=== PATIENT | male | born 1945 | race Caucasian/White ===

== ENCOUNTER 2020-07-08 10:28 | Outpatient (REF) | payer MEDICARE, MEDICAID, SELFPAY ==
[2020-07-08 10:53] LABS: MANUAL DIFF FLAG NO
[2020-07-08 10:57] LABS: Basophils Percent Auto 0.5 % (0-2); Eosinophils Absolute Auto 0.2 X10*3/uL (0.0-0.4); Eosinophils Percent Auto 2.4 % (0-4); Hematocrit 43.2 % (42-52); Hemoglobin 14.2 g/dl (14.0-18.0); Imm Gran Abs Auto 0.04 X10*3/uL (0.00-0.03); Imm Gran Pct Auto 0.5 % (0.0-0.4); Lymphocytes Absolute Auto 1.7 X10*3/uL (1.2-4.9); Lymphocytes Percent Auto 21.9 % (20-40); Mean Corpuscular HGB Conc 32.9 g/dl (31.0-36.0); Mean Corpuscular Hemoglobin 30.7 pg (27.0-33.0); Mean Corpuscular Volume 93.3 fL (80-98); Mean Platelet Volume 10.2 fL (9.4-12.4); Monocytes Absolute Auto 0.5 X10*3/uL (0.1-1.2); Monocytes Percent Auto 6.7 % (2-11); Neutrophils Absolute Auto 5.3 X10*3/uL (2.0-8.3); Platelet Count 222 X10*3/uL (160-400); Red Blood Count 4.63 X10*6/uL (4.60-5.80); Red Cell Distribution Width 13.3 % (11.0-16.0); White Blood Count 7.8 X10*3/uL (4.8-10.8)
[2020-07-08 11:41] LABS: Alanine Aminotransferase 17 U/L (0-40); Albumin Level 3.9 g/dL (3.5-5.0); Alkaline Phosphatase 82 U/L (39-117); Anion Gap 12 (12-20); Aspartate Amino Transferase 16 U/L (5-37); Blood Urea Nitrogen 14 mg/dL (9-16); Calcium 8.3 mg/dL (8.4-10.2); Carbon Dioxide 34 mmol/L (22-29); Chloride 98 mmol/L (96-108); Cholesterol 109 mg/dL; Estimated Glomerular Filt Rate > 60; Glucose Fasting 151 mg/dL (60-99); HDL Cholesterol 28 mg/dL; LDL Cholesterol Calculated 56 mg/dl; Potassium 4.1 mmol/L (3.3-5.1); Sodium 140 mmol/L (135-145); Total Protein 7.1 g/dL (6.5-8.0); Triglycerides 126 mg/dL
== END 2020-07-08 10:29 | disposition home or self-care (01) ==
LOC: HO.LAB 10:28
PROVIDERS: Visit Provider Nurse Practitioner Family
DX: E11.9 Type 2 diabetes mellitus without complications (principal); E78.00 Pure hypercholesterolemia, unspecified; Z12.5 Encounter for screening for malignant neoplasm of prostate
CPT/HCPCS: 36415; 80053; 80061; 84153; 85025

== ENCOUNTER 2022-09-26 11:53 | Emergency (ER) | payer MEDICARE, MEDICAID, SELFPAY ==
--- NOTE | ~2022-09-26 | CT_ITS ---
EXAMINATION: CT HEAD WITHOUT CONTRAST CLINICAL INFORMATION: On blood thinners. Weakness. COMPARISON: None. TECHNIQUE: Contiguous axial imaging was performed from the skull base to vertex without intravenous administration of contrast. Coronal and sagittal reformatted images are performed at the CT scanner. [This CT examination was performed using dose optimization techniques as appropriate, variously including the following: *Automated exposure control *Adjustment of mA and/or kV according to patient size (this includes techniques or standardized protocols for targeted exams where dose is matched to indication/reason for exam; i.e. extremities or head) *Use of iterative reconstruction technique] DLP: 695 mGy-cm. FINDINGS: There is no evidence of acute intracranial hemorrhage or territorial infarction. No abnormal mass-effect or midline shift is seen. Sanchez to white matter differentiation is well preserved. No extra-axial fluid collections are identified. The ventricles are normal in size. There is no abnormal attenuation within the brain parenchyma. There is no osseous abnormality. Complete opacification of the sphenoid sinuses. Mucosal thickening in scattered areas involving sinuses opacification of the posterior ethmoid sinuses. Lobular mucosal thickening in the inferior left maxillary sinus. The mastoid air cells and middle ear cavities are normally aerated. CT/CT head/brain wo IV con IMPRESSION: No acute intracranial pathology.
--- NOTE | ~2022-09-26 | XR_ITS ---
EXAMINATION: XR CHEST CLINICAL INFORMATION: Chest pain COMPARISON: Previous chest x-ray March 2007 TECHNIQUE: Frontal view of the chest was obtained. FINDINGS: The cardiac and mediastinal contours are stable. 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 The lungs are clear. No pleural effusion or pneumothorax. Degenerative changes of the spine and shoulders. Median sternotomy. XR/XR chest 1V IMPRESSION: No evidence for acute disease in the chest.
--- NOTE | 2022-09-26 12:02 | ECG_ITS ---
Test Reason : chest pain Blood Pressure : / mmHG Vent. Rate : 075 BPM Atrial Rate : 000 BPM P-R Int : 000 ms QRS Dur : 102 ms QT Int : 396 ms P-R-T Axes : 000 045 066 degrees QTc Int : 442 ms Atrial fibrillation Possible Inferior infarct (cited on or before 15-NOV-2004) Abnormal ECG When compared with ECG of 23-SEP-2005 09:32, Atrial fibrillation has replaced Sinus rhythm Referred By: Generic ED Physician Electronically Signed By:SUPRIYA GILLEPSIE
[2022-09-26 12:05] VITALS: BP 148/80; PULSE 80; O2SAT 98
[2022-09-26 12:29] VITALS: BP 126/73; PULSE 78; RESP 22; TEMP 36.6; O2SAT 97; BMI 31.4
[2022-09-26 12:53] LABS: MANUAL DIFF FLAG NO
[2022-09-26 12:54] LABS: Basophils Absolute Auto 0.1 X10*3/uL (0.0-0.2); Basophils Percent Auto 0.6 % (0-2); Eosinophils Absolute Auto 0.1 X10*3/uL (0.0-0.4); Eosinophils Percent Auto 1.3 % (0-4); Hemoglobin 14.4 g/dl (14.0-18.0); Imm Gran Abs Auto 0.04 X10*3/uL (0.00-0.03); Imm Gran Pct Auto 0.4 % (0.0-0.4); Lymphocytes Absolute Auto 1.8 X10*3/uL (1.2-4.9); Lymphocytes Percent Auto 19.7 % (20-40); Mean Corpuscular HGB Conc 32.7 g/dl (31.0-36.0); Mean Corpuscular Hemoglobin 29.9 pg (27.0-33.0); Mean Corpuscular Volume 91.5 fL (80.0-98.0); Mean Platelet Volume 8.9 fL (9.4-12.4); Monocytes Absolute Auto 0.6 X10*3/uL (0.1-1.2); Monocytes Percent Auto 6.8 % (2-11); Neutrophils Absolute Auto 6.7 x10*3/uL (2.0-8.3); Neutrophils Percent Auto 71.2 % (45-73); Platelet Count 304 X10*3/uL (160-400); Red Blood Count 4.81 X10*6/uL (4.60-5.80); Red Cell Distribution Width 13.7 % (11.0-16.0); White Blood Count 9.4 X10*3/uL (4.8-10.8)
[2022-09-26 13:13] LABS: Anion Gap 15 (12-20); Blood Urea Nitrogen 12 mg/dL (9-16); Calcium 9.3 mg/dL (8.4-10.2); Carbon Dioxide 31 mmol/L (22-29); Chloride 96 mmol/L (96-108); Creatinine Clr Calc Pharmacy 70.7; Estimated Glomerular Filt Rate > 60; Glucose Random 238 mg/dL (60-115); Potassium 4.7 mmol/L (3.3-5.1); Sodium 137 mmol/L (135-145)
[2022-09-26 13:15] LABS: B Type Natriuretic Peptide 106 pg/mL (<100); Troponin-I High Sensitivity 9.9 ng/L (<3.5-35.0)
--- NOTE | 2022-09-26 13:18 | ED.CHESTPAIN ---
HPI - Chest Pain General Chief Complaint: Chest Pain Stated Complaint: chest pain x 2 weeks Time Seen by Provider: 09/26/22 12:54 Source: patient and educational interpreter History of Present Illness HPI narrative: This 77-year-old male with history of atrial fibrillation, diabetes, hypertension who has returned recently from [place] on 09/23 and reports that during his stay in [place] he had a 5 day admission for increased weakness and difficulty with walking. Patient states that he took his prescribed medications with him to [place] and denies missing any. Patient reports left-sided chest pain that started this morning, woke him from sleep, and is nonradiating, comes and goes and not associated with any dizziness/shortness of breath/headache/nausea/diaphoresis. Patient also complains of lung problems and is noted to be on diuretics and reports that he has had increasing weakness and fatigue. Related Data Home Medications Medication Instructions Recorded Confirmed albuterol sulfate 2 mg/5 mL oral 4 mg PO Q4H 07/06/20 07/06/20 syrup albuterol sulfate 2.5 mg/3 mL 2.5 mg inhalation Q4H PRN 07/06/20 07/06/20 (0.083 %) solution for nebulization atorvastatin 40 mg tablet 40 mg PO DAILY 07/06/20 07/06/20 blood sugar diagnostic #10 ea 07/06/20 07/06/20 blood-glucose meter (OneTouch #1 ea 07/06/20 07/06/20 Ultra2 Meter kit) carvedilol 12.5 mg tablet 12.5 mg PO BID 07/06/20 07/06/20 fluticasone 250 mcg-salmeterol 50 1 inh inhalation BID 07/06/20 07/06/20 mcg/dose blistr powdr for inhalation (Wixela Inhub) nitroglycerin 0.4 mg sublingual 0.4 mg sublingual Q5M PRN 07/06/20 07/06/20 tablet pantoprazole 40 mg tablet,delayed 40 mg PO DAILY 07/06/20 07/06/20 release tamsulosin 0.4 mg capsule 0.4 mg PO DAILY 07/06/20 07/06/20 warfarin 5 mg tablet 5 mg PO DAILY 07/06/20 07/06/20 Previous Rx's Medication Instructions Recorded glipizide 10 mg tablet 10 mg PO DAILY 30 days #30 tabs 07/15/20 lancets (OneTouch UltraSoft #100 ea 07/15/20 Lancets) lisinopril 2.5 mg tablet 2.5 mg PO DAILY 2 months #60 tabs 07/15/20 sulfamethoxazole 800 1 tab PO BID 10 days #20 tabs 07/20/20 mg-trimethoprim 160 mg tablet (Bactrim DS) cefdinir 300 mg capsule 300 mg PO BID 7 days #14 caps 09/26/22 Allergies Allergy/AdvReac Type Severity Reaction Status Date / Time Penicillins Allergy Hives Verified 09/26/22 12:29 Review of Systems Review of Systems: Pertinent positives and negatives as stated in [facility] Past Medical History Source: nursing notes reviewed Medical History Active asthma COVID-19 Diabetes Diabetes Heart attack High cholesterol Hypertension Pulmonary embolism Pulmonary embolism UTI (urinary tract infection) Surgical History History of open heart surgery Family History Family History Mother Heart problem Father Heart problem Social History Social History Alcohol intake: never Advance Directives: Yes Advance Directives on File: Yes Advance Directives Date on File: 07/17/20 Physical Exam Vital Signs: Vital Signs: Last Vital Signs Temp 97.4 F 09/26/22 14:55 Pulse 62 09/26/22 14:55 Resp 22 H 09/26/22 14:55 BP 106/64 09/26/22 14:55 Pulse Ox 95 09/26/22 14:55 O2 Del Method Room Air 09/26/22 14:55 BMI result Body Mass Index 31.4 VITAL SIGNS: Reviewed. GENERAL: Well developed, well nourished, in no acute distress. HEAD: Normocephalic/atraumatic EYES: PERRLA, EOMI EARS: Ext canals without abnormality NOSE: Nares patent bilateral OROPHARYNX: no oral lesions noted, posterior pharynx clear NECK: Supple, no adenopathy LUNGS: Patient has good inspiratory effort with noted right lower lobe rales, no tachypnea or wheeze/rhonchi. SpO2<97> CARDIOVASCULAR: Regular rate and rhythm without noted murmurs, no JVD or lower extremity edema. ABDOMEN: Soft, non-tender, non-distended with bowel sounds. MUSCULOSKELETAL: No tenderness, deformities, or effusions noted on gross inspection. EXTREMITIES: No cyanosis, clubbing or edema. SKIN: Inspection of the skin reveals no rashes NEUROLOGIC: Alert and oriented x 4. Strength and sensation to light touch were grossly intact x 4, patient's face is asymmetrical but states that this is his baseline and no deficits noted on active examination, cranial nerves 2-12 are grossly intact, no pronator drift.. Medications Administered Discontinued Medications Generic Name Dose Route Start Last Admin Trade Name Freq PRN Reason Stop Dose Admin Furosemide 20 mg 09/26/22 16:21 09/26/22 16:38 Furosemide 20 Mg Tablet PO 09/26/22 16:22 20 mg ONCE ONE Administration Protocol Ceftriaxone Sodium 1 gm/ 50 mls @ 100 mls/hr 09/26/22 15:27 09/26/22 16:40 Sodium Chloride IV 09/26/22 15:56 Infused ONCE ONE Infusion Medical Decision Making Medical Decision Making MDM Narrative: 77-year-old male with suspected decline in cardiac function, will assess PT INR for therapeutic range given that he is on Coumadin and has known PE. If indicated, will follow through with CT angio for with PE protocol especially given long flights in an out of [place] and no access to those records at the hospital. He is however oxygenating well, blood pressure is stable heart rate not indicative as patient is on a beta-luiz. 1506: I reviewed all investigations and clinically patient has some rales though no hypoxia and no significant lower extremity edema with a mildly elevated BNP. Will give additional 20 mg of Lasix at this time. INR is noted to be supratherapeutic, any evaluation by PT are case management for possible short-term rehab as patient is requesting will be unlikely at this time due to INR of 7. EKG appears to be within normal limits, low clinical suspicion for any PE at this point secondary to supratherapeutic level of the Coumadin, CT scan is pending to ensure no intracranial etiology for overall weakness. On re-evaluation patient continues to be nonfocal and otherwise appear well. Records have been request from [facility]. 1526: Urine was just return and has presence of both leukocyte esterase as well as greater than 50 wbc's no squamous epithelial cells and hyaline casts 3-5. There is no leukocytosis and no complaints of fever chills but it is will treat for urinary tract infection at this time with initial dose of Rocephin. 1607: On re-evaluation discussed with patient the fact that his INR was elevated and that he had a urinary tract infection and he further elaborates that he was on antibiotic he finished 2 days ago and had received a Fragoso catheter while in [place]. He states that he thinks that the antibiotic that he was on may have interfered with his Coumadin. He informs me that his primary care doctor is Dr. Sousa and will attempt to reach out to this primary care provider to set up outpatient follow-up and have instructed the patient to stop taking the Coumadin until his INR resolves down into the normal range. 1710: I discussed the case with Dr. Sousa's office and they made an appointment for the patient on Monday at 11:15. This will be communicated to him, patient has received initial antibiotics here in the emergency room. He also received a referral for Urology. He is otherwise discharged home in stable condition, serial troponins are flat and no EKG changes. Differential Diagnosis Please see the discussion above Lab Data Please see the discussion above 09/26/22 12:46 09/26/22 12:46 Labs: Lab Results 09/26/22 09/26/22 09/26/22 Range/Units 12:46 12:46 12:46 WBC 9.4 (4.8-10.8) X10*3/uL RBC 4.81 (4.60-5.80) X10*6/uL Hgb 14.4 (14.0-18.0) g/dl Hct 44.0 (42.0-52.0) % MCV 91.5 (80.0-98.0) fL MCH 29.9 (27.0-33.0) pg MCHC 32.7 (31.0-36.0) g/dl RDW 13.7 (11.0-16.0) % Plt Count 304 (160-400) X10*3/uL MPV 8.9 L (9.4-12.4) fL Immature Gran % (Auto) 0.4 (0.0-0.4) % Neut % (Auto) 71.2 (45-73) % Lymph % (Auto) 19.7 L (20-40) % [place] % (Auto) 6.8 (2-11) % Eos % (Auto) 1.3 (0-4) % Baso % (Auto) 0.6 (0-2) % Lymph # (Auto) 1.8 (1.2-4.9) X10*3/uL [place] # (Auto) 0.6 (0.1-1.2) X10*3/uL Eos # (Auto) 0.1 (0.0-0.4) X10*3/uL Baso # (Auto) 0.1 (0.0-0.2) X10*3/uL Abs Immat Gran (auto) 0.04 H (0.00-0.03) X10*3/uL Absolute Neuts (auto) 6.7 (2.0-8.3) x10*3/uL Absolute Nucleated RBC 0.000 (0.0-0.012) X10*3/uL Nucleated RBC % (auto) 0.0 (0.0-0.2) /100WBC PT (10.0-13.1) SEC INR (0.9-1.1) Sodium 137 (135-145) mmol/L Potassium 4.7 (3.3-5.1) mmol/L Chloride 96 (96-108) mmol/L Carbon Dioxide 31 H (22-29) mmol/L Anion Gap 15 (12-20) BUN 12 (9-16) mg/dL Creatinine 1.11 (0.5-1.4) mg/dL Estim Creat Clear Calc 70.7 Estimated GFR > 60 Random Glucose 238 H (60-115) mg/dL Calcium 9.3 D (8.4-10.2) mg/dL Troponin I High Sens 9.9 (<3.5-35.0) ng/L B-Natriuretic Peptide (<100) pg/mL Urine Color Urine Appearance Urine pH (5.0-9.0) Ur Specific [place] (1.005-1.025) Urine Protein (Neg-Trace) mg/dL Urine Glucose (UA) (Negative) mg/dL Urine Ketones (Negative) mg/dL Urine Blood (Negative) Urine Nitrite (Negative) Ur Leukocyte Esterase (Negative) Urine RBC (0-2) /HPF Urine WBC (0-5) /HPF Ur Squamous Epith Cells (0-2) /HPF Urine Bacteria (None Seen) Hyaline Casts (0-2) /LPF 09/26/22 09/26/22 09/26/22 Range/Units 12:46 13:24 14:57 WBC (4.8-10.8) X10*3/uL RBC (4.60-5.80) X10*6/uL Hgb (14.0-18.0) g/dl Hct (42.0-52.0) % MCV (80.0-98.0) fL MCH (27.0-33.0) pg MCHC (31.0-36.0) g/dl RDW (11.0-16.0) % Plt Count (160-400) X10*3/uL MPV (9.4-12.4) fL Immature Gran % (Auto) (0.0-0.4) % Neut % (Auto) (45-73) % Lymph % (Auto) (20-40) % [place] % (Auto) (2-11) % Eos % (Auto) (0-4) % Baso % (Auto) (0-2) % Lymph # (Auto) (1.2-4.9) X10*3/uL [place] # (Auto) (0.1-1.2) X10*3/uL Eos # (Auto) (0.0-0.4) X10*3/uL Baso # (Auto) (0.0-0.2) X10*3/uL Abs Immat Gran (auto) (0.00-0.03) X10*3/uL Absolute Neuts (auto) (2.0-8.3) x10*3/uL Absolute Nucleated RBC (0.0-0.012) X10*3/uL Nucleated RBC % (auto) (0.0-0.2) /100WBC PT 90.4 H (10.0-13.1) SEC INR 7.2 H* (0.9-1.1) Sodium (135-145) mmol/L Potassium (3.3-5.1) mmol/L Chloride (96-108) mmol/L Carbon Dioxide (22-29) mmol/L Anion Gap (12-20) BUN (9-16) mg/dL Creatinine (0.5-1.4) mg/dL Estim Creat Clear Calc Estimated GFR Random Glucose (60-115) mg/dL Calcium (8.4-10.2) mg/dL Troponin I High Sens (<3.5-35.0) ng/L B-Natriuretic Peptide 106 H (<100) pg/mL Urine Color Yellow Urine Appearance Cloudy Urine pH 7.0 (5.0-9.0) Ur Specific [place] 1.015 (1.005-1.025) Urine Protein 30 (1+) H (Neg-Trace) mg/dL Urine Glucose (UA) Negative (Negative) mg/dL Urine Ketones Negative (Negative) mg/dL Urine Blood Negative (Negative) Urine Nitrite Negative (Negative) Ur Leukocyte Esterase Large (3+) H (Negative) Urine RBC 0-2 (0-2) /HPF Urine WBC >50 H (0-5) /HPF Ur Squamous Epith Cells 0-2 (0-2) /HPF Urine Bacteria 3+ (None Seen) Hyaline Casts 3-5 (0-2) /LPF 09/26/22 Range/Units 15:16 WBC (4.8-10.8) X10*3/uL RBC (4.60-5.80) X10*6/uL Hgb (14.0-18.0) g/dl Hct (42.0-52.0) % MCV (80.0-98.0) fL MCH (27.0-33.0) pg MCHC (31.0-36.0) g/dl RDW (11.0-16.0) % Plt Count (160-400) X10*3/uL MPV (9.4-12.4) fL Immature Gran % (Auto) (0.0-0.4) % Neut % (Auto) (45-73) % Lymph % (Auto) (20-40) % [place] % (Auto) (2-11) % Eos % (Auto) (0-4) % Baso % (Auto) (0-2) % Lymph # (Auto) (1.2-4.9) X10*3/uL [place] # (Auto) (0.1-1.2) X10*3/uL Eos # (Auto) (0.0-0.4) X10*3/uL Baso # (Auto) (0.0-0.2) X10*3/uL Abs Immat Gran (auto) (0.00-0.03) X10*3/uL Absolute Neuts (auto) (2.0-8.3) x10*3/uL Absolute Nucleated RBC (0.0-0.012) X10*3/uL Nucleated RBC % (auto) (0.0-0.2) /100WBC PT (10.0-13.1) SEC INR (0.9-1.1) Sodium (135-145) mmol/L Potassium (3.3-5.1) mmol/L Chloride (96-108) mmol/L Carbon Dioxide (22-29) mmol/L Anion Gap (12-20) BUN (9-16) mg/dL Creatinine (0.5-1.4) mg/dL Estim Creat Clear Calc Estimated GFR Random Glucose (60-115) mg/dL Calcium (8.4-10.2) mg/dL Troponin I High Sens 9.4 (<3.5-35.0) ng/L B-Natriuretic Peptide (<100) pg/mL Urine Color Urine Appearance Urine pH (5.0-9.0) Ur Specific [place] (1.005-1.025) Urine Protein (Neg-Trace) mg/dL Urine Glucose (UA) (Negative) mg/dL Urine Ketones (Negative) mg/dL Urine Blood (Negative) Urine Nitrite (Negative) Ur Leukocyte Esterase (Negative) Urine RBC (0-2) /HPF Urine WBC (0-5) /HPF Ur Squamous Epith Cells (0-2) /HPF Urine Bacteria (None Seen) Hyaline Casts (0-2) /LPF Independent Interpretation I performed an independent interpretation of an: EKG Interpretation: Atrial fibrillation, HR-75, no STEMI, QTC and QRS within normal limits. Radiology Impression Radiologist Impression: My interpretation is in agreement with radiology's impression. External Record Review External record reviewed: Prior outpatient labs Discharge Plan Discharge Clinical Impression: Weakness, Supratherapeutic INR Patient Disposition: Still a Patient Instructions: Urinary Tract Infection in Men (ED), Weakness (ED), Urinary Tract Infection in Older Adults (ED) Additional Instructions: 1. Reanudar todos los medicamentos caseros excepto Coumadin (warfarina). Deber? volver a controlar keen INR en los pr?ximos 2 o 3 d?as antes de reiniciar el Coumadin. 2. Complete todo el ciclo de antibi?ticos seg?n lo indicado. 3. Se le ingram derivado para seguimiento con urolog?a por sospecha de BPH y retenci?n urinaria. 4. Llame al consultorio del ur?logo as? vani a keen proveedor de atenci?n primaria para programar citas de seguimiento. tienes ariana marcelino el mi?rcoles 28/09 a las 11:[address] Sousa Regrese a la leydi de emergencias por cualquier s?ntoma que empeore, tambi?n podr?mallory repetir keen trabajo de laboratorio si es necesario. 1. Resume all home medications except Coumadin (warfarin). You will need to have your INR checked again in the next 2-3 days before restarting the Coumadin. 2. Complete the entire course of antibiotics as ordered. 3. You have been given a referral to follow-up with urology for suspected BPH and urinary retention. 4. Please call the office of the urologist as well as your primary care provider to set up follow-up appointments. you have an appointment on Monday, 09/28, at 11:[address] Sousa Return to the ER for any worsening symptoms, we would also be able to repeat your lab work if needed. Prescriptions: New cefdinir 300 mg capsule 300 mg PO BID 7 Days Qty: 14 0RF Held warfarin 5 mg tablet 5 mg PO DAILY Hold Instructions: Resume on 09/30/22. INR must be 2-3, currently 7 No Action glipizide 10 mg tablet 10 mg PO DAILY 30 Days Qty: 30 0RF lisinopril 2.5 mg tablet 2.5 mg PO DAILY 60 Days Qty: 60 0RF (DME) lancets [OneTouch UltraSoft Lancets] Misc See Rx Instructions .ROUTE .MEDSUPPLY Qty: 100 0RF Rx Instructions: As directed albuterol sulfate 2 mg/5 mL syrup 4 mg PO Q4H albuterol sulfate 2.5 mg /3 mL (0.083 %) solution for nebulization 2.5 mg inhalation Q4H PRN atorvastatin 40 mg tablet 40 mg PO DAILY carvedilol 12.5 mg tablet 12.5 mg PO BID Rx Instructions: must administer with a meal/food nitroglycerin 0.4 mg tablet, sublingual 0.4 mg sublingual Q5M PRN Rx Instructions: do not exceed 3 doses per episode (DME) blood-glucose meter [OneTouch Ultra2 Meter] Kit See Rx Instructions .ROUTE .MEDSUPPLY Qty: 1 Patient Comments: bid Rx Instructions: As directed (DME) blood sugar diagnostic Strip See Rx Instructions .ROUTE .MEDSUPPLY Qty: 10 Patient Comments: use bid Rx Instructions: As directed pantoprazole 40 mg tablet,delayed release (DR/EC) 40 mg PO DAILY tamsulosin 0.4 mg capsule 0.4 mg PO DAILY Rx Instructions: use 30 minutes after same meal every day. fluticasone propion-salmeterol [Wixela Inhub] 250-50 mcg/dose blister with device 1 inh inhalation BID sulfamethoxazole-trimethoprim [Bactrim DS] 800-160 mg tablet 1 tab PO BID 10 Days Qty: 20 0RF Referrals: Miguel Sousa MD [Primary Care Provider] - 09/28/22 11:15 am Vinod Stevens MD [Physician] - Print Language: Danish
[2022-09-26 13:44] LABS: Prothrombin Time 90.4 SEC (10.0-13.1)
[2022-09-26 13:56] LABS: INTERNATIONAL NORM RATIO 7.2 (0.9-1.1)
[2022-09-26 14:55] VITALS: BP 106/64; PULSE 62; RESP 22; TEMP 36.3; O2SAT 95
[2022-09-26 15:12] LABS: Appearance Urine Cloudy; Color Urine Yellow; Glucose Urine UA Negative (Negative); Leukocyte Esterase Urine Large (3+) (Negative); Nitrite Urine Negative (Negative); Specific Gravity - Urine 1.015 (1.005-1.025); UMIC TRIGGER UACC YES; Urine Blood Negative (Negative); Urine Ketones Negative (Negative); Urine Protein 30 (1+) mg/dL (Neg-Trace)
[2022-09-26 15:15] LABS: Bacteria Urine 3+ (None Seen); RBC Urine 0-2 /HPF (0-2); Squamous Epithelial Cell Urine 0-2 /HPF (0-2); UACC Culture Trigger YES; WBC Urine >50 /HPF (0-5)
[2022-09-26 15:42] LABS: Troponin-I High Sensitivity 9.4 ng/L (<3.5-35.0)
[2022-09-26] MEDS: cefTRIAXone sodium 1 GM in 0.9 % Sodium Chloride 50 ML IV (16:11)
[2022-09-26] MEDS: Furosemide 20 MG TABLET PO (16:38)
== END 2022-09-26 17:49 | disposition home or self-care (01) ==
PROVIDERS: Emergency Provider Student in an Organized Health Care Education/Training Program; PCP Internal Medicine
DX: R53.1 Weakness (principal); R79.1 Abnormal coagulation profile; N39.0 Urinary tract infection, site not specified; B96.20 Unspecified Escherichia coli [E. coli] as the cause of diseases classified elsewhere; R07.9 Chest pain, unspecified; E11.9 Type 2 diabetes mellitus without complications; I10 Essential (primary) hypertension; E78.00 Pure hypercholesterolemia, unspecified; I48.91 Unspecified atrial fibrillation; Z86.711 Personal history of pulmonary embolism; Z79.02 Long term (current) use of antithrombotics/antiplatelets; Z79.01 Long term (current) use of anticoagulants; Z79.899 Other long term (current) drug therapy
CPT/HCPCS: 36415; 51798; 70450; 71045; 80048; 81001; 83880; 84484; 85025; 85610; 87086; 87088; 87186; 93005; 96365; 99284; 99285; J0696

== ENCOUNTER 2022-09-28 11:44 | Emergency (ER) | payer MEDICARE, MEDICAID, SELFPAY ==
--- NOTE | ~2022-09-28 | XR_ITS ---
EXAMINATION: XR CHEST CLINICAL INFORMATION: SOB COMPARISON: None available. TECHNIQUE: 2 views of the chest were obtained. FINDINGS: The lungs are well-expanded and clear acute process. The heart size and pulmonary vascularity is normal. There are median sternotomy sutures from previous intervention. There is nytc-[id number]-[id number] ventral spondylosis. No aggressive lytic or sclerotic process seen. XR/XR chest 2V IMPRESSION: No acute cardiopulmonary process seen.
--- NOTE | ~2022-09-28 | CT_ITS ---
EXAMINATION: CT ABDOMEN AND PELVIS WITH CONTRAST CLINICAL INFORMATION: Left upper quadrant and left lower quadrant abdominal pain. COMPARISON: None available. TECHNIQUE: Multidetector volumetric images were obtained from the superior aspect of the liver through the pubic symphysis following administration 85 mL of Omnipaque 350 intravenous contrast. Sagittal and coronal reformatted images were obtained on the technologist's workstation. Oral contrast: No This CT examination was performed using dose optimization techniques as appropriate, variously including the following: *Automated exposure control *Adjustment of mA and/or kV according to patient size (this includes techniques or standardized protocols for targeted exams where dose is matched to indication/reason for exam; i.e. extremities or head) *Use of iterative reconstruction technique DLP: 764 mGy-cm FINDINGS: LUNG BASES: There is bibasilar atelectasis. Heart size is normal. There is mild 80 valve and moderate coronary artery calcifications. No pericardial effusion seen LIVER, GALLBLADDER, AND BILIARY TREE: The liver is normal in size, shape, and attenuation. No focal hepatic lesion or biliary ductal dilatation is present. The gallbladder is unremarkable with no evidence of radiopaque gallstones, gallbladder wall thickening, or obvious pericholecystic inflammatory changes. PANCREAS: Unremarkable. SPLEEN: Unremarkable. ADRENAL GLANDS: Unremarkable. KIDNEYS AND URETERS: The kidneys are normal in size, shape, and attenuation. No hydronephrosis, hydroureter, or calculi seen. With small cortical nonenhancing hypodensities in bilateral kidneys probable small cyst. There is mild bilateral perinephric stranding. BLADDER: The bladder is nondistended with mild bladder wall thickening. GASTROINTESTINAL TRACT: There is diffuse colonic diverticulosis with mild mural thickening or pericolic fat containing and the distal descending colon consistent with acute diverticulitis. There is no abnormal collection or free air. There is scattered stool seen rest the colon. The small bowel loops are normal caliber. Appendix is not visualized with certainty. The stomach is nondistended. ABDOMINAL WALL: No significant hernia is appreciated. LYMPH NODES: No abnormal lymph nodes seen. VASCULAR: Unremarkable. PELVIC VISCERA: The prostate gland is normal size. No free fluid seen. No abnormal pelvic lymph nodes. No evidence of hernia. OSSEOUS STRUCTURES: No aggressive lytic or sclerotic process seen. There is mild ventral spondylosis. CT/CT abdomen pelvis w IV con IMPRESSION: Colonic diverticulosis with distal descending colon acute diverticulitis. No obstruction, free air or fluid collection. Mild constipation. Small nonenhancing tiny renal hypodensities probable cyst. Fleischner guidelines were followed.
--- NOTE | 2022-09-28 11:49 | ED_ITS ---
HPI - General Adult General Chief complaint: Urogenital-Male Stated complaint: Fluid Buildup SOB Pain Time Seen by Provider: 09/28/22 14:38 Source: patient, family and japanese interpreter Mode of arrival: ambulatory Limitations: language barrier History of Present Illness HPI narrative: Patient is a 77-year-old male with history of atrial fibrillation on warfarin, DM, HTN presenting to the emergency department with dyspnea and abdominal pain. Patient was evaluated in this ED on 09/26/22 and was diagnosed with UTI and s upratherapeutic INR. He was started on cefdinir and told to hold his warfarin until 09/30/22. He had a follow up appointment with Dr. Sousa, his PCP this morning who referred patient to the ED. Patient complains of lower abdominal pain with ambulation and dyspnea on exertion. He also complains of feeling more weak. He also reports right flank pain. He denies any chest pain. Denies any fevers. He denies any nausea, vomiting, diarrhea, or constipation. He denies any melena or hematochezia. He denies any hematuria. MD complaint: abdominal pain Onset (ago): day(s) Location: abdomen Radiation: flank (right) Severity: severe Quality: aching Pain Consistency: constant Treatments prior to arrival: other (currently on abx for UTI) Related Data Home Medications Medication Instructions Recorded Confirmed albuterol sulfate 2.5 mg/3 mL 2.5 mg inhalation Q4H PRN 07/06/20 09/29/22 (0.083 %) solution for nebulization Shortness Of Breath Or Wheezing blood sugar diagnostic #10 ea 07/06/20 07/06/20 blood-glucose meter (OneTouch #1 ea 07/06/20 07/06/20 Ultra2 Meter kit) carvedilol 12.5 mg tablet 12.5 mg PO BID 07/06/20 09/29/22 nitroglycerin 0.4 mg sublingual 0.4 mg sublingual Q5M PRN Chest 07/06/20 09/29/22 tablet Pain tamsulosin 0.4 mg capsule 0.4 mg PO DAILY 07/06/20 09/29/22 warfarin 5 mg tablet 5 mg PO SUTH@1800 07/06/20 09/29/22 atorvastatin 10 mg tablet 10 mg PO BEDTIME 09/29/22 09/29/22 cyanocobalamin (vitamin B-12) 500 500 mcg PO DAILY 09/29/22 09/29/22 mcg tablet donepezil 5 mg tablet 5 mg PO BEDTIME 09/29/22 09/29/22 dulaglutide 3 mg/0.5 mL 3 mg subcut ARRIOLA@0900 09/29/22 09/29/22 subcutaneous pen injector (Trulicity) finasteride 5 mg tablet 5 mg PO BEDTIME 09/29/22 09/29/22 furosemide 40 mg tablet 40 mg PO DAILY 09/29/22 09/29/22 lisinopril 5 mg tablet 5 mg PO DAILY 09/29/22 09/29/22 metformin 1,000 mg tablet 1,000 mg PO BID 09/29/22 09/29/22 potassium chloride 20 mEq 20 meq PO DAILY 09/29/22 09/29/22 tablet,extended release warfarin 5 mg tablet 2.5 mg PO MOTUWEFRSA@1800 09/29/22 09/29/22 Previous Rx's Medication Instructions Recorded lancets (Gun.ioTouch UltraSoft #100 ea 07/15/20 Lancets) levofloxacin 500 mg tablet 500 mg PO DAILY #5 tabs 09/29/22 metronidazole 500 mg tablet 500 mg PO BID #10 tabs 09/29/22 Allergies Allergy/AdvReac Type Severity Reaction Status Date / Time Penicillins Allergy Hives Verified 09/26/22 12:29 Review of Systems Review of Systems: As per HPI. Yes all other systems are reviewed and are negative Constitutional: Constitutional: Reports fatigue, Denies fever(s) and Reports weakness Eyes: Eyes: Reports no additional eye complaints ENT: Reports system reviewed and no additional complaints, except as documented Cardiovascular: Cardiovascular: Reports no additional cardiovascular complaints and Reports dyspnea on exertion Respiratory: Respiratory: Reports dyspnea on exertion Gastrointestinal: Gastrointestinal: Reports abdominal pain, Denies melena and Denies hematochezia Genitourinary: Genitourinary: Denies hematuria and Reports flank pain Musculoskeletal: Musculoskeletal: Reports no additional musculoskeletal complaints Integumentary/Breasts: Skin/Breast: Reports system reviewed and no additional complaints, except as docu Neurologic: Reports system reviewed and no additional complaints, except as documented and Reports weakness Psychiatric: Psychiatric: Reports no additional psychiatric complaints Endocrine: Endocrine: Reports no additional endocrine complaints and Reports fatigue Hematologic/Lymphatic: Hematologic/Lymphatic: Reports no additional hematologic/lymphatic complaints Allergic/Immunologic: Allergic/Immunologic: Reports no additional allergic/immunologic complaints [facility] Past Medical History Medical History Active asthma COVID-19 Diabetes Diabetes Heart attack High cholesterol Hypertension Pulmonary embolism Pulmonary embolism UTI (urinary tract infection) Surgical History History of open heart surgery Family History Family History Mother Heart problem Father Heart problem Social History Social History Alcohol intake: never Advance Directives: Yes Advance Directives on File: Yes Advance Directives Date on File: 07/17/20 Physical Exam ED Vital Signs: Vital Signs - 24 hr 09/28/22 15:32 09/28/22 18:27 09/28/22 21:34 Temperature 98.2 F 98.6 F 98.8 F Pulse Rate 75 82 78 Respiratory Rate 18 16 22 H Blood Pressure 104/65 114/67 104/68 Pulse Oximetry 95 97 94 Oxygen Delivery Method Room Air Room Air 09/29/22 00:08 Temperature 98.0 F Pulse Rate 76 Respiratory Rate 18 Blood Pressure 119/71 Pulse Oximetry 92 Oxygen Delivery Method Room Air BMI result Body Mass Index 31.4 Vital signs have been reviewed and appear to be correct. Blood pressure normal. Heart rate normal. Respiratory rate normal. Temperature normal. Oxygen saturation normal. Const General: cooperative and no acute distress Orientation/consciousness: oriented to person, oriented to place, oriented to time and patient oriented x3 Limitations: no limitations [facility] Head: Yes normocephalic and Yes atraumatic Ears: external ears normal General nose exam: Normal external nose present Mouth: oropharynx normal and moist mucous membranes Throat: Yes uvula midline Eyes Pupils: Equal, round and reactive pupils present Neck Neck: Yes normal visual inspection and Yes supple Resp Effort & Inspection: normal respiratory effort and able to speak in complete sentences Auscultation: clear to auscultation bilaterally Cardio Rate: regular rate Heart sounds: S1 normal heart sound present and S2 normal heart sound present GI Inspection: Yes distended Palpation (GI): Soft to palpation, Tenderness to palpation present (GI) in the LLQ and in the LUQ, no guarding, no pulsatile masses and No Rebound tenderness present Auscultation: normoactive bowel sounds General: Yes no CVA tenderness Back/Spine/Pelvis Back: no CVA tenderness Skin General skin exam: elasticity normal and turgor normal Neuro General: oriented to person, oriented to place, oriented to time, patient oriented x3, moves all extremities, no focal motor deficits and CN's II-XI intact bilaterally Cranial nerves: Yes Equal, round and reactive pupils present Cognition (Neuro): normal cognition Extrem General: Yes full ROM, Yes no pedal edema and Yes no calf tenderness Psych Mental Status: mental status grossly normal Affect: normal affect Thought process: Normal thought process present Course Course Course Narrative: RME: 77-year-old male with history of atrial fibrillation, diabetes, hypertension, recently seen and treated in our ED on 09/26 diagnosed UTI and supratherapeutic INR to 7.2 presenting to the ED complaining of persistent abdominal and rib pain, & fluid in lungs per PCP. Also reports generalized fatigue/weakness. + bibasilar crackles noted. Abdomen soft diffusely tender, 1+ bilateral pitting edema EKG, labs, CXR ordered Full HPI, ROS and PE to be performed by primary ED provider. 16:06 Attempted to call patient's son to discuss PT eval/case management. Num braxton listed in EMR is incorrect. Patient currently asleep. Patient signed out to QUIRINO Hayes pending CT results. Reevaluation(s) Reevaluation #1: CT of the abdomen pelvis with colonic diverticulosis with distal descending colon acute diverticulitis. No obstruction. Free air fluid. Mild constipation. Small nonenhancing tiny renal hypodensities. Patient reports he is unable to tolerate p.o. and is in excruciating pain at this time. Will give antibiotics, fluids. Time: 00:52 Reevaluation #2: If p.o. antibiotics. Still unable to communicate with patient's son as the number the chart is not active. Discussed case with hospitalist does not req uire hospital admission will put in PT and Case Management. Time: 00:57 Reevaluation #3: physician observation continued. VSS overnight. patient has been started on levaquin and flagyl for diverticulitis. he also has E. coli UTI from 09/26 that is sensitive to levaquin. he is c/o abd pain - will start around the clock tylenol. He is able to tolerate PO, ate a cheeseburger last night. He is on coumadin with a supratherapeutic INR, so it has been held. will continue to monitor INR daily given levaquin use. no signs of bleeding. he is pending physical therapy evaluation and case management consult. Time: 06:44 Additional Reevaluation(s): 13:29 - patient seen and evaluated by Physical therapy. Patient deemed stable to go home with physical therapy and nursing services. His INR trended down to 4.4. He is on Levaquin and Flagyl for diverticulitis. He was counseled on the possibility of increasing INR while on Levaquin. He will get his INR checked in 2 days and follow up with his primary care doctor. Will discharge home with 5 more days of antibiotics for diverticulitis, close outpatient follow-up. Return precautions were discussed. Stable for discharge home. Physician observation discontinued at this time. Medications Administered Generic Name Dose Route Start Last Admin Trade Name Freq PRN Reason Stop Dose Admin Acetaminophen 975 mg 09/29/22 07:00 09/29/22 08:07 Acetaminophen 325 Mg Tablet PO 975 mg Q8H MARCO A Administration Metronidazole 500 mg 09/29/22 09:00 09/29/22 08:07 Metronidazole 500 Mg Tablet PO 500 mg BID MARCO A Administration Discontinued Medications Generic Name Dose Route Start Last Admin Trade Name Freq PRN Reason Stop Dose Admin Magnesium Sulfate 2 gm in 50 mls @ 25 mls/hr 09/28/22 14:42 09/28/22 18:01 Magnesium Sulfate/H2o IV 09/28/22 16:41 Infused ONCE ONE Infusion Iohexol 85 ml 09/28/22 15:17 09/28/22 15:19 Iohexol 350 Mg/Ml 100 Ml Infus..Btl IV 09/28/22 15:18 85 ml ONCE ONE Administration Levofloxacin 750 mg 09/29/22 00:56 09/29/22 01:01 Levofloxacin 750 Mg Tablet PO 09/29/22 00:57 750 mg ONCE ONE Administration Metronidazole 500 mg 09/29/22 00:56 09/29/22 01:01 Metronidazole 500 Mg Tablet PO 09/29/22 00:57 500 mg ONCE ONE Administration Morphine Sulfate 4 mg 09/29/22 00:35 09/29/22 00:57 Morphine Sulfate 4 Mg/Ml Cartridge IVPUSH 09/29/22 00:36 4 mg ONCE ONE Administration Protocol Medical Decision Making Medical Decision Making [facility] Narrative: Patient is a 77-year-old male with history of atrial fibrillation on warfarin, DM, HTN presenting to the emergency department with dyspnea and abdominal pain. On exam patient is awake, A+Ox3, normal neurological exam without focal deficits, VS WNL, lungs CTA throughout, abdomen is soft, tender to palpation left upper and lower quadrants, no CVA tenderness or ecchymosis. EKG shows afib with incomplete RBBB, no evidence of STEMI. CXR ordered in triage was negative for any acute process. Mild leukocytosis on labs, magnesium low, will replace IV. Unlikely ACS as troponin drawn in triage is negative. Given patient's supratherapeutic INR (though improved from 09/26) concern for retroperitoneal hemorrhage, also diverticulitis/abscess, mesenteric ischemia, perforated viscous, nephrolithiasis. Lipase normal, unlikely pancreatitis. Unlikely SBO. Urine culture from 09/26/22 shows E. coli succeptible to cephalosporins so low suspicion for pyelonephritis. Plan: CT abdomen/pelvis, reassess Differential Diagnosis Differential Diagnoses: The differential diagnosis associated with the presentation includes As above. Admission/Observation Consideration of admission/observation: Escalation of care including admission/observation considered Lab Data [facility] Lab Attestation statement: I reviewed the patient's lab results. 09/28/22 12:24 09/28/22 12:24 Labs: Lab Results 09/28/22 09/28/22 09/28/22 Range/Units 12:24 12:24 12:24 WBC 12.2 H (4.8-10.8) X10*3/uL RBC 4.88 (4.60-5.80) X10*6/uL Hgb 14.7 (14.0-18.0) g/dl Hct 45.0 (42.0-52.0) % MCV 92.2 (80.0-98.0) fL MCH 30.1 (27.0-33.0) pg MCHC 32.7 (31.0-36.0) g/dl RDW 13.8 (11.0-16.0) % Plt Count 311 (160-400) X10*3/uL MPV 8.9 L (9.4-12.4) fL Immature Gran % (Auto) 0.4 (0.0-0.4) % Neut % (Auto) 75.5 H (45-73) % Lymph % (Auto) 15.7 L (20-40) % Parke % (Auto) 7.3 (2-11) % Eos % (Auto) 0.7 (0-4) % Baso % (Auto) 0.4 (0-2) % Lymph # (Auto) 1.9 (1.2-4.9) X10*3/uL Parke # (Auto) 0.9 (0.1-1.2) X10*3/uL Eos # (Auto) 0.1 (0.0-0.4) X10*3/uL Baso # (Auto) 0.1 (0.0-0.2) X10*3/uL Abs Immat Gran (auto) 0.05 H (0.00-0.03) X10*3/uL Absolute Neuts (auto) 9.2 H (2.0-8.3) x10*3/uL Absolute Nucleated RBC 0.000 (0.0-0.012) X10*3/uL Nucleated RBC % (auto) 0.0 (0.0-0.2) /100WBC PT 64.8 H (10.0-13.1) SEC INR 5.3 H* (0.9-1.1) APTT (26.0-36.4) SEC Sodium 138 (135-145) mmol/L Potassium 4.4 (3.3-5.1) mmol/L Chloride 96 (96-108) mmol/L Carbon Dioxide 30 H (22-29) mmol/L Anion Gap 16 (12-20) BUN 15 (9-16) mg/dL Creatinine 1.38 (0.5-1.4) mg/dL Estim Creat Clear Calc 56.8 Estimated GFR 50 Random Glucose 220 H (60-115) mg/dL Calcium 9.3 (8.4-10.2) mg/dL Magnesium 1.4 L* (1.6-2.6) mg/dL Total Bilirubin 1.0 (0.0-1.0) mg/dL Direct Bilirubin 0.2 (0.0-0.5) mg/dL AST 14 (5-37) U/L ALT 16 (0-40) U/L Alkaline Phosphatase 87 (39-117) U/L Troponin I High Sens (<3.5-35.0) ng/L B-Natriuretic Peptide (<100) pg/mL Total Protein 7.8 (6.5-8.0) g/dL Albumin 3.7 (3.5-5.0) g/dL Lipase 39 (8-78) U/L Urine Color Urine Appearance Urine pH (5.0-9.0) Ur Specific [place] (1.005-1.025) Urine Protein (Neg-Trace) mg/dL Urine Glucose (UA) (Negative) mg/dL Urine Ketones (Negative) mg/dL Urine Blood (Negative) Urine Nitrite (Negative) Ur Leukocyte Esterase (Negative) Urine RBC (0-2) /HPF Urine WBC (0-5) /HPF Ur Squamous Epith Cells (0-2) /HPF Urine Bacteria (None Seen) Hyaline Casts (0-2) /LPF COVID-19 (FRANCESCA) (Negative) COVID-19 Clin Com 09/28/22 09/28/22 09/28/22 Range/Units 12:24 12:24 15:48 WBC (4.8-10.8) X10*3/uL RBC (4.60-5.80) X10*6/uL Hgb (14.0-18.0) g/dl Hct (42.0-52.0) % MCV (80.0-98.0) fL MCH (27.0-33.0) pg MCHC (31.0-36.0) g/dl RDW (11.0-16.0) % Plt Count (160-400) X10*3/uL MPV (9.4-12.4) fL Immature Gran % (Auto) (0.0-0.4) % Neut % (Auto) (45-73) % Lymph % (Auto) (20-40) % Parke % (Auto) (2-11) % Eos % (Auto) (0-4) % Baso % (Auto) (0-2) % Lymph # (Auto) (1.2-4.9) X10*3/uL Parke # (Auto) (0.1-1.2) X10*3/uL Eos # (Auto) (0.0-0.4) X10*3/uL Baso # (Auto) (0.0-0.2) X10*3/uL Abs Immat Gran (auto) (0.00-0.03) X10*3/uL Absolute Neuts (auto) (2.0-8.3) x10*3/uL Absolute Nucleated RBC (0.0-0.012) X10*3/uL Nucleated RBC % (auto) (0.0-0.2) /100WBC PT (10.0-13.1) SEC INR (0.9-1.1) APTT (26.0-36.4) SEC Sodium (135-145) mmol/L Potassium (3.3-5.1) mmol/L Chloride (96-108) mmol/L Carbon Dioxide (22-29) mmol/L Anion Gap (12-20) BUN (9-16) mg/dL Creatinine (0.5-1.4) mg/dL Estim Creat Clear Calc Estimated GFR Random Glucose (60-115) mg/dL Calcium (8.4-10.2) mg/dL Magnesium (1.6-2.6) mg/dL Total Bilirubin (0.0-1.0) mg/dL Direct Bilirubin (0.0-0.5) mg/dL AST (5-37) U/L ALT (0-40) U/L Alkaline Phosphatase (39-117) U/L Troponin I High Sens 11.0 (<3.5-35.0) ng/L B-Natriuretic Peptide 91 (<100) pg/mL Total Protein (6.5-8.0) g/dL Albumin (3.5-5.0) g/dL Lipase (8-78) U/L Urine Color Yellow Urine Appearance Clear Urine pH 7.0 (5.0-9.0) Ur Specific [place] >= 1.030 H (1.005-1.025) Urine Protein Negative (Neg-Trace) mg/dL Urine Glucose (UA) Negative (Negative) mg/dL Urine Ketones Negative (Negative) mg/dL Urine Blood Negative (Negative) Urine Nitrite Negative (Negative) Ur Leukocyte Esterase Trace H (Negative) Urine RBC 0-2 (0-2) /HPF Urine WBC 6-10 H (0-5) /HPF Ur Squamous Epith Cells 3-5 (0-2) /HPF Urine Bacteria None Seen (None Seen) Hyaline Casts 3-5 (0-2) /LPF COVID-19 (FRANCESCA) (Negative) COVID-19 Clin Com 09/29/22 09/29/22 09/29/22 Range/Units 09:09 09:09 09:10 WBC (4.8-10.8) X10*3/uL RBC (4.60-5.80) X10*6/uL Hgb (14.0-18.0) g/dl Hct (42.0-52.0) % MCV (80.0-98.0) fL MCH (27.0-33.0) pg MCHC (31.0-36.0) g/dl RDW (11.0-16.0) % Plt Count (160-400) X10*3/uL MPV (9.4-12.4) fL Immature Gran % (Auto) (0.0-0.4) % Neut % (Auto) (45-73) % Lymph % (Auto) (20-40) % Parke % (Auto) (2-11) % Eos % (Auto) (0-4) % Baso % (Auto) (0-2) % Lymph # (Auto) (1.2-4.9) X10*3/uL Parke # (Auto) (0.1-1.2) X10*3/uL Eos # (Auto) (0.0-0.4) X10*3/uL Baso # (Auto) (0.0-0.2) X10*3/uL Abs Immat Gran (auto) (0.00-0.03) X10*3/uL Absolute Neuts (auto) (2.0-8.3) x10*3/uL Absolute Nucleated RBC (0.0-0.012) X10*3/uL Nucleated RBC % (auto) (0.0-0.2) /100WBC PT 54.3 H (10.0-13.1) SEC INR 4.4 H (0.9-1.1) APTT 56.5 H (26.0-36.4) SEC Sodium (135-145) mmol/L Potassium (3.3-5.1) mmol/L Chloride (96-108) mmol/L Carbon Dioxide (22-29) mmol/L Anion Gap (12-20) BUN (9-16) mg/dL Creatinine (0.5-1.4) mg/dL Estim Creat Clear Calc Estimated GFR Random Glucose (60-115) mg/dL Calcium (8.4-10.2) mg/dL Magnesium (1.6-2.6) mg/dL Total Bilirubin (0.0-1.0) mg/dL Direct Bilirubin (0.0-0.5) mg/dL AST (5-37) U/L ALT (0-40) U/L Alkaline Phosphatase (39-117) U/L Troponin I High Sens (<3.5-35.0) ng/L B-Natriuretic Peptide (<100) pg/mL Total Protein (6.5-8.0) g/dL Albumin (3.5-5.0) g/dL Lipase (8-78) U/L Urine Color Urine Appearance Urine pH (5.0-9.0) Ur Specific [place] (1.005-1.025) Urine Protein (Neg-Trace) mg/dL Urine Glucose (UA) (Negative) mg/dL Urine Ketones (Negative) mg/dL Urine Blood (Negative) Urine Nitrite (Negative) Ur Leukocyte Esterase (Negative) Urine RBC (0-2) /HPF Urine WBC (0-5) /HPF Ur Squamous Epith Cells (0-2) /HPF Urine Bacteria (None Seen) Hyaline Casts (0-2) /LPF COVID-19 (FRANCESCA) Negative (Negative) COVID-19 Clin Com See Note Independent Interpretation I performed an independent interpretation of an: EKG, Plain X-Ray and CT Scan Interpretation: EKG: Afib with incomplete RBBB, rate 75bpm, normal QT interval, no evidence of STEMI; I independently reviewed the x-ray and CT scan and agree with the radiologist's interpretation. Radiology Impression Discussion of test interpretation with radiology: I have reviewed the radiologist's reading. Radiologist Impression: FINDINGS: The lungs are well-expanded and clear acute process. The heart size and pulmonary vascularity is normal. There are median sternotomy sutures from previous intervention. There is [id number] ventral spondylosis. No aggressive lytic or sclerotic process seen. XR/XR chest 2V IMPRESSION: No acute cardiopulmonary process seen.? Independent Historian Clinical information obtained from an independent historian. History obtained from or confirmed by: Other (son) External Record Review External record reviewed: Inpatient record, Office record and Outpatient record Chronic Conditions Patient?s care impacted by: Diabetes and Hypertension Critical Care Time Critical Care Time Critical Care Time: No Discharge Plan Discharge Clinical Impression: Diverticulitis, Supratherapeutic INR Patient Disposition: Home, Self-Care Instructions: Diverticulitis (ED), Diverticulitis Diet (ED), Elevated INR (ED) Additional Instructions: Continue to HOLD YOUR COUMADIN Get your INR checked in 2 days The antibiotic you are being prescribed can further elevate your INR so it is important that you continue to monitor it closely Take the prescribed antibiotics for diverticulitis Follow up with your doctor as soon as possible Contin?e para MANTENER ARRIOLA COUMADIN Consulta tu INR en 2 d?as El antibi?samantha que le est?n recetando puede elevar a?n m?s arriola INR, por lo que es importante que contin?e control?ndolo de cerca. Hypoluxo los antibi?ticos recetados para la diverticulitis. Seguimiento con arriola m?dico lowery pronto vani sea posible Prescriptions: New levofloxacin 500 mg tablet 500 mg PO DAILY Qty: 5 0RF metronidazole 500 mg tablet 500 mg PO BID Qty: 10 0RF No Action (DME) lancets [OneTouch UltraSoft Lancets] Misc See Rx Instructions .ROUTE .MEDSUPPLY Qty: 100 0RF Rx Instructions: As directed furosemide 40 mg tablet 40 mg PO DAILY donepezil 5 mg tablet 5 mg PO BEDTIME atorvastatin 10 mg tablet 10 mg PO BEDTIME metformin 1,000 mg tablet 1,000 mg PO BID lisinopril 5 mg tablet 5 mg PO DAILY finasteride 5 mg tablet 5 mg PO BEDTIME potassium chloride 20 mEq tablet extended release 20 meq PO DAILY Trulicity 3 mg/0.5 mL pen injector 3 mg subcut ARRIOLA@0900 warfarin 5 mg tablet 2.5 mg PO MOTUWEFRSA@1800 cyanocobalamin (vitamin B-12) 500 mcg Tablet 500 mcg PO DAILY albuterol sulfate 2.5 mg /3 mL (0.083 %) solution for nebulization 2.5 mg inhalation Q4H PRN (Reason: Shortness Of Breath Or Wheezing) carvedilol 12.5 mg tablet 12.5 mg PO BID Rx Instructions: must administer with a meal/food nitroglycerin 0.4 mg tablet, sublingual 0.4 mg sublingual Q5M PRN (Reason: Chest Pain) Rx Instructions: do not exceed 3 doses per episode (DME) blood-glucose meter [OneTouch Ultra2 Meter] Kit See Rx Instructions .ROUTE .MEDSUPPLY Qty: 1 Patient Comments: bid Rx Instructions: As directed (DME) blood sugar diagnostic Strip See Rx Instructions .ROUTE .MEDSUPPLY Qty: 10 Patient Comments: use bid Rx Instructions: As directed tamsulosin 0.4 mg capsule 0.4 mg PO DAILY Rx Instructions: use 30 minutes after same meal every day. warfarin 5 mg tablet 5 mg PO SUTH@1800 Hold Instructions: Resume on 09/30/22. INR must be 2-3, currently 7 Referrals: [facility] [Other] Miguel Sousa MD [Primary Care Provider] - (Follow-up supratherapeutic INR, on Levaquin for diverticulitis and UTI) Print Language: Macedonian
[2022-09-28 11:50] VITALS: BP 121/67; PULSE 82; RESP 20; TEMP 36.8; O2SAT 95; BMI 31.4
--- NOTE | 2022-09-28 11:52 | ECG_ITS ---
Test Reason : CHEST PAIN Blood Pressure : / mmHG Vent. 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
[2022-09-28 12:30] LABS: MANUAL DIFF FLAG NO
[2022-09-28 12:32] LABS: Basophils Absolute Auto 0.1 X10*3/uL (0.0-0.2); Basophils Percent Auto 0.4 % (0-2); Eosinophils Absolute Auto 0.1 X10*3/uL (0.0-0.4); Eosinophils Percent Auto 0.7 % (0-4); Hemoglobin 14.7 g/dl (14.0-18.0); Imm Gran Abs Auto 0.05 X10*3/uL (0.00-0.03); Imm Gran Pct Auto 0.4 % (0.0-0.4); Lymphocytes Absolute Auto 1.9 X10*3/uL (1.2-4.9); Lymphocytes Percent Auto 15.7 % (20-40); Mean Corpuscular HGB Conc 32.7 g/dl (31.0-36.0); Mean Corpuscular Hemoglobin 30.1 pg (27.0-33.0); Mean Corpuscular Volume 92.2 fL (80.0-98.0); Mean Platelet Volume 8.9 fL (9.4-12.4); Monocytes Absolute Auto 0.9 X10*3/uL (0.1-1.2); Monocytes Percent Auto 7.3 % (2-11); Neutrophils Absolute Auto 9.2 x10*3/uL (2.0-8.3); Neutrophils Percent Auto 75.5 % (45-73); Platelet Count 311 X10*3/uL (160-400); Red Blood Count 4.88 X10*6/uL (4.60-5.80); Red Cell Distribution Width 13.8 % (11.0-16.0); White Blood Count 12.2 X10*3/uL (4.8-10.8)
[2022-09-28 12:50] LABS: Prothrombin Time 64.8 SEC (10.0-13.1)
[2022-09-28 12:52] LABS: B Type Natriuretic Peptide 91 pg/mL (<100); INTERNATIONAL NORM RATIO 5.3 (0.9-1.1)
[2022-09-28 13:08] LABS: Alanine Aminotransferase 16 U/L (0-40); Albumin Level 3.7 g/dL (3.5-5.0); Alkaline Phosphatase 87 U/L (39-117); Anion Gap 16 (12-20); Aspartate Amino Transferase 14 U/L (5-37); Bilirubin Direct 0.2 mg/dL (0.0-0.5); Blood Urea Nitrogen 15 mg/dL (9-16); Calcium 9.3 mg/dL (8.4-10.2); Carbon Dioxide 30 mmol/L (22-29); Chloride 96 mmol/L (96-108); Creatinine Clr Calc Pharmacy 56.8; Estimated Glomerular Filt Rate 50; Glucose Random 220 mg/dL (60-115); Lipase 39 U/L (8-78); Magnesium 1.4 mg/dL (1.6-2.6); Potassium 4.4 mmol/L (3.3-5.1); Sodium 138 mmol/L (135-145); Total Protein 7.8 g/dL (6.5-8.0)
[2022-09-28] MEDS: iohexoL 350 MG/ML 100 ML INFUS..BTL 85 ML IV (15:19)
[2022-09-28] MEDS: Magnesium Sulfate/H2O 2 GM/50 ML PIGGYBACK IV (15:31)
[2022-09-28 15:32] VITALS: BP 104/65; PULSE 75; RESP 18; TEMP 36.8; O2SAT 95
[2022-09-28 15:58] LABS: Appearance Urine Clear; Color Urine Yellow; Glucose Urine UA Negative (Negative); Leukocyte Esterase Urine Trace (Negative); Nitrite Urine Negative (Negative); Specific Gravity - Urine >= 1.030 (1.005-1.025); UMIC TRIGGER UACC YES; Urine Blood Negative (Negative); Urine Ketones Negative (Negative); Urine Protein Negative (Neg-Trace)
[2022-09-28 16:44] LABS: Bacteria Urine None Seen (None Seen); RBC Urine 0-2 /HPF (0-2); UACC Culture Trigger YES
[2022-09-28 18:27] VITALS: BP 114/67; PULSE 82; RESP 16; TEMP 37; O2SAT 97
[2022-09-28 21:34] VITALS: BP 104/68; PULSE 78; RESP 22; TEMP 37.1; O2SAT 94
--- NOTE | 2022-09-28 22:00 | PC.NURSE ---
Pt aox3 resting at the bedside. Reports right flank pain, 11/14. MLP notified.
[2022-09-29 00:08] VITALS: BP 119/71; PULSE 76; RESP 18; TEMP 36.7; O2SAT 92
[2022-09-29] MEDS: Morphine Sulfate 4 MG/ML CARTRIDGE IVPUSH (00:57)
[2022-09-29] MEDS: levoFLOXacin 750 MG TABLET PO (01:01)
[2022-09-29] MEDS: metroNIDAZOLE 500 MG TABLET PO ×2 (01:01→08:07)
--- NOTE | 2022-09-29 04:56 | PC.NURSE ---
Pt sleeping at the bedside in no apparent distress. Breaths are even regular and unlabored with equal chest rise. Pending PT and case management eval. Will continue to monior.
[2022-09-29] MEDS: Acetaminophen 325 MG TABLET 975 MG PO (08:07)
--- NOTE | 2022-09-29 08:53 | PHA.MEDREC ---
Pharmacy Consult ? Medication Reconciliation Pharmacy has completed the medication reconciliation Utilized [facility]. Spoke to patient to confirm meds. No issues..
[2022-09-29 09:34] LABS: INTERNATIONAL NORM RATIO 4.4 (0.9-1.1); Prothrombin Time 54.3 SEC (10.0-13.1)
[2022-09-29 09:37] LABS: Partial Thromboplastin Time 56.5 SEC (26.0-36.4)
[2022-09-29 09:48] LABS: COVID-19 Test Negative (Negative); IDNOW Serial# BCCEAD1C
--- NOTE | 2022-09-29 11:46 | MHC.CM.ED ---
Addendum entered by Amy España 09/29/22 13:35: [facility] is the only agency that is able to accept patient. Patient aware and accepts. Addendum entered by Amy España 09/29/22 13:32: [facility] will not be able to transport because he have to be a private pay. [facility] shuttle arranged. Original Note: Received case management consult overnight. Patient came to the ER due to concerns about an UTI. Work up essentially negative. Physical therapy eval completed. Home therapy is recommended. Met with patient and donor recruiter in regards to discharge planning. Patient lives alone, ambulates with a cane and has SO[employer] SHOE D[employer] hours. PCP verified. Patient requesting to go to STR for strengthening. T/W explained [facility] would not authorize [facility] due to physical therapy eval. Parent verbalizes understanding. Patient agreeable to [facility] referral being broadcasted. Patient will need chair fletcher home. T/W is attempting to arrange with [facility]. Carine WIN aware. Continue to monitor for d/c needs.
== END 2022-09-29 13:37 | disposition home or self-care (01) ==
PROVIDERS: Physician Assistant; Emergency Provider Emergency Medicine; PCP Internal Medicine
DX: K57.92 Diverticulitis of intestine, part unspecified, without perforation or abscess without bleeding (principal); R79.1 Abnormal coagulation profile; R06.02 Shortness of breath; Z20.822 Contact with and (suspected) exposure to COVID-19; E11.9 Type 2 diabetes mellitus without complications; I10 Essential (primary) hypertension; E78.5 Hyperlipidemia, unspecified; Z86.711 Personal history of pulmonary embolism; Z87.440 Personal history of urinary (tract) infections
CPT/HCPCS: 36415; 71046; 74177; 80048; 80076; 81001; 81003; 83690; 83735; 83880; 84484; 85025; 85610; 85730; 87635; 93005; 96365; 96366; 96375; 97161; 99285; J2270; J3475; Q9967

== ENCOUNTER 2023-11-30 13:17 | Outpatient (AMB) | payer MEDICARE, SELFPAY ==
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
[2023-11-30 13:45] VITALS: BP 136/86; PULSE 61; O2SAT 97; BMI 32.1
== END 2023-11-30 15:16 | disposition home or self-care (01) ==
PROVIDERS: PCP Internal Medicine; Visit Provider Nurse Practitioner Family
DX: R25.1 Tremor, unspecified (principal); G57.93 Unspecified mononeuropathy of bilateral lower limbs; R26.9 Unspecified abnormalities of gait and mobility
CPT/HCPCS: 99204

== ENCOUNTER → 2023-11-30 13:17 | Outpatient (BNVA) | payer MEDICARE, MEDICAID, SELFPAY | PROVIDERS: PCP Internal Medicine; Visit Provider Nurse Practitioner Family | DX: G57.93 Unspecified mononeuropathy of bilateral lower limbs (principal); R25.1 Tremor, unspecified; R26.9 Unspecified abnormalities of gait and mobility | CPT/HCPCS: 36415; 80053; 82306; 82607; 82746; 83735; 84443; 85025; 99202 ==

== ENCOUNTER 2023-11-30 15:20 | Outpatient (REF) | payer MEDICARE, SELFPAY ==
[2023-11-30 17:32] LABS: MANUAL DIFF FLAG NO
[2023-11-30 17:34] LABS: Basophils Absolute Auto 0.1 X10*3/uL (0.0-0.2); Basophils Percent Auto 0.7 % (0-2); Eosinophils Absolute Auto 0.1 X10*3/uL (0.0-0.4); Hematocrit 44.6 % (42.0-52.0); Hemoglobin 14.8 g/dl (14.0-18.0); Imm Gran Abs Auto 0.01 X10*3/uL (0.00-0.03); Imm Gran Pct Auto 0.1 % (0.0-0.4); Lymphocytes Absolute Auto 1.8 X10*3/uL (1.2-4.9); Lymphocytes Percent Auto 25.7 % (20-40); Mean Corpuscular HGB Conc 33.2 g/dl (31.0-36.0); Mean Corpuscular Hemoglobin 30.6 pg (27.0-33.0); Mean Corpuscular Volume 92.1 fL (80.0-98.0); Mean Platelet Volume 9.6 fL (9.4-12.4); Monocytes Absolute Auto 0.7 X10*3/uL (0.1-1.2); Monocytes Percent Auto 9.3 % (2-11); Neutrophils Absolute Auto 4.5 x10*3/uL (2.0-8.3); Neutrophils Percent Auto 63.2 % (45-73); Platelet Count 250 X10*3/uL (160-400); Red Blood Count 4.84 X10*6/uL (4.60-5.80); Red Cell Distribution Width 13.6 % (11.0-16.0); White Blood Count 7.1 X10*3/uL (4.8-10.8)
[2023-11-30 17:55] LABS: Alanine Aminotransferase 12 U/L (0-40); Albumin Level 4.1 g/dL (3.5-5.0); Alkaline Phosphatase 83 U/L (39-117); Anion Gap 13 (12-20); Aspartate Amino Transferase 14 U/L (5-37); Bilirubin Total 0.7 mg/dL (0.0-1.0); Blood Urea Nitrogen 12 mg/dL (9-16); Calcium 10.1 mg/dL (8.4-10.2); Carbon Dioxide 34 mmol/L (22-29); Chloride 99 mmol/L (96-108); Estimated Glomerular Filt Rate > 60; Glucose Random 164 mg/dL (60-115); Magnesium 1.7 mg/dL (1.6-2.6); Potassium 4.3 mmol/L (3.3-5.1); Sodium 142 mmol/L (135-145); Total Protein 7.7 g/dL (6.5-8.0)
[2023-11-30 18:11] LABS: TSH reflex Free T4 1.86 uIU/mL (0.32-4.0)
[2023-11-30 18:23] LABS: Folate 8.4 ng/mL (> or = 4.0); Vitamin B12 287 pg/mL (200-900)
[2023-12-05 13:38] LABS: Vitamin D 25-OH, D2 <4 ng/mL; Vitamin D 25-OH, D3 33 ng/mL; Vitamin D 25-OH, Total 33 ng/mL (30-100)
== END 2023-11-30 15:21 | disposition home or self-care (01) ==
LOC: HO.HKASLDS 15:20
PROVIDERS: Visit Provider Nurse Practitioner Family
DX: Z13.89 Encounter for screening for other disorder (principal)
CPT/HCPCS: 36415; 80053; 82306; 82607; 82746; 83735; 84443; 85025

== ENCOUNTER 2023-12-06 10:08 | Outpatient (REF) | payer MEDICARE, SELFPAY ==
[2023-12-07 19:03] LABS: Homocysteine 14.4 umol/L (<11.4)
[2023-12-10 10:13] LABS: Methylmalonic Acid 500 nmol/L (69-390)
== END 2023-12-06 10:09 | disposition home or self-care (01) ==
LOC: HO.LAB 10:08
PROVIDERS: PCP Internal Medicine; Visit Provider Nurse Practitioner Family
DX: R79.89 Other specified abnormal findings of blood chemistry (principal); G57.93 Unspecified mononeuropathy of bilateral lower limbs
CPT/HCPCS: 36415; 83090; 83921

== ENCOUNTER 2024-03-25 15:08 | Outpatient (REF) | payer OTHER, SELFPAY ==
--- NOTE | ~2024-03-25 | MR_ITS ---
EXAMINATION: MR BRAIN WITHOUT CONTRAST CLINICAL INFORMATION: Number. Altered gait. COMPARISON: CT head from 09/26/2022. TECHNIQUE: MRI of the brain was obtained using routine sequences without contrast. FINDINGS: Mildly motion degraded exam. No focal restricted diffusion is demonstrated to suggest acute or subacute cerebral ischemia. No evidence of acute or chronic hemorrhagic products on heme-sensitive imaging. Scattered and partially confluent periventricular, deep white matter, and brainstem T2 FLAIR hyperintensities consistent with moderate underlying microangiopathy. Proportional prominence of the ventricles and sulcal spaces without evidence of obstructive hydrocephalus. No abnormal mass effect. No midline shift. Normal appearance of the pituitary gland. Normal positioning of the cerebellar tonsils. Normal arterial and venous vascular flow voids are present. Normal, homogeneous marrow signal. Chronic extensive opacification of the sphenoid sinus with partial scalloping of the sphenoid sinus nichols. There is restricted diffusion and associated with material within the sphenoid sinus. Mild mucosal thickening of the remaining paranasal sinuses. Moderate left-sided mastoid effusion. No signal abnormalities within the right-sided mastoid. Bilateral lens extractions. MR/MR head/brain wo con IMPRESSION: 1. No acute intracranial abnormalities. 2. Moderate underlying microangiopathy and generalized cerebral volume loss. 3. Chronic extensive sphenoid sinus disease. Characteristics of the contents within the sphenoid sinus are suggestive of chronic inspissated mucus versus allergic fungal colonization. Electronically signed by: Carl Jimenez DO 04/17/2024 01:02 PM AWAIS
== END 2024-03-25 15:09 | disposition home or self-care (01) ==
LOC: HO.MRI 15:08
PROVIDERS: PCP Internal Medicine; Visit Provider Nurse Practitioner Family
DX: R25.1 Tremor, unspecified (principal); R26.9 Unspecified abnormalities of gait and mobility; I48.91 Unspecified atrial fibrillation; E11.9 Type 2 diabetes mellitus without complications
CPT/HCPCS: 70551

== ENCOUNTER 2024-06-20 14:28 | Outpatient (AMB) | payer OTHER, SELFPAY ==
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
--- OUTSIDE RECORDS SUMMARY | 2024-06-20 14:33 | XMS_ITS | Encounter Summary ---
Author Organization [facility] Address [address] [place] [address] Care Team Providers Care Payroll Master Name Role Phone Miguel Sousa MD Primary Care Provider [phone] Jacek Damon MD Unavailable Nuris Mcknight PA-C Unavailable Raj Marie MD Unavailable [phone] Shelby Mcneil NP Unavailable [phone] Encounter Details Date Type Department Care Team Description 12/01/2022 SCAN Cardio PVC [facility] [address] [place] [address] Abstract, Provider Social History Tobacco Use Types Packs/Day Years Used Date Smoking Tobacco: Never Smokeless Tobacco: Never Alcohol Use Standard Drinks/Week Comments No 0 (1 standard drink = 0.6 oz pure alcohol) past heavy use, quit 5 years ago Sex Assigned at Date Recorded Not on file Job Start Date Occupation Industry Not on file Not on file Not on file COVID-19 Exposure Response Date Recorded In the last 10 days, have yo u been in contact with someone who was confirmed or suspected to have Coronavirus/COVID-19? No / Unsure 12/01/2022 12:51 PM EDT documented as of this encounter Plan of Treatment Not on file documented as of this encounter Procedures Procedure Name Priority Date/Time Associated Diagnosis Comments OUTSIDE LAB Routine 12/01/2022 OUTSIDE LAB Routine 12/01/2022 documented in this encounter Results * OUTSIDE LAB (12/01/2022) Provider Default LAB * OUTSIDE LAB (12/01/2022) Provider Default LAB documented in this encounter Visit Diagnoses Not on filedocumented in this encounter Care Teams Payroll Master Relationship Specialty Start Date End Date Miguel Sousa MD [address] [place] [phone] PCP - General Internal Medicine 01/30/19 Jacek Damon MD [address] [place] [address] Saddle Stitch Operator Cardiovascular Disease 04/18/17 Nuris Mcknight PA-C [address] [place] [address] [phone] Specialist Cardiology 03/20/19 Raj Marie MD [address] [place] [address] Saddle Stitch Operator Cardiology 05/03/21 Shelby Mcneil NP [address] [place] [address] Cardiology 09/11/23 documented as of this encounter
--- OUTSIDE RECORDS SUMMARY | 2024-06-20 14:33 | XMS_ITS | Encounter Summary ---
Author Organization [facility] Address [address] [place] [address] Care Team Providers Care Insurance Salesman Name Role Phone Miguel Sousa MD Primary Care Provider [phone] Jacek Damon MD Unavailable Nuris Mcknight PA-C Unavailable Raj Marie MD Unavailable [phone] Shelby Mcneil NP Unavailable [phone] Encounter Details Date Type Department Care Team Description 10/26/2022 Telephone Cardio PVC [facility] [address] [place] [address] Jacek Damon MD [address] [place] [address] [phone] Social History Tobacco Use Types Packs/Day Years [...] suspected to have Coronavirus/COVID-19? No / Unsure 10/26/2022 12:56 PM EDT documented as of this encounter Miscellaneous Notes * Telephone Encounter - Jacek Damon MD - 10/26/2022 5:06 PM EDT I spoke to the patient's son about his echo. The diameter of the ascending aorta is now 5.5 cm. I do not think he is a good surgical candidate but we agreed to at least a consultation to discuss the options and the risks with cardiac surgery. I will call them tomorrow to give them the information documented in this encounter Plan of Treatment Not on file documented as of this encounter Visit Diagnoses Not on filedocumented in this encounter Care Teams Insurance Salesman Relationship Specialty Start Date End Date Miguel Sousa MD [address] [place] [phone] PCP - General Internal Medicine 01/30/19 Jacek Damon MD [address] [place] [id number] Engineering Mgr Cardiovascular Disease 04/18/17 Nuris Mcknight PA-C [address] [place] [address] Specialist Cardiology 03/20/19 Raj Marie MD [address] [place] [address] Engineering Mgr Cardiology 05/03/21 Shelby Mcneil NP [address] [place] [address] Cardiology 09/11/23 documented as of this encounter
--- OUTSIDE RECORDS SUMMARY | 2024-06-20 14:33 | XMS_ITS | Encounter Summary ---
Author Organization [facility] Address [address] [place] [address] Care Team Providers Care Glassware Engraver Name Role Phone Miguel Sousa MD Primary Care Provider [phone] Jacek Damon MD Unavailable Nuris Mcknight PA-C Unavailable Raj Marie MD Unavailable [phone] Shelby Mcneil NP Unavailable [phone] Reason for Visit * Reason Comments Anticoagulation Encounter Details Date Type Department Care Team Description 08/18/2022 Anticoagulation Therapy Cardio PVC POC [address] [facility] [address] [place] [address] Jacek Damon MD [address] [place] [address] [phone] 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) Social History Tobacco Use Types Packs/Day Years Used Date Smoking Tobacco: Never Smokeless Tobacco: Never Alcohol Use Standard Drinks/Week Comments No 0 (1 standard drink = 0.6 oz pure alcohol) past heavy use, quit 5 years ago Sex Assigned at Date Recorded Not on file Job Start Date Occupation Industry Not on file Not on file Not on file documented as of this encounter Plan of Treatment Not on file documented as of this encounter Procedures Procedure Name Priority Date/Time Associated Diagnosis Comments CHG PROTHROMBIN TIME Routine 08/18/2022 documented in this encounter Results * (ABNORMAL) CHG PROTHROMBIN TIME (08/18/2022) INR 4.0(A) 2 - 3.5 08/18/2022 Provider Default LAB documented in this encounter Visit Diagnoses Diagnosis 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- Primary documented in this encounter Care Teams Glassware Engraver Relationship Specialty Start Date End Date Miguel Sousa MD [address] [place] [phone] PCP - General Internal Medicine 01/30/19 Jacek Damon MD [address] [place] [address] [phone] Continuous Washer Operator Cardiovascular Disease 04/18/17 Nuris Mcknight PA-C [address] [place] [address] [phone] Specialist Cardiology 03/20/19 Raj Marie MD [address] [place] [address] Continuous Washer Operator Cardiology 05/03/21 Shelby Mcneil NP [address] [place], [place] [phone] Cardiology 09/11/23 documented as of this encounter
--- OUTSIDE RECORDS SUMMARY | 2024-06-20 14:33 | XMS_ITS | Encounter Summary ---
Author Organization [facility] Address [address] [place] [address] Care Team Providers Care Bee Farmer Name Role Phone Miguel Sousa MD Primary Care Provider [phone] Jacek Damon MD Unavailable Nuris Mcknight PA-C Unavailable Raj Marie MD Unavailable [phone] Shelby Mcneil NP Unavailable [phone] Encounter Details Date Type Department Care Team Description 12/08/2022 Maintenance Director Report Medical Records [address] [place] [phone] Nestor Davenport DO Social History Tobacco Use Types Packs/Day Years [...] Recorded In the last 10 days, have charlie tena been in contact with someone who was confirmed or suspected to have Coronavirus/COVID-19? No / Unsure 12/01/2022 12:51 PM EDT documented as of this encounter Plan of Treatment Not on file documented as of this encounter Visit Diagnoses Not on filedocumented in this encounter Care Teams Bee Farmer Relationship Specialty Start Date End Date Miguel Sousa MD [address] [place] [address] PCP - General Internal Medicine 01/30/19 Jacek Damon MD [address] [place] [address] Air Conditioning Insulation Installer Cardiovascular Disease 04/18/17 Nuris Mcknight PA-C [address] [place] [address] Specialist Cardiology 03/20/19 Raj Marie MD [address] [place] [address] Air Conditioning Insulation Installer Cardiology 05/03/21 Shelby Mcneil NP [address] [place] [address] Cardiology 09/11/23 documented as of this encounter
--- OUTSIDE RECORDS SUMMARY | 2024-06-20 14:33 | XMS_ITS | Encounter Summary ---
Author Organization [facility] Address [address] [place] [address] Care Team Providers Care Cottrell Operator Name Role Phone Miguel Sousa MD Primary Care Provider [phone] Jacek Damon MD Unavailable Nuris Mcknight PA-C Unavailable Raj Marie MD Unavailable [phone] Shelby Mcneil NP Unavailable [phone] Encounter Details Date Type Department Care Team Description 10/24/2022 SCAN Cardio PVC [facility] [address] [place] [address] Abstract, Provider Social History Tobacco Use Types [...] Date/Time Associated Diagnosis Comments OUTSIDE LAB Routine 10/24/2022 documented in this encounter Results * OUTSIDE LAB (10/24/2022) Provider Default LAB documented in this encounter Visit Diagnoses Not on filedocumented in this encounter Care Teams Cottrell Operator Relationship Specialty Start Date End Date Miguel Sousa MD [address] [place] [address] [phone] PCP - General Internal Medicine 01/30/19 Jacek Damon MD [address] [place] [address] [phone] Kitchen Operator Cardiovascular Disease 04/18/17 Nuris Mcknight PA-C [address] [place] [address] [phone] Specialist Cardiology 03/20/19 Raj Marie MD [address] [place] [address] Kitchen Operator Cardiology 05/03/21 Shelby Mcneil NP [address] [place] [address] Cardiology 09/11/23 documented as of this encounter
--- OUTSIDE RECORDS SUMMARY | 2024-06-20 14:33 | XMS_ITS | Encounter Summary ---
Author Organization [facility] Address [address] [place] [address] Care Team Providers Care Cable Assembler Name Role Phone Miguel Sousa MD Primary Care Provider [phone] Jacek Damon MD Unavailable Nuris Mcknight PA-C Unavailable Raj Marie MD Unavailable [phone] Shelby Mcneil NP Unavailable [phone] Reason for Visit * Reason Comments Anticoagulation Encounter Details Date Type Department Care Team Description 08/11/2022 Anticoagulation Therapy Cardio PVC [facility] [address] [facility] [address] [place] [address] Jacek Damon MD [address] [place] [address] [phone] Coronary artery disease involving [place] coronary artery of [place] heart without angina pectoris (Primary Dx) Social [...] suspected to have Coronavirus/COVID-19? No / Unsure 07/14/2022 1:58 PM EST documented as of this encounter Plan of Treatment Not on file documented as of this encounter Procedures Procedure Name Priority Date/Time Associated Diagnosis Comments CHG PROTHROMBIN TIME Routine 08/11/2022 documented in this encounter Results * CHG PROTHROMBIN TIME (08/11/2022) INR 3.3 2 - 3.5 08/11/2022 Provider Default LAB documented in this encounter Visit Diagnoses Diagnosis Coronary artery disease involving [place] coronary artery of [place] heart without angina pectoris- Primary documented in this encounter Care Teams Cable Assembler Relationship Specialty Start Date End Date Miguel Sousa MD [address] [place] [address] [phone] PCP - General Internal Medicine 01/30/19 Jacek Damon MD [address] [place] [address] [phone] Deputy Director Of Finance Cardiovascular Disease 04/18/17 Nuris Mcknight PA-C [address] [place] [address] [phone] Specialist Cardiology 03/20/19 Raj Mraie MD [address] [place] [address] Deputy Director Of Finance Cardiology 05/03/21 Shelby Mcneil NP [address] [place] [address] Cardiology 09/11/23 documented as of this encounter
--- OUTSIDE RECORDS SUMMARY | 2024-06-20 14:33 | XMS_ITS | Encounter Summary ---
Author Organization [facility] Address [address] [place] [address] Care Team Providers Care Journalism Intern Name Role Phone Miguel Sousa MD Primary Care Provider [phone] Jacek Damon MD Unavailable Nuris Mcknight PA-C Unavailable Raj Marie MD Unavailable [phone] Shelby Mcneil NP Unavailable [phone] Reason for Visit * Reason Comments E-prescribe Rx Request Encounter Details Date Type Department Care Team Description 08/17/2022 Refill Adult Medicine [address] [id number] Miguel Sousa MD [address] [place] [address] [id number] E-prescribe Rx Request Social History Tobacco Use Types Packs/Day Years [...] on file documented as of this encounter Miscellaneous Notes * Telephone Encounter - Rama Clifford M.A. - 08/17/2022 12:33 PM EDT Lab Results Component Value Date NA 135 07/12/2022 K 4.1 07/12/2022 CO2 32 07/12/2022 CL 97 07/12/2022 BUN 10 07/12/2022 CREAT 0.96 07/12/2022 GLU 161 07/12/2022 CA 9.1 07/12/2022 GFR 81 07/12/2022 Pending appt with pcp 10/26/22 documented in this encounter Plan of Treatment Not on file documented as of this encounter Visit Diagnoses Not on filedocumented in this encounter Care Teams Journalism Intern Relationship Specialty Start Date End Date Miguel Sousa MD [address] [place] [address] PCP - General Internal Medicine 01/30/19 Jacek Damon MD [address] [place] [address] Telehealth Nurse Cardiovascular Disease 04/18/17 Nuris Mcknight PA-C [address] [place] [address] Specialist Cardiology 03/20/19 Raj Marie MD [address] [place] [address] Telehealth Nurse Cardiology 05/03/21 Shelby Mcneil NP [address] [place] [address] Cardiology 09/11/23 documented as of this encounter
--- OUTSIDE RECORDS SUMMARY | 2024-06-20 14:33 | XMS_ITS | Encounter Summary ---
Author Organization [facility] Address [address] [place] [address] Care Team Providers Care Web Sizer Name Role Phone Miguel Sousa MD Primary Care Provider Miguel Sousa MD Primary Care Provider [phone] Jacek Damon MD Unavailable Nuris Mcknight PA-C Unavailable Raj Marie MD Unavailable [phone] Shelby Mcneil NP Unavailable Reason for Visit * Reason Onset Date Comments Prior Authorization 09/12/2018 ECHO Encounter Details Date Type Department Care Team Description 09/12/2018 Telephone Radiology - [address] [id number] Philippe Tracy PA-C [address] [place] [address] [id number] Prior Authorization (ECHO) Social History Tobacco Use Types Packs/Day Years Used Date Smoking Tobacco: Never Smokeless Tobacco: Never Alcohol Use Standard Drinks/Week Comments No 0 (1 standard drink = 0.6 oz pur e alcohol) Sex Assigned at Date Recorded Not on file Job Start Date Occupation Industry Not on file Not on file Not on file documented as of this encounter Miscellaneous Notes * Telephone Encounter - Candace Monroe - 09/12/2018 1:49 PM EDT [employer] No auth Req [id number] @ [facility] * Telephone Encounter - Rama Petyt - 09/12/2018 11:54 AM EDT Please see if PA is needed for ECHO to be done at [facility] Thank you! Cathy documented in this encounter Plan of Treatment Not on file documented as of this encounter Visit Diagnoses Not on filedocumented in this encounter Care Teams Web Sizer Relationship Specialty Start Date End Date Miguel Sousa MD [address] [place] [address] PCP - General Internal Medicine 01/30/19 Miguel Sousa MD [address] [place] [address] PCP - General 04/18/17 01/29/19 Jacek Damon MD [address] [place] [address] Hazard Mitigation Officer Cardiovascular Disease 04/18/17 Nuris Mcknight PA-C [address] [place] [address] Specialist Cardiology 03/20/19 Raj Marie MD [address] [place] [address] Hazard Mitigation Officer Cardiology 05/03/21 Shelby Mcneil NP [address] [place] [address] Cardiology 09/11/23 documented as of this encounter
--- OUTSIDE RECORDS SUMMARY | 2024-06-20 14:33 | XMS_ITS | Encounter Summary ---
Author Organization [facility] Address [address] [place] [address] Care Team Providers Care Cost Reduction Engineer Name Role Phone Miguel Sousa MD Primary Care Provider [phone] Jacek Damon MD Unavailable Nuris Mcknight PA-C Unavailable Raj Marie MD Unavailable [phone] Shelby Mcneil NP Unavailable [phone] Encounter Details Date Type Department Care Team Description 01/20/2023 Orders Only Medical Records [address] [place] [address] Abstract, Provider Social History Tobacco Use Types [...] Name Priority Date/Time Associated Diagnosis Comments OUTSIDE EYE EXAM Routine 11/21/2022 documented in this encounter Results * OUTSIDE EYE EXAM (11/21/2022) Provider Abstract PROCEDURES documented in this encounter Visit Diagnoses Not on filedocumented in this encounter Care Teams Cost Reduction Engineer Relationship Specialty Start Date End Date Miguel Sousa MD [address] [place] [address] PCP - General Internal Medicine 01/30/19 Jacek Damon MD [address] [place] [address] Manager Printing Cardiovascular Disease 04/18/17 Nuris Mcknight PA-C [address] [place] [address] [phone] Specialist Cardiology 03/20/19 Raj Marie MD [address] [place] [address] Manager Printing Cardiology 05/03/21 Shelby Mcneil NP [address] [place] [address] Cardiology 09/11/23 documented as of this encounter
--- OUTSIDE RECORDS SUMMARY | 2024-06-20 14:33 | XMS_ITS | Clinical Summary ---
Author Organization [employer] [facility] Address [address] [place] [address] Care Team Providers Care Acid Cutter Name Role Phone Unavailable Primary Care Provider Unavailabl e Immunizations Name Administration Dates Next Due Pfizer Covid-19 Vaccine 12+ Bivalent 06/02/2022 Social History Tobacco Use Types Packs/Day Years Used Date Smoking Tobacco: Never Assessed Sex and Gender Information Value Date Recorded Sex Assigned at Male 03/07/2022 10:23 AM EDT Legal Sex Male 10:23 AM EDT Gender Identity Male 03/07/2022 10:23 AM EDT Sexual Orientation Choose not to disclose 2021 10:23 AM EDT Plan of Treatment Health Maintenance Due Date Last Done Comments Depression Screening 1945 Lipid Panel 1945 SDOH Screening 1945 Alcohol/Substance Use Screening 1956 Tobacco Screening 1956 Hepatitis C Screening 1962 Zoster Vaccines (1 of 2) 1994 DTaP/Tdap/Td Vaccines (1 - Tdap) 02/01/2019 01/31/2019, 12/09/2010 RSV Patients and Patients Aged 60 years or older (1 - 1-dose 75+ series) 2019 COVID-19 Vaccine (5 - season) 2024 06/02/2022, 05/13/2021, 07/28/2020, Additional history exists Influenza Vaccine (#1) 2024 , 04/26/2021, 03/03/2020, Additional history exists Pneumococcal Vaccine: 50+ Years Completed 02/09/2017, 12/09/2010 HIB Vaccines Aged Out No longer eligi ble based on patient's age to complete this topic HPV Vaccines Aged Out No longer eligi ble based on patient's age to complete this topic Hepatitis A Vaccines Aged Out No long er eligible based on patient's age to complete this topic Hepatitis B Vaccines Aged Out No long er eligible based on patient's age to complete this topic IPV Vaccines Aged Out No longer eligi ble based on patient's age to complete this topic Meningococcal Vaccine Aged Out No dung jeyson eligible based on patient's age to complete this topic RSV under 20 months Aged Out No longe r eligible based on patient's age to complete this topic Rotavirus Vaccines Aged Out No longer eligible based on patient's age to complete this topic Insurance [facility] DUAL COMPLETE
--- OUTSIDE RECORDS SUMMARY | 2024-06-20 14:33 | XMS_ITS ---
Author Organization [facility] Address [address] [place] [address] Care Team Providers Care Loading Inspector Name Role Phone Sherry Randle Primary Care Provider Unavail Michaela Licea Unavailable [phone] REASON FOR VISIT r/s 04/19/24 Encounters Encounter Location Date Provider Diagnosis [facility] [address] [place] [address] 04/17/2024 Michaela Goldman Plan Of Treatment Next Appt Details Provider Name:Michaela alcaraz, 09/20/2024 01:30:00 PM, [address] [facility], [address], [place], [address], Progress Notes * Chandra DE LEÓNDOB: [birth year] (78 yo M)Acc No.[id number]:04/17/2024 Patient:?Chandra DE LEÓN :1945???Age:78 Y???Sex:Male Address:[address] [place] [address], [address], [place], [address] * true * Date:? Generated for Printi ng/Demar/eTransmitting on:?06/20/2024 02:33 PM EST
--- OUTSIDE RECORDS SUMMARY | 2024-06-20 14:33 | XMS_ITS | Encounter Summary ---
Author Organization [facility] Address [address] [place] [address] Care Team Providers Care Shot Coat Tender Name Role Phone Miguel Sousa MD Primary Care Provider [phone] Jacek Damon MD Unavailable Nuris Mcknight PA-C Unavailable Raj Marie MD Unavailable [phone] Shelby Mcneil NP Unavailable [phone] Reason for Visit * Reason Onset Date Comments Medication 06/21/2022 medication problems 06/21/2022 Encounter Details Date Type Department Care Team Description 06/21/2022 Telephone Endocrinology - [place] [address] [place], [place] [phone] Sherry Randle PA-C [address] [place] [address] Medication; medication problems Social History Tobacco Use Types Packs/Day Years [...] Miscellaneous Notes * Telephone Encounter - Rama Can - 06/21/2022 1:15 PM EST What is the name of the medication patient is having a problem with?: Dulaglutide (Trulicity) 3 MG/0.5ML Solution Pen-injector What is the problem?: pharmacy does not have Trulicity 3 mg - [facility] please call patient Is the patient calling about the problem? YES Is this a NEW medication?: NO How long has the patient been taking this medication? N/A Who prescribed this medication for the patient? Sherry Randle Who is patients PCP?: Dr Sousa Payor: [facility] / Plan: MailpileO $0 [employer] [id number] / Product Type: HMO Eey-ikl-[employer]ajm[employer] documented in this encounter Plan of Treatment Not on file documented as of this encounter Visit Diagnoses Not on filedocumented in this encounter Care Teams Shot Coat Tender Relationship Specialty Start Date End Date Miguel Sousa MD [address] [place] [address] PCP - General Internal Medicine 01/30/19 Jacek Damon MD [address] [place] [address] Shipping Processor Cardiovascular Disease 04/18/17 Nuris Mcknight PA-C [address] [place] [address] Specialist Cardiology 03/20/19 Raj Marie MD [address] [address] Shipping Processor Cardiology 05/03/21 Shelby Mcneil NP [address] [facility] [address] [place] [address] Cardiology 09/11/23 documented as of this encounter
--- OUTSIDE RECORDS SUMMARY | 2024-06-20 14:33 | XMS_ITS | Clinical Summary ---
Author Organization [facility] [address] [facility] Address [address] [place] [address] Phone Care Team Providers Care Employee Communications Intern Name Role Phone Miguel Sousa MD Primary Care Provider [phone] Allergies Active Allergy Reactions Criticality Noted Date Comments Ceftriaxone Hives 02/16/2023 Penicillins Rash Medium 09/30/2010 Medications carvediloL (COREG) 12.5 mg tablet Take 1 Tablet by mouth 2 times daily. 4 Active tamsulosin (FLOMAX) 0.4 mg 24 hr capsule Take 1 Capsule by mouth daily. Take 30 mins after same meal every day. 4 Active atorvastatin (LIPITOR) 10 mg tablet Take 1 Tablet by mouth daily. 4 Active dulaglutide (Trulicity) 3 mg/0.5 mL pen injector injection ADMINISTER 3 MG UNDER THE SKIN EVERY 7 DAYS 4 Active cyanocobalamin (VITAMIN B-12) 1,000 mcg tablet Take 1 Tablet by mouth daily. Active magnesium oxide (MAG-OX) 400 mg (241.3 elemental magnesium) tablet Take 2 Tablets by mouth daily. 4 Active furosemide (LASIX) 40 mg tablet Take 1 Tablet by mouth daily. Take extra 40 mg tablet once daily as needed for abdominal bloating or weight gain of 3 pounds in 1 day or 5 pounds in a week. 1 Active donepeziL (ARICEPT) 5 mg tablet Take 1 Tablet by mouth at bedtime. 4 Active nitroglycerin (NITROSTAT) 0.[address] 1 Tablet under the tongue every 5 minutes as needed for Chest pain. 4 Active albuterol 2.5 mg /3 mL (0.083 %) nebulizer solution Take 1 Vial by nebulization every 4 hours as needed for Wheezing. 4 Active albuterol HFA (PROAIR HFA ; PROVENTIL HFA ; VENTOLIN HFA) 90 mcg/actuation inhaler Inhale 2 Puffs into the lungs every 4 hours as needed for Cough or Wheezing. 4 Active pantoprazole (PROTONIX) 40 mg EC tablet Take 1 Tablet by mouth daily. Take in am on empty stomach, wait 30 mins and then eat to activate the medication 3 Active loperamide (IMODIUM) 2 mg capsule Take 1 Capsule by mouth 4 times daily as needed for Diarrhea. 3 Active diabetic supplies, miscellan. misc 1 Device by Does not apply route 2 Times Daily. 3 Active finasteride (PROSCAR) 5 mg tablet Take 5 mg by mouth daily. 2 Active fluticasone-sa lmeterol (ADVAIR DISKUS) 250-50 mcg/dose diskus inhaler Inhale 1 Puff into the lungs 2 times daily. 1 Active calcium carbonate-vit D3-min 600 mg-10 mcg (400 unit) tablet Take 1 Tab by mouth 2 times daily. 1 Active diabetic supplies, miscellan. misc USE TO TEST BLOOD SUGAR TWICE DAILY 8 Active metFORMIN (GLUCOPHAGE) 1,000 mg tablet TAKE 1 TABLET BY MOUTH TWICE DAILY WITH MEALS 180 tablet 4 Active lisinopriL (PRINIVIL,ZEST RIL) 10 mg tablet Take 1 tablet (10 mg total) by mouth 1 (one) time each day. Take 1 Tablet by mouth daily. 30 each 1 5 025 Active rivaroxaban (Xarelto) 20 mg tablet Take 1 tablet (20 mg total) by mouth 1 (one) time each day with dinner. Take with food.Take 20 mg by mouth daily. 30 each 1 5 025 Active lisinopriL (PRINIVIL,ZEST RIL) 10 mg tablet Take 1 Tablet by mouth daily. 4 025 Discontin ued(Reord er) rivaroxaban (Xarelto) 20 mg tablet Take 20 mg by mouth daily. 4 025 Discontin ued(Reord er) Active Problems Problem Noted Date Diagnosed Date Palpitations 01/23/2024 Overview (04/02/2024): Last Assessment & Plan: The patient reports the recent onset of palpitations with a sensation of heart racing; given his history of heart failure as well as atrial fibrillation, it is important to ensure that rate is well-controlled and there is no underlying arrhythmia that could potentially be contributing to worsening cardiac function over time. He is willing to wear a 7-day R OCT monitor for further evaluation; he does not feel as though 48 hours would be sufficient given that these are quite random and unpredictable. We will continue to readdress this when the results of this are been reviewed. He is aware to seek emergent medical attention for any symptoms that do not resolve as he would expect them, especially if they are prolonged or accompanied by shortness of breath, lightheadedness or dizziness, syncope or presyncope, or chest pain. Chronic combined systolic an d diastolic congestive heart failure 09/29/2023 Mild persistent asthma without complication 09/06 Cataract 09/20/2023 Overview (04/02/2024): [facility] Stenosis of left carotid artery 08/29/2023 Overview (04/02/2024): Significant luminal irregularities, 50 to 60% stenosis, ultrasound August 2023 by cardiology Last Assessment & Plan: Carotid duplex completed 08/2023 showing significant luminal irregularities with 50 to 60% stenosis in the left carotid; we will continue to monitor this with serial imaging. Secondary hypercoagulable state 08/06/2023 Venous reflux 07/28/2023 Fatigue 08/24/2022 Non-small cell lung cancer 07/06/2021 Overview (04/02/2024): [facility] oncology, [facility] Pulmo SOB (shortness of breath) 05/11/2021 Bradycardia 06/11/2020 Chronic congestive heart failure 12/10/2019 Overview (04/02/2024): Last Assessment & Plan: AHA/ACC stage C heart failure with NYHA class II symptoms. The patient appears euvolemic on exam today and offers no symptoms concerning for overt heart failure; he has only very mild pretibial edema on exam today without any abdominal bloating which in combination with shortness of breath is generally his telltale sign of heart failure exacerbation. We will not make any changes to his guideline directed medical therapies for heart failure; continue with beta-blockade and SULEMAN-I in addition to furosemide. I have reviewed with the patient the importance of a heart healthy lifestyle which includes eating a low-fat low-salt diet, getting regular exercise, maintaining a healthy weight, not smoking, and following up with routine medical care. I've asked the patient to call if they develop worsening symptoms of heart failure such as increased shortness of breath, new or worsening cough, increased swelling in the legs or ankles, or weight gain of more than 2 pounds in one day or 4 pounds in one week. Aneurysm of ascending aorta without rupture 03/08 Overview (04/02/2024): Seen on Chest CT 03/18/2019: 4.8 cm at level of pulmonary artery bifurcation on series 3 image [address] 01/26/23. 4.9 cm Last Assessment & Plan: CTA of the chest and abdomen during recent hospitalization in 11/2023 showed a stable dilatation of the ascending aorta at 4.9 cm. The patient is followed by cardiothoracic surgery; as of July 2023, it was established that there was no current need for repair and the plan is for annual follow-up CT scan with subsequent cardiac surgery follow-up. Blood pressure remains well-controlled. Atrial fibrillation 01/23/2019 Overview (04/02/2024): Last Assessment & Plan: Rate remains well-controlled on beta-blockade and he is anticoagulated with Xarelto for cardioembolic prophylaxis ([id number] score of 6). The risks and benefits of continuing anticoagulation were reviewed and he wishes to continue with the current plan. He is on the appropriate dose of rivaroxaban in relation to his renal function; creatinine clearance is calculated at 88 today. Continue rivaroxaban 20 mg daily. He is aware to seek emergent medical attention for any uncontrolled bleeding, signs or symptoms of GI or other internal bleeding, or for any head injury. Dementia 01/23/2019 BPH (benign prostatic hyperplasia) 03/09/2017 Overview (04/02/2024): Follows with [facility] Anxiety 02/09/2017 Overview (04/02/2024): F/u [address] Asthma 02/09/2017 Osteoarthritis 02/09/2017 Obesity 01/25/2017 Overview (04/02/2024): Last Assessment & Plan: Patient is obese. Approaches towards weight loss are discussed, including burning more calories than one takes in by portion control and regular exercise with an emphasis on duration rather than intensity . Essential hypertension, benign 09/25/2011 Overview (04/02/2024): Last Assessment & Plan: Blood pressure is well-controlled on current medical therapies; continue lisinopril, carvedilol, and furosemide without change. We will attempt to obtain recent lab results for further evaluation and readdress as needed. Diverticulosis of colon 02/01/2011 Overview (04/02/2024): Episode of diverticulitis per CT at [facility] 01/2011. Third episode 03/2011. Coronary artery disease invo lving [place] coronary artery of [place] heart without angina pectoris 09/30/2010 Overview (04/02/2024): Last Assessment & Plan: The patient is status post cardiac catheterization on 06/12/2023 revealing what was felt to be new proximal stenosis before D1 as well as disease of the LAD distal to the takeoff of this diagonal, it was felt that the diagonal and OMB would require bypass grafting for intervention. He underwent cardiac catheterization in preparation for ascending aorta repair which was ultimately delayed indefinitely as cardiac surgery determined that no intervention was yet necessary; subsequently, his coronary artery disease was not intervened upon. At our last visit, he offered no symptoms discerning for ischemia and as such, medical management was continued. He presents today for hospital follow-up of chest pain that was ultimately deemed to be noncardiac in nature, likely musculoskeletal. He reports that since this ER visit, he has not had any recurrence of chest pain; he offers mild shortness of breath with significant exertion but otherwise offers no symptoms concerning for underlying ischemia. He also carries a diagnosis of mild persistent asthma which may also be contributory. I have asked him to continue to increase his activity as tolerated, returning to care for any new or worsening symptoms and seeking emergent medical attention as appropriate. We will continue with medical management at this time; continue guideline directed medical therapies for ischemia including carvedilol, lisinopril and atorvastatin. He is on rivaroxaban for cardioembolic prophylaxis and is subsequently not on concurrent daily ASA. Patient advised to seek emergency medical attention by calling 911 if they were to develop severe dyspnea, chest pain that did not resolve with rest, or if they were to faint. DM type 2 causing neurological disease 1 Hypercholesteremia 09/30/2010 Overview (04/02/2024): Last Assessment & Plan: LDL goal is less than 55 for this patient was a history of coronary artery disease as well as diabetes; the patient's most recent lipid panel was completed on 04/10/2023 revealing an LDL of 66. This is slightly above goal and we previously had discussed increasing statin dosing to readdress this, especially given recent findings on cardiac cath. The patient declined, wishing to continue to work on lifestyle modifications with improved diet and exercise. He was encouraged to continue with these efforts today. We will continue to readdress this as indicated. Continue atorvastatin 10 mg daily. Old NM (myocardial infarction) 09/30/2010 Sleep apnea 09/30/2010 Overview (04/02/2024): Not using machine IMO update [facility] Polysomnogram treatment study. Date 04/09/2017. SE 93 % SM 95 %; spent 33 % of the study in REM. At the optimal pressure of CPAP 12-14; RDI 0 (AHI 0), Central apneas 0; Obstructive apneas 0; Mixed apneas 0; hypopneas 0; RERAs 0; and, average oxygen saturation was 91%. For the entire study, PLMs ~1. Last Assessment & Plan: He is awaiting results of recent sleep study completed recently as ordered by his neckties painter, Dr. Rios. I have encouraged him to reach out to their office for follow-up regarding these results. The patient reports he has not been wearing his CPAP since falling ill with COVID; the potential long-term implications of inadequately treated sleep apnea were reviewed as they relate to his cardiovascular health. The patient verbalizes understanding. Vitamin D deficiency 09/30/2010 Encounters Date Type Department Care Team Description 06/18/2024 Telephone Adult Medicine [address] [phone] Mali Euceda LPN Fitting for DME (Faxed form from [facility]) 05/29/2024 2:45 PM EST Office Visit Adult Medicine [address] [phone] Miguel Sousa MD 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) (Primary Dx); Anxiety; Atrial fibrillation, unspecified type (CMS/HCC); Hypercholesteremia; Chronic combined systolic and diastolic congestive heart failure (CMS/HCC); Coronary artery disease involving [place] coronary artery of [place] heart without angina pectoris; Dementia without behavioral disturbance, psychotic disturbance, mood disturbance, or anxiety, unspecified dementia severity, unspecified dementia type (CMS/HCC) from Last 3 Months Immunizations Name Administration Dates Next Due Influenza trivalent, 0.5mL ( Fluad) 65yo and older 02/01/2024,02/01/2022,01/23/2019,02/09 Influenza trivalent, 0.5mL, preservative free (Fluarix; FluLaval; Fluzone) ages 6mo and older (Afluria) 3 years and older 01/20/2011 Influenza, Unspecified 03/13/2023,03/03/2020 Moderna SARS-CoV-2 COVID-19, mRNA, LNP-S, preservative free 06/02/2022 Catacel SARS-CoV-2 COVID-19, mRNA, LNP-S, preservative free 07/28/2020,07/07/2020 Pneumococcal conjugate 13 va lent (Prevnar 13, PCV13) 2mo and older 02/09/2017 Pneumococcal polysaccharide 23 valent (Pneumovax 23) 2yo and older 12/09/2010 Td Tetanus diptheria (Tdvax) 7yo and older 01/31/2019,12/09/2010 Surgical History Surgery Date Site/Laterality Comments CORONARY ARTERY BYPASS GRAFT PROCEDURE: HISTORICAL CABG; COMMENT: x2 CHOLECYSTECTOMY 2007 PROCEDURE: LAPAROSCOPY, CHOLECYSTECTOMY COLONOSCOPY 03/21/2011 PROCEDURE: HISTORICAL COLONOSCOPY; COMMENT: diverticulosis; no polyps COLONOSCOPY 06/01/2006 PROCEDURE: HISTORICAL COLONOSCOPY; COMMENT: small tubular adenoma; [facility]. COLONOSCOPY 04/18/2017 PROCEDURE: HISTORICAL COLONOSCOPY; COMMENT: small polyp fulgurated in sigmoid, poor prep; [email or web address]. No path. UPPER GASTROINTESTINAL ENDOSCOPY 06/01/2006 PROCEDURE: MD UPPER GI ENDOSCOPY PERFORMED; COMMENT: gastric erythema, bx negative for gastritis and neg for H. pylori. UPPER GASTROINTESTINAL ENDOSCOPY 07/21/2017 PROCEDURE: MD UPPER GI ENDOSCOPY PERFORMED; COMMENT: Visually normal, duodenal biopsies: Mild sprue-like lesion. TOTAL KNEE ARTHROPLASTY Left PROCEDURE: MD ARTHRP KNE CONDYLE&PLATU MEDIAL&LAT COMPARTMENTS Medical History Medical History Date Comments Heart disease, unspecified DX:He art disease, unspecified Type II or unspecified type diabetes mellitus with unspecified complication, not stated as uncontrolled DX:Type II or unspecified ty pe diabetes mellitus with unspecified complication, not stated as uncontrolled Personal history of colonic polyps 03/21/2011 DX:Personal history of colonic polyps Diverticulitis 04/14/2011 DX:Diverticuliti s Essential hypertension, benign 09/25/2011 D X:Essential hypertension, benign Pulmonary embolism (CMS/HCC) 01/25/2017 DX: Pulmonary embolism (HCC) DM type 2 causing neurologic al disease (CMS/HCC) 09/30/2010 DX:DM type 2 causing neurolo gical disease (HCC) Morbid obesity due to excess calories (CMS/HCC) 01/25/2017 DX:Morbid obesity due to exc ess calories (HCC) Anxiety 02/09/2017 DX:Anxiety; COMM ENT: F/u [address] Osteoarthritis 02/09/2017 DX:Osteoarthriti s Asthma 02/09/2017 DX:Asthma BPH (benign prostatic hyperplasia) 03/09/2017 DX:BPH (benign prostatic hyperplasia) Anticoagulated on Coumadin 03/09/2017 DX:An ticoagulated on Coumadin Atrial fibrillation ([facility]/HCC) 01/23/2019 DX :Atrial fibrillation (HCC) Dementia (CMS/HCC) 01/23/2019 DX:Dementia ( HCC) CHF (congestive heart failur e) (CMS/HCC) DX:CHF (congestive heart leana lure) ([facility]) Diverticulosis DX:Diverticulosi s Family History Medical History Relation Name Comments Heart attack Father Stroke Father Other: sudden Mother probably CVA, was 99 y/o Blindness Neg Hx Cataracts Neg Hx Colon cancer Neg Hx Glaucoma Neg Hx Macular degeneration Neg Hx Strabismus Neg Hx Relation Name Status Comments Father Mother Social History Tobacco Use Types Packs/Day Years Used Date Smoking Tobacco: Never Smokeless Tobacco: Never Tobacco Cessation:Counseling Given: Not Answered Alcohol Use Standard Drinks/Week Comments No 0 (1 standard drink = 0.6 oz pur e alcohol) Sex and Gender Information Value Date Recorded Sex Assigned at Not on file Legal Sex Male 5:46 AM EST Gender Identity Not on file Sexual Orientation Not on file Obstetrics History Last Filed Vital Signs Vital Sign Reading Time Taken Comments Blood Pressure 138/80 05/29/2024 2:53 PM EST Pulse 64 05/29/2024 2:53 PM EST Temperature 35.9 ??C (96.6 ??F) 05/29/2024 2:53 PM ES T Respiratory Rate 20 05/29/2024 2:53 PM EST Oxygen Saturation 96% 05/29/2024 2:53 PM EST Inhaled Oxygen Concentration - - Weight 108 kg (238 lb) 05/29/2024 2:53 PM EST Height 185.4 cm (6' 1 ) 05/29/2024 2:53 PM EST Body Mass Index 31.4 05/29/2024 2:53 PM EST Plan of Treatment Upcoming Encounters Date Type Department Care Team (Late st Contact Info) Description 07/01/2024 2:30 PM EST Office Visit [place] [facility] [address] [place] [address] Shay Cartagena PA [address] [place] [address] 12/18/2024 1:00 PM EDT Office Visit Pulmonolgy - [place] [address] [place] [phone] Briseyda Rios MD [address] [place] [address] Health Maintenance Due Date Last Done Comments Zoster Vaccines (1 of 2) 1964 RSV Immunization Patients 60+ Years Old (1 - 1-dose 75+ series) 2019 Colorectal Cancer Screening: Colonoscopy 04/16/2022 Hepatitis C Screening 04/16/2022 Social Influencers of Health Screening 04/16/2022 COVID-19 Vaccine ( season) 2024 03/27/2023, 06/02/2022, 05/13/2021, Additional history exists Diabetes: Blood Sugar Control Test (HGBA1C) 06/22/2024 12/21/2023, 12/21/2023, 10/23/2023 Depression Screening 07/19/2024 07/20/2023 Diabetes: Annual Urine Albumin-Creatinine Ratio (uACR) 12/20/2024 12/21/2023 Diabetes: Annual GFR (Glomerular Filtration Rate) 12/20/2024 12/21/2023, 12/21/2023, 10/23/2023 Hypertension/CHF/CAD Annual BMP Blood Test 12/20/2024 12/21/2023, 12/21/2023, 10/23/2023 Diabetes: Annual Retina Eye Exam 01/23/2025 01/24/2024 Diabetes: Annual Foot Exam 01/31/2025 02/01/2024 Falls Risk Assessment 01/31/2025 02/01/2024 Cholesterol Screening (Lipid Panel) 04/10/2028 04/10/2023 DTaP,Tdap,and Td Vaccines (3 - Td or Tdap) 01/31/2029 01/31/2019, 12/09/2010 Pneumococcal Vaccine: 50+ Years Completed 02/09/2017, 12/09/2010 Influenza Vaccine Completed 02/01/2024, , 03/13/2023, Additional history exists HIB Vaccines Aged Out No longer eligi [...] on patient's age to complete this topic MMR Vaccines Aged Out No longer eligi ble based on patient's age to complete this topic Meningococcal ACWY Vaccine Aged Out N o longer eligible based on patient's age to complete this topic Meningococcal B Vacine Aged Out No lo nger eligible based on patient's age to complete this topic RSV Immunization Patients Under 20 months Aged Out No longer eligible based on patient's age to complete this topic Varicella Vaccines Aged Out No longer eligible based on patient's age to complete this topic Procedures Procedure Name Priority Date/Time Associated Diagnosis Comments FALLS RISK ASSESSMENT Routine 02/01/2024 DIABETES FOOT EXAM Routine 02/01/2024 DIABETES EYE EXAM Routine 01/24/2024 URINE ALBUMIN CREATININE RATIO Routine 12/21/2023 ANNUAL BMP BLOOD TEST Routine 12/21/2023 HEMOGLOBIN A1C Routine 12/21/2023 DEPRESSION SCREENING Routine 07/20/2023 LIPID PANEL Routine 04/10/2023 from Last 3 Months or Most Recently Relevant to Health Maintenance Results * Falls Risk Assessment (02/01/2024) Falls Risk Assessment abstracted Historical Provider MD HEALTH MAINTENANCE Final Result * Diabetes Foot Exam (02/01/2024) Diabetes: Annual Foot Exam abstracted us Historical Provider HEALTH MAINTENANCE Final Result * Diabetes Eye Exam (01/24/2024) [facility] Diabetes: Annual Retina Eye Exam abstracted Result [facility] Provider HEALTH MAINTENANCE Final Result * Urine Albumin Creatinine Ratio (12/21/2023) [facility] Urine Albumin Creatinine Ratio abstracted Result [facility] Provider HEALTH MAINTENANCE Final Result * Annual BMP Blood Test (12/21/2023) Pathologist [facility] Annual BMP Blood Test abstracted Result [facility] Provider HEALTH MAINTENANCE Final Result * (ABNORMAL) Hemoglobin A1c (12/21/2023) [facility] Hemoglobin A1C 7.6(A) <=6.5 % Blood Venous blood specimen / Unknown Result [facility] Provider LAB BLOOD ORDERABLES Arlette l Result * Depression Screening (07/20/2023) Pathologist [facility] Depression Screening abstracted Result [facility] Provider HEALTH MAINTENANCE Final Result * (ABNORMAL) Lipid panel (04/10/2023) [facility] LDL/HDL Ratio 4 0 - 4 Triglycerides 136 0 - 150 mg/dL Cholesterol 129 0 - 200 mg/dL HDL 36(A) >=40 mg/dL LDL Cholesterol 66 0 - 100 mg/dL Blood Venous blood specimen / Unknown Result [facility] Provider LAB BLOOD ORDERABLES Arlette l Result from Last 3 Months or Most Recently Relevant to Health Maintenance Insurance 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 Health Care Decision (hx) 02/22/2019 AD BUNCH DIRECTIVE Health Care Decision (hx) 02/22/2019 AD BUNCH DIRECTIVE Health Care Decision (hx) 02/22/2019 AD BUNCH DIRECTIVE Health Care Decision (hx) 02/22/2019 AD BUNCH DIRECTIVE Health Care Decision (hx) 02/22/2019 AD BUNCH DIRECTIVE Health Care Decision (hx) 02/22/2019 AD BUNCH DIRECTIVE Health Care Decision (hx) 02/22/2019 AD BUNCH DIRECTIVE Health Care Decision (hx) 02/22/2019 AD BUNCH DIRECTIVE Health Care Decision (hx) 02/22/2019 AD BUNCH DIRECTIVE Health Care Decision (hx) 02/22/2019 AD BUNCH DIRECTIVE Health Care Decision (hx) 02/22/2019 AD BUNCH DIRECTIVE Health Care Decision (hx) 02/22/2019 AD BUNCH DIRECTIVE Health Care Decision (hx) 02/22/2019 AD BUNCH DIRECTIVE Health Care Decision (hx) 02/22/2019 AD BUNCH DIRECTIVE Health Care Decision (hx) 02/22/2019 AD BUNCH DIRECTIVE Health Care Decision (hx) 02/22/2019 AD BUNCH DIRECTIVE Health Care Decision (hx) 02/22/2019 AD BUNCH DIRECTIVE Health Care Decision (hx) 02/22/2019 AD BUNCH DIRECTIVE Health Care Decision (hx) 02/22/2019 AD BUNCH DIRECTIVE Health Care Decision (hx) 02/22/2019 AD BUNCH DIRECTIVE Health Care Decision (hx) 02/22/2019 AD BUNCH DIRECTIVE Health Care Decision (hx) 02/22/2019 AD BUNCH DIRECTIVE Health Care Decision (hx) 02/22/2019 AD BUNCH DIRECTIVE Health Care Decision (hx) 02/22/2019 AD BUNCH DIRECTIVE Health Care Decision (hx) 02/22/2019 AD BUNCH DIRECTIVE Health Care Decision (hx) 02/22/2019 AD BUNCH DIRECTIVE Health Care Decision (hx) 02/22/2019 AD BUNCH DIRECTIVE Health Care Decision (hx) 02/22/2019 AD BUNCH DIRECTIVE Health Care Decision (hx) 02/22/2019 AD BUNCH DIRECTIVE Health Care Decision (hx) 02/22/2019 AD BUNCH DIRECTIVE Health Care Decision (hx) 02/22/2019 AD BUNCH DIRECTIVE Health Care Decision (hx) 02/22/2019 AD BUNCH DIRECTIVE Health Care Decision (hx) 02/22/2019 AD BUNCH DIRECTIVE Health Care Decision (hx) 02/22/2019 AD BUNCH DIRECTIVE Health Care Decision (hx) 02/22/2019 AD BUNCH DIRECTIVE Health Care Decision (hx) 02/22/2019 AD BUNCH DIRECTIVE Health Care Decision (hx) 02/22/2019 AD BUNCH DIRECTIVE Health Care Decision (hx) 02/22/2019 AD BUNCH DIRECTIVE Health Care Decision (hx) 02/22/2019 AD BUNCH DIRECTIVE Health Care Decision (hx) 02/22/2019 AD BUNCH DIRECTIVE Health Care Decision (hx) 02/22/2019 AD BUNCH DIRECTIVE Health Care Decision (hx) 02/22/2019 AD BUNCH DIRECTIVE Health Care Decision (hx) 02/22/2019 AD BUNCH DIRECTIVE Health Care Decision (hx) 02/22/2019 AD BUNCH DIRECTIVE Care Teams Employee Communications Intern Relationship Specialty Start Date End Date Miguel Sousa MD [address] [place] [address] PCP - General Internal Medicine 04/18/17
--- OUTSIDE RECORDS SUMMARY | 2024-06-20 14:33 | XMS_ITS | Encounter Summary ---
Author Organization [facility] Address [address] [place] [address] Care Team Providers Care Hire Car Driver Name Role Phone Miguel Sousa MD Primary Care Provider [phone] Jacek Damon MD Unavailable Nuris Mcknight PA-C Unavailable Raj Marie MD Unavailable [phone] Shelby Mcneil NP Unavailable [phone] Reason for Visit * Reason Comments Anticoagulation Encounter Details Date Type Department Care Team Description 10/25/2022 Anticoagulation Therapy Cardio PVC [address] [facility] [address] [place] [address] Jacek Damon MD [address] [place] [address] [phone] 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) Social [...] documented as of this encounter Visit Diagnoses Diagnosis 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- Primary documented in this encounter Care Teams Hire Car Driver Relationship Specialty Start Date End Date Miguel Sousa MD [address] [place] [address] [phone] PCP - General Internal Medicine 01/30/19 Jacek Damon MD [address] [place] [address] [phone] Hotel Director Cardiovascular Disease 04/18/17 Nuris Mcknight PA-C [address] [place] [address] [phone] Specialist Cardiology 03/20/19 Raj Marie MD [address] [place] [address] Hotel Director Cardiology 05/03/21 Shelby Mcneil NP [address] [place] [address] Cardiology 09/11/23 documented as of this encounter
--- OUTSIDE RECORDS SUMMARY | 2024-06-20 14:33 | XMS_ITS | Patient Health Record ---
Author Organization [facility] [place] Address [address] [facility] [place] [address] Care Team Providers Care Ultrasound Supervisor Name Role Phone Sherry Randle Primary Care Provider Unavail able Michaela Goldman Unavailable [phone] Abimael Waterman Unavailable [phone] Allergies Allergen (clinical drug ingredient) Drug/Non Drug Allergy documented on EMR Reaction Allergy Type Onset Date Status Penicillin Unknown Drug Allergy Active Results Component Value Reference Range Notes HEMOGLOBIN A1C (GLYCOHEMOGLO BIN) Reviewed date:05/31/2024 01:43:14 PM Interpretation: Performing Lab: Notes/Report: HEMOGLOBIN A1C % (HH) 8.0 Reason For Referral No Information Medications Medication SIG (Take, Route, Frequency, Duration) Notes Start Date End Date Status Eye Cup Active Extra Depth Diabetic Shoes with 3 Pair Custom heat-molded multi-density innersoles for 1 year Dx: A ctive Ciclopirox Olamine 0.77 % 1 application to affected area Externally Twice a day to effected areas on feet for 30 days Active Carvedilol Not-Takin g Clotrimazole-Betamethaso ne 1-0.05 % 1 application to affected area Externally Twice a day to affected areas on feet for 30 days Not-Taking LamISIL 250 MG 1 tablet Orally Once a day for 7 days 02/21/2023 Not-Taking Vitamin B 12 Active Ciclopirox Olamine 0.77 % 1 application Externally Twice a day to skin of feet including between the toes for 30 days Active Vitamin C Active Metformin & Diet Manage Prod Active Trulicity Active Social History Tobacco Use: Social History Observation Description Date Details (start date - stop date) Never Smoker NA - NA Alcohol Screen Question Answer Notes Did you have a drink contain ing alcohol in the past year? Yes How often did you have a dri nk containing alcohol in the past year? Monthly or less (1 point) Points 1 Interpretation Negative Tobacco use other than smoking: Question Answer Notes Are you an other tobacco user? No Tobacco Control (Standard) Question Answer Notes Tobacco use: Nonsmoker Additional Findings: Tobacco non-user Current no nsmoker Problems Problem Type SNOMED Code ICD Code Onset Dates Problem Status W/U Status Risk Notes Problem Acquired hammer toe of right foot (0681289263895599 ) Other hammer toe(s) (acquired), right foot (M20.41) Active confirmed Problem Acquired hammer toe of left foot (3241961241700351 ) Other hammer toe(s) (acquired), left foot (M20.42) Active confirmed Problem Polyneuropathy due to type 2 diabetes mellitus (136902379) Type 2 diabetes mellitus with diabetic polyneuropathy (E11.42) Active confirmed Vital Signs Blood pressure diastolic 75 mm Hg 05/31/2024 Height 6ft 1in in 05/31/2024 Blood pressure systolic 130 mm Hg 05/31/2024 Weight 237 lbs 05/31/2024 BMI 31.26 kg/m2 05/31/2024 Procedures Procedure Date Ordered Date Performed Result Body Sit e 79378-IZGZOEV NAIL, 6 OR MORE 05/31/2024 N/A 16049-QIAC SKIN LESIONS, OVER 4 05/31/2024 N/A Encounters Encounter Location Date Provider Diagnosis [address] [address] 07/18/2023 Abimael Waterman Type 2 diabetes mellitus with diabetic polyneuropathy E11.42 ; Pain in right toe(s) M79.674 ; Tinea unguium B35.1 ; Pain in left toe(s) M79.675 ; Skin disease L98.9 ; Tinea pedis B35.3 ; Other hammer toe(s) (acquired), left foot M20.42 and Other hammer toe(s) (acquired), right foot M20.[address] [facility] [address] 10/17/2023 Abimael Waterman Type 2 diabetes mellitus with diabetic polyneuropathy E11.42 ; Pain in right toe(s) M79.674 ; Tinea unguium B35.1 ; Pain in left toe(s) M79.675 ; Skin disease L98.9 ; Tinea pedis B35.3 ; Other hammer toe(s) (acquired), left foot M20.42 and Other hammer toe(s) (acquired), right foot M20.[address] [address] 01/16/2024 Abimael Waterman Type 2 diabetes mellitus with diabetic polyneuropathy E11.42 ; Pain in right toe(s) M79.674 ; Tinea unguium B35.1 ; Pain in left toe(s) M79.675 ; Skin disease L98.9 ; Tinea pedis B35.3 ; Other hammer toe(s) (acquired), left foot M20.42 and Other hammer toe(s) (acquired), right foot M20.[address] [address] 05/31/2024 Michaela Goldman Tinea pedis of both feet B35.3 ; Type 2 diabetes mellitus with diabetic polyneuropathy E11.42 and Tinea unguium B35.[address] [address] 04/17/2024 Michaela Goldman Assessments Encounter Date Diagnosis (ICD Code) Assessment Notes Treatment Notes Treatment Clinical Notes Section Notes 07/18/2023 Type 2 diabetes mellitus with diabetic polyneuropathy (ICD-10 - E11.42) 10/17/2023 Type 2 diabetes mellitus with diabetic polyneuropathy (ICD-10 - E11.42) 01/16/2024 Type 2 diabetes mellitus with diabetic polyneuropathy (ICD-10 - E11.42) 05/31/2024 Tinea pedis of both feet (ICD-10 - B35.3) 05/31/2024 Type 2 diabetes mellitus with diabetic polyneuropathy (ICD-10 - E11.42) 05/31/2024 Tinea unguium (ICD-10 - B35.1) 01/16/2024 Pain in right toe(s) (ICD-10 - M79.674) 10/17/2023 Pain in right toe(s) (ICD-10 - M79.674) 07/18/2023 Pain in right toe(s) (ICD-10 - M79.674) 07/18/2023 Tinea unguium (ICD-10 - B35.1) 10/17/2023 Pain in left toe(s) (ICD-10 - M79.675) 10/17/2023 Tinea unguium (ICD-10 - B35.1) 01/16/2024 Tinea unguium (ICD-10 - B35.1) 01/16/2024 Pain in left toe(s) (ICD-10 - M79.675) 10/17/2023 Skin disease (ICD-10 - L98.9) 07/18/2023 Pain in left toe(s) (ICD-10 - M79.675) 07/18/2023 Skin disease (ICD-10 - L98.9) 10/17/2023 Tinea pedis (ICD-10 - B35.3) 01/16/2024 Skin disease (ICD-10 - L98.9) 01/16/2024 Tinea pedis (ICD-10 - B35.3) 10/17/2023 Other hammer toe(s) (acquired), left foot (ICD-10 - M20.42) 07/18/2023 Tinea pedis (ICD-10 - B35.3) 07/18/2023 Other hammer toe(s) (acquired), left foot (ICD-10 - M20.42) 10/17/2023 Other hammer toe(s) (acquired), right foot (ICD-10 - M20.41) 01/16/2024 Other hammer toe(s) (acquired), left foot (ICD-10 - M20.42) 01/16/2024 Other hammer toe(s) (acquired), right foot (ICD-10 - M20.41) 07/18/2023 Other hammer toe(s) (acquired), right foot (ICD-10 - M20.41) Plan Of Treatment Pending Test Test Name Order Date 06514-JJIROZU NAIL, 6 OR MORE 04/19/2022 12051-WYDSTFG NAIL, 6 OR MORE 05/31/2024 89649-SLTH SKIN LESIONS, OVER 4 05/31/19 89357-TSBE SKIN LESIONS, OVER 4 01/19/20 94059-JNBF SKIN LESIONS, OVER 04/19/20 Next Appt Details Provider Name:Michaela alcaraz, 09/20/2024 01:30:00 PM, [address] [facility], [address], [place], [address], Insurance Providers Payer Name Payer Address Payer Phone Subscriber Number Group Number Insured Name Patient Relationship to Insured Coverage Start Date Coverage End Date [facility] [employer] Claims [address] [place] [id number] Chandra De León Self - patient is the insured Medical (General) History Medical History History ICD Code Diabetic High blood pressure covid-19 Surgical History Surgery Date(Month/Year) cataracts, right 10/11/23 Hospitalization History Reason Date(Month/Year) [facility] Covid 12/2023 [facility]- UTI, diverticulosis 09/2022 covid 12/2021
--- OUTSIDE RECORDS SUMMARY | 2024-06-20 14:33 | XMS_ITS | Encounter Summary ---
Author Organization [facility] Address [address] [place] [address] Care Team Providers Care Marina Dry Dock Manager Name Role Phone Miguel Sousa MD Primary Care Provider Jacek aDmon MD Unavailable Nuris Mcknight PA-C Unavailable Raj Marie MD Unavailable [phone] Shelby Mcneil NP Unavailable [phone] Encounter Details Date Type Department Care Team Description 10/06/2022 Telephone Adult Medicine [address] [phone] Shay Cartagena PA-C [address] [place] [address] [phone] Social History Tobacco Use Types Packs/Day Years [...] suspected to have Coronavirus/COVID-19? No / Unsure 09/28/2022 10:48 AM EDT documented as of this encounter Miscellaneous Notes * Telephone Encounter - Jane Manley RN - 10/14/2022 10:18 AM EDT Attempted to call pt using and . Unable to leave a message as it went from ringing to a busy signal. * Telephone Encounter - Rachel Bangura R.N. - 10/10/2022 9:26 AM EDT Will watch for cancellations * Telephone Encounter - Rachel Bangura R.N. - 10/10/2022 9:[address] michela Day does not have any openings now fro sooner visit, will watch for cancellations , he will be out of the ooffcie next week. * Telephone Encounter - Akosua Pizano - 10/10/2022 9:10 AM EDT Please see msg from Shay, I do not have any sooner hospital f/u available with pcp. Please advise * Telephone Encounter - Shay Cartagena PA-C - 10/06/2022 2:20 PM EDT Patient needs an ER follow-up visit. He should be seen sooner than he is currently scheduled. He should also keep follow-up appointment with Dr. Sousa. documented in this encounter Plan of Treatment Not on file documented as of this encounter Visit Diagnoses Not on filedocumented in this encounter Care Teams Marina Dry Dock Manager Relationship Specialty Start Date End Date Miguel Sousa MD [address] [place] [address] PCP - General Internal Medicine 01/30/19 Jacek Damon MD [address] [place] [address] Home Health Nurse Licensed Practical Cardiovascular Disease 04/18/17 Nuris Mcknight PA-C [address] [place] [address] Specialist Cardiology 03/20/19 Raj Marie MD [address] [place] [address] Home Health Nurse Licensed Practical Cardiology 05/03/21 Shelby Mcneil NP [address] [place] [address] Cardiology 09/11/23 documented as of this encounter
--- OUTSIDE RECORDS SUMMARY | 2024-06-20 14:33 | XMS_ITS | Encounter Summary ---
Author Organization [facility] Address [address] [place] [address] Care Team Providers Care Bailing Machine Operator Name Role Phone Miguel Sousa MD Primary Care Provider [phone] Jacek Damon MD Unavailable Nuris Mcknight PA-C Unavailable Raj Marie MD Unavailable [phone] Shelby Mcneil NP Unavailable [phone] Reason for Visit * Reason Onset Date Comments Medication 10/19/2022 Switching to ronnie sonal or Xarelto Encounter Details Date Type Department Care Team Description 10/19/2022 Telephone Cardio [address]VC [address] [facility] [address] [place], [place] [phone] Nuris Mcknight PA-C [address] [place] [address] [phone] Medication (Switching to eliquis or Xarelto) Social History Tobacco Use Types Packs/Day Years [...] encounter Miscellaneous Notes * Telephone Encounter - Tay Brooks C.M.A. - 10/19/2022 1:56 PM EDT Pt would like to know if he can switch to eliquis or Xarelto? documented in this encounter Plan of Treatment Not on file documented as of this encounter Visit Diagnoses Not on filedocumented in this encounter Care Teams Bailing Machine Operator Relationship Specialty Start Date End Date Miguel Sousa MD [address] [place] [address] PCP - General Internal Medicine 01/30/19 Jacek Damon MD [address] [place] [address] Life Skills Coordinator Cardiovascular Disease 04/18/17 Nuris Mcknight PA-C [address] [place] [address] Specialist Cardiology 03/20/19 Raj Marie MD [address] [place] [address] Life Skills Coordinator Cardiology 05/03/21 Shelby Mcneil NP [address] [facility] [address] [place] [address] Cardiology 09/11/23 documented as of this encounter
--- OUTSIDE RECORDS SUMMARY | 2024-06-20 14:33 | XMS_ITS | Encounter Summary ---
Author Organization [facility] Address [address] [place] [address] Care Team Providers Care Physician Allergist Immunologist Name Role Phone Miguel Sousa MD Primary Care Provider [phone] Jacek Damon MD Unavailable Nuris Mcknight PA-C Unavailable Raj Marie MD Unavailable [phone] Shelby Mcneil NP Unavailable [phone] Reason for Visit * Reason Comments E-prescribe Rx Request Encounter Details Date Type Department Care Team Description 09/24/2022 Refill Adult Medicine [address] [phone] Miguel Sousa MD [address] [place] [address] [phone] E-prescribe Rx Request Social History Tobacco Use [...] Telephone Encounter - Rama Clifford M.A. - 09/29/2022 4:51 PM EDT Lab Results Component Value Date NA 137 08/24/2022 K 3.7 08/24/2022 CO2 36 08/24/2022 CL 99 08/24/2022 BUN 14 08/24/2022 CREAT 0.98 08/24/2022 GLU 127 08/24/2022 CA 9.1 08/24/2022 GFR 79 08/24/2022 Pending appt 10/26/22 Last appt with pcp 09/28/22 documented in this encounter Plan of Treatment Not on file documented as of this encounter Visit Diagnoses Not on filedocumented in this encounter Care Teams Physician Allergist Immunologist Relationship Specialty Start Date End Date Miguel Sousa MD [address] [place] [address] PCP - General Internal Medicine 01/30/19 Jacek Damon MD [address] [place] [address] Nutritional Yeast Supervisor Cardiovascular Disease 04/18/17 Nuris Mcknight PA-C [address] [place] [address] [phone] Specialist Cardiology 03/20/19 Raj Marie MD [address] [place] [address] Nutritional Yeast Supervisor Cardiology 05/03/21 Shelby Mcneil NP [address] [place] [address] Cardiology 09/11/23 documented as of this encounter
--- OUTSIDE RECORDS SUMMARY | 2024-06-20 14:33 | XMS_ITS | Encounter Summary ---
Author Organization [facility] Address [address] [place] [address] Care Team Providers Care Senior Sql Server Dba Name Role Phone Miguel Sousa MD Primary Care Provider Jacek Damon MD Unavailable Nuris Mcknight PA-C Unavailable Raj Marie MD Unavailable [phone] Shelby Mcneil NP Unavailable [phone] Reason for Visit * Reason Comments E-prescribe Rx Request Encounter Details Date Type Department Care Team Description 11/14/2022 Refill Adult Medicine [address] [phone] Miguel Sousa MD [address] [place] [address] [phone] E-prescribe Rx Request Social History Tobacco Use [...] encounter Miscellaneous Notes * Telephone Encounter - Monica Goodson M.A. - 11/14/2022 2:56 PM EDT Last office visit 10/26/22 Next office visit 01/26/23 Lab Results Component Value Date PSA 0.6 04/14/2022 * Telephone Encounter - Cynthia Parikh - 11/14/2022 12:50 PM EDT Patient would like script to be: E-PRESCRIBED/FAXED TO PHARMACY WHEN WAS THE PATIENT'S LAST APPOINTMENT IN ADULT MEDICINE? 10/26/2022 WHEN WAS THE LAST TIME THE PATIENT SAW THEIR PCP? Same as above Does patient have an upcoming appointment? Yes 01/26/2023 (THE MEDICATION REQUESTED IS ON THE MED LIST ABOVE) All of the medications requested were on the CURRENT MEDS list Did you check the Pharmacy information above?: YES Patient wants: 30 -day supply Is this a mail order prescription request ? NO If the refill is from a FAXED refill request what is the RX # listed on the fax? N/A Patients current insurance carrier is: Payor: [employer] / Plan: [employer] $0 AGAR [id number] / Product Type: HMO [id number] documented in this encounter Plan of Treatment Not on file documented as of this encounter Visit Diagnoses Not on filedocumented in this encounter Care Teams Senior Sql Server Dba Relationship Specialty Start Date End Date Miguel Sousa MD [address] [place] [address] PCP - General Internal Medicine 01/30/19 Jacek Damon MD [address] [place] [address] Cardiology Physician Cardiovascular Disease 04/18/17 Nuris Mcknight PA-C [address] [place], [place] [phone] Specialist Cardiology 03/20/19 Raj Marie MD [address] [place] [address] Cardiology Physician Cardiology 05/03/21 Shelby Mcneil NP [address] [place] [address] Cardiology 09/11/23 documented as of this encounter
--- OUTSIDE RECORDS SUMMARY | 2024-06-20 14:33 | XMS_ITS | Encounter Summary ---
Author Organization [facility] Address [address] [place] [address] Care Team Providers Care Chief Technician X Ray Name Role Phone Miguel Sousa MD Primary Care Provider [phone] Jacek Damon MD Unavailable Nuris Mcknight PA-C Unavailable Raj Marie MD Unavailable [phone] Shelby Mcneil NP Unavailable [phone] Encounter Details Date Type Department Care Team Description 07/19/2022 Tax Manager Public Report Medical Records [address] [place] [address] Abimael Waterman Social History Tobacco Use Types Packs/Day Years [...] on filedocumented in this encounter Care Teams Chief Technician X Ray Relationship Specialty Start Date End Date Miguel Sousa MD [address] [place] [address] PCP - General Internal Medicine 01/30/19 Jacek Damon MD [address] [place] [address] Controls Project Engineer Cardiovascular Disease 04/18/17 Nuris Mcknight PA-C [address] [place] [address] Specialist Cardiology 03/20/19 Raj Marie MD [address] [place] [address] Controls Project Engineer Cardiology 05/03/21 Shelby Mcneil NP [address] [place] [address] Cardiology 09/11/23 documented as of this encounter
--- OUTSIDE RECORDS SUMMARY | 2024-06-20 14:33 | XMS_ITS | Encounter Summary ---
Author Organization [facility] Address [address] [place] [address] Care Team Providers Care Athletics Director Name Role Phone Miguel Sousa MD Primary Care Provider [phone] Jacek Damon MD Unavailable Nuris Mcknight PA-C Unavailable Raj Marie MD Unavailable [phone] Shelby Mcneil NP Unavailable [phone] Encounter Details Date Type Department Care Team Description 02/02/2023 Alcoholic Counselor Report Medical Records [address] [place] [address] Nestor Davenport DO Social History Tobacco Use [...] In the last 10 days, have charlie u been in contact with someone who was confirmed or suspected to have Coronavirus/COVID-19? No / Unsure 01/26/2023 1:58 PM EDT documented as of this encounter Plan of Treatment Not on file documented as of this encounter Visit Diagnoses Not on filedocumented in this encounter Care Teams Athletics Director Relationship Specialty Start Date End Date Miguel Sousa MD [address] [place] [address] PCP - General Internal Medicine 01/30/19 Jacek Damon MD [address] [place] [address] Research Associate Quality Control Qc Cardiovascular Disease 04/18/17 Nuris Mcknight PA-C [address] [place] [address] Specialist Cardiology 03/20/19 Raj Marie MD [address] [place] [address] Research Associate Quality Control Qc Cardiology 05/03/21 Shelby Mcneil NP [address] [place] [address] Cardiology 09/11/23 documented as of this encounter
--- OUTSIDE RECORDS SUMMARY | 2024-06-20 14:33 | XMS_ITS | Encounter Summary ---
Author Organization [facility] Address [address] [place] [address] Care Team Providers Care Senior It Auditor Name Role Phone Miguel Sousa MD Primary Care Provider [phone] Jacek Damon MD Unavailable Nuris Mcknight PA-C Unavailable Raj Marie MD Unavailable [phone] Shelby Mcneil NP Unavailable [phone] Encounter Details Date Type Department Care Team Description 09/26/2022 Telephone Adult Medicine [address] [phone] Miguel Sousa MD [address] [place] [address] [phone] Social History Tobacco Use Types Packs/Day Years [...] encounter Miscellaneous Notes * Telephone Encounter - Rachel Bangura R.N. - 09/26/2022 4:53 PM EDT Pt has INR of 7 Is in [facility] er now, will hold coumadin, PVC aware and will call pt to book INR check on Monday and monday documented in this encounter Plan of Treatment Not on file documented as of this encounter Visit Diagnoses Not on filedocumented in this encounter Care Teams Senior It Auditor Relationship Specialty Start Date End Date Miguel Sousa MD [address] [place] [address] PCP - General Internal Medicine 01/30/19 Jacek Damon MD [address] [place] [address] [phone] Briefcase Sewer Cardiovascular Disease 04/18/17 Nuris Mcknight PA-C [address] [place] [address] [phone] Specialist Cardiology 03/20/19 Raj Marie MD [address] [facility] [address] [place] [address] Briefcase Sewer Cardiology 05/03/21 Shelby Mcneil NP [address] [facility] [address] [place] [address] Cardiology 09/11/23 documented as of this encounter
--- OUTSIDE RECORDS SUMMARY | 2024-06-20 14:34 | XMS_ITS | Encounter Summary ---
Author Organization [facility] Address [address] [place] [address] Care Team Providers Care Systems Navigator Name Role Phone Miguel Sousa MD Primary Care Provider [phone] Jacek Damon MD Unavailable Nuris Mcknight PA-C Unavailable Raj Marie MD Unavailable [phone] Shelby Mcneil NP Unavailable [phone] Reason for Visit * Reason Onset Date Comments Faxed Order 04/10/2019 Fatmata HERNANDEZ Encounter Details Date Type Department Care Team Description 04/10/2019 Telephone Adult Medicine [address] [phone] Miguel Sousa MD [address] [place] [address] [phone] Faxed Order (Fatmata HERNANDEZ) Social History Tobacco Use Types Packs/Day Years [...] encounter Miscellaneous Notes * Telephone Encounter - Rahel Camacho - 04/15/2019 3:19 PM EST More orders from Fatmata HERNANDEZ. * Telephone Encounter - Idania Flower - 04/11/2019 1:12 PM EST More faxed orders received from [facility]. * Telephone Encounter - Idania Flower - 04/10/2019 12:58 PM EST Faxed orders received from [facility] , please sign and fax back to [phone]. documented in this encounter Plan of Treatment Not on file documented as of this encounter Visit Diagnoses Not on filedocumented in this encounter Care Teams Systems Navigator Relationship Specialty Start Date End Date Miguel Sousa MD [address] [place] [address] PCP - General Internal Medicine 01/30/19 Jacek Damon MD [address] [place] [address] Lactation Specialist Cardiovascular Disease 04/18/17 Nuris Mcknight PA-C [address] [place] [address] Specialist Cardiology 03/20/19 Raj Marie MD [address] [address] Lactation Specialist Cardiology 05/03/21 Shelby Mcneil NP [address] [place] [address] Cardiology 09/11/23 documented as of this encounter
--- OUTSIDE RECORDS SUMMARY | 2024-06-20 14:34 | XMS_ITS | Encounter Summary ---
Author Organization [facility] Address [address] [place] [address] Care Team Providers Care Test Desk Trouble Locator Name Role Phone Miguel Sousa MD Primary Care Provider [phone] Jacek Damon MD Unavailable Nuris Mcknight PA-C Unavailable Raj Marie MD Unavailable [phone] Shelby Mcneil NP Unavailable [phone] Encounter Details Date Type Department Care Team Description 02/14/2019 Enrichment Specialist Report Medical Records [address] [place] [address] Jacek Damon MD [address] [place] [address] [phone] Social History Tobacco Use Types Packs/Day Years [...] on filedocumented in this encounter Care Teams Test Desk Trouble Locator Relationship Specialty Start Date End Date Miguel Sousa MD [address] [place] [address] PCP - General Internal Medicine 01/30/19 Jacek Damon MD [address] [place] [address] Multi Operation Machine Operator Cardiovascular Disease 04/18/17 Nuris Mcknight PA-C [address] [place] [address] Specialist Cardiology 03/20/19 Raj Marie MD [address] [facility] [address] [place] [address] Multi Operation Machine Operator Cardiology 05/03/21 Shelby Mcneil NP [address] [facility] [address] [place] [address] Cardiology 09/11/23 documented as of this encounter
--- OUTSIDE RECORDS SUMMARY | 2024-06-20 14:34 | XMS_ITS | Encounter Summary ---
Author Organization [facility] Address [address] [place] [address] Care Team Providers Care Wool Hat Hydraulicker Name Role Phone Miguel Sousa MD Primary Care Provider [phone] Jacek Damon MD Unavailable Nuris Mcknight PA-C Unavailable Raj Marie MD Unavailable Shelby Mcneil NP Unavailable [phone] Encounter Details Date Type Department Care Team Description 05/11/2021 Telephone Cardio PVC POC [address] [place] [address] Nuris Mcknight PA-C [address] [place] [address] [phone] Social History Tobacco Use Types Packs/Day Years [...] Exposure Response Date Recorded In the last month, have you been in contact with someone who was confirmed or suspected to have Coronavirus / COVID-19? No / Unsure 05/13/2021 8:40 AM EST documented as of this encounter Miscellaneous Notes * Telephone Encounter - Tay Brooks C.M.A. - 05/27/2021 8:44 AM EST Sent form in on 05/17/21 * Telephone Encounter - Nuris Mcknight PA-C - 05/11/2021 1:09 PM EST Tito , can you see if this pt qualifies for home MD HAN has been non compliant due to transportation issues - his son Clinton [phone] would set up and make sure he does it weekly documented in this encounter Plan of Treatment Not on file documented as of this encounter Visit Diagnoses Not on filedocumented in this encounter Care Teams Wool Hat Hydraulicker Relationship Specialty Start Date End Date Miguel Sousa MD [address] [place] [address] PCP - General Internal Medicine 01/30/19 Jacek Damon MD [address] [place] [address] Hall Manager Cardiovascular Disease 04/18/17 Nuris Mcknight PA-C [address] [place] [address] Specialist Cardiology 03/20/19 Raj Marie MD [address] [address] Hall Manager Cardiology 05/03/21 Shelby Mcneil NP [address] [address] Cardiology 09/11/23 documented as of this encounter
--- OUTSIDE RECORDS SUMMARY | 2024-06-20 14:34 | XMS_ITS | Encounter Summary ---
Author Organization [facility] Address [address] [place] [address] Care Team Providers Care Cover Inspector Name Role Phone Miguel Sousa MD Primary Care Provider Jacek Damon MD Unavailable Nuris Mcknight PA-C Unavailable Raj Marie MD Unavailable [phone] Shelby Mcneil NP Unavailable [phone] Reason for Visit * Reason Onset Date Comments APPOINTMENT 08/17/2020 Rescheduling Encounter Details Date Type Department Care Team Description 08/17/2020 Telephone Cardio PVC POC 154 [address] [facility] [address] [place] [address] Nuris Mcknight PA-C [address] [place] [address] [phone] APPOINTMENT (Rescheduling) Social History Tobacco Use Types Packs/Day Years [...] have Coronavirus / COVID-19? No / Unsure 08/18/2020 12:27 PM EDT documented as of this encounter Miscellaneous Notes * Telephone Encounter - Kevin Luu 08/17/2020 9:14 AM EDT Spoke with patient about reschedulig todays appt w/ LM due to his no show for echo. Spoke with Evy and she will schedule his new appt after his echo 10/09/20. documented in this encounter Plan of Treatment Not on file documented as of this encounter Visit Diagnoses Not on filedocumented in this encounter Care Teams Cover Inspector Relationship Specialty Start Date End Date Miguel Sousa MD [address] [place] [address] PCP - General Internal Medicine 01/30/19 Jacek Damon MD [address] [place] [address] Short Goods Drier Cardiovascular Disease 04/18/17 Nuris Mcknight PA-C [address] [place] [phone] Specialist Cardiology 03/20/19 Raj Marie MD [address] [place] [address] Short Goods Drier Cardiology 05/03/21 Shelby Mcneil NP [address] [place] [address] Cardiology 09/11/23 documented as of this encounter
--- OUTSIDE RECORDS SUMMARY | 2024-06-20 14:34 | XMS_ITS | Encounter Summary ---
Author Organization [facility] Address [address] [place] [address] Care Team Providers Care Associate Store Director Name Role Phone Angelina Ferrer MD Primary Care Provider [facility], Pcp Primary Care Provider UnavailAmrik Jackson MD Primary Care Provider Un available Miguel Sousa MD Primary Care Provider [phone] Miguel Sousa MD Primary Care Provider [phone] Jacek Damon MD Unavailable Nuris Mcknight PA-C Unavailable Raj Marie MD Unavailable [phone] Shelby Mcneil NP Unavailable [phone] Encounter Details Date Type Department Care Team Description 10/29/2010 Manager Of Clinical Report Medical Records [address] [place] [address] Az Fay MD Social History Tobacco Use Types Packs/Day Years Used Date Smoking Tobacco: Never Smokeless Tobacco: Never Alcohol Use Standard Drinks/Week Comments Yes 0 (1 standard drink = 0.6 oz pur e alcohol) 6 beers twice a month Sex Assigned at Date Recorded Not on file Job Start Date Occupation Industry Not on file Not on file Not on file documented as of this encounter Plan of Treatment Not on file documented as of this encounter Visit Diagnoses Not on filedocumented in this encounter Care Teams Associate Store Director Relationship Specialty Start Date End Date Angelina Ferrer MD PCP - General 09/28/10 10/18/12 [facility], Pcp PCP - General Internal Medicine 10/19/12 01/22/17 Amrik Richter MD PCP - General Internal Medicine 01/23/1704/17 Miguel Sousa MD [address] [place] [address] PCP - General Internal Medicine 01/30/19 Miguel Sousa MD [address] [place] [address] [phone] PCP - General 04/18/17 01/29/19 Jacek Damon MD [address] [place] [address] [phone] Lawn [employer] Tree Service Spray Supervisor Cardiovascular Disease 04/18/17 Nuris Mcknight PA-C [address] [place] [address] [phone] Specialist Cardiology 03/20/19 Raj Marie MD [address] [place] [address] Lawn And Tree Service Spray Supervisor Cardiology 05/03/21 Shelby Mcneil NP [address] [place] [address] Cardiology 09/11/23 documented as of this encounter
--- OUTSIDE RECORDS SUMMARY | 2024-06-20 14:34 | XMS_ITS | Encounter Summary ---
Author Organization [facility] Address [address] [place] [address] Care Team Providers Care Tow Boat Captain Name Role Phone Miguel Sousa MD Primary Care Provider [phone] Jacek Damon MD Unavailable Nuris Mcknight PA-C Unavailable Raj Marie MD Unavailable [phone] Shelby Mcneil NP Unavailable [phone] Encounter Details Date Type Department Care Team Description 02/25/2019 Hospital Medical Records [address] [place] [address] Edgardo Abdalla Social History Tobacco Use Types Packs/Day Years [...] on filedocumented in this encounter Care Teams Tow Boat Captain Relationship Specialty Start Date End Date Miguel Sousa MD [address] [place] [address] [phone] PCP - General Internal Medicine 01/30/19 Jacek Damon MD [address] [place] [address] [phone] Literacy Specialist Cardiovascular Disease 04/18/17 Nuris Mcknight PA-C [address] [place] [address] Specialist Cardiology 03/20/19 Raj Marie MD [address] [place] [address] Literacy Specialist Cardiology 05/03/21 Shelby Mcneil NP [address] [place] [address] Cardiology 09/11/23 documented as of this encounter
--- OUTSIDE RECORDS SUMMARY | 2024-06-20 14:34 | XMS_ITS | Encounter Summary ---
Author Organization [facility] Address [address] [place] [address] Care Team Providers Care Medical Office Supervisor Name Role Phone Miguel Sousa MD Primary Care Provider [phone] Jacek Damon MD Unavailable Nuris Mcknight PA-C Unavailable Raj Marie MD Unavailable [phone] Shelby Mcneil NP Unavailable [phone] Encounter Details Date Type Department Care Team Description 03/18/2019 Old Medical Records Medical Records [address] [place] [phone] Abstract, Provider Social History Tobacco Use Types [...] on filedocumented in this encounter Care Teams Medical Office Supervisor Relationship Specialty Start Date End Date Miguel Sousa MD [address] [place] [address] PCP - General Internal Medicine 01/30/19 Jacek Damon MD [address] [place] [address] [phone] Stapler Hand Cardiovascular Disease 04/18/17 Nuris Mcknight PA-C [address] [place] [address] Specialist Cardiology 03/20/19 Raj Marie MD [address] [place] [address] Stapler Hand Cardiology 05/03/21 Shelby Mcneil NP [address] [place] [address] Cardiology 09/11/23 documented as of this encounter
--- OUTSIDE RECORDS SUMMARY | 2024-06-20 14:34 | XMS_ITS | Encounter Summary ---
Author Organization [facility] Address [address] [place] [address] Care Team Providers Care Transcript Clerk Name Role Phone Miguel Sousa MD Primary Care Provider [phone] Jacek Damon MD Unavailable Nuris Mcknight PA-C Unavailable Raj Marie MD Unavailable [phone] Shelby Mcneil NP Unavailable [phone] Encounter Details Date Type Department Care Team Description 04/14/2021 Train Gate Attendant Report Medical Records [address] [place] [address] [facility] [address] [place] [address] Social History Tobacco Use Types Packs/Day Years [...] on filedocumented in this encounter Care Teams Transcript Clerk Relationship Specialty Start Date End Date Miguel Sousa MD [address] [place] [address] PCP - General Internal Medicine 01/30/19 Jacek Damon MD [address] [place] [phone] Log Manager Cardiovascular Disease 04/18/17 Nuris Mcknight PA-C [address] [place] [address] Specialist Cardiology 03/20/19 Raj Marie MD [address] [facility] [address] [place] [address] Log Manager Cardiology 05/03/21 Shelby Mcneil NP [address] [facility] [address] [place] [address] Cardiology 09/11/23 documented as of this encounter
--- OUTSIDE RECORDS SUMMARY | 2024-06-20 14:34 | XMS_ITS | Encounter Summary ---
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); Anxiety; Atrial fibrillation, unspecified type (CMS/HCC); Hypercholesteremia; Chronic combined systolic and diastolic congestive heart failure (CMS/HCC); Coronary artery 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 without angina pectoris; Dementia without behavioral disturbance, psychotic disturbance, mood disturbance, or anxiety, unspecified dementia severity, unspecified dementia type (CMS/HCC) Social History Tobacco Use Types Packs/Day Years [...] on file Sexual Orientation Not on file documented as of this encounter Last Filed Vital Signs Vital Sign Reading [...] Mass Index 31.4 05/29/2024 2:53 PM EST documented in this encounter Ordered Prescriptions Prescription Sig Dispense Quantity Refills Last Filled Start Date End Date rivaroxaban (Xarelto) 20 mg tablet Take 1 tablet (20 mg total) by mouth 1 (one) time each day with dinner. Take with food.Take 20 mg by mouth daily. 30 each 1 05/29/2024 08/27/2024 lisinopriL (PRINIVIL,ZESTRIL) 10 mg tablet Take 1 tablet (10 mg total) by mouth 1 (one) time each day. Take 1 Tablet by mouth daily. 30 each 1 05/29/2024 08/27/2024 documented in this encounter Progress Notes * Miguel Sousa MD - 05/29/2024 2:45 PM EST CHIEF COMPLAINT: medication review IDENTIFIER: Chandra De León is a 78 y.o. old male. HPI: Pt presents for evaluation of multiple medical problems. Patient tells me he feels perfect . He then told me his [place] doctor decided to put him on Aricept just to be safe, he does not believe he has Alzheimer's disease yet . He denied any injury. He reported to urine turned extra yellow usually in the morning, remembering our previous discussion regarding diabetes affecting urine, patient has questions. No difficulty urinating. He follows up with cardiology his activity level is at baseline When I specifically asked the patient, he denied any unsteadiness Review of Systems He is working hard to lose weight. No low-grade fever no night sweats No chest pain shortness of breath no palpitation. No chronic cough no sputum production No abdominal pain, no bowel pattern or color changes. Patient denied excessive thirst, polyuria polydipsia No weakness, no numbness no fall or injury PAST MEDICAL HISTORY: Patient Active Problem List Diagnosis Date Noted Palpitations 01/23/2024 Chronic combined systolic and diastolic congestive heart failure ([facility]) 09/29/2023 Mild persistent asthma without complication 09/29/2023 Cataract 09/20/2023 Stenosis of left carotid artery 08/29/2023 Secondary hypercoagulable state ([facility]) 08/06/2023 Venous reflux 07/28/2023 Fatigue 08/24/2022 Non-small cell lung cancer ([facility]) 07/06/2021 SOB (shortness of breath) 05/11/2021 Bradycardia 06/11/2020 Chronic congestive heart failure ([facility]) 12/10/2019 Aneurysm of ascending aorta without rupture ([facility]) 03/26/2019 Atrial fibrillation ([facility]) 01/23/2019 Dementia ([facility]) 01/23/2019 BPH (benign prostatic hyperplasia) 03/09/2017 Anxiety 02/09/2017 Asthma 02/09/2017 Osteoarthritis 02/09/2017 Obesity 01/25/2017 Essential hypertension, benign 09/25/2011 Diverticulosis of colon 02/01/2011 Coronary artery 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 without angina pectoris 09/30/2010 DM type 2 causing neurological disease ([facility]) 09/30/2010 Hypercholesteremia 09/30/2010 Old [place] (myocardial infarction) 09/30/2010 Sleep apnea 09/30/2010 Vitamin D deficiency 09/30/2010 SOCIAL HISTORY: Social History Tobacco Use Smoking status: Never Smokeless tobacco: Never Substance Use Topics Alcohol use: No FAMILY HISTORY: Family Status Relation Name Status Father (Not Specified) Mother (Not Specified) Neg Hx (Not Specified) No partnership data on file Family History Problem Relation Name Age of Onset Heart attack Father Stroke Father Other (Other: sudden ) Mother probably CVA, was 99 y/o Blindness Neg Hx Cataracts Neg Hx Glaucoma Neg Hx Macular degeneration Neg Hx Strabismus Neg Hx Colon cancer Neg Hx ACTIVE MEDICATIONS: Outpatient Medications Marked as Taking for the 05/29/24 encounter (Office Visit) with Miguel Sousa MD Medication Sig Dispense Refill albuterol 2.5 mg /3 mL (0.083 %) nebulizer solution Take 1 Vial by nebulization every 4 hours as needed for Wheezing. albuterol HFA (PROAIR HFA ; PROVENTIL HFA ; VENTOLIN HFA) 90 mcg/actuation inhaler Inhale 2 Puffs into the lungs every 4 hours as needed for Cough or Wheezing. atorvastatin (LIPITOR) 10 mg tablet Take 1 Tablet by mouth daily. calcium carbonate-vit D3-min 600 mg-10 mcg (400 unit) tablet Take 1 Tab by mouth 2 times daily. carvediloL (COREG) 12.5 mg tablet Take 1 Tablet by mouth 2 times daily. cyanocobalamin (VITAMIN B-12) 1,000 mcg tablet Take 1 Tablet by mouth daily. diabetic supplies, miscellan. misc 1 Device by Does not apply route 2 Times Daily. diabetic supplies, miscellan. misc USE TO TEST BLOOD SUGAR TWICE DAILY donepeziL (ARICEPT) 5 mg tablet Take 1 Tablet by mouth at bedtime. dulaglutide (Trulicity) 3 mg/0.5 mL pen injector injection ADMINISTER 3 MG UNDER THE SKIN EVERY 7 DAYS finasteride (PROSCAR) 5 mg tablet Take 5 mg by mouth daily. fluticasone-salmeterol (ADVAIR DISKUS) 250-50 mcg/dose diskus inhaler Inhale 1 Puff into the lungs 2 times daily. furosemide (LASIX) 40 mg tablet Take 1 Tablet by mouth daily. Take extra 40 mg tablet once daily asneeded for abdominal bloating or weight gain of 3 pounds in 1 day or 5 pounds in a week. lisinopriL (PRINIVIL,ZESTRIL) 10 mg tablet Take 1 tablet (10 mg total) by mouth 1 (one) time each day. Take 1 Tablet by mouth daily. 30 each 1 loperamide (IMODIUM) 2 mg capsule Take 1 Capsule by mouth 4 times daily as needed for Diarrhea. magnesium oxide (MAG-OX) 400 mg (241.3 elemental magnesium) tablet Take 2 Tablets by mouth daily. metFORMIN (GLUCOPHAGE) 1,000 mg tablet TAKE 1 TABLET BY MOUTH TWICE DAILY WITH MEALS 180 tablet 0 nitroglycerin (NITROSTAT) 0.[address] 1 Tablet under the tongue every 5 minutes as needed for Chest pain. pantoprazole (PROTONIX) 40 mg EC tablet Take 1 Tablet by mouth daily. Take in am on empty stomach, wait 30 mins and then eat to activate the medication rivaroxaban (Xarelto) 20 mg tablet Take 1 tablet (20 mg total) by mouth 1 (one) time each day with dinner. Take with food.Take 20 mg by mouth daily. 30 each 1 tamsulosin (FLOMAX) 0.4 mg 24 hr capsule Take 1 Capsule by mouth daily. Take 30 mins after same meal every day. [DISCONTINUED] lisinopriL (PRINIVIL,ZESTRIL) 10 mg tablet Take 1 Tablet by mouth daily. [DISCONTINUED] rivaroxaban (Xarelto) 20 mg tablet Take 20 mg by mouth daily. ALLERGIES: Penicillins and Ceftriaxone PHYSICAL EXAM: Blood pressure 138/80, pulse 64, temperature 35.9 ??C (96.6 ??F), temperature source Temporal, resp. rate 20, height 1.854 m (73 ), weight 108 kg (238 lb), SpO2 96%. Body mass index is 31.4 kg/m??. BMI is greater than 25.0 (above the normal range) - see Plan APPEARANCE: Alert and in no acute distress, his weight is overall down, patient well-dressed and groomed NECK: Neck supple, no adenopathy, thyroid symmetric and of normal size HEART: Normal S1-S2 LUNG: clear to auscultation bilaterally ABDOMEN: Bowel sounds normoactive, no bruits and soft, non-tender, without organomegaly or palpablemasses EXTREMITIES: No edema NEURO: No focal examination patient appears to have difficulty remembering details he however clearly remembered our previous discussion LABS: No results found for: WBC , HGB , HCT , MCV , PLT No results found for: GLUCOSE , CALCIUM , NA , K , CO2 , CL , BUN , CREATININE BP Readings from Last 5 Encounters: 05/29/24 138/80 02/01/24 128/76 01/23/24 132/70 12/21/23 (!) 136/94 12/18/23 (!) 146/76 Wt Readings from Last 5 Encounters: 05/29/24 108 kg (238 lb) 02/01/24 111 kg (244 lb) 01/23/24 111 kg (244 lb) 12/21/23 110 kg (242 lb 2 oz) 12/18/23 111 kg (244 lb) IMPRESSION: 1. 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 Anxiety 3. Atrial fibrillation, unspecified type (CMS/HCC) 4. Hypercholesteremia 5. Chronic combined systolic and diastolic congestive heart failure (CMS/HCC) 6. Coronary artery 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 without angina pectoris 7. Dementia without behavioral disturbance, psychotic disturbance, mood disturbance, or anxiety, unspecified dementia severity, unspecified dementia type (CMS/HCC) PLAN: Pt presents for evaluation of multiple medical problems. Patient tells me he feels perfect . He then told me his [place] doctor decided to put him on Aricept just to be safe, he does not believe he has Alzheimer's disease yet . He denied any injury. He reported to urine turned extra yellow usually in the morning, remembering our previous discussion regarding diabetes affecting urine, patient has questions. No difficulty urinating. He follows up with cardiology his activity level is at baseline When I specifically asked the patient, he denied any unsteadiness 1 it is entirely possible patient has Alzheimer's disease, I had extensive discussion with this patient. I will arrange our next visit for family meeting to update family to encourage family's involvement. We specific discussed social participation mind exercise . 2 patient clearly remember our discussion regarding diabetes, stressed importance of diabetes control. Patient mentioned the name Dr. Aldana that he should book appointment to follow referring to endocrine. I noted patient weight is slightly better. I will check A1c Over the next few visits we will update patient diabetic routine care. 3 patient's cardiac status stable, I reviewed recent cardiology note and cardiac evaluation, echocardiogram last July, etc. Weight is slightly better, no evidence of volume overload. 4 with patient's comorbidity I would like to see blood pressure better controlled, there is room for titration of SULEMAN inhibitor, we discussed. I will monitor renal function electrolytes 5 I will continue statin 6 discussed answered patient's questions regarding urine colic which is not a good indication for renal involvement from patient's diabetes. I will check a microalbuminuria. Discussed InContext of importance of blood pressure control and my plan to titrate SULEMAN inhibitor. I will follow renal function. 7 patient's mood is overall stable I would further get information from family Orders Placed This Encounter Procedures Hemoglobin A1c Basic metabolic panel Microalbumin and creatinine with ratio, urine timed ADDITIONAL ORDERS: None Miguel Sousa MD on 05/29/2024 at 3:44 PM EST documented in this encounter Plan of Treatment Upcoming Encounters Date Type Department Care Team (Late st Contact Info) Description 07/01/2024 2:30 PM EST Office Visit Adult Medicine [facility] [address] [place] [address] Shay Cartagena PA [address] [place] [address] 12/18/2024 1:00 PM EDT [facility] [address] [place] [address] Briseyda Rios MD [address] [place] [address] Scheduled Orders Name Type Priority Associated Diagnoses Orde r Schedule Hemoglobin A1c Lab Routine 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) 1 Occurrences starting 05/29/2024 until 05/29/2025 Basic metabolic panel Lab Routine 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) 1 Occurrences starting 05/29/2024 until 05/29/2025 Microalbumin and creatinine with ratio, urine timed Lab Routine 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) 1 Occurrences starting 05/29/2024 until 05/29/2025 documented as of this encounter Visit Diagnoses Diagnosis 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)- Primary Anxiety Anxiety state, unspecified Atrial fibrillation, unspecified type (CMS/HCC) Hypercholesteremia Pure hypercholesterolemia Chronic combined systolic and diastolic congestive heart failure (CMS/HCC) Coronary artery 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 without angina pectoris Dementia without behavioral disturbance, psychotic disturbance, mood disturbance, or anxiety, unspecified dementia severity, unspecified dementia type (CMS/HCC) documented in this encounter Discontinued Medications Medication Sig Discontinue Reason Start Date End Da te lisinopriL (PRINIVIL,ZESTRIL) 10 mg tablet Take 1 Tablet by mouth daily. Reorder 01/23/2024 05/29/2024 rivaroxaban (Xarelto) 20 mg tablet Take 20 mg by mouth daily. Reorder 01/23/2024 05/29/2024 documented as of this encounter Care Teams Lace And Textiles Restorer Relationship Specialty Start Date End Date Miguel Sousa MD [address] [place] [address] PCP - General Internal Medicine 04/18/17 documented as of this encounter
--- OUTSIDE RECORDS SUMMARY | 2024-06-20 14:34 | XMS_ITS | Encounter Summary ---
Author Organization [facility] Address [address] [place] [address] Care Team Providers Care Blending Line Attendant Name Role Phone Miguel Sousa MD Primary Care Provider [phone] Jacek Damon MD Unavailable Nuris Mcknight PA-C Unavailable Raj Marie MD Unavailable [phone] Shelby Mcneil NP Unavailable [phone] Encounter Details Date Type Department Care Team Description 03/26/2019 Old Medical Records Medical Records [address] [place] [id number] Abstract, Provider Social History Tobacco Use Types [...] on filedocumented in this encounter Care Teams Blending Line Attendant Relationship Specialty Start Date End Date Miguel Sousa MD [address] [place] [address] PCP - General Internal Medicine 01/30/19 Jacek Damon MD [address] [place] [address] [phone] Sulfuric Acid Plant Operator Cardiovascular Disease 04/18/17 Nuris Mcknight PA-C [address] [place] [address] Specialist Cardiology 03/20/19 Raj Marie MD [address] [place] [address] Sulfuric Acid Plant Operator Cardiology 05/03/21 Shelby Mcneil NP [address] [place] [address] Cardiology 09/11/23 documented as of this encounter
--- OUTSIDE RECORDS SUMMARY | 2024-06-20 14:34 | XMS_ITS | Encounter Summary ---
Author Organization [facility] Address [address] [place] [address] Care Team Providers Care Morals Squad Police Officer Name Role Phone Miguel Sousa MD Primary Care Provider [phone] Jacek Damon MD Unavailable Nuris Mcknight PA-C Unavailable Raj Marie MD Unavailable [phone] Shelby Mcneil NP Unavailable [phone] Reason for Visit * Reason Onset Date Comments refill request 08/24/2020 Encounter Details Date Type Department Care Team Description 08/24/2020 Refill Medicine/Pediatrics - [place] [address] [place] [phone] Miguel Sousa MD [address] [place] [address] [phone] refill request Social History Tobacco Use Types Packs/Day Years [...] have Coronavirus / COVID-19? No / Unsure 08/26/2020 10:50 AM EDT documented as of this encounter Miscellaneous Notes * Telephone Encounter - Rama Clifford M.A. - 08/25/2020 9:50 AM EDT Lab Results Component Value Date NA 138 08/18/2020 K 3.9 08/18/2020 CO2 33 08/18/2020 CL 100 08/18/2020 BUN 14 08/18/2020 CREAT 1.02 08/18/2020 GLU 153 08/18/2020 CA 9.4 08/18/2020 GFR > 60 08/18/2020 Last appt with pcp 08/07/20 * Telephone Encounter - Maddie Cristobal - 08/24/2020 10:40 AM EDT Patient would like script to be: E-PRESCRIBED/FAXED TO PHARMACY WHEN WAS THE PATIENT'S LAST APPOINTMENT IN ADULT MEDICINE? 08/07/20 WHEN WAS THE LAST TIME THE PATIENT SAW THEIR PCP? Same as above Does patient have an upcoming appointment? no (THE MEDICATION REQUESTED IS ON THE MED [...] N/A Patients current insurance carrier is: Payor: [employer] / Plan: Dropcam $0 [place] [id number] / Product Type: HMO [id number] documented in this encounter Plan of Treatment Not on file documented as of this encounter Visit Diagnoses Not on filedocumented in this encounter Care Teams Morals Squad Police Officer Relationship Specialty Start Date End Date Miguel Sousa MD [address] [place] [address] PCP - General Internal Medicine 01/30/19 Jacek Damon MD [address] [place] [address] Assistant Hairstylist Cardiovascular Disease 04/18/17 Nuris Mcknight PA-C [address] [place] [address] Specialist Cardiology 03/20/19 Raj Marie MD [address] [place] [address] Assistant Hairstylist Cardiology 05/03/21 Shelby Mcneil NP [address] [place] [address] Cardiology 09/11/23 documented as of this encounter
--- OUTSIDE RECORDS SUMMARY | 2024-06-20 14:34 | XMS_ITS | Encounter Summary ---
Author Organization [facility] Address [address] [place] [address] Care Team Providers Care Radiology Physician Name Role Phone Miguel Sousa MD Primary Care Provider [phone] Jacek Damon MD Unavailable Nuris Mcknight PA-C Unavailable Raj Marie MD Unavailable [phone] Shelby Mcneil NP Unavailable [phone] Encounter Details Date Type Department Care Team Description 02/20/2019 Hospital Medical Records [address] [place] [id number] [facility] Social History Tobacco Use Types Packs/Day Years [...] on filedocumented in this encounter Care Teams Radiology Physician Relationship Specialty Start Date End Date Miguel Sousa MD [address] [place] [address] [phone] PCP - General Internal Medicine 01/30/19 Jacek Damon MD [address] [place] [address] [phone] Set Up And Lay Out Inspector Cardiovascular Disease 04/18/17 Nuris Mcknight PA-C [address] [place] [address] Specialist Cardiology 03/20/19 Raj Marie MD [address] [place] [address] Set Up And Lay Out Inspector Cardiology 05/03/21 Shelby Mcneil NP [address] [place] [address] Cardiology 09/11/23 documented as of this encounter
--- OUTSIDE RECORDS SUMMARY | 2024-06-20 14:34 | XMS_ITS | Encounter Summary ---
Author Organization [facility] Address [address] [place] [address] Care Team Providers Care Veneer Manufacturer Name Role Phone Miguel Sousa MD Primary Care Provider [phone] Jacek Damon MD Unavailable Nuris Mcknight PA-C Unavailable Raj Marie MD Unavailable [phone] Shelby Mcneil NP Unavailable [phone] Encounter Details Date Type Department Care Team Description 02/08/2019 Hospital Medical Records [address] [place] [id number] Edgardo Abdalla Social History Tobacco Use Types [...] on filedocumented in this encounter Care Teams Veneer Manufacturer Relationship Specialty Start Date End Date Miguel Sousa MD [address] [place] [address] [phone] PCP - General Internal Medicine 01/30/19 Jacek Damon MD [address] [place] [address] [phone] Supervisor Shuttle Fitting Cardiovascular Disease 04/18/17 Nuris Mcknight PA-C [address] [place] [address] Specialist Cardiology 03/20/19 Raj Marie MD [address] [place] [address] Supervisor Shuttle Fitting Cardiology 05/03/21 Shelby Mcneil NP [address] [place] [address] Cardiology 09/11/23 documented as of this encounter
--- OUTSIDE RECORDS SUMMARY | 2024-06-20 14:34 | XMS_ITS | Data Portability ---
Author Organization [facility] [place] - [facility] Address [address] [place] [address] Care Team Providers Care Esthetician Spa Name Role Phone HIM CCA OTHER Assessment No assessment recorded. Plan of Treatment Reminders Order Date Submit Date Provider Last Modified By Organization Details Last Modified Time Details Appointments None recorded. Lab rapid SARS CoV 2 Ag, QL IA, respiratory specimen 2023 024 [employer] [facility], [address] [place] [address], [phone], 4 20:27:06 rapid flu (A+B) 2023 024 [employer] [facility], [address] [place] [address], [phone], 4 20:27:07 BMP, serum or plasma 2023 024 [employer] [facility], [address] [place] [address], [phone], 4 20:28:01 Referral None recorded. Procedures None recorded. Surgeries None recorded. Imaging None recorded. Medication Orders Paxlovid 300 mg (150 mg x 2)-100 mg tablets in a dose pack 2023 024 [facility] #[id number], [address], [place], [phone], 4 20:27:09 Tessalon Perles 100 mg capsule 2023 024 [facility] #[id number], [address], [place], [phone], 4 20:27:10 Patient TargetsNo targets recorded. Patient InstructionsNo instructions recorded. Reason for Referral None Reported. Results Created Date Observation Date Name Description Value Unit Range Abnormal Flag Note LastModifiedBy Organization Detail LastModifiedTime 12/30/1912/30/2023 BMP, serum or plasm a BUN 138 Not Available Main - [facility] [address], [phone], 12/30/2023 20:26:59 12/30/1912/30/2023 BMP, serum or plasm a Ca 1.2 Not Available Main - [facility] [address], [address], 12/30/2023 20:26:59 12/30/1912/30/2023 BMP, serum or plasm a CI- 95 Not Available Main - [facility] [address], [address], 12/30/2023 20:26:59 12/30/1912/30/2023 BMP, serum or plasm a CRE 1.0 Not Available Main - [facility] [address], [address], 12/30/2023 20:26:59 12/30/19 24 12/30/2023 BMP, serum or plasm a GLU 159 Not Available Main - [facility] [address], [address], 12/30/2023 20:26:59 12/30/1912/30/2023 BMP, serum or plasm a K+ 4.1 Not Available Main - [facility] [address], [address], 12/30/2023 20:26:59 12/30/1912/30/2023 BMP, serum or plasm a Na+ 138 Not Available Main - [facility] [address], [address], 12/30/2023 20:26:59 12/30/19 24 12/30/2023 BMP, serum or plasm a tCO2 31 Not Available [facility] - [facility] [address] [place] [address], [phone], 12/30/2023 20:26:59 12/30/1912/30/2023 rapid flu (A+B) Flu negati ve Not Available Main - [facility] [address] [place] [address], [phone], 12/30/2023 19:42:26 12/30/1912/30/2023 rapid SARS CoV 2 Ag, QL IA, respi rator y speci men rapid SARS CoV 2 Ag, QL IA, respiratory specimen positi ve Not Available Main - [facility] [address] [place] [address], [phone], 12/30/2023 19:42:18 Result Notes None recorded. Medical Equipment None Reported. Allergies Allergen ID Allergen Name Allergen Category Reaction Reaction Severity Criticality Documentation Date Start Date Code Code System Note Provider Name and Address Organization Details Recorded Time 5969 Product containin g penicilli n and antibioti c (product) medicatio n Not available Not available Not available 12/30/2023 31907 05 SNOMED Not Available [facility] - production 4 04:57:55 Medications Name Sig Start Date Stop Date Status Note LastModified by Organization Details LastModified Time furosemide 40 mg tablet TAKE 1 TABLET BY MOUTH DAILY. TAKE AN EXTRA TABLET DAILY NEEDED FOR ABDOMINAL BLOATING OR WEIGHT GAIN OF 3 LBS IN 1 DAY OR 5LBS IN A WEEK active Not Available Not Available No t Available carvedilol 6.25 mg tablet TAKE 1 TABLET BY MOUTH TWICE DAILY WITH MEALS active Not Available Not Available No t Available carvedilol 12.5 mg tablet TAKE 1 TABLET BY MOUTH TWICE DAILY WITH MEALS active Not Available Not Available No t Available donepezil 5 mg tablet TAKE 1 TABLET BY MOUTH AT BEDTIME active Not Available Not Available No t Available albuterol sulfate 2.5 mg/3 mL (0.083 %) solution for nebulization USE 1 VIAL VIA NEBULIZER EVERY 4 HOURS NEEDED FOR WHEEZING active Not Available Not Available No t Available loperamide 2 mg capsule TAKE 1 CAPSULE BY MOUTH FOUR TIMES DAILY NEEDED FOR DIARRHEA active Not Available Not Available No t Available cetirizine 10 mg tablet TAKE 1 TABLET BY MOUTH EVERY DAY NEEDED active Not Available Not Available No t Available atorvastatin 10 mg tablet TAKE 1 TABLET BY MOUTH DAILY active Not Available Not Available Not Available azithromycin 250 mg tablet TAKE 2 TABLETS BY MOUTH FOR 1 DAY THEN TAKE 1 TABLET BY MOUTH FOR 4 DAYS active Not Available Not Available No t Available ofloxacin 0.3 % eye drops INSTILL 1 DROP IN LEFT EYE FOUR TIMES DAILY active Not Available Not Available No t Available prednisone 20 mg tablet TAKE 2 TABLETS BY MOUTH TWICE DAILY FOR 3 DAYS THEN TAKE 1 TABLET BY MOUTH TWICE DAILY FOR 2 DAYS THEN TAKE 1 TABLET BY MOUTH DAILY FOR 2 DAYS active Not Available Not Available N ot Available sulfamethoxa zole 800 mg-trimethop rim 160 mg tablet TAKE 1 TABLET BY MOUTH TWICE DAILY active Not Available Not Available No t Available sildenafil 100 mg tablet TAKE 1 TABLET BY MOUTH NEEDED active Not Available Not Available No t Available ketorolac 0.5 % eye drops INSTILL 1 DROP IN LEFT EYE FOUR TIMES DAILY active Not Available Not Available No t Available Tessalon Perles 100 mg capsule Take 1 capsule 3 times a day by oral route for 5 days. 2023 active Not Available Not Available Not Avai lable terbinafine HCl 250 mg tablet TAKE 1 TABLET BY MOUTH EVERY DAY X 7 DAYS active Not Available Not Available No t Available prednisolone acetate 1 % eye drops,suspen liza SHAKE LIQUID AND INSTILL 1 DROP IN LEFT EYE FOUR TIMES DAILY active Not Available Not Available No t Available magnesium oxide 400 mg (241.3 mg magnesium) tablet TAKE 2 TABLETS BY MOUTH DAILY active Not Available Not Available Not Available cyanocobalam in (vit B-12) 500 mcg tablet TAKE 1 TABLET BY MOUTH EVERY DAY FOR 30 DAYS active Not Available Not Available No t Available tamsulosin 0.4 mg capsule TAKE 1 CAPSULE BY MOUTH EVERY AT BEDTIME active Not Available Not Available N ot Available pantoprazole 40 mg tablet,delay ed release active Not Available Not Available N ot Available erythromycin 5 mg/gram (0.5 %) eye ointment APPLY A 1 RIBBON TO BOTH EYES EVERY EVENING AT BEDTIME active Not Available Not Available No t Available metformin 1,000 mg tablet TAKE 1 TABLET BY MOUTH TWICE DAILY WITH MEALS active Not Available Not Available No t Available clotrimazole -betamethaso ne 1 %-0.05 % topical cream APPLY TO THE AFFECTED AREA ON FEET TWICE DAILY active Not Available Not Available No t Available lisinopril 10 mg tablet TAKE 1 TABLET BY MOUTH DAILY active Not Available Not Available Not Available fluoromethol one 0.1 % eye drops,suspen liza SHAKE LIQUID AND INSTILL 1 DROP IN BOTH EYES IN THE MORNING active Not Available Not Available No t Available nitroglyceri n 0.[address] 1 TABLET BY MOUTH UNDER THE TOUNGE EVERY 5 MINUTES NEEDED FOR CHEST PAIN. active Not Available Not Available Not Available lisinopril 5 mg tablet TAKE 1 TABLET BY MOUTH DAILY active Not Available Not Available Not Available albuterol sulfate HFA 90 mcg/actuatio n aerosol inhaler INHALE 2 PUFFS INTO THE LUNGS EVERY 4 HOURS NEEDED FOR COUGH OR WHEEZING active Not Available Not Available No t Available finasteride 5 mg tablet TAKE 1 TABLET BY MOUTH EVERY DAY active Not Available Not Available No t Available ciclopirox 0.77 % topical cream APPLY TO THE AFFECTED AREA TWICE DAILY TO AFFECTED AREAS OF FEET active Not Available Not Available No t Available Laxative (bisacodyl) 5 mg tablet TAKE 2 TABLETS BY MOUTH RIGHT BEFORE BEGINNING BOWEL PREP FOLLOW INSTRUCTION S FROM OFFICE active Not Available Not Available No t Available GaviLyte-G 236 gram-22.74 gram-6.74 gram-5.86 gram oral solution active Not Available Not Available Not Available Xarelto 20 mg tablet TAKE 1 TABLET BY MOUTH DAILY active Not Available Not Available Not Available potassium chloride ER 20 mEq tablet,exten ded release TAKE 1 TABLET BY MOUTH DAILY active Not Available Not Available Not Available Wixela Inhub 250 mcg-50 mcg/dose powder for inhalation INHALE 1 PUFF BY MOUTH EVERY DAY active Not Available Not Available No t Available Trulicity 3 mg/0.5 mL subcutaneous pen injector ADMINISTER 3 MG UNDER THE SKIN EVERY 7 DAYS active Not Available Not Available No t Available Paxlovid 300 mg (150 mg x 2)-100 mg tablets in a dose pack TAKE 3 TABLETS BY MOUTH TWICE DAILY DIRECTED PER PACKAGE INSTRUCTION active Not Available Not Available Not Available magnesium 100 mg (as glycinate) capsule TAKE 1 CAPSULE BY MOUTH EVERY DAY active Not Available Not Available No t Available Vitals Date Recorded Body height Body temperature Oxygen saturation Oxygen saturation in Arterial blood by Pulse oximetry Body weight Respiratory rate Heart rate Systolic blood pressure Diastolic blood pressure Provider Name and Address Organization Details Last Updated DateTime 4 185.42 cm 99 [degF] 98 % 98 % 032194. 08 g 17 /min 60 /min 138 mm[Hg] 88 mm[Hg] Not Available [facility] - production 4 19:45:58 Social History None recorded. Functional Status None recorded. Mental Status None recorded. Family History Nothing Reported. Medical History No medical history recorded. Past Encounters Encounter ID Performer Location Encounter Start Date Encounter Closed Date Diagnosis/Indication Diagnosis SNOMED-CT Code Diagnosis ICD10 Code Diagnosis Note [id number] CAMELIA RG MD [facility] - [facility] [address] [place] [phone] 12/30/2023 19:37:55 12/31/2023 18:27:31 Acute COVID-19 [id number] U07.1 Evaluation in the field was performed by my ore miner blasting colleague, as noted above, I provided real-time direction and supervisio n for this visit. The evaluation revealed A 78-year-ol d male with a history of hypertensi on , diabetes mellitus , atrial fibrillati on, heart failure , and asthma with complaints of cough, myalgia, and fever that started this morning. A home COVID-19 test was positive. The family reports mild shortness of breath but denies chest pain , nausea, or vomiting. The patient has been tolerating PO well. Vital signs stable . Low-grade temperatur e of 99? ? ?F. SpO2 is 98% on room air .Physical exam shows clear lungs.COVI D positive, flu negative.B MP shows BUN of 11, serum creatinine of 1.0, and an estimated glomerular filtration rate (eGFR) of 77. Impression :Acute Covid 19 infection Plan:-We discussed the benefit of Paxlovid to reduce the risk of hospitaliz ation and , and the potential downsides/ side effects, including dysgeusia, headache, COVID rebound, and the possibilit y of medication interactio ns despite my efforts to review medication s and residential counselor on discontinu ation. We discussed alternativ es, including non-specif ic supportive care and referral for infusion. We felt this plan to be preferable . Family in favor-Base d on his eGFR, a full dose of Paxlovid was sent to his pharmacy.- Medication list was reviewed. The patient was advised to hold Atorvastat in for a total of 10 days.-The patient was advised to reduce the dose of Rivaroxaba n from 20 mg daily to 10 mg daily while taking Paxlovid to reduce the risk of bleeding. After completing Paxlovid, the patient can return to 20 mg daily.-The patient was advised to take Tylenol 1 gram every 8 hours as needed for fever and myalgia.-C ontinue using Albuterol every 4-6 hours to help with the cough.-A prescripti on for Vu Oconnor was sent to his pharmacy.- Red flags were discussed with the family. Primary care, consider__ _ Dispositio n: We discussed the diagnostic uncertaint y of home visits and the risk associated with this. In this case, the patient and I felt this to be an acceptable and reasonable amount of risk given the benefit of avoiding an ED visit. We discussed the need to seek care urgently/e mergently in the setting of any new or worsening serious symptoms, particular ly worsening fever, CP, SOB, nausea, vomiting, weakness, dizziness or any other concerns Health Concerns Section Related Observation LastModified by Organization Detai ls LastModified Time None Recorded Concern Status LastModified by Organization Details LastModified Time None Recorded Advance Directives Directive None Recorded Payers Encounter Date Sequence Insurance Name Policy Number Policy Alex Covered Member ID Alex Member ID Guarantor Name 12/30/2023 1 [facility] - DOS ON OR AFTER 2022 - DUAL ELIGIBLE - JAIL OPTIONS AND ONE CARE (MEDICARE REPLACEMENT/AD VANTAGE - HMO) Chandra De León [id number] Chandra De León Notes Date Note Type Note Provider Name and Address Organization Details Recorded Time 12/30/2023 text/html CRC Nurse Triage Notes (Jyoti Kwok): Reason For Request: pain/fever/COVID positive Chief Complaints: Fever/Chills PMH: Diabetes, Hypertension, Other Allergies: Penicillin Comments: Clinical Documentation Developer verified the member's name//address and phone number. Nepali speaking daughter calling for patient with productice cough. pt c/o body aches. Tested positive for Covid today. Patient feels warm. Did not check temperature. No shortness of breath. Symptoms started this morning. Patient took 2 Tylenol this morning. Education provided on the response time and the member was advised to monitor reported s/s and seek emergency treatment if needed. [employer] Organization Information for [facility] Business Legal Name: [employer], [email or web address] Address: [address] [place] [address], [place] [address], Human Resources Temp: Babar SARMIENTO No.: [id number] [facility] POC Test Results from [facility] Rapid COVID antigen (22:42:58) COVID: - Rapid influenza antigen (22:43:04) Flu: - iSTAT Chem8+ (22:43:11) Na: 138 mEq/L K: 4.1 mEq/L Cl: 95 mEq/L iCa: 1.26 mmol/L TCO2: 31 mmol/L Glu: 159 mg/dL BUN: 11 mg/dL Crea: 1.0 mg/dL Hct: 43 % Hb: 14.6 g/dL A .................. .................. .................. .................. .................. .................. .................. ............... [facility] Note From [facility]: [facility] makes pt contact, 78 YO M [facility] getting a [facility]. PT reports feeling completely fine yesterday and then today felt sick. COVID test positive, flu test negative. PT is on blood thinners. PT has HX of asthma. Lungs clear. PT explains n/v, SOB which he uses his prescribed inhaler, fever. [facility] obtains a istat. [facility] contacts [facility] and explains above mentioned. [facility] offers pt a covid medication called Paxlovid. PT agrees. [facility] sends over istat values. [facility] and [facility] go through pts medications. [facility] confirms pharmacy at [address] [place] [address]. [facility] explains pt needs to cut Xarelto dose in half during the five day course of paxlovid, PT also needs to discontinue use of atorvastatin for 10 days total. Starting on the first day of paxlovid. PT and daughter fully understand instructions. PT advised to take tylenol for the fever and inhaler every 4 to 6 hours as needed. PT advised that if SOB gets worse or chest pain to seek a higher level of care [facility] Lab Orders: rapid SARS CoV 2 Ag, QL IA, respiratory specimen: Performed Comment: Postive .................. .................. .................. .................. .................. .................. .................. ............... Disposition: Katerine RG MD [address] [facility],[address], [place], [address], [facility] 12/30/2023 22:58:06
--- OUTSIDE RECORDS SUMMARY | 2024-06-20 14:34 | XMS_ITS | Clinical Summary ---
Author Organization [facility] Address [address] [place] [address] Care Team Providers Care It Help Desk Associate Name Role Phone Miguel Sousa MD Primary Care Provider [phone] Allergies Active Allergy Reactions Criticality Noted Date Comments Penicillins Rash Medium 09/30/2010 Medications Medication Sig Dispensed Refills Start Date End Date Status albuterol (PROVENTIL) (2.5 MG/3ML) 0.083% nebulizer solution Take by nebulization every 4 (four) hours as needed. for wheeze 0 08/26/2020 Active albuterol 108 (90 Base) MCG/ACT inhaler INHALE 2 PUFFS INTO THE LUNGS EVERY 4 HOURS NEEDED FOR COUGH OR WHEEZING 0 08/26/2020 Active atorvastatin (LIPITOR) tablet 40 mg Take 40 mg by mouth daily. 0 09/28/2020 Active Blood Glucose Monitoring Suppl (ONE TOUCH ULTRA 2) w/Device KIT Use twice daily 0 08/26/2020 Active Calcium Carbonate-Vitamin D3 600-400 MG-UNIT TABS 0 07/23/2020 Active carvedilol (COREG) 12.5 MG tablet Take 12.5 mg by mouth 2 (two) times a day with meals. 0 08/26/2020 Active dexamethasone (DECADRON) 10 MG/ML injection 10 mg. 0 08/12/2020 Active donepezil (ARICEPT) 5 MG tablet Take 5 mg by mouth every night at bedtime. 0 08/26/2020 Active furosemide (LASIX) 40 MG tablet Take 40 mg by mouth 2 (two) times a day. 0 10/08/2020 Active glipiZIDE (GLUCOTROL) tablet 10 mg Take 10 mg by mouth daily. 0 08/26/2020 Active glipiZIDE (GLUCOTROL XL) ER 24 hr tablet 2.5 mg Take 2.5 mg by mouth daily. 0 08/08/2020 Active Lancets (onetouch ultrasoft) lancets USE TO TEST TWICE DAILY 0 07/17/2020 Active levoFLOXacin (LEVAQUIN) 750 MG tablet 0 07/23/2020 Active MAGnesium-Oxide 400 (241.3 Mg) MG TABS tablet Take 400 mg by mouth daily. 0 08/26/2020 Active lisinopril (PRINIVIL,ZESTRIL) tablet 5 mg Take 5 mg by mouth daily. 0 08/26/2020 Active nitroglycerin (NITROSTAT) 0.4 MG SL tablet PLAE 1 TABLET UNDER THE TONGUE EVERY 5 MINUTES NEEDED FOR CHEST PAIN 0 08/26/2020 Active pantoprazole (PROTONIX) 40 MG tablet Take 40 mg by mouth daily. 0 10/08/2020 Active Potassium Chloride ER 20 MEQ TBCR Take 1 tablet by mouth daily. 0 08/26/2020 Active potassium chloride ER (K-DUR,KLOR-CON) tablet 20 mEq 0 07/23/2020 Active Januvia 100 MG tablet Take 100 mg by mouth daily. 0 10/08/2020 Active sulfamethoxazole-tr imethoprim (BACTRIM DS) 800-160 MG per tablet TAKE 1 TABLET BY MOUTH TWICE DAILY FOR 10 DAYS 0 07/20/2020 Active tamsulosin (FLOMAX) 0.4 MG CAPS TAKE 1 CAPSULE BY MOUTH EVERY DAY 30 MINUTES AFTER THE SAME MEAL 0 08/25/2020 Active warfarin (COUMADIN) 5 MG tablet TAKE 1-2 TABLETS BY MOUTH DAILY DIRECTED BY BEFORE A MEAL CLINIC. TAKE SAME TIME EVERYDAY 0 07/24/2020 Active Family History Medical History Relation Name Comments Hypertension Father Diabetes Sister Hypertension Sister Relation Name Status Comments Father Sister Social History Tobacco Use Types Packs/Day Years Used Date Smoking Tobacco: Never Smokeless Tobacco: Never Sex and Gender Information Value Date Recorded Sex Assigned at Not on file Gender Identity Not on file Sexual Orientation Not on file Job Start Date Occupation Industry Not on file Not on file Not on file Last Filed Vital Signs Vital Sign Reading Time Taken Comments Blood Pressure - - Pulse - - Temperature - - Respiratory Rate - - Oxygen Saturation - - Inhaled Oxygen Concentration - - Weight 114.3 kg (252 lb) 10/23/2020 1:57 PM EDT Height 185.4 cm (6' 1 ) 10/23/2020 1:57 PM EDT Body Mass Index 33.25 10/23/2020 1:57 PM EDT Plan of Treatment Health Maintenance Due Date Last Done Comments Hepatitis C Screening 1945 COVID-19 Vaccine (#1) 1944 Depression Screening 1956 BMI Counseling 1962 Preventative Health Evaluation 1962 DTap / Tdap / Td (1 - Tdap) 1963 Shingrix-Zoster Vaccine (1 o f 2) 1994 Fall Risk Assessment 2009 RSV Adult > 60+ Yrs or (1 - 1-dose 75+ series) 2019 Influenza Vaccine (#1) 2024 9, 02/09/2017, 01/20/2011 Pneumococcal Vaccine Completed 02/09/2017, 12/09/2010 Hepatitis B Vaccines Aged Out No long er eligible based on patient's age to complete this topic RSV Ped < 20 months Aged Out No longe r eligible based on patient's age to complete this topic Care Teams It Help Desk Associate Relationship Specialty Start Date End Date Miguel Sousa MD PCP - General Internal Medicine 08/31/20
--- OUTSIDE RECORDS SUMMARY | 2024-06-20 14:34 | XMS_ITS | Encounter Summary ---
Author Organization [facility] Address [address] [place] [address] Care Team Providers Care Tire Design Engineer Name Role Phone Angelina Ferrer MD Primary Care Provider Unava emmanuel [facility], Pcp Primary Care Provider UnavailAmrik Jackson MD Primary Care Provider Un available Miguel Sousa MD Primary Care Provider [phone] Miguel Sousa MD Primary Care Provider [phone] Jacek Damon MD Unavailable Nuris Mcknight PA-C Unavailable Raj Marie MD Unavailable [phone] Shelby Mcneil NP Unavailable [phone] Encounter Details Date Type Department Care Team Description 10/05/2010 Release of Information Medical Records [address] [place] [id number] Abstract, Provider Social History Tobacco Use Types [...] on filedocumented in this encounter Care Teams Tire Design Engineer Relationship Specialty Start Date End Date Angelina Ferrer MD PCP - General 09/28/10 10/18/12 [facility], Pcp PCP - General Internal Medicine 10/19/12 01/22/17 Amrik Richter MD PCP - General Internal Medicine 01/23/1704/17 Miguel Sousa MD [address] [place] [phone] PCP - General Internal Medicine 01/30/19 Miguel Sousa MD [address] [place] [address] [phone] PCP - General 04/18/17 01/29/19 Jacek Damon MD [address] [place] [address] [phone] Fiberglass Boat Finisher Cardiovascular Disease 04/18/17 Nuris Mcknight PA-C [address] [place] [address] [phone] Specialist Cardiology 03/20/19 Raj Marie MD [address] [place] [address] Fiberglass Boat Finisher Cardiology 05/03/21 Shelby Mcneil NP [address] [place] [address] Cardiology 09/11/23 documented as of this encounter
--- OUTSIDE RECORDS SUMMARY | 2024-06-20 14:34 | XMS_ITS | Encounter Summary ---
Author Organization [facility] Address [address] [place] [address] Care Team Providers Care Computerized Machine Fabric Cutter Name Role Phone Miguel Sousa MD Primary Care Provider [phone] Reason for Visit * Reason Onset Date Comments Fitting for DME 06/18/2024 Faxed form from [employer] [facility]...Exactly Encounter Details Date Type Department Care Team (Late st Contact Info) Description 06/18/2024 Telephone Adult Medicine [address] [phone] Mali Euceda LPN Fitting for DME (Faxed form from [employer]...Exactly) Social History Tobacco Use Types Packs/Day Years [...] on file documented as of this encounter Progress Notes * Mali Euceda LPN - 06/20/2024 8:27 AM EST Form signed and faxed to [employer] @ [phone] * Mali Euceda LPN - 06/18/2024 1:09 PM EST For diabetic shoes Form to Dr Sousa to sign documented in this encounter Plan of Treatment Upcoming Encounters Date Type Department Care Team (Late st Contact Info) Description 07/01/2024 2:30 PM EST Office Visit Adult Medicine [facility] [address] [place] [address] Shay Cartagena PA [address] [place] [address] 12/18/2024 1:00 PM EDT Office Visit Pulmonolgy - [place] [address] [facility] [address] [place] [phone] Briseyda Rios MD [address] [facility] [address] [place] [address] documented as of this encounter Visit Diagnoses Not on filedocumented in this encounter Care Teams Computerized Machine Fabric Cutter Relationship Specialty Start Date End Date Miguel Sousa MD [address] [place] [address] PCP - General Internal Medicine 04/18/17 documented as of this encounter
--- OUTSIDE RECORDS SUMMARY | 2024-06-20 14:34 | XMS_ITS | Encounter Summary ---
Author Organization [facility] Address [address] [place] [address] Care Team Providers Care Director Of Product Development Name Role Phone Miguel Sousa MD Primary Care Provider [phone] Jacek Damon MD Unavailable Nuris Mcknight PA-C Unavailable Raj Marie MD Unavailable [phone] Shelby Mcneil NP Unavailable [phone] Reason for Visit * Reason Onset Date Comments other 07/11/2023 Encounter Details Date Type Department Care Team Description 07/11/2023 Telephone Cardio PVCA Diag Testing [address] [facility] [address] [place], [place] [id number] Nuris Mcknight PA-C [address] [place] [address] [phone] other Social History Tobacco Use Types Packs/Day Years [...] encounter Miscellaneous Notes * Telephone Encounter - Emilie Doherty - 07/11/2023 12:17 PM EST Patient had a Cath procedure on 05/31/23. Callie/ [facility] cardiac surgery would like a copy of films shared via cesar. Can we help with that? [phone] fx documented in this encounter Plan of Treatment Not on file documented as of this encounter Visit Diagnoses Not on filedocumented in this encounter Care Teams Director Of Product Development Relationship Specialty Start Date End Date Miguel Sousa MD [address] [place] [address] [phone] PCP - General Internal Medicine 01/30/19 Jacek Damon MD [address] [place] [address] [phone] [employer] Cardiovascular Disease 04/18/17 Nuris Mcknight PA-C [address] [place] [phone] Specialist Cardiology 03/20/19 Raj Marie MD [address] [place] [address] [employer] Cardiology 05/03/21 Shelby Mcneil NP [address] [place] [address] Cardiology 09/11/23 documented as of this encounter
--- OUTSIDE RECORDS SUMMARY | 2024-06-20 14:34 | XMS_ITS ---
Author Name Trudi Aceves NP Address [address] [place] [address] Phone [phone] Organization [facility] Care Team Providers Care Perinatal Director Name Role Phone Jordan Aceveszachisaiah Unavailable [phone] Unavailable Unavailable [phone] [facility] Unavailable ERIC CASAS Unavailable [phone] [facility] Unavailable [phone] Unavailable Unavailable Unavailable Dpt., [facility] Unavailable Reason for Referral Not Available Allergies, adverse reactions, alerts Allergen Type Reaction Severity Status Onset Date Penicillin Allergy to substance (disorder) Rash Unknown Active N/A History of medication use Medication Class Instructions Start Date End Date Finasteride 5 mg Tab TAKE 1 TABLET BY MO UTH EVERY DAY 2021-04-14 No Data Available metFORMIN 1000 mg Tab TAKE 1 TABLET BY M OUTH TWICE DAILY WITH MEALS 2021-05-13 No Data Available Trulicity 1.5 mg/0.5ML Solution Pen-injector Subcutaneous ADMINISTER 1.5 MG UNDER THE SKIN EVERY 7 DAYS on Monday2021-10-18 No Data Available Carvedilol 12.5 mg Tab TAKE 1 TABLET BY MOUTH TWICE DAILY WITH MEALS 2021-07-13 No Data Available Lisinopril 5 mg Tab TAKE 1 TABLET BY YAMILA TH DAILY 2021-05-13 No Data Available Tamsulosin 0.4 mg Cap TAKE 1 CAPSULE BY MOUTH EVERY DAY 30 MINUTES AFTER THE SAME MEAL 2021-08-09 No Data Available Atorvastatin Calcium 10 mg Tab TAKE 1 TA BLET BY MOUTH DAILY 2021-11-01 No Data Available Warfarin Sodium 5 mg Tab TAKE 1 TO 2 TAB LETS BY MOUTH AT THE SAME TIME EVERY DAY 2021-11-01 2023-01-31 Furosemide 40 mg Tab TAKE 1 TABLET BY MO UTH DAILY 2021-08-09 No Data Available Pantoprazole Sodium 40 mg Ta b delayed rel TAKE 1 TABLET BY MOUTH DAILY 2021-08-09 No Data Available OneTouch Delica Plus Lancet3 0G Miscellaneous USE TO TEST BLOOD SUGAR TWICE DAILY 2021-11-11 No Data Available Albuterol Sulfate HFA 108 (9 0 Base) MCG/ACT Aerosol Solution INHALE 2 PUFFS INTO THE LUNGS EVERY 4 HOURS NEEDED FOR COUGH OR WHEEZING 2021-11-18 No Data Available Hydrocortisone 2.5 % Crm APPLY TOPICALLY TO THE AFFECTED AREA TWICE DAILY 2021-11-18 No Data Available Donepezil 5 mg Tab TAKE 1 TABLET BY YAMILA TH AT BEDTIME 2021-12-06 No Data Available Chest Congestion Relief DM 10/100 mg/5ML Syrup TAKE 10 ML BY MOUTH EVERY 6 HOURS NEEDED CONGESTION FOR 7 DAYS 2021-12-22 No Data Available Ciclopirox Olamine 0.77 % Crm APPLY 1 AP PLICATION TO AFFECTED AREA ON FEET TWICE A DAY 2022-01-19 No Data Available Minocycline 50 mg Tab TAKE 1 TABLET BY M OUTH TWICE DAILY 2022-02-01 No Data Available Cephalexin 500 mg Cap TAKE 1 CAPSULE BY MOUTH EVERY 8 HOURS FOR 7 DAYS 2022-03-15 No Data Available vitamin c 500mg 1 tablet daily po 2022-03-22 No Data Available Potassium Chloride ER 20 MEQ Tab ER Take 1 tablet daily. 2022-03-22 2023-01-31 Fosfomycin Tromethamine 3 GM Packet 1 packet orally every 2 days mixed in 3 to 4 ounces of water 2022-03-22 2023-01-31 Nitrofurantoin Monohyd Macro 100 mg Cap TAKE 1 CAPSULE BY MOUTH EVERY 12 HOURS FOR 7 DAYS 2022-03-23 No Data Available Doxycycline Hyclate 50 mg Cap TAKE 1 CAP MARIAN BY MOUTH TWICE DAILY 2022-06-16 No Data Available Melatonin 5 mg Cap one tablet at bedtime 2022-08-05 No Data Available OneTouch Ultra 2 w/Device Kit USE DIR ECTED TWICE DAILY 2022-08-24 No Data Available Phenazopyridine 100 mg Tab TAKE 1 TABLET BY MOUTH TWICE DAILY FOR 5 DAYS 2022-09-15 2023-01-31 Sulfamethoxazole-Trimethopri m 800/160 mg Tab TAKE 1 TABLET BY MOUTH TWICE DAILY 2022-09-15 No Data Available Cefdinir 300 mg Cap TAKE 1 CAPSULE BY [facility] TWICE DAILY FOR 7 DAYS 2022-09-26 No Data Available levoFLOXacin 500 mg Tab TAKE 1 TABLET BY MOUTH DAILY 2022-09-29 No Data Available metroNIDAZOLE 500 mg Tab TAKE 1 TABLET B Y MOUTH TWICE DAILY 2022-09-29 No Data Available Xarelto 20 mg Tab TAKE 1 TABLET BY YAMILA TH DAILY 2022-10-25 No Data Available Fluorometholone 0.1 % Suspension SHAKE LIQUID AND INSTILL 1 DROP IN BOTH EYES IN THE MORNING 2022-11-21 No Data Available OneTouch Verio Strip USE TO CHECK BLOOD SUGAR TWICE DAILY 2022-12-01 No Data Available Nitroglycerin 0.4 mg Tab Sublingual 1 tablet SL PRN angina every 5 minutes x 3 max 2023-01-26 No Data Available Bactrim DS 800/160 mg Tab Take 1 tablet PO twice daily for 7 days. 2023-01-31 2023-02-07 Calcium Carbonate 600 mg Tab Take by mouth twice daily 2023-01-31 No Data Available Fluticasone Propionate 50 MCG/ACT Suspension Nasal use 1 spray in each nostril 2x daily 2023-01-31 No Data Available Magnesium Oxide 400 mg Tab 1 daily 2023-01-31 N o Data Available Potassium Chloride ER 20 MEQ Tab ER TAKE 1 TABLET BY MOUTH DAILY 2022-08-17 No Data Available Terbinafine 250 mg Tab TAKE 1 TABLET BY MOUTH EVERY DAY X 7 DAYS 2023-02-21 No Data Available Clotrimazole-Betamethasone 1-0.05 % Crm APPLY TO THE AFFECTED AREA ON FEET TWICE DAILY 2023-02-21 No Data Available Loperamide 2 mg Cap TAKE 1 CAPSULE BY [facility] FOUR TIMES DAILY NEEDED FOR DIARRHEA 2023-04-20 No Data Available Azithromycin 250 mg Tab No Data Available 2023-05-05 No Data Available Sildenafil Citrate 100 mg Tab TAKE 1 TAB LET BY MOUTH NEEDED 2023-06-19 No Data Available predniSONE 20 mg Tab Take 2 tablets twic e daily for 3 days, 1 tablet twice daily for 2 days, and 1 tablet daily for 2 days. 2023-09-25 No Data Available Azithromycin 250 mg Tab Take 2 tablets P O on day 1, then 1 tablet PO on days 2-5 2023-09-25 No Data Available Cetirizine 10 mg Tab TAKE 1 TABLET BY [facility] EVERY DAY NEEDED 2023-10-26 No Data Available prednisoLONE Acetate 1 % Suspension SHAKE LIQUID AND INSTILL 1 DROP IN RIGHT EYE FOUR TIMES DAILY 2023-09-25 No Data Available Ofloxacin 0.3 % Solution INSTILL 1 DROP IN RIGHT EYE FOUR TIMES DAILY 2023-09-25 No Data Available Ketorolac Tromethamine 0.5 % Solution INSTILL 1 DROP IN RIGHT EYE FOUR TIMES DAILY 2023-09-25 No Data Available Wixela Inhub 250-50 MCG/ACT Aerosol Powder Breath Activated INHALE 1 PUFF BY MOUTH EVERY DAY 2023-10-23 No Data Available Problem List Problem Status Onset Date Resolved Date Thoracic aortic ectasia Active 2022-04-09 N/A Obesity (BMI 30-39.9) Active 2022-05-06 N/A Non-small cell lung cancer Active 2022-04-07 N /A Hypercoagulability due to atrial fibrillation Active 2022-04-07 N/A Ascending aortic aneurysm Active 2023-03-01 N/ A 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 Active 2022-08-09 N/A Hx pulmonary embolism Active 2022-04-07 N/A Unspecified dementia, unspec ified severity, without behavioral disturbance, psychotic disturbance, mood disturbance, and anxiety Active 2022-04-09 N/A Type 2 diabetes mellitus wit h other specified complication with hyperlipidemia Active 2022-04-09 N/A 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 Active 2022-04-07 N/A Coronary artery disease invo lving [place]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 pectoris Active 2023-02-02 N/A COPD (chronic obstructive pulmonary disease) Active 2022-08-09 N/A Allergies Active 2023-10-26 N/A Osteoarthritis, multiple sites Active 2023-05-15 N/A Chest pain Active 2023-11-23 N/A Other problems related to ca dical facilities and other health care Active 2023-05-09 N/A Encounters Encounters Type Facility Date of Service Diagnosis/Complaint New patient,40-59min; chronic exacerbation, 2 stable chronic or 1 acute illness add add modifier 95 for video (do not use for phone, instead use [id number]) [facility] 03[place]2022 Type 2 diabetes mellitus wit h other specified complicationHyperlipidemia, unspecifiedUrinary tract infection, site not specifiedOther thrombophiliaLongstanding persistent atrial fibrillationChronic systolic (congestive) heart failureSecondary hyperaldosteronismMalignant neoplasm of unspecified part of unspecified bronchus or lungUnspecified dementia without behavioral disturbanceThoracic aortic ectasiaPersonal history of pulmonary embolism New patient,40-59min; chronic exacerbation, 2 stable chronic or 1 acute illness add add modifier 95 for video (do not use for phone, instead use [id number]) [facility] 03[place] New patient,40-59min; chronic exacerbation, 2 stable chronic or 1 acute illness add add modifier 95 for video (do not use for phone, instead use 51740-70) [facility] 03[place] New patient,40-59min; chronic exacerbation, 2 stable chronic or 1 acute illness add add modifier 95 for video (do not use for phone, instead use [id number]) [facility] 03[place] New patient,40-59min; chronic exacerbation, 2 stable chronic or 1 acute illness add add modifier 95 for video (do not use for phone, instead use [id number]) [facility] [place] New patient,40-59min; chronic exacerbation, 2 stable chronic or 1 acute illness add add modifier 95 for video (do not use for phone, instead use [id number]) [facility] [place] New patient,40-59min; chronic exacerbation, 2 stable chronic or 1 acute illness add add modifier 95 for video (do not use for phone, instead use 84396-32) [facility] [place] New patient,40-59min; chronic exacerbation, 2 stable chronic or 1 acute illness add add modifier 95 for video (do not use for phone, instead use [id number]) [facility] [place] New patient,40-59min; chronic exacerbation, 2 stable chronic or 1 acute illness add add modifier 95 for video (do not use for phone, instead use [id number]) [facility] Estab. patient 20-29min; 1 stable chronic or 2 minor; add add modifier 95 for video, modifier [address] [facility]/20[place] Urinary tract infection, sit e not specifiedLongstanding persistent atrial fibrillationOther thrombophiliaPersonal history of pulmonary embolismChronic systolic (congestive) heart failureSecondary hyperaldosteronismMalignant neoplasm of unspecified part of unspecified bronchus or lungType 2 diabetes mellitus with other specified complicationHyperlipidemia, unspecifiedUnspecified dementia without behavioral disturbanceThoracic aortic ectasiaObesity, unspecifiedBody mass index (bmi) 31.0-31.9, adult Estab. patient 20-29min; 1 stable chronic or 2 minor; add add modifier 95 for video, modifier [address] [facility] Estab. patient 20-29min; 1 stable chronic or 2 minor; add add modifier 95 for video, modifier [address] [facility]/20[place] Estab. patient 20-29min; 1 stable chronic or 2 minor; add add modifier 95 for video, modifier [address] [facility]/20[place] Estab. patient 20-29min; 1 stable chronic or 2 minor; add add modifier 95 for video, modifier [address] [facility]/20[place] Estab. patient 20-29min; 1 stable chronic or 2 minor; add add modifier 95 for video, modifier [address] [facility]20[place] Estab. patient 30-39min; chronic exacerbation, 2 stable chronic or 1 acute illness add add modifier 95 for video, (do not use for phone, instead use 53767-85) [facility] [place]20[place] Hypertensive heart disease w ith heart failureChronic systolic (congestive) heart failureSecondary hyperaldosteronismOther thrombophiliaUnspecified atrial fibrillationPersonal history of pulmonary embolismMalignant neoplasm of unspecified part of unspecified bronchus or lungType 2 diabetes mellitus with other specified complicationHyperlipidemia, unspecifiedUnspecified dementia without behavioral disturbanceThoracic aortic ectasiaObesity, unspecifiedBody mass index (bmi) 31.0-31.9, adultAthscl heart disease of [place] cor art w unsp ang pctrsPersonal history of other infectious and parasitic diseasesChronic obstructive pulmonary disease, unspecified Estab. patient 30-39min; chronic exacerbation, 2 stable chronic or 1 acute illness add add modifier 95 for video, (do not use for phone, instead use 73743-50) [facility] Estab. patient 30-39min; chronic exacerbation, 2 stable chronic or 1 acute illness add add modifier 95 for video, (do not use for phone, instead use [id number]) [facility] Estab. patient 30-39min; chronic exacerbation, 2 stable chronic or 1 acute illness add add modifier 95 for video, (do not use for phone, instead use 33538-69) [facility] [place] Estab. patient 30-39min; chronic exacerbation, 2 stable chronic or 1 acute illness add add modifier 95 for video, (do not use for phone, instead use 52745-34) [facility] [place] Estab. patient 30-39min; chronic exacerbation, 2 stable chronic or 1 acute illness add add modifier 95 for video, (do not use for phone, instead use [id number]) [facility]2022 RN, CN or CP time with patient by phone; use with 1111F, BP, A1c or other CPTII codes [facility] 01/[place]/2023 Encounter for other specifie d aftercare RN, CN or CP time with patient by phone; use with 1111F, BP, A1c or other CPTII codes [facility] Estab. patient 20-29min; 1 stable chronic or 2 minor; add add modifier 95 for video, modifier [address] [facility] 02/02/2023 Other thrombophiliaUnspecifi ed atrial fibrillationPersonal history of pulmonary embolismChronic systolic (congestive) heart failureSecondary hyperaldosteronismHypertensive heart disease with heart failureMalignant neoplasm of unspecified part of unspecified bronchus or lungType 2 diabetes mellitus with other specified complicationHyperlipidemia, unspecifiedUnspecified dementia without behavioral disturbanceThoracic aortic ectasiaObesity, unspecifiedAthscl heart disease of [place] cor art w unsp ang pctrsPersonal history of other infectious and parasitic diseasesChronic obstructive pulmonary disease, unspecifiedEncounter for other specified aftercare Estab. patient 20-29min; 1 stable chronic or 2 minor; add add modifier 95 for video, modifier 93 for phone [facility] Estab. patient 20-29min; 1 stable chronic or 2 minor; add add modifier 95 for video, modifier [address] [facility] Estab. patient 20-29min; 1 stable chronic or 2 minor; add add modifier 95 for video, modifier [address] [facility] Estab. patient 20-29min; 1 stable chronic or 2 minor; add add modifier 95 for video, modifier [address] [facility] Estab. patient 20-29min; 1 stable chronic or 2 minor; add add modifier 95 for video, modifier [address] [facility] Estab. patient 20-29min; 1 stable chronic or 2 minor; add add modifier 95 for video, modifier [address] [facility] 02[place]/2023 Unlisted special service; to be used for medical record reviews and reporting CPTII codes (1111F, etc) [facility]20[place] Other specified health statu s Unlisted special service; to be used for medical record reviews and reporting CPTII codes (1111F, etc) [facility] Unlisted special service; to be used for medical record reviews and reporting CPTII codes (1111F, etc) [facility] Estab. patient 20-29min; 1 stable chronic or 2 minor; add add modifier 95 for video, modifier [address] [facility] 03[place]2023 Other thrombophiliaUnspecifi ed atrial fibrillationPersonal history of pulmonary embolismChronic systolic (congestive) heart failureSecondary hyperaldosteronismHypertensive heart disease with heart failureMalignant neoplasm of unspecified part of unspecified bronchus or lungType 2 diabetes mellitus with other specified complicationHyperlipidemia, unspecifiedUnspecified dementia without behavioral disturbanceThoracic aortic ectasiaObesity, unspecifiedAthscl heart disease of [place] cor art w unsp ang pctrsPersonal history of other infectious and parasitic diseasesChronic obstructive pulmonary disease, unspecifiedAneurysm of the ascending aorta, without rupture Estab. patient 20-29min; 1 stable chronic or 2 minor; add add modifier 95 for video, modifier 93 for phone [facility] [place] Estab. patient 20-29min; 1 stable chronic or 2 minor; add add modifier 95 for video, modifier 93 for phone [facility] [place] 03/01/2023 Estab. patient 20-29min; 1 stable chronic or 2 minor; add add modifier 95 for video, modifier 93 for phone [facility] [place] 03/01/2023 Estab. patient 20-29min; 1 stable chronic or 2 minor; add add modifier 95 for video, modifier 93 for phone [facility] [place] 03/01/2023 Estab. patient 20-29min; 1 stable chronic or 2 minor; add add modifier 95 for video, modifier 93 for phone [facility] [place] 03/01/2023 Estab. patient 20-29min; 1 stable chronic or 2 minor; add add modifier 95 for video, modifier [address] [facility] [place]2023 No Data Available [facility]2023 Other specified counselingOt her detention (current) drug therapy No Data Available [facility] [place] 04[place] [facility] Other thrombophiliaUnspecifi ed atrial fibrillationPersonal history of pulmonary embolismChronic systolic (congestive) heart failureSecondary hyperaldosteronismHypertensive heart disease with heart failureMalignant neoplasm of unspecified part of unspecified bronchus or lungType 2 diabetes mellitus with other specified complicationHyperlipidemia, unspecifiedUnspecified dementia without behavioral disturbanceThoracic aortic ectasiaObesity, unspecifiedAthscl heart disease of [place] cor art w unsp ang pctrsPersonal history of other infectious and parasitic diseasesChronic obstructive pulmonary disease, unspecifiedAneurysm of the ascending aorta, without ruptureOther long term care pharmacist (current) drug therapy No Data Available [facility] [place] 04[place] [facility] [facility] [place] [facility] [facility] [place] [facility] [place] 04[place] [facility]20[place] Type 2 diabetes mellitus wit h other specified complicationHyperlipidemia, unspecifiedPermanent atrial fibrillationOther thrombophiliaHypertensive heart disease with heart failureChronic systolic (congestive) heart failureSecondary hyperaldosteronismChronic obstructive pulmonary disease, unspecifiedUnspecified dementia without behavioral disturbanceThoracic aortic ectasiaAneurysm of the ascending aorta, without ruptureAthscl heart disease of [place] cor art w unsp ang pctrsObesity, unspecifiedBody mass index (bmi) 31.0-31.9, adultPersonal history of other infectious and parasitic diseasesOther detention (current) drug therapyAcute pharyngitis due to other specified organismsOth bacterial agents as the cause of diseases classd elswhrPersonal history of pulmonary embolism No Data Available [facility] 05[place] [facility] [facility] 05[place] [facility]2023 Other thrombophiliaUnspecifi ed atrial fibrillationPersonal history of pulmonary embolismChronic systolic (congestive) heart failureSecondary hyperaldosteronismEssential (primary) hypertensionMalignant neoplasm of unspecified part of unspecified bronchus or lungType 2 diabetes mellitus with other specified complicationHyperlipidemia, unspecifiedUnspecified dementia without behavioral disturbanceThoracic aortic ectasiaObesity, unspecifiedAthscl heart disease of [place] cor art w unsp ang pctrsPersonal history of other infectious and parasitic diseasesChronic obstructive pulmonary disease, unspecifiedAneurysm of the ascending aorta, without ruptureOther long term care pharmacist (current) drug therapyAcute pharyngitis due to other specified organismsBody mass index (bmi) 32.0-32.9, adultOth bacterial agents as the cause of diseases classd elswhr No Data Available [facility] [place] [facility] [place] 05/[place]/[address] [facility] [place] 05/[place]/[address] [facility] [place] 05/[place]/[address] [facility] [place]2023 Estab. patient 30-39min; chronic exacerbation, 2 stable chronic or 1 acute illness add add modifier 95 for video, (do not use for phone, instead use [id number]) [facility] [place] 05[place]2023 Type 2 diabetes mellitus wit h other specified complicationHyperlipidemia, unspecifiedUnspecified atrial fibrillationOther thrombophiliaHypertensive heart disease with heart failureChronic systolic (congestive) heart failureSecondary hyperaldosteronismUnspecified dementia without behavioral disturbanceThoracic aortic ectasiaAthscl heart disease of [place] cor art w unsp ang pctrsAneurysm of the ascending aorta, without ruptureChronic obstructive pulmonary disease, unspecifiedObesity, unspecifiedBody mass index (bmi) 31.0-31.9, adultPersonal history of other infectious and parasitic diseasesOther long term care pharmacist (current) drug therapyOther problems related to medical facilities and other health carePolyosteoarthritis, unspecifiedPersonal history of pulmonary embolism Estab. patient 30-39min; chronic exacerbation, 2 stable chronic or 1 acute illness add add modifier 95 for video, (do not use for phone, instead use [id number]) [facility] [place]20[place] Estab. patient 30-39min; chronic exacerbation, 2 stable chronic or 1 acute illness add add modifier 95 for video, (do not use for phone, instead use [id number]) [facility] [place] 05[place]/20[place] Estab. patient 30-39min; chronic exacerbation, 2 stable chronic or 1 acute illness add add modifier 95 for video, (do not use for phone, instead use [id number]) [facility] [place] 05[place]/2023 Estab. patient 30-39min; chronic exacerbation, 2 stable chronic or 1 acute illness add add modifier 95 for video, (do not use for phone, instead use [id number]) [facility] [place] 05[place]/2023 Estab. patient 30-39min; chronic exacerbation, 2 stable chronic or 1 acute illness add add modifier 95 for video, (do not use for phone, instead use 89683-10) [facility] [place] 05[place]/2023 Estab. patient 30-39min; chronic exacerbation, 2 stable chronic or 1 acute illness add add modifier 95 for video, (do not use for phone, instead use 25115-01) [facility] [place] 05[place]/2023 Estab. patient 30-39min; chronic exacerbation, 2 stable chronic or 1 acute illness add add modifier 95 for video, (do not use for phone, instead use [id number]) [facility] [place] 05[place]/2023 Estab. patient 30-39min; chronic exacerbation, 2 stable chronic or 1 acute illness add add modifier 95 for video, (do not use for phone, instead use 95005-40) [facility] [place] 05[place]/2023 Estab. patient 30-39min; chronic exacerbation, 2 stable chronic or 1 acute illness add add modifier 95 for video, (do not use for phone, instead use [id number]) [facility] [place] 05/[place]/[address] [facility] [place] 06[place]/2023 Type 2 diabetes mellitus wit h other specified complicationHyperlipidemia, unspecifiedPermanent atrial fibrillationOther thrombophiliaAneurysm of the ascending aorta, without ruptureHypertensive heart disease with heart failureChronic systolic (congestive) heart failureSecondary hyperaldosteronismChronic obstructive pulmonary disease, unspecifiedUnspecified dementia without behavioral disturbanceThoracic aortic ectasiaAthscl heart disease of [place] cor art w unsp ang pctrsObesity, unspecifiedBody mass index (bmi) 31.0-31.9, adultPersonal history of other infectious and parasitic diseasesOther long term care pharmacist (current) drug therapyPolyosteoarthritis, unspecifiedPersonal history of pulmonary embolismOther problems related to medical facilities and other health care No Data Available [facility]19[place]2023 No Data Available [facility]20[place] No Data Available [facility]20[place] No Data Available [facility]2023 Other thrombophiliaUnspecifi ed atrial fibrillationPersonal history of pulmonary embolismAthscl heart disease of [place] cor art w unsp ang pctrsChronic systolic (congestive) heart failureSecondary hyperaldosteronismMalignant neoplasm of unspecified part of unspecified bronchus or lungHyperlipidemia, unspecifiedType 2 diabetes mellitus with other specified complicationUnspecified dementia without behavioral disturbanceThoracic aortic ectasiaObesity, unspecifiedPersonal history of other infectious and parasitic diseasesChronic obstructive pulmonary disease, unspecifiedAneurysm of the ascending aorta, without ruptureOther detention (current) drug therapyOther problems related to medical facilities and other health carePolyosteoarthritis, unspecified No Data Available [facility]20[place] No Data Available [facility] No Data Available [facility]20[place] No Data Available [facility]20[place] No Data Available [facility]20[place] No Data Available [facility]2023 Hyperlipidemia, unspecifiedT ype 2 diabetes mellitus with other specified complicationChronic obstructive pulmonary disease, unspecifiedOther problems related to medical facilities and other health carePolyosteoarthritis, unspecified No Data Available [facility] 08[place]2023 No Data Available [facility]2023 No Data Available [facility]2023 No Data Available [facility] 09[place]2023 Chronic obstructive pulmonar y disease, unspecifiedOther problems related to medical facilities and other health care No Data Available [facility] 09/[place]/[address] [facility]2023 Chronic obstructive pulmonar y disease, unspecifiedOther problems related to medical facilities and other health care No Data Available [facility]2023 Allergy, unspecified, initia l encounter No Data Available [facility] 10[place] [facility]2023 Polyosteoarthritis, unspecif iedChest pain, unspecifiedOther problems related to medical facilities and other health care Vital Signs Date of Collection Vitals 2022-03-22 11:04:28 Height - 185.42 cmWe ight - 108.86 kgBody Mass Index (BMI) - 31.66 kg/m2BP Diastolic - 80.0 mm[Hg]BP Systolic - 140.0 mm[Hg] 2022-05-06 10:11:38 Height - 185.42 cmWe ight - 108.86 kgBody Mass Index (BMI) - 31.66 kg/m2 2022-08-05 13:58:41 Height - 185.42 cmWe ight - 108.86 kgBody Mass Index (BMI) - 31.66 kg/m2 2023-02-02 12:12:33 Height - 185.42 cmWe ight - 107.96 kgBody Mass Index (BMI) - 31.4 kg/m2 2023-03-01 06:18:27 Height - 185.42 cmWe ight - 110.68 kgBody Mass Index (BMI) - 32.19 kg/m2BP Diastolic - 76.0 mm[Hg]BP Systolic - 134.0 mm[Hg] 2023-04-25 08:01:11 Weight - 110.68 kgBo dy Mass Index (BMI) - 32.19 kg/m2BP Diastolic - 72.0 mm[Hg]BP Systolic - 138.0 mm[Hg]Pain Scale - 2.0 {score} 2023-05-05 08:52:43 Pain Scale - 0.0 {sc ore} 2023-05-09 12:07:05 Weight - 110.68 kgBo dy Mass Index (BMI) - 32.19 kg/m2Pain Scale - 0.0 {score} 2023-05-15 11:57:00 Weight - 107.96 kgBo dy Mass Index (BMI) - 31.4 kg/m2BP Diastolic - 69.0 mm[Hg]BP Systolic - 138.0 mm[Hg]Heart Rate - 69.0 /minPain Scale - 0.0 {score} 2023-06-19 10:38:46 Weight - 107.96 kgBo dy Mass Index (BMI) - 31.4 kg/m2Pain Scale - 0.0 {score} 2023-07-03 09:44:40 BP Diastolic - 88.0 mm[Hg]BP Systolic - 152.0 mm[Hg]Pain Scale - 0.0 {score} 2023-08-30 11:37:42 BP Diastolic - 85.0 mm[Hg]BP Systolic - 140.0 mm[Hg] Social History Social History Social History Observation Description Effec tive Time Current Smoking Status Never smoker 2024-06-08 3 Sex Male History of Procedures Procedures Service Procedure code Service date Servicing provider Phone# New patient,40-59min; chronic exacerbation, 2 stable chronic or 1 acute illness add add modifier 95 for video (do not use for phone, instead use [id number]) 25912 2022-03-22 No Data Available No Data Availa ble Medication Review by prescribing provider or pharmacist documented (1160F) 1160F 2022-03-22 No Data Available No Data [place] Functional Status Assessed (1170F) 1170F 2022-03-22 No Data Available No Data Avail able Advance Care Directive Advance care planning discussion documented in the medical record (1158F) 1158F 2022-03-22 No Data Available No Data Availa ble BMI obtained (3008F) 3008F 2022-03-22 No Data Availab le No Data Available SBP >= 140 3077F 2022-03-22 No Data Available No Data Available DBP 80-89 (3079F) 3079F 2022-03-22 No Data Available No Data Available Pain Assessment - Pain Documented on a Pain Scale (1125F) 1125F 2022-03-22 No Data Available No Data [place] Medication List Documented (1159F) 1159F 2022-03-22 No Data Available No Data [place] Estab. patient 20-29min; 1 stable chronic or 2 minor; add add modifier 95 for video, modifier 93 for phone 17296 2022-05-06 No Data Available No Data Availa ble Medication Review by prescribing provider or pharmacist documented (1160F) 1160F 2022-05-06 No Data Available No Data [place] Medication List Documented (1159F) 1159F 2022-05-06 No Data Available No Data [place] Pain Assessment - Pain Documented on a Pain Scale (1125F) 1125F 2022-05-06 No Data Available No Data [place] Advance Care Directive Advance care planning discussion documented in the medical record (1158F) 1158F 2022-05-06 No Data Available No Data Availa ble BMI obtained (3008F) 3008F 2022-05-06 No Data Availab le No Data Available Estab. patient 30-39min; chronic exacerbation, 2 stable chronic or 1 acute illness add add modifier 95 for video, (do not use for phone, instead use 11107-47) 37260 2022-08-05 No Data Available No Data Availa ble Medication List Documented (1159F) 1159F 2022-08-05 No Data Available No Data [place] Medication Review by prescribing provider or pharmacist documented (1160F) 1160F 2022-08-05 No Data Available No Data [place] Pain Assessment - Pain Documented on a Pain Scale (1125F) 1125F 2022-08-05 No Data Available No Data [place] Advance Care Directive Advance care planning discussion documented in the medical record (1158F) 1158F 2022-08-05 No Data Available No Data Availa ble BMI obtained (3008F) 3008F 2022-08-05 No Data Availab le No Data Available RN, CN or CP time with patient by phone; use with 1111F, BP, A1c or other CPTII codes 54902 2023-01-31 No Data Available No Data Avai lable Medications prescribed in hospital were reviewed and reconciled against what they were taking prior to admission during today's visit. (1111F) 1111F 2023-01-31 No Data Available No Data Availa ble Estab. patient 20-29min; 1 stable chronic or 2 minor; add add modifier 95 for video, modifier 93 for phone 44256 2023-02-02 No Data Available No Data Availa ble Medications prescribed in hospital were reviewed and reconciled against what they were taking prior to admission during today's visit. (1111F) 1111F 2023-02-02 No Data Available No Data Availa ble Advance care planning discussed and documented ? advance care plan or surrogate decision-maker was documented in the medical record. (1123F) 1123F 2023-02-02 No Data Available No Data Availa ble Medication List Documented (1159F) 1159F 2023-02-02 No Data Available No Data [place] Medication Review by prescribing provider or pharmacist documented (1160F) 1160F 2023-02-02 No Data Available No Data [place] BMI obtained (3008F) 3008F 2023-02-02 No Data Availab le No Data Available Advance Care Directive Advance care planning discussion documented in the medical record (1158F) 1158F 2023-02-02 No Data Available No Data Availa ble Unlisted special service; to be used for medical record reviews and reporting CPTII codes (1111F, etc) 24476 2023-02-22 No Data Available No Data Availa ble SBP < 130 (3074F) 3074F 2023-02-22 No Data Available No Data Available DBP <80 (3078F) 3078F 2023-02-22 No Data Available No Data Available Estab. patient 20-29min; 1 stable chronic or 2 minor; add add modifier 95 for video, modifier 93 for phone 14536 2023-03-01 No Data Available No Data Availa ble SBP 130-139 (3075F) 3075F 2023-03-01 No Data Availabl e No Data Available DBP <80 (3078F) 3078F 2023-03-01 No Data Available No Data Available Functional Status Assessed (1170F) 1170F 2023-03-01 No Data Available No Data Avail able Medication List Documented (1159F) 1159F 2023-03-01 No Data Available No Data [place] Advance Care Directive Advance care planning discussion documented in the medical record (1158F) 1158F 2023-03-01 No Data Available No Data Availa ble BMI obtained (3008F) 3008F 2023-03-01 No Data Availab le No Data Available No Data Available 50805 2023-04-14 No Data Available No Data Available Medication List Documented (1159F) 1159F 2023-04-14 No Data Available No Data [place] No Data Available 38829 2023-04-25 No Data Available No Data Available SBP 130-139 (3075F) 3075F 2023-04-25 No Data Availabl e No Data Available DBP <80 (3078F) 3078F 2023-04-25 No Data Available No Data Available Pain Assessment - Pain Documented on a Pain Scale (1125F) 1125F 2023-04-25 No Data Available No Data [place] Functional Status Assessed (1170F) 1170F 2023-04-25 No Data Available No Data Avail able Medication List Documented (1159F) 1159F 2023-04-25 No Data Available No Data [place] BMI obtained (3008F) 3008F 2023-04-25 No Data Availab le No Data Available No Data Available 2023-05-05 No Data Available No Data Available Pain Assessment - NO pain present (1126F) 1126F 2023-05-05 No Data Available No Data A vailable Functional Status Assessed (1170F) 1170F 2023-05-05 No Data Available No Data Avail able Medication List Documented (1159F) 1159F 2023-05-05 No Data Available No Data [place] No Data Available 2023-05-09 No Data Available No Data Available Pain Assessment - NO pain present (1126F) 1126F 2023-05-09 No Data Available No Data A vailable Functional Status Assessed (1170F) 1170F 2023-05-09 No Data Available No Data Avail able BMI obtained (3008F) 3008F 2023-05-09 No Data Availab le No Data Available Advance Care Directive Advance care planning discussion documented in the medical record (1158F) 1158F 2023-05-09 No Data Available No Data Availa ble Advance care planning discussed and documented ? advance care plan or surrogate decision-maker was documented in the medical record. (1123F) 1123F 2023-05-09 No Data Available No Data Availa ble Estab. patient 30-39min; chronic exacerbation, 2 stable chronic or 1 acute illness add add modifier 95 for video, (do not use for phone, instead use [id number]) 99689 2023-05-15 No Data Available No Data Availa ble Advance care planning discussed and documented ? advance care plan or surrogate decision-maker was documented in the medical record. (1123F) 1123F 2023-05-15 No Data Available No Data Availa ble Functional Status Assessed (1170F) 1170F 2023-05-15 No Data Available No Data Avail able Medication List Documented (1159F) 1159F 2023-05-15 No Data Available No Data [place] Medication Review by prescribing provider or pharmacist documented (1160F) 1160F 2023-05-15 No Data Available No Data [place] Pain Assessment - NO pain present (1126F) 1126F 2023-05-15 No Data Available No Data A vailable BMI obtained (3008F) 3008F 2023-05-15 No Data Availab le No Data Available Advance Care Directive Advance care planning discussion documented in the medical record (1158F) 1158F 2023-05-15 No Data Available No Data Availa ble SBP 130-139 (3075F) 3075F 2023-05-15 No Data Availabl e No Data Available DBP <80 (3078F) 3078F 2023-05-15 No Data Available No Data Available No Data Available 40114 2023-06-19 No Data Available No Data Available Pain Assessment - NO pain present (1126F) 1126F 2023-06-19 No Data Available No Data A vailable Functional Status Assessed (1170F) 1170F 2023-06-19 No Data Available No Data Avail able BMI obtained (3008F) 3008F 2023-06-19 No Data Availab le No Data Available No Data Available 56976 2023-07-03 No Data Available No Data Available Pain Assessment - Pain Documented on a Pain Scale (1125F) 1125F 2023-07-03 No Data Available No Data [place] SBP >= 140 3077F 2023-07-03 No Data Available No Data Available DBP 80-89 (3079F) 3079F 2023-07-03 No Data Available No Data Available Advance Care Directive Advance care planning discussion documented in the medical record (1158F) 1158F 2023-07-03 No Data Available No Data Availa ble Functional Status Assessed (1170F) 1170F 2023-07-03 No Data Available No Data Avail able No Data Available 21801 2023-08-30 No Data Available No Data Available SBP >= 140 3077F 2023-08-30 No Data Available No Data Available DBP 80-89 (3079F) 3079F 2023-08-30 No Data Available No Data Available Pain Assessment - NO pain present (1126F) 1126F 2023-08-30 No Data Available No Data A vailable No Data Available 39513 2023-09-25 No Data Available No Data Available Pain Assessment - NO pain present (1126F) 1126F 2023-09-25 No Data Available No Data A vailable No Data Available 2023-09-29 No Data Available No Data Available No Data Available [id number] 2023-10-26 No Data Available No Data Available Pain Assessment - NO pain present (1126F) 1126F 2023-10-26 No Data Available No Data A vailable No Data Available 16608 2023-11-23 No Data Available No Data Available Functional Status Functional Category Effective Dates Cognition Status: 2022-03-22 ADL: Bathing Needs Assistanc e , Dressing Needs Assistance , Eating Independent , Ambulation Needs Assistance , Transferring Needs Assistance and Toileting Independent 2022-03-22 IADL: Medication Needs Panfilo tance , Meal Prep Needs Assistance and Shopping Needs Assistance; Housekeeping Needs help 2022-03-22 Falls in last 6 Months: No 2022-03-22 [employer] assists with cooking, cl eaning, laundry, showering, and dressing. Uses cane to ambulate. Toilets using adult breifs. 2022-08-05 ambulates with cane 2023-02-02 requesting 2 hours on Monday for laundry for [employer] 02/02/23-will discuss with his [facility] coordinator 2023-02-02 [employer] Mon 2 hours, Mon 2 hours, Monday 3 h ours 2023-05-15 Mental Status Status Date AOx4 2022-08-05 Assessments Date of Service Assessments 2022-03-22 11:04:28 UTI (urinary tract i nfection)Longstanding persistent atrial fibrillation with other thrombophiliaHx pulmonary embolismChronic systolic (congestive) heart failure with secondary hyperaldosteronismNon-small cell lung cancerwill FU w videocallType 2 diabetes mellitus with other specified complication with hyperlipidemiaUnspecified dementia, unspecified severity, without behavioral disturbance, psychotic disturbance, mood disturbance, and anxietyThoracic aortic ectasia 2022-05-06 10:11:38 UTI (urinary tract i nfection) [N39.0]> Needs rx for UTI not covered by insurance. Was recently told e has UTI but his insurance won't cover a number of meds and others interact with his coumadin. He needs to have an Rx filled that he nan get and take sarah - he has gone untreated for at least 6 days.Due to drug interactions, Fosfomycin 3g one time best option.Dx'd 03/13, still not treated due to insurance problems, has burning w urination. No fever.Insurance will not cover itI found pt coupon using Rx and called pharmacy. Copay is $25 which pt endorses (although grudgingly).Pt to bulk picker abx tomorrow morningUPDATE: as of 05/06/2022 - UTI ResolvedLongstanding persistent atrial fibrillation with other thrombophilia [I48.11, D68.69]> WarfarinHx pulmonary embolism [Z86.711]> On warfarin (also has A-Fib)Chronic systolic (congestive) heart failure with secondary hyperaldosteronism [I50.22, E26.1]> FurosemideCarvedilolmonitor weight and edemaNon-small cell lung cancer [C34.90]> [facility]Will reach out for recordsType 2 diabetes mellitus with other specified complication with hyperlipidemia [E11.69, E78.5]> metformintrulicityatorvastatinstablemonitor [id number] dementia, unspecified severity, without behavioral disturbance, psychotic disturbance, mood disturbance, and anxiety [F03.90]> needs assistance with ADL'sdonepezilThoracic aortic ectasia [I77.810]> noted on CXR - The thoracic aorta is calcifiedObesity (BMI 30-39.9) [E66.9]> BMI 31.66Advice re lifestyle, diet, activity as tolerated. 2022-08-05 13:58:41 Hypercoagulability d ue to atrial fibrillationHx pulmonary embolismChronic systolic (congestive) heart failure with secondary hyperaldosteronismNon-small cell lung cancerType 2 diabetes mellitus with other specified complication with hyperlipidemiaUnspecified dementia, unspecified severity, without behavioral disturbance, psychotic disturbance, mood disturbance, and anxietyThoracic aortic ectasiaObesity (BMI 30-39.9)Atherosclerotic heart disease of [place] coronary artery with unspecified angina pectorisHistory of sepsisCOPD (chronic obstructive pulmonary disease) 2023-02-02 12:12:33 Patient Education to avoid future hospitalization: Call [facility] if symptoms of illness develop.Hypercoagulability due to atrial fibrillationHx pulmonary embolismChronic systolic (congestive) heart failure with secondary hyperaldosteronismNon-small cell lung cancerType 2 diabetes mellitus with other specified complication with hyperlipidemiaUnspecified dementia, unspecified severity, without behavioral disturbance, psychotic disturbance, mood disturbance, and anxietyThoracic aortic ectasiaObesity (BMI 30-39.9)Atherosclerotic heart disease of [place] coronary artery with unspecified angina pectorisHistory of sepsisCOPD (chronic obstructive pulmonary disease)Coronary artery disease involving [place]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 pectoris 2023-03-01 06:18:27 Hypercoagulability d ue to atrial fibrillationHx pulmonary embolismChronic systolic (congestive) heart failure with secondary hyperaldosteronismNon-small cell lung cancerType 2 diabetes mellitus with other specified complication with hyperlipidemiaUnspecified dementia, unspecified severity, without behavioral disturbance, psychotic disturbance, mood disturbance, and anxietyThoracic aortic ectasiaObesity (BMI 30-39.9)Atherosclerotic heart disease of [place] coronary artery with unspecified angina pectorisHistory of sepsisCOPD (chronic obstructive pulmonary disease)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 aortic aneurysm 2023-04-14 12:13:08 Encounter for medica tion reviewEncounter for medication review 2023-04-25 08:01:11 Hypercoagulability d ue to atrial fibrillationHx pulmonary embolismChronic systolic (congestive) heart failure with secondary hyperaldosteronismNon-small cell lung cancerType 2 diabetes mellitus with other specified complication with hyperlipidemiaUnspecified dementia, unspecified severity, without behavioral disturbance, psychotic disturbance, mood disturbance, and anxietyThoracic aortic ectasiaObesity (BMI 30-39.9)Atherosclerotic heart disease of [place] coronary artery with unspecified angina pectorisHistory of sepsisCOPD (chronic obstructive pulmonary disease)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 aortic aneurysmEncounter for medication review 2023-05-05 08:52:43 Hypercoagulability d ue to atrial fibrillationHx pulmonary embolismChronic systolic (congestive) heart failure with secondary hyperaldosteronismNon-small cell lung cancerType 2 diabetes mellitus with other specified complication with hyperlipidemiaUnspecified dementia, unspecified severity, without behavioral disturbance, psychotic disturbance, mood disturbance, and anxietyThoracic aortic ectasiaObesity (BMI 30-39.9)Atherosclerotic heart disease of [place] coronary artery with unspecified angina pectorisHistory of sepsisCOPD (chronic obstructive pulmonary disease)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 aortic aneurysmEncounter for medication reviewBacterial pharyngitis 2023-05-09 12:07:05 Hypercoagulability d ue to atrial fibrillationHx pulmonary embolismChronic systolic (congestive) heart failure with secondary hyperaldosteronismNon-small cell lung cancerType 2 diabetes mellitus with other specified complication with hyperlipidemiaUnspecified dementia, unspecified severity, without behavioral disturbance, psychotic disturbance, mood disturbance, and anxietyThoracic aortic ectasiaObesity (BMI 30-39.9)Atherosclerotic heart disease of [place] coronary artery with unspecified angina pectorisHistory of sepsisCOPD (chronic obstructive pulmonary disease)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 aortic aneurysmEncounter for medication reviewBacterial pharyngitis 2023-05-15 11:57:00 Hypercoagulability d ue to atrial fibrillationHx pulmonary embolismChronic systolic (congestive) heart failure with secondary hyperaldosteronismNon-small cell lung cancerType 2 diabetes mellitus with other specified complication with hyperlipidemiaUnspecified dementia, unspecified severity, without behavioral disturbance, psychotic disturbance, mood disturbance, and anxietyThoracic aortic ectasiaObesity (BMI 30-39.9)Atherosclerotic heart disease of [place] coronary artery with unspecified angina pectorisHistory of sepsisCOPD (chronic obstructive pulmonary disease)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9)Atherosclerotic heart disease of [place] coronary artery with unspecified angina pectorisHistory of sepsisCOPD (chronic obstructive pulmonary disease)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 aortic aneurysmEncounter for medication reviewOther problems related to medical facilities and other health careOsteoarthritis, multiple sites 2023-07-03 09:44:40 Hypercoagulability d ue to atrial fibrillationHx pulmonary embolismChronic systolic (congestive) heart failure with secondary hyperaldosteronismNon-small cell lung cancerType 2 diabetes mellitus with other specified complication with hyperlipidemiaUnspecified dementia, unspecified severity, without behavioral disturbance, psychotic disturbance, mood disturbance, and anxietyThoracic aortic ectasiaObesity (BMI 30-39.9)Atherosclerotic heart disease of [place] coronary artery with unspecified angina pectorisHistory of sepsisCOPD (chronic obstructive pulmonary disease)Ascending aortic aneurysmEncounter for medication reviewOther problems related to medical facilities and other health careOsteoarthritis, multiple sitesCoronary artery disease involving [place]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 pectoris 2023-08-30 11:37:42 Type 2 diabetes sho itus with other specified complication with hyperlipidemiaCOPD (chronic obstructive pulmonary disease)Other problems related to medical facilities and other health careOsteoarthritis, multiple sites 2023-09-25 08:58:25 COPD (chronic obstru ctive pulmonary disease)Other problems related to medical facilities and other health care 2023-09-29 09:31:25 Follow up plan for a suzettee symptoms:COPD (chronic obstructive pulmonary disease)Other problems related to medical facilities and other health care 2023-10-26 08:51:27 Allergies 2023-11-23 07:10:34 Osteoarthritis, mult iple sitesChest painOther problems related to medical facilities and other health care Plan of Care Date of Service Plans 2022-03-22 11:04:28 Medication Review by prescribing provider or pharmacist documented (1160F)Medication List Documented (1159F)Functional Status Assessed (1170F)Advance Care Directive Advance care planning discussion documented in the medical record (1158F)BMI obtained (3008F)SBP >= 140DBP 80-89 (3079F)Televideo new patient,40-59min; chronic exacerbation, 2 stable chronic or 1 acute illness add modifier 95Pain Assessment - Pain Documented (1125F)Continue to see PCP. Follow-up with [facility] as needed for any acute or disease education needs that may arise.Needs rx for UTI not covered by insurance. Was recently told e has UTI but his insurance won't cover a number of meds and others interact with his coumadin. He needs to have an Rx filled that he nan get and take sarah - he has gone untreated for at least 6 days.Due to drug interactions, Fosfomycin 3g one time best option.Dx'd 03/13, still not treated due to insurance problems, has burning w urination. No fever.Insurance will not cover itI found pt coupon using Rx and called pharmacy. Copay is $25 which pt endorses (although grudgingly).Pt to bulk picker abx tomorrow morningWarfarinOn warfarin (also has A-Fib)FurosemideCarvedilolmonitor weight and edemaFollowed at [facility], [facility] Pul[facility]ologyWill reach out for recordsmetformintrulicityatorvastatinstablemonitor [id number] assistance with ADL'sdonepezilnoted on CXR - The thoracic aorta is calcified 2022-05-06 10:11:38 1: Remember to bárbara nue all meds as directed2: Call me if you Call me if you have any questions3: I encourage you to call your [facility] or your PCP if you have any medical needs.Televideo 20-29min; 1 stable chronic or 2 minor; add modifier 95Continue to see PCP. Follow-up with [facility] as needed for any acute or disease education needs that may arise 28/11. 2022-08-05 13:58:41 Medication Review by prescribing provider or pharmacist documented (1160F)Medication List Documented (1159F)Functional Status Assessed (1170F)Advance Care Directive Advance care planning discussion documented in the medical record (1158F)BMI obtained (3008F)Televideo 30-39min; chronic exacerbation, 2 stable chronic or 1 acute illness add modifier 95Pain Assessment - Pain Documented (1125F)Continue to see PCP. Follow-up with [facility] as needed for any acute or disease education needs that may arise.StableWarfarin, CarvedilolContinue taking medications as prescribed, avoid NSAIDs, bleeding risk precautions, and continue f/u care and monitoring with PCP and cardiology every 3-6 months.StableWarfarinContinue taking medication, reviewed s/sx of PE (eg. SOB), bleeding precautions, and contact EMS if developing any s/sx discussed and continue monitoring with PCP every 3-6 months.StableFurosemide, Carvedilol, Lisinopril, Warfarin.Denies monitoring BP routinely. Continue taking medications, monitor weight daily, encouraged to monitor BP daily, low salt, exercise, and contact us if developing emergent HTN s/sx (eg. palpitations, blurry vision), acute change in weight (2-5 lbs) or BLE edema. Continue f/u care and monitoring with cardiology and PCP every 3-6 months.[facility] PulmonologyPatient denies current diagnosis and insufficient documentation support this previous diagnosis. Patient will continue to f/u and monitor this diagnosis with PCP for further evaluation.Stable Metformin, trulicity, atorvastatinmost recent a1c:Encouraged to monitor BG routinely, continue taking medications, low carb diet, exercise, lifestyle interventions and contact us if developing HHS or DKA s/sx. Continue f/u care and monitoring with PCP and Outdoor Power Equipment Mechanic every 3-6 months.StableDonepezilDenies behavioral or safety concernsContinue monitoring for safety concerns r/t memory, continue taking medication, MMSE routinely, and continue f/u care and monitoring with PCP every 3-6 months.noted on CXR - The thoracic aorta is calcifiedContinue f/u care and monitoring with PCP and cardiology every 3-6 months.BMI 31.66Advice on lifestyle, diet, and exercise to promote weight loss and achieve normal BMI. Continue f/u care and monitoring with PCP every 6 months.StableAtorvastatin, Carvedilol, WarfarinDenies any recent chest pain Continue taking medications as prescribed, discussed dietary, exercise, and lifestyle interventions. Contact EMS if developing persistent acute chest pain and continue f/u care and monitoring with PCP and cardiology every 3-6 months.StableReviewed s/sx of systemic infection and encouraged to contact EMS if these s/sx occur in conjunction. Continue f/u care and monitoring with PCP every 3-6 months.StableAlbuterolDenies recent exacerbationContinue taking medication PRN, reviewed MDI usage, reviewed pursed lip breathing, and contact us if developing s/sx of respiratory distress (eg. SOB) 2023-01-31 13:16:22 02/02/2023 01:30 pm 2023-02-02 12:12:33 Discharge medication s reconciled with current medication listTelevideo 20-29min; 1 stable chronic or 2 minor; add modifier 95Advance care planning discussed and documented ? advance care plan or surrogate decision-maker was documented in the medical record. (1123F)Medications prescribed in hospital were reviewed and reconciled against what they were taking prior to admission during today's visit. (1111F)PCP visit is planned for:StableWarfarin, CarvedilolContinue taking medications as prescribed, avoid NSAIDs, bleeding risk precautions, and continue f/u care and monitoring with PCP and cardiology every 3-6 months.StableWarfarinContinue taking medication, reviewed s/sx of PE (eg. SOB), bleeding precautions, and contact EMS if developing any s/sx discussed and continue monitoring with PCP every 3-6 months.StableFurosemide, Carvedilol, Lisinopril, Warfarin.Denies monitoring BP routinely. Continue taking medications, monitor weight daily, encouraged to monitor BP daily, low salt, exercise, and contact us if developing emergent HTN s/sx (eg. palpitations, blurry vision), acute change in weight (2-5 lbs) or BLE edema. Continue f/u care and monitoring with cardiology and PCP every 3-6 months. 02/03/23: pharm recs PH med rec ready for sign off. Some thoughts: - Increase atorvastatin to 40mg. - Consider SGTL2i for HF + CKD + DM.- Consider switching furosemide to spironolactone. will discuss above with his cardiologistFollowed at [facility] PulmonologyPatient denies current diagnosis and insufficient documentation support this previous diagnosis. Patient will continue to f/u and monitor this diagnosis with PCP for further evaluation.Stable Metformin, trulicity, atorvastatinmost recent a1c:Encouraged to monitor BG routinely, continue taking medications, low carb diet, exercise, lifestyle interventions and contact us if developing HHS or DKA s/sx. Continue f/u care and monitoring with PCP and Outdoor Power Equipment Mechanic every 3-6 months.StableDonepezilDenies behavioral or safety concernsContinue monitoring for safety concerns r/t memory, continue taking medication, MMSE routinely, and continue f/u care and monitoring with PCP every 3-6 months.noted on CXR - The thoracic aorta is calcifiedContinue f/u care and monitoring with PCP and cardiology every 3-6 months.BMI 31.66Advice on lifestyle, diet, and exercise to promote weight loss and achieve normal BMI. Continue f/u care and monitoring with PCP every 6 months.StableAtorvastatin, Carvedilol, WarfarinDenies any recent chest pain Continue taking medications as prescribed, discussed dietary, exercise, and lifestyle interventions. Contact EMS if developing persistent acute chest pain and continue f/u care and monitoring with PCP and cardiology every 3-6 months.StableReviewed s/sx of systemic infection and encouraged to contact EMS if these s/sx occur in conjunction. Continue f/u care and monitoring with PCP every 3-6 months.StableAlbuterolDenies recent exacerbationContinue taking medication PRN, reviewed MDI usage, reviewed pursed lip breathing, and contact us if developing s/sx of respiratory distress (eg. SOB)Last ED visit/admission 01/24-01/27 , for chest pain 114/64, 78 2023-02-22 10:32:48 Unlisted special ser vice; to be used for medical record reviews and reporting CPTII codes (1111F, etc)SBP < 130 (3074F)DBP <80 (3078F) 2023-03-01 06:18:27 Televideo 20-29min; 1 stable chronic or 2 minor; add modifier 95SBP 130-139 (3075F)DBP <80 (3078F)Continue to see PCP. Follow-up with [facility] as needed for any acute or disease education needs that may arise 28/11.StableWarfarin, CarvedilolContinue taking medications as prescribed, avoid NSAIDs, bleeding risk precautions, and continue f/u care and monitoring with PCP and cardiology every 3-6 months. Permanent A-fib rate controlled anticoagulated for stroke reduction [id number] score of 5. Risk benefits of long-term anticoagulation and reviewed and agrees to continue.Hypertension well controlled.StableWarfarinContinue taking medication, reviewed s/sx of PE (eg. SOB), bleeding precautions, and contact EMS if developing any s/sx discussed and continue monitoring with PCP every 3-6 months.HFpEF appears euvolemic-recent increase in diuretic and discontinuation of potassium remains on Lasix 40 mg daily surveillance labs Furosemide, Carvedilol, Lisinopril, Warfarin.Denies monitoring BP routinely. Continue taking medications, monitor weight daily, encouraged to monitor BP daily, low salt, exercise, and contact us if developing emergent HTN s/sx (eg. palpitations, blurry vision), acute change in weight (2-5 lbs) or BLE edema. Continue f/u care and monitoring with cardiology and PCP every 3-6 months. 02/03/23: pharm recs PH med rec ready for sign off. Some thoughts: - Increase atorvastatin to 40mg. - Consider SGTL2i for HF + CKD + DM.- Consider switching furosemide to spironolactone. will discuss above with his medicare coordinator 03/01/23: Primary Computer Repair Technician- Dr. Damon.Admission to [facility] January 26- with prolonged 2 days of chest pain improved with nitro, shortness of breath BNP was 93 patient was given additional diuretics. He had a UTI had a reaction to ceftriaxone was switched to Bactrim. Chest CT for chest pain reveal no pulmonary emboli, ascending thoracic aorta measures 4.9 cm in largest diameter-strongly encouraged to follow-up with vascular per discharge. Outpatient pharmacological nuclear stress test obtained yesterday results pending.[facility] PulmonologyPatient denies current diagnosis and insufficient documentation support this previous diagnosis. Patient will continue to f/u and monitor this diagnosis with PCP for further evaluation.Stable Metformin, trulicity, atorvastatinmost recent a1c:Encouraged to monitor BG routinely, continue taking medications, low carb diet, exercise, lifestyle interventions and contact us if developing HHS or DKA s/sx. Continue f/u care and monitoring with PCP and Outdoor Power Equipment Mechanic every 3-6 months.StableDonepezilDenies behavioral or safety concernsContinue monitoring for safety concerns r/t memory, continue taking medication, MMSE routinely, and continue f/u care and monitoring with PCP every 3-6 months.noted on CXR - The thoracic aorta is calcifiedContinue f/u care and monitoring with PCP and cardiology every 3-6 months.BMI 31.66Advice on lifestyle, diet, and exercise to promote weight loss and achieve normal BMI. Continue f/u care and monitoring with PCP every 6 months.StableAtorvastatin, Carvedilol, WarfarinDenies any recent chest pain Continue taking medications as prescribed, discussed dietary, exercise, and lifestyle interventions. Contact EMS if developing persistent acute chest pain and continue f/u care and monitoring with PCP and cardiology every 3-6 months. 03/01/23: CAD with prior CABG [place] in 2001 with FISH to LAD, at some point he had stenting to his LAD. He was catheterized in 2008 and was said to have modest coronary artery disease with competitive flow down the distal LAD from the FISH and the [place] vessel per notes from prior medicare coordinator Dr. Fay at [facility].Ascending aortic aneurysm 4.[address] cm [address] last chest ct 01/2023.Permanent afib since Dec 2018 rate controlled on AC.StableReviewed s/sx of systemic infection and encouraged to contact EMS if these s/sx occur in conjunction. Continue f/u care and monitoring with PCP every 3-6 months.StableAlbuterolDenies recent exacerbationContinue taking medication PRN, reviewed MDI usage, reviewed pursed lip breathing, and contact us if developing s/sx of respiratory distress (eg. SOB)Last ED visit/admission 01/24-01/27 , for chest pain 114/64, 78Ascending aortic aneurysm 4.[address] explained to patient and son not surgical as of yet, insistent they have a consult was told in the hospital that it was emergent. Will refer to [facility] cardiac surgery for consult, reviewed the importance again of no heavy lifting strenuous exercise patient states he is very sedentary-per son a couch potato 2023-04-14 12:13:08 Phone (patient, pare nt, or guardian); 5-10 minutes of medical discussion (no modifier 95)Continue to see PCP. Follow-up with [facility] as needed for any acute or disease education needs that may arise 28/11.Pt is anxious. pharmacy did not refill carvedilol. they told him his PCP had DC'd it, his PCP's office was not helpful and told him to call his medicare coordinator. Computer Repair Technician did not know.This provider called medicare coordinator. They rerport that they did not prescribe carvedilol, but according to what they see, it was DC'd in October 2022, and repolaced by another medication by PCP.I do not have his pharmacy information.I called pt a 2nd time and no answer; left message to send us his pharmacy info.It appears that pt was supposed to DC long ago, and likely has not been compliant (for example, he tells me he ran oiut of carvedilol 3 weeks ago, but waited until now to call us).Will F/U when we are able to call pharmacy.Pt is anxious. pharmacy did not refill carvedilol. they told him his PCP had DC'd it, his PCP's office was not helpful and told him to call his medicare coordinator. Computer Repair Technician did not know.This provider called medicare coordinator. They rerport that they did not prescribe carvedilol, but according to what they see, it was DC'd in October 2022, and repolaced by another medication by PCP.I do not have his pharmacy information.I called pt a 2nd time and no answer; left message to send us his pharmacy info.It appears that pt was supposed to DC long ago, and likely has not been compliant (for example, he tells me he ran oiut of carvedilol 3 weeks ago, but waited until now to call us).Lef pt message.Will F/U when pt gives us more information. 2023-04-25 08:01:11 Phone (patient, pare nt, or guardian); 5-10 minutes of medical discussion (no modifier 95)DBP <80 (3078F)SBP 130-139 (3075F)Continue to see PCP. Follow-up with [facility] as needed for any acute or disease education needs that may arise 28/11.StableWarfarin, CarvedilolContinue taking medications as prescribed, avoid NSAIDs, bleeding risk precautions, and continue f/u care and monitoring with PCP and cardiology every 3-6 months. Permanent A-fib rate controlled anticoagulated for stroke reduction [id number] score of 5. Risk benefits of long-term anticoagulation and reviewed and agrees to continue.Hypertension well controlled.StableWarfarinContinue taking medication, reviewed s/sx of PE (eg. SOB), bleeding precautions, and contact EMS if developing any s/sx discussed and continue monitoring with PCP every 3-6 months.HFpEF appears euvolemic-recent increase in diuretic and discontinuation of potassium remains on Lasix 40 mg daily surveillance labs Furosemide, Carvedilol, Lisinopril, Warfarin.Denies monitoring BP routinely. Continue taking medications, monitor weight daily, encouraged to monitor BP daily, low salt, exercise, and contact us if developing emergent HTN s/sx (eg. palpitations, blurry vision), acute change in weight (2-5 lbs) or BLE edema. Continue f/u care and monitoring with cardiology and PCP every 3-6 months. 02/03/23: pharm recs PH med rec ready for sign off. Some thoughts: - Increase atorvastatin to 40mg. - Consider SGTL2i for HF + CKD + DM.- Consider switching furosemide to spironolactone. will discuss above with his medicare coordinator 03/01/23: Primary Computer Repair Technician- Dr. Damon.Admission to [facility] January 26- with prolonged 2 days of chest pain improved with nitro, shortness of breath BNP was 93 patient was given additional diuretics. He had a UTI had a reaction to ceftriaxone was switched to Bactrim. Chest CT for chest pain reveal no pulmonary emboli, ascending thoracic aorta measures 4.9 cm in largest diameter-strongly encouraged to follow-up with vascular per discharge. Outpatient pharmacological nuclear stress test obtained yesterday results pending.[facility] PulmonologyPatient denies current diagnosis and insufficient documentation support this previous diagnosis. Patient will continue to f/u and monitor this diagnosis with PCP for further evaluation.Stable Metformin, trulicity, atorvastatinmost recent a1c:Encouraged to monitor BG routinely, continue taking medications, low carb diet, exercise, lifestyle interventions and contact us if developing HHS or DKA s/sx. Continue f/u care and monitoring with PCP and Outdoor Power Equipment Mechanic every 3-6 months.StableDonepezilDenies behavioral or safety concernsContinue monitoring for safety concerns r/t memory, continue taking medication, MMSE routinely, and continue f/u care and monitoring with PCP every 3-6 months.noted on CXR - The thoracic aorta is calcifiedContinue f/u care and monitoring with PCP and cardiology every 3-6 months.BMI 31.66Advice on lifestyle, diet, and exercise to promote weight loss and achieve normal BMI. Continue f/u care and monitoring with PCP every 6 months.StableAtorvastatin, Carvedilol, WarfarinDenies any recent chest pain Continue taking medications as prescribed, discussed dietary, exercise, and lifestyle interventions. Contact EMS if developing persistent acute chest pain and continue f/u care and monitoring with PCP and cardiology every 3-6 months. 03/01/23: CAD with prior CABG [place] in 2001 with FISH to LAD, at some point he had stenting to his LAD. He was catheterized in 2008 and was said to have modest coronary artery disease with competitive flow down the distal LAD from the FISH and the [place] vessel per notes from prior medicare coordinator Dr. Fay at [facility].Ascending aortic aneurysm 4.[address] cm [address] last chest ct 01/2023.Permanent afib since Dec 2018 rate controlled on AC.StableReviewed s/sx of systemic infection and encouraged to contact EMS if these s/sx occur in conjunction. Continue f/u care and monitoring with PCP every 3-6 months.StableAlbuterolDenies recent exacerbationContinue taking medication PRN, reviewed MDI usage, reviewed pursed lip breathing, and contact us if developing s/sx of respiratory distress (eg. SOB)Last ED visit/admission 01/24-01/27 , for chest pain 114/64, 78Ascending aortic aneurysm 4.[address] explained to patient and son not surgical as of yet, insistent they have a consult was told in the hospital that it was emergent. Will refer to [facility] cardiac surgery for consult, reviewed the importance again of no heavy lifting strenuous exercise patient states he is very sedentary-per son a couch potato Pt is anxious. pharmacy did not refill carvedilol. they told him his PCP had DC'd it, his PCP's office was not helpful and told him to call his medicare coordinator. Computer Repair Technician did not know.This provider called medicare coordinator. They rerport that they did not prescribe carvedilol, but according to what they see, it was DC'd in October 2022, and repolaced by another medication by PCP.I do not have his pharmacy information.I called pt a 2nd time and no answer; left message to send us his pharmacy info.It appears that pt was supposed to DC long ago, and likely has not been compliant (for example, he tells me he ran oiut of carvedilol 3 weeks ago, but waited until now to call us).Lef pt message.Will F/U when pt gives us more information. 2023-05-05 08:52:43 Phone (patient, pare nt, or guardian); 5-10 minutes of medical discussion (no modifier 95)Continue to see PCP. Follow-up with [facility] as needed for any acute or disease education needs that may arise 28/11.StableWarfarin, CarvedilolContinue taking medications as prescribed, avoid NSAIDs, bleeding risk precautions, and continue f/u care and monitoring with PCP and cardiology every 3-6 months. Permanent A-fib rate controlled anticoagulated for stroke reduction [id number] score of 5. Risk benefits of long-term anticoagulation and reviewed and agrees to continue.Hypertension well controlled.StableWarfarinContinue taking medication, reviewed s/sx of PE (eg. SOB), bleeding precautions, and contact EMS if developing any s/sx discussed and continue monitoring with PCP every 3-6 months.HFpEF appears euvolemic-recent increase in diuretic and discontinuation of potassium remains on Lasix 40 mg daily surveillance labs Furosemide, Carvedilol, Lisinopril, Warfarin.Denies monitoring BP routinely. Continue taking medications, monitor weight daily, encouraged to monitor BP daily, low salt, exercise, and contact us if developing emergent HTN s/sx (eg. palpitations, blurry vision), acute change in weight (2-5 lbs) or BLE edema. Continue f/u care and monitoring with cardiology and PCP every 3-6 months. 02/03/23: pharm recs PH med rec ready for sign off. Some thoughts: - Increase atorvastatin to 40mg. - Consider SGTL2i for HF + CKD + DM.- Consider switching furosemide to spironolactone. will discuss above with his medicare coordinator 03/01/23: Primary Computer Repair Technician- Dr. Damon.Admission to [facility] January 26- with prolonged 2 days of chest pain improved with nitro, shortness of breath BNP was 93 patient was given additional diuretics. He had a UTI had a reaction to ceftriaxone was switched to Bactrim. Chest CT for chest pain reveal no pulmonary emboli, ascending thoracic aorta measures 4.9 cm in largest diameter-strongly encouraged to follow-up with vascular per discharge. Outpatient pharmacological nuclear stress test obtained yesterday results pending.[facility]monologyPatient denies current diagnosis and insufficient documentation support this previous diagnosis. Patient will continue to f/u and monitor this diagnosis with PCP for further evaluation.Stable Metformin, trulicity, atorvastatinmost recent a1c:Encouraged to monitor BG routinely, continue taking medications, low carb diet, exercise, lifestyle interventions and contact us if developing HHS or DKA s/sx. Continue f/u care and monitoring with PCP and Outdoor Power Equipment Mechanic every 3-6 months.StableDonepezilDenies behavioral or safety concernsContinue monitoring for safety concerns r/t memory, continue taking medication, MMSE routinely, and continue f/u care and monitoring with PCP every 3-6 months.noted on CXR - The thoracic aorta is calcifiedContinue f/u care and monitoring with PCP and cardiology every 3-6 months.BMI 31.66Advice on lifestyle, diet, and exercise to promote weight loss and achieve normal BMI. Continue f/u care and monitoring with PCP every 6 months.StableAtorvastatin, Carvedilol, WarfarinDenies any recent chest pain Continue taking medications as prescribed, discussed dietary, exercise, and lifestyle interventions. Contact EMS if developing persistent acute chest pain and continue f/u care and monitoring with PCP and cardiology every 3-6 months. 03/01/23: CAD with prior CABG [place] in 2001 with FISH to LAD, at some point he had stenting to his LAD. He was catheterized in 2008 and was said to have modest coronary artery disease with competitive flow down the distal LAD from the FISH and the [place] vessel per notes from prior medicare coordinator Dr. Fay at [facility].Ascending aortic aneurysm 4.[address] cm [address] last chest ct 01/2023.Permanent afib since Dec 2018 rate controlled on AC.StableReviewed s/sx of systemic infection and encouraged to contact EMS if these s/sx occur in conjunction. Continue f/u care and monitoring with PCP every 3-6 months.StableAlbuterolDenies recent exacerbationContinue taking medication PRN, reviewed MDI usage, reviewed pursed lip breathing, and contact us if developing s/sx of respiratory distress (eg. SOB)Last ED visit/admission 01/24-01/27 , for chest pain 114/64, 78Ascending aortic aneurysm 4.[address] explained to patient and son not surgical as of yet, insistent they have a consult was told in the hospital that it was emergent. Will refer to [facility] cardiac surgery for consult, reviewed the importance again of no heavy lifting strenuous exercise patient states he is very sedentary-per son a couch potato Pt is anxious. pharmacy did not refill carvedilol. they told him his PCP had DC'd it, his PCP's office was not helpful and told him to call his medicare coordinator. Computer Repair Technician did not know.This provider called medicare coordinator. They rerport that they did not prescribe carvedilol, but according to what they see, it was DC'd in October 2022, and repolaced by another medication by PCP.I do not have his pharmacy information.I called pt a 2nd time and no answer; left message to send us his pharmacy info.It appears that pt was supposed to DC long ago, and likely has not been compliant (for example, he tells me he ran oiut of carvedilol 3 weeks ago, but waited until now to call us).Lef pt message.Will F/U when pt gives us more information.not feeling well x 2 days with sore throat and bone pain. No fever. No known sick contacts. +congestion-nasal. checked at home and covid negative.no wheezing. Start zpack and expect to feel better in 48-72 hrs - call CB if you are not improving. ER if you are short of breath or weak.Rest. Increase fluids to help your immune system - tea, broth, water, diluted juice. Raw local honey 1 TBSP throughout day has natural antimicrobial properties.Steam shower 15min before bed and few times / day to open airway and clear congestion. Stop Afrin as can worsen your congestion after using 3 + days. Inhaler puffer 4/ day for bronchodilation 2023-05-09 12:07:05 Phone (patient, pare nt, or guardian); 5-10 minutes of medical discussion (no modifier 95)Continue to see PCP. [facility] as needed for any acute or disease education needs that may arise 28/11.StableWarfarin, CarvedilolContinue taking medications as prescribed, avoid NSAIDs, bleeding risk precautions, and continue f/u care and monitoring with PCP and cardiology every 3-6 months. Permanent A-fib rate controlled anticoagulated for stroke reduction [id number] score of 5. Risk benefits of long-term anticoagulation and reviewed and agrees to continue.Hypertension well controlled.StableWarfarinContinue taking medication, reviewed s/sx of PE (eg. SOB), bleeding precautions, and contact EMS if developing any s/sx discussed and continue monitoring with PCP every 3-6 months.HFpEF appears euvolemic-recent increase in diuretic and discontinuation of potassium remains on Lasix 40 mg daily surveillance labs Furosemide, Carvedilol, Lisinopril, Warfarin.Denies monitoring BP routinely. Continue taking medications, monitor weight daily, encouraged to monitor BP daily, low salt, exercise, and contact us if developing emergent HTN s/sx (eg. palpitations, blurry vision), acute change in weight (2-5 lbs) or BLE edema. Continue f/u care and monitoring with cardiology and PCP every 3-6 months. 02/03/23: pharm recs PH med rec ready for sign off. Some thoughts: - Increase atorvastatin to 40mg. - Consider SGTL2i for HF + CKD + DM.- Consider switching furosemide to spironolactone. will discuss above with his medicare coordinator 03/01/23: Primary Computer Repair Technician- Dr. Damon.Admission to [facility] January 26 with prolonged 2 days of chest pain improved with nitro, shortness of breath BNP was 93 patient was given additional diuretics. He had a UTI had a reaction to ceftriaxone was switched to Bactrim. Chest CT for chest pain reveal no pulmonary emboli, ascending thoracic aorta measures 4.9 cm in largest diameter-strongly encouraged to follow-up with vascular per discharge. Outpatient pharmacological nuclear stress test obtained yesterday results pending.[facility]ologyPatient denies current diagnosis and insufficient documentation support this previous diagnosis. Patient will continue to f/u and monitor this diagnosis with PCP for further evaluation.Stable Metformin, trulicity, atorvastatinmost recent a1c:Encouraged to monitor BG routinely, continue taking medications, low carb diet, exercise, lifestyle interventions and contact us if developing HHS or DKA s/sx. Continue f/u care and monitoring with PCP and Outdoor Power Equipment [employer]ic every 3-6 months.StableDonepezilDenies behavioral or safety concernsContinue monitoring for safety concerns r/t memory, continue taking medication, MMSE routinely, and continue f/u care and monitoring with PCP every 3-6 months.noted on CXR - The thoracic aorta is calcifiedContinue f/u care and monitoring with PCP and cardiology every 3-6 months.BMI 31.66Advice on lifestyle, diet, and exercise to promote weight loss and achieve normal BMI. Continue f/u care and monitoring with PCP every 6 months.StableAtorvastatin, Carvedilol, WarfarinDenies any recent chest pain Continue taking medications as prescribed, discussed dietary, exercise, and lifestyle interventions. Contact EMS if developing persistent acute chest pain and continue f/u care and monitoring with PCP and cardiology every 3-6 months. 03/01/23: CAD with prior CABG [place] in 2001 with FISH to LAD, at some point he had stenting to his LAD. He was catheterized in 2008 and was said to have modest coronary artery disease with competitive flow down the distal LAD from the FISH and the [place] vessel per notes from prior medicare coordinator Dr. Fay at [facility].Ascending aortic aneurysm 4.[address] cm [address] last chest ct 01/2023.Permanent afib since Dec 2018 rate controlled on AC.StableReviewed s/sx of systemic infection and encouraged to contact EMS if these s/sx occur in conjunction. Continue f/u care and monitoring with PCP every 3-6 months.StableAlbuterolDenies recent exacerbationContinue taking medication PRN, reviewed MDI usage, reviewed pursed lip breathing, and contact us if developing s/sx of respiratory distress (eg. SOB)Last ED visit/admission 01/24-01/27 , for chest pain 114/64, 78Ascending aortic aneurysm 4.[address] explained to patient and son not surgical as of yet, insistent they have a consult was told in the hospital that it was emergent. Will refer to [facility] cardiac surgery for consult, reviewed the importance again of no heavy lifting strenuous exercise patient states he is very sedentary-per son a couch potato Pt is anxious. pharmacy did not refill carvedilol. they told him his PCP had DC'd it, his PCP's office was not helpful and told him to call his medicare coordinator. Computer Repair Technician did not know.This provider called medicare coordinator. They rerport that they did not prescribe carvedilol, but according to what they see, it was DC'd in October 2022, and repolaced by another medication by PCP.I do not have his pharmacy information.I called pt a 2nd time and no answer; left message to send us his pharmacy info.It appears that pt was supposed to DC long ago, and likely has not been compliant (for example, he tells me he ran oiut of carvedilol 3 weeks ago, but waited until now to call us).Lef pt message.Will F/U when pt gives us more information.not feeling well x 2 days with sore throat and bone pain. No fever. No known sick contacts. +congestion-nasal. checked at home and covid negative.no wheezing. Start zpack and expect to feel better in 48-72 hrs - call CB if you are not improving. ER if you are short of breath or weak.Rest. Increase fluids to help your immune system - tea, broth, water, diluted juice. Raw local honey 1 TBSP throughout day has natural antimicrobial properties.Steam shower 15min before bed and few times / day to open airway and clear congestion. Stop Afrin as can worsen your congestion after using 3 + days. Inhaler puffer 4/ day for bronchodilation05/09/22: feels better today; sore throat resolving. 2023-05-15 11:57:00 Medication Review by prescribing provider or pharmacist documented (1160F)Medication List Documented (1159F)Functional Status Assessed (1170F)Advance Care Directive Advance care planning discussion documented in the medical record (1158F)BMI obtained (3008F)SBP 130-139 (3075F)DBP <80 (3078F)Televideo 30-39min; chronic exacerbation, 2 stable chronic or 1 acute illness add modifier 95Advance care planning discussed and documented ? advance care plan or surrogate decision-maker was documented in the medical record. (1123F)Pain Assessment - NO pain documented (1126F)Continue to see PCP. Follow-up with [facility] as needed for any acute or disease education needs that may arise.StableWarfarin, CarvedilolContinue taking medications as prescribed, avoid NSAIDs, bleeding risk precautions, and continue f/u care and monitoring with PCP and cardiology every 3-6 months. Permanent A-fib rate controlled anticoagulated for stroke reduction [id number] score of 5. Risk benefits of long-term anticoagulation and reviewed and agrees to continue.Hypertension well controlled.Stableon xarelto Continue taking medication, reviewed s/sx of PE (eg. SOB), bleeding precautions, and contact EMS if developing any s/sx discussed and continue monitoring with PCP every 3-6 months.HFpEF appears euvolemic-recent increase in diuretic and discontinuation of potassium remains on Lasix 40 mg daily surveillance labs CONTINGENCY PLANMember to call for the following symptoms: Weight of >247 lbs/ Blood pressure <100/60/ Blood pressure >180/100/ Heart rate >110/ Increased swelling in belly/ Increased swelling in legs, ankles, and feet/ Unable to lay flat/ Unable to walk without stopping due to difficulty breathing/ Increased tiredness/ Wheezing/ Breathing loudly/ Increased cough/ Nausea/ Decreased desire to eat/ Chest painPlanned intervention: Increase furosemide (Lasix) to twice daily for 7 days> CALL CARDSFurosemide, Carvedilol, Lisinopril, Warfarin.Denies monitoring BP routinely. Continue taking medications, monitor weight daily, encouraged to monitor BP daily, low salt, exercise, and contact us if developing emergent HTN s/sx (eg. palpitations, blurry vision), acute change in weight (2-5 lbs) or BLE edema. Continue f/u care and monitoring with cardiology and PCP every 3-6 months. 02/03/23:- Increase atorvastatin to 40mg. - Consider SGTL2i for HF + CKD + DM.- Consider switching furosemide to spironolactone. will discuss above with his medicare coordinator 03/01/23: Primary Computer Repair Technician- Dr. Damon.Admission to [facility] January 26- with prolonged 2 days of chest pain improved with nitro, shortness of breath BNP was 93 patient was given additional diuretics. He had a UTI had a reaction to ceftriaxone was switched to Bactrim. Chest CT for chest pain reveal no pulmonary emboli, ascending thoracic aorta measures 4.9 cm in largest diameter-strongly encouraged to follow-up with vascular per discharge. Outpatient pharmacological nuclear stress test obtained yesterday results pending.F/u CARDS: 05/31/22[facility] PulmonologyPatient denies current diagnosis and insufficient documentation support this previous diagnosis. Patient will continue to f/u and monitor this diagnosis with PCP for further evaluation.Stable Metformin, trulicity, atorvastatinCONTINGENCY PLANMember to call for the following symptoms: Blood sugar <70/ Blood sugar >300/ More thirsty than usual/ Urinating more than usual/ Confusion or change in behavior/ Increased redness of wound/ Chest painPlanned intervention: Increase: metformin up to TID for BS >300/ start Bactrim DS BID x 7 days for UTI symptoms Encouraged to monitor BG routinely, continue taking medications, low carb diet, exercise, lifestyle interventions and contact us if developing HHS or DKA s/sx. Continue f/u care and monitoring with PCP and Out[employer] Equipment Mechanic every 3-6 months.StableDonepezil05/15/23: FAST SCORE- Denies behavioral or safety concernsContinue monitoring for safety concerns r/t memory, continue taking medication, MMSE routinely, and continue f/u care and monitoring with PCP every 3-6 months.noted on CXR - The thoracic aorta is calcifiedContinue f/u care and monitoring with PCP and cardiology every 3-6 months.BMI 31.66Advice on lifestyle, diet, and exercise to promote weight loss and achieve normal BMI. Continue f/u care and monitoring with PCP every 6 months.StableAtorvastatin, Carvedilol, WarfarinDenies any recent chest pain Continue taking medications as prescribed, discussed dietary, exercise, and lifestyle interventions. Contact EMS if developing persistent acute chest pain and continue f/u care and monitoring with PCP and cardiology every 3-6 months. 03/01/23: CAD with prior CABG [place] in 2001 with FISH to LAD, at some point he had stenting to his LAD. He was catheterized in 2008 and was said to have modest coronary artery disease with competitive flow down the distal LAD from the FISH and the [place] vessel per notes from prior medicare coordinator Dr. Fay at [facility].Ascending aortic aneurysm 4.[address] cm by last chest ct 01/2023.Permanent afib since Dec 2018 rate controlled on AC.StableReviewed s/sx of systemic infection and encouraged to contact EMS if these s/sx occur in conjunction. Continue f/u care and monitoring with PCP every 3-6 months.CONTINGENCY PLANMember to call for the following symptoms: Blood pressure >180/100/ Heart rate >110/ Unable to walk without stopping due to difficulty breathing/ Increased tiredness/ Wheezing/ Breathing loudly/ Increased cough/ Change in sputum color/ Decreased desire to eat/ Confusion or change in behavior/ Chest painPlanned intervention: Increase use of albuterol inhaler to q2h PRN cough, breathlessness For worsening symptoms:Increased breathlessness - add prednisone taper 40mg x 3 days, 30mg x 3 days, 20mg x 3 days, 10mg x 3 days and Change in sputum - add azithromycin 500mg on day 1 then 250 mg on day 2-5Denies recent exacerbation 05/09/22Last ED visit/admission 01/24-01/27 , for chest pain 114/64, 78Ascending aortic aneurysm 4.[address] explained to patient and son not surgical as of yet, insistent they have a consult was told in the hospital that it was emergent. Will refer to [facility] cardiac surgery for consult, reviewed the importance again of no heavy lifting strenuous exercise patient states he is very sedentary-per son a couch potato Pt is anxious. pharmacy did not refill carvedilol. they told him his PCP had DC'd it, his PCP's office was not helpful and told him to call his medicare coordinator. Computer Repair Technician did not know.This provider called medicare coordinator. They rerport that they did not prescribe carvedilol, but according to what they see, it was DC'd in October 2022, and repolaced by another medication by PCP.I do not have his pharmacy information.I called pt a 2nd time and no answer; left message to send us his pharmacy info.It appears that pt was supposed to DC long ago, and likely has not been compliant (for example, he tells me he ran oiut of carvedilol 3 weeks ago, but waited until now to call us).Lef pt message.Will F/U when pt gives us more information.When member to call: 1. If bp is elevated sbp>150; dbp>90 or symptomatic-h/a, dizziness, cp, sob. 2. if there is a fall 3. if BS >300 or BS<90 or symptomatic; i.e., dizzy, off balance , shaky, general weakness. 4. if UTI symptoms arise-urinary frequency, dysuria, low abd pain. 5. if pain in knees increases/ or joint pain increased Please remember to call CBContinue to see PCP. [facility] for any acute or disease education needs that may arise 28/11.what should be done when the member calls: see each individual diagnosis for contingency planLow back pain, h/o ESIPCP requested recliner for LBP 2023-06-19 10:38:46 Phone (patient, pare nt, or guardian); 5-10 minutes of medical discussion (no modifier 95)Continue to see PCP. Follow-up with [facility] as needed for any acute or disease education needs that may arise 28/11.StableWarfarin, CarvedilolContinue taking medications as prescribed, avoid NSAIDs, bleeding risk precautions, and continue f/u care and monitoring with PCP and cardiology every 3-6 months. Permanent A-fib rate controlled anticoagulated for stroke reduction [id number] score of 5. Risk benefits of long-term anticoagulation and reviewed and agrees to continue.Hypertension well controlled.Stableon xarelto Continue taking medication, reviewed s/sx of PE (eg. SOB), bleeding precautions, and contact EMS if developing any s/sx discussed and continue monitoring with PCP every 3-6 months.HFpEF appears euvolemic-recent increase in diuretic and discontinuation of potassium remains on Lasix 40 mg daily surveillance labs CONTINGENCY PLANMember to call for the following symptoms: Weight of >247 lbs/ Blood pressure <100/60/ Blood pressure >180/100/ Heart rate >110/ Increased swelling in belly/ Increased swelling in legs, ankles, and feet/ Unable to lay flat/ Unable to walk without stopping due to difficulty breathing/ Increased tiredness/ Wheezing/ Breathing loudly/ Increased cough/ Nausea/ Decreased desire to eat/ Chest painPlanned intervention: Increase furosemide (Lasix) to twice daily for 7 days> CALL CARDSFurosemide, Carvedilol, Lisinopril, Warfarin.Denies monitoring BP routinely. Continue taking medications, monitor weight daily, encouraged to monitor BP daily, low salt, exercise, and contact us if developing emergent HTN s/sx (eg. palpitations, blurry vision), acute change in weight (2-5 lbs) or BLE edema. Continue f/u care and monitoring with cardiology and PCP every 3-6 months. 02/03/23:- Increase atorvastatin to 40mg. - Consider SGTL2i for HF + CKD + DM.- Consider switching furosemide to spironolactone. will discuss above with his medicare coordinator 03/01/23: Primary Computer Repair Technician- Dr. Damon.Admission to [facility] January 26- with prolonged 2 days of chest pain improved with nitro, shortness of breath BNP was 93 patient was given additional diuretics. He had a UTI had a reaction to ceftriaxone was switched to Bactrim. Chest CT for chest pain reveal no pulmonary emboli, ascending thoracic aorta measures 4.9 cm in largest diameter-strongly encouraged to follow-up with vascular per discharge. Outpatient pharmacological nuclear stress test obtained yesterday results pending.F/u CARDS: 05/31/22[facility]ologyPatient denies current diagnosis and insufficient documentation support this previous diagnosis. Patient will continue to f/u and monitor this diagnosis with PCP for further evaluation.Stable Metformin, trulicity, atorvastatinCONTINGENCY PLANMember to call for the following symptoms: Blood sugar <70/ Blood sugar >300/ More thirsty than usual/ Urinating more than usual/ Confusion or change in behavior/ Increased redness of wound/ Chest painPlanned intervention: Increase: metformin up to TID for BS >300/ start Bactrim DS BID x 7 days for UTI symptoms Encouraged to monitor BG routinely, continue taking medications, low carb diet, exercise, lifestyle interventions and contact us if developing HHS or DKA s/sx. Continue f/u care and monitoring with PCP and Outdoor Power Equipment Mechanic every 3-6 months.StableDonepezil05/15/23: FAST SCORE- Denies behavioral or safety concernsContinue monitoring for safety concerns r/t memory, continue taking medication, MMSE routinely, and continue f/u care and monitoring with PCP every 3-6 months.noted on CXR - The thoracic aorta is calcifiedContinue f/u care and monitoring with PCP and cardiology every 3-6 months.BMI 31.66Advice on lifestyle, diet, and exercise to promote weight loss and achieve normal BMI. Continue f/u care and monitoring with PCP every 6 months.StableAtorvastatin, Carvedilol, WarfarinDenies any recent chest pain Continue taking medications as prescribed, discussed dietary, exercise, and lifestyle interventions. Contact EMS if developing persistent acute chest pain and continue f/u care and monitoring with PCP and cardiology every 3-6 months. 03/01/23: CAD with prior CABG [place] in 2001 with FISH to LAD, at some point he had stenting to his LAD. He was catheterized in 2008 and was said to have modest coronary artery disease with competitive flow down the distal LAD from the FISH and the [place] vessel per notes from prior medicare coordinator Dr. Fay at [facility].Ascending aortic aneurysm 4.9 cm by last chest ct 01/2023.Permanent afib since Dec 2018 rate controlled on AC.StableReviewed s/sx of systemic infection and encouraged to contact EMS if these s/sx occur in conjunction. Continue f/u care and monitoring with PCP every 3-6 months.CONTINGENCY PLANMember to call for the following symptoms: Blood pressure >180/100/ Heart rate >110/ Unable to walk without stopping due to difficulty breathing/ Increased tiredness/ Wheezing/ Breathing loudly/ Increased cough/ Change in sputum color/ Decreased desire to eat/ Confusion or change in behavior/ Chest painPlanned intervention: Increase use of albuterol inhaler to q2h PRN cough, breathlessness For worsening symptoms:Increased breathlessness - add prednisone taper 40mg x 3 days, 30mg x 3 days, 20mg x 3 days, 10mg x 3 days and Change in sputum - add azithromycin 500mg on day 1 then 250 mg on day 2-5Denies recent exacerbation 05/09/22Last ED visit/admission 01/24-01/27 , for chest pain 114/64, 78Ascending aortic aneurysm 4.[address] explained to patient and son not surgical as of yet, insistent they have a consult was told in the hospital that it was emergent. Will refer to [facility] cardiac surgery for consult, reviewed the importance again of no heavy lifting strenuous exercise patient states he is very sedentary-per son a couch potato Pt is anxious. pharmacy did not refill carvedilol. they told him his PCP had DC'd it, his PCP's office was not helpful and told him to call his medicare coordinator. Computer Repair Technician did not know.This provider called medicare coordinator. They rerport that they did not prescribe carvedilol, but according to what they see, it was DC'd in October 2022, and repolaced by another medication by PCP.I do not have his pharmacy information.I called pt a 2nd time and no answer; left message to send us his pharmacy info.It appears that pt was supposed to DC long ago, and likely has not been compliant (for example, he tells me he ran oiut of carvedilol 3 weeks ago, but waited until now to call us).Lef pt message.Will F/U when pt gives us more information.When member to call: 1. If bp is elevated sbp>150; dbp>90 or symptomatic-h/a, dizziness, cp, sob. 2. if there is a fall 3. if BS >300 or BS<90 or symptomatic; i.e., dizzy, off balance , shaky, general weakness. 4. if UTI symptoms arise-urinary frequency, dysuria, low abd pain. 5. if pain in knees increases/ or joint pain increased Please remember to call CBContinue to see PCP. Follow-up with [facility] as needed for any acute or disease education needs that may arise 28/11.what should be done when the member calls: see each individual diagnosis for contingency planLow back pain, h/o ESIPCP requested recliner for LBP 2023-07-03 09:44:40 Phone (patient, pare nt, or guardian); 5-10 minutes of medical discussion (no modifier 95)Continue to see PCP. Follow-up with [facility] as needed for any acute or disease education needs that may arise 28/11.StableWarfarin, CarvedilolContinue taking medications as prescribed, avoid NSAIDs, bleeding risk precautions, and continue f/u care and monitoring with PCP and cardiology every 3-6 months. Permanent A-fib rate controlled anticoagulated for stroke reduction [id number] score of 5. Risk benefits of long-term anticoagulation and reviewed and agrees to continue.Hypertension well controlled.Stableon xarelto Continue taking medication, reviewed s/sx of PE (eg. SOB), bleeding precautions, and contact EMS if developing any s/sx discussed and continue monitoring with PCP every 3-6 months.HFpEF appears euvolemic-recent increase in diuretic and discontinuation of potassium remains on Lasix 40 mg daily surveillance labs CONTINGENCY PLANMember to call for the following symptoms: Weight of >247 lbs/ Blood pressure <100/60/ Blood pressure >180/100/ Heart rate >110/ Increased swelling in belly/ Increased swelling in legs, ankles, and feet/ Unable to lay flat/ Unable to walk without stopping due to difficulty breathing/ Increased tiredness/ Wheezing/ Breathing loudly/ Increased cough/ Nausea/ Decreased desire to eat/ Chest painPlanned intervention: Increase furosemide (Lasix) to twice daily for 7 days> CALL CARDSFurosemide, Carvedilol, Lisinopril, Warfarin.Denies monitoring BP routinely. Continue taking medications, monitor weight daily, encouraged to monitor BP daily, low salt, exercise, and contact us if developing emergent HTN s/sx (eg. palpitations, blurry vision), acute change in weight (2-5 lbs) or BLE edema. Continue f/u care and monitoring with cardiology and PCP every 3-6 months. 02/03/23:- Increase atorvastatin to 40mg. - Consider SGTL2i for HF + CKD + DM.- Consider switching furosemide to spironolactone. will discuss above with his medicare coordinator 03/01/23: Primary Computer Repair Technician- Dr. Damon.Admission to [facility] January 26- with prolonged 2 days of chest pain improved with nitro, shortness of breath BNP was 93 patient was given additional diuretics. He had a UTI had a reaction to ceftriaxone was switched to Bactrim. Chest CT for chest pain reveal no pulmonary emboli, ascending thoracic aorta measures 4.9 cm in largest diameter-strongly encouraged to follow-up with vascular per discharge. Outpatient pharmacological nuclear stress test obtained yesterday results pending.F/u CARDS: f/u pending d/t cancelled appointment by .[facility]ologyPatient denies current diagnosis and insufficient documentation support this previous diagnosis. Patient will continue to f/u and monitor this diagnosis with PCP for further evaluation.Stable Metformin, trulicity, atorvastatinCONTINGENCY PLANMember to call for the following symptoms: Blood sugar <70/ Blood sugar >300/ More thirsty than usual/ Urinating more than usual/ Confusion or change in behavior/ Increased redness of wound/ Chest painPlanned intervention: Increase: metformin up to TID for BS >300/ start Bactrim DS BID x 7 days for UTI symptoms Encouraged to monitor BG routinely, continue taking medications, low carb diet, exercise, lifestyle interventions and contact us if developing HHS or DKA s/sx. Continue f/u care and monitoring with PCP and Outdoor Power Equipment Mechanic every 3-6 months.StableDonepezil05/15/23: FAST SCORE- Denies behavioral or safety concernsContinue monitoring for safety concerns r/t memory, continue taking medication, MMSE routinely, and continue f/u care and monitoring with PCP every 3-6 months.noted on CXR - The thoracic aorta is calcifiedContinue f/u care and monitoring with PCP and cardiology every 3-6 months.BMI 31.66Advice on lifestyle, diet, and exercise to promote weight loss and achieve normal BMI. Continue f/u care and monitoring with PCP every 6 months.StableAtorvastatin, Carvedilol, WarfarinDenies any recent chest pain Continue taking medications as prescribed, discussed dietary, exercise, and lifestyle interventions. Contact EMS if developing persistent acute chest pain and continue f/u care and monitoring with PCP and cardiology every 3-6 months. 03/01/23: CAD with prior CABG [place] in 2001 with FISH to LAD, at some point he had stenting to his LAD. He was catheterized in 2008 and was said to have modest coronary artery disease with competitive flow down the distal LAD from the FISH and the [place] vessel per notes from prior medicare coordinator Dr. Fay at [facility].Ascending aortic aneurysm 4.9 cm by last chest ct 01/2023.Permanent afib since Dec 2018 rate controlled on AC.StableReviewed s/sx of systemic infection and encouraged to contact EMS if these s/sx occur in conjunction. Continue f/u care and monitoring with PCP every 3-6 months.CONTINGENCY PLANMember to call for the following symptoms: Blood pressure >180/100/ Heart rate >110/ Unable to walk without stopping due to difficulty breathing/ Increased tiredness/ Wheezing/ Breathing loudly/ Increased cough/ Change in sputum color/ Decreased desire to eat/ Confusion or change in behavior/ Chest painPlanned intervention: Increase use of albuterol inhaler to q2h PRN cough, breathlessness For worsening symptoms:Increased breathlessness - add prednisone taper 40mg x 3 days, 30mg x 3 days, 20mg x 3 days, 10mg x 3 days and Change in sputum - add azithromycin 500mg on day 1 then 250 mg on day 2-5Denies recent exacerbation 05/09/22Ascending aortic aneurysm 4.[address] explained to patient and son not surgical as of yet, insistent they have a consult was told in the hospital that it was emergent. Will refer to [facility] cardiac surgery for consult, reviewed the importance again of no heavy lifting strenuous exercise patient states he is very sedentary-per son a couch potato Pt is anxious. pharmacy did not refill carvedilol. they told him his PCP had DC'd it, his PCP's office was not helpful and told him to call his medicare coordinator. Computer Repair Technician did not know.This provider called medicare coordinator. They rerport that they did not prescribe carvedilol, but according to what they see, it was DC'd in October 2022, and repolaced by another medication by PCP.I do not have his pharmacy information.I called pt a 2nd time and no answer; left message to send us his pharmacy info.It appears that pt was supposed to DC long ago, and likely has not been compliant (for example, he tells me he ran oiut of carvedilol 3 weeks ago, but waited until now to call us).Lef pt message.Will F/U when pt gives us more information.When member to call: 1. If bp is elevated sbp>150; dbp>90 or symptomatic-h/a, dizziness, cp, sob. 2. if there is a fall 3. if BS >300 or BS<90 or symptomatic; i.e., dizzy, off balance , shaky, general weakness. 4. if UTI symptoms arise-urinary frequency, dysuria, low abd pain. 5. if pain in knees increases/ or joint pain increased Please remember to call CBContinue to see PCP. [facility] or disease education needs that may arise 28/11.what should be done when the member calls: see each individual diagnosis for contingency planLow back pain, h/o ESIPCP requested recliner for LBPLast ED visit/admission 01/24-01/27 , for chest pain 07/03/23: reports DBP >90's in the past 2 weeks. asymptomatic . PLAN -f/u with cardiology in person for evaluation in complex cardiac history [facility] 2023-08-30 11:37:42 Phone (patient, pare nt, or guardian); 5-10 minutes of medical discussion (no modifier 95)Continue to see PCP. [facility] any acute or disease education needs that may arise 28/11.Stable Metformin, trulicity, atorvastatinCONTINGENCY PLANMember to call for the following symptoms: Blood sugar <70/ Blood sugar >300/ More thirsty than usual/ Urinating more than usual/ Confusion or change in behavior/ Increased redness of wound/ Chest painPlanned intervention: Increase: metformin up to TID for BS >300/ start Bactrim DS BID x 7 days for UTI symptoms Encouraged to monitor BG routinely, continue taking medications, low carb diet, exercise, lifestyle interventions and contact us if developing HHS or DKA s/sx. Continue f/u care and monitoring with PCP and Outdoor Power Equipment Mechanic every 3-6 months.CONTINGENCY PLANMember to call for the following symptoms: Blood pressure >180/100/ Heart rate >110/ Unable to walk without stopping due to difficulty breathing/ Increased tiredness/ Wheezing/ Breathing loudly/ Increased cough/ Change in sputum color/ Decreased desire to eat/ Confusion or change in behavior/ Chest painPlanned intervention: Increase use of albuterol inhaler to q2h PRN cough, breathlessness For worsening symptoms:Increased breathlessness - add prednisone taper 40mg x 3 days, 30mg x 3 days, 20mg x 3 days, 10mg x 3 days and Change in sputum - add azithromycin 500mg on day 1 then 250 mg on day 2-5Denies recent exacerbation 05/09/22When member to call: 1. If bp is elevated sbp>150; dbp>90 or symptomatic-h/a, dizziness, cp, sob. 2. if there is a fall 3. if BS >300 or BS<90 or symptomatic; i.e., dizzy, off balance , shaky, general weakness. 4. if UTI symptoms arise-urinary frequency, dysuria, low abd pain. 5. if pain in knees increases/ or joint pain increased Please remember to call CBContinue to see PCP. Follow-up with [facility] as needed for any acute or disease education needs that may arise 28/11.what should be done when the member calls: see each individual diagnosis for contingency planLow back pain, h/o ESIPCP requested recliner for LBP 08/29: Currently receiving PT 2023-09-25 08:58:25 Phone (patient, pare nt, or guardian); 5-10 minutes of medical discussion (no modifier 95)Continue to see PCP. Follow-up with [facility] as needed for any acute or disease education needs that may arise 28/11.Has albuterol inh09/25/23: Patient reported mild dyspnea, feeling hot last night, cough with phleghm x2-3 days. Abx and prednisone taper prescribed due to comorbidities. F/U scheduled 09/28. Encouraged to callback for worsening sx or questions/concerns.When member to call: 1. If bp is elevated sbp>150; dbp>90 or symptomatic-h/a, dizziness, cp, sob. 2. if there is a fall 3. if BS >300 or BS<90 or symptomatic; i.e., dizzy, off balance , shaky, general weakness. 4. if UTI symptoms arise-urinary frequency, dysuria, low abd pain. 5. if pain in knees increases/ or joint pain increased Please remember to call CBContinue to see PCP. Follow-up with [facility] as needed for any acute or disease education needs that may arise 28/11.CONTINGENCY PLANMember to call for the following symptoms: Blood pressure >180/100/ Heart rate >110/ Unable to walk without stopping due to difficulty breathing/ Increased tiredness/ Wheezing/ Breathing loudly/ Increased cough/ Change in sputum color/ Decreased desire to eat/ Confusion or change in behavior/ Chest painPlanned intervention: Increase use of albuterol inhaler to q2h PRN cough, breathlessness For worsening symptoms:Increased breathlessness - add prednisone taper 40mg x 3 days, 30mg x 3 days, 20mg x 3 days, 10mg x 3 days and Change in sputum - add azithromycin 500mg on day 1 then 250 mg on day 2-5 2023-09-29 09:31:25 Phone (patient, pare nt, or guardian); 5-10 minutes of medical discussion (no modifier 95)Continue to see PCP. [facility] or disease education needs that may arise 28/11.Has albuterol inh09/25/23: Patient reported mild dyspnea, feeling hot last night, cough with phleghm x2-3 days. Abx and prednisone taper prescribed due to comorbidities. F/U scheduled 09/28. Encouraged to callback for worsening sx or questions/concerns.09/29/23: Patient reports URI sx improved; Denies any current concernsWhen member to call: 1. If bp is elevated sbp>150; dbp>90 or symptomatic-h/a, dizziness, cp, sob. 2. if there is a fall 3. if BS >300 or BS<90 or symptomatic; i.e., dizzy, off balance , shaky, general weakness. 4. if UTI symptoms arise-urinary frequency, dysuria, low abd pain. 5. if pain in knees increases/ or joint pain increased Please remember [facility] or disease education needs that may arise 28/11.CONTINGENCY PLANMember to call for the following symptoms: Blood pressure >180/100/ Heart rate >110/ Unable to walk without stopping due to difficulty breathing/ Increased tiredness/ Wheezing/ Breathing loudly/ Increased cough/ Change in sputum color/ Decreased desire to eat/ Confusion or change in behavior/ Chest painPlanned intervention: Increase use of albuterol inhaler to q2h PRN cough, breathlessness For worsening symptoms:Increased breathlessness - add prednisone taper 40mg x 3 days, 30mg x 3 days, 20mg x 3 days, 10mg x 3 days and Change in sputum - add azithromycin 500mg on day 1 then 250 mg on day 2-5 2023-10-26 08:51:27 Phone (patient, pare nt, or guardian); 5-10 minutes of medical discussion (no modifier 95)Continue to see PCP. Follow-up with [facility] as needed for any acute or disease education needs that may arise 28/11.The patient reports allergy symptoms including, sneezing, watery eyes, 'feels like face is puffy'. He denies taking any medications for allergies; Rx sent for cetirizine. Encouraged the patient to call if sx worsens. 2023-11-23 07:10:34 Phone (patient, pare nt, or guardian); 5-10 minutes of medical discussion (no modifier 95)Continue to see PCP. Follow-up with [facility] as needed for any acute or disease education needs that may arise 28/11.Low back pain, h/o ESIPCP requested recliner for LBP 08/29: Currently receiving PT11/23/23: ER visit on 11/22/23 for chest pain and severe back pain. The patient reports that he was told he was experiencing spasms; He was given medications with good relief; No changes to the treatment planER visit on 11/22/23 for chest pain and lower back spasms. Cardio work up negative for findings per patient. He was referred to a medicare coordinator for follow up. Denies any health concerns at this time.When member to call: 1. If bp is elevated sbp>150; dbp>90 or symptomatic-h/a, dizziness, cp, sob. 2. if there is a fall 3. if BS >300 or BS<90 or symptomatic; i.e., dizzy, off balance , shaky, general weakness. 4. if UTI symptoms arise-urinary frequency, dysuria, low abd pain. 5. if pain in knees increases/ or joint pain increased Please remember to call CBContinue to see PCP. Follow-up with [facility] as needed for any acute or disease education needs that may arise 28/11.CONTINGENCY PLANMember to call for the following symptoms: Blood pressure >180/100/ Heart rate >110/ Unable to walk without stopping due to difficulty breathing/ Increased tiredness/ Wheezing/ Breathing loudly/ Increased cough/ Change in sputum color/ Decreased desire to eat/ Confusion or change in behavior/ Chest painPlanned intervention: Increase use of albuterol inhaler to q2h PRN cough, breathlessness For worsening symptoms:Increased breathlessness - add prednisone taper 40mg x 3 days, 30mg x 3 days, 20mg x 3 days, 10mg x 3 days and Change in sputum - add azithromycin 500mg on day 1 then 250 mg on day 2-5CHEST PAIN CONTINGENCY PLANMember to call for the following symptoms: Burning pain in chest??/ Chest pain??/ Neck, shoulder, jaw, back painPlanned intervention: Please nitroglycerin tablet under the tongue and wait 5 minutes. Repeat if pain has not resolved. After five additional minutes, assist member with calling 911 if pain persists / Review members breathing exercises / Aluminum hydroxide/Magnesium carbonate (Gaviscon) take 2-4 teaspoonfuls of liquid or 2-4 tablets four times a day as needed Goals Date Goal 2022-03-22 Remember to 2022-03-22 Call me if 2022-03-22 Keep it up 2022-08-05 Remember to monitor BP and BG routinely, implement low carb diet, and exercise as tolerable. 2022-08-05 Contact us if develo ping emergent HTN, acute change in weight, BLE edema, excessive bleeding, PE s/sx, HHS or DKA, acute change in mental status, or respiratory distress. 2022-08-05 Continue taking medi cations as prescribed, low salt diet, and using cane to ambulate. Health Concerns Date Concern 2023-11-23 Visit completed via audio by telephone. Patient/Guardian agreed to visit via telehealth.Time spent in visit: 2023-11-23 Most recent hospital stay(s) or ER visit(s) and precipitating factors: ER visit 11/21 for chest pain and severe back pain. 2023-11-23 HIPPA call disclai adriana for [place] and [place] members this call may be recorded for quality and training purposes ER Visit Follow-up:Spoke to: PatientWhen were you in the ER and where? Date and [facility]? Chest pain and severe back painHow many days were you sick before going? 0Did the member have a contingency plan? YDid the member go to the ER for the condition addressed by the contingency plan? NWere you then or are you now out of any medications? NWhat was the outcome of the ER Visit? No changes to medications or new findingsDid they add or change any medications? NoAre you feeling better? worse? same? Are you still thinking about going to the ER? Feels better, no acute concernsNotes: Patient reports that he might have to change clinics or health care plan due to change in plans that the clinic covers. He will reach out to his CC from [facility].Member trained on use of ? Red Button? for urgent needs and provided with Mevvy phone # as an alternative method to reach acute team.
--- OUTSIDE RECORDS SUMMARY | 2024-06-20 14:34 | XMS_ITS | Encounter Summary ---
Author Organization [facility] Address [address] [place] [address] Care Team Providers Care Tack Welder Name Role Phone Miguel Sousa MD Primary Care Provider [phone] Jacek Damon MD Unavailable Nuris Mcknight PA-C Unavailable Raj Marie MD Unavailable [phone] Shelby Mcneil NP Unavailable [phone] Encounter Details Date Type Department Care Team Description 05/12/2021 Orders Only Endocrinology - [address] [id number] Sherry Randle PA-C [address] [place] [id number] Social History Tobacco Use Types Packs/Day Years [...] AM EST documented as of this encounter Plan of Treatment Not on file documented as of this encounter Visit Diagnoses Not on filedocumented in this encounter Care Teams Tack Welder Relationship Specialty Start Date End Date Miguel Sousa MD [address] [place] [address] PCP - General Internal Medicine 01/30/19 Jacek Damon MD [address] [place] [address] [id number] Appliquer Zigzag Cardiovascular Disease 04/18/17 Nuris Mcknight PA-C [address] [place] [address] [phone] Specialist Cardiology 03/20/19 Raj Marie MD [address] [place] [address] Appliquer Zigzag Cardiology 05/03/21 Shelby Mcneil NP [address] [place] [address] Cardiology 09/11/23 documented as of this encounter
--- OUTSIDE RECORDS SUMMARY | 2024-06-20 14:34 | XMS_ITS | Encounter Summary ---
Author Organization [facility] Address [address] [place] [address] Care Team Providers Care Aircrewman Name Role Phone Miguel Sousa MD Primary Care Provider [phone] Jacek Damon MD Unavailable Nuris Mcknight PA-C Unavailable Raj Marie MD Unavailable [phone] Shelby Mcneil NP Unavailable [phone] Reason for Visit * Reason Onset Date Comments TEST RESULTS 06/01/2023 05/29/23 labs Encounter Details Date Type Department Care Team Description 06/01/2023 Telephone Cardio PVC POC [address] [facility] [address] [place], [place] [id number] Jacek Damon MD [address] [place] [address] [id number] TEST RESULTS (05/29/23 labs) Social History Tobacco Use Types Packs/Day Years [...] encounter Miscellaneous Notes * Telephone Encounter - Breanna Marroquin - 06/01/2023 9:01 AM EST Labs labs re-scanned into chart, previous scanned in document was difficult to read. * Telephone Encounter - Breanna Marroquin - 06/01/2023 9:01 AM EST Images from the original note were not included. documented in this encounter Plan of Treatment Not on file documented as of this encounter Visit Diagnoses Not on filedocumented in this encounter Care Teams Aircrewman Relationship Specialty Start Date End Date Miguel Sousa MD [address] [place] [id number] PCP - General Internal Medicine 01/30/19 Jacek Damon MD [address] [place] [id number] Pipe Joints Supervisor Cardiovascular Disease 04/18/17 Nuris Mcknight PA-C [address] [place] [phone] Specialist Cardiology 03/20/19 Raj Marie MD [address] [place] [address] Pipe Joints Supervisor Cardiology 05/03/21 Shelby Mcneil NP [address] [place] [address] Cardiology 09/11/23 documented as of this encounter
--- OUTSIDE RECORDS SUMMARY | 2024-06-20 14:34 | XMS_ITS | Encounter Summary ---
Author Organization [facility] Address [address] [place] [address] Care Team Providers Care Mill Laborer Name Role Phone Miguel Sousa MD Primary Care Provider [phone] Jacek Damon MD Unavailable Nuris Mcknight PA-C Unavailable Raj Marie MD Unavailable [phone] Shelby Mcneil NP Unavailable [phone] Encounter Details Date Type Department Care Team Description 02/24/2019 Hospital Medical Records [address] [place] [id number] Edgardo Abdalla Social History Tobacco Use Types [...] on filedocumented in this encounter Care Teams Mill Laborer Relationship Specialty Start Date End Date Miguel Sousa MD [address] [place] [address] [phone] PCP - General Internal Medicine 01/30/19 Jacek Damon MD [address] [place] [address] [phone] Nutrition Representative Cardiovascular Disease 04/18/17 Nuris Mcknight PA-C [address] [place] [address] Specialist Cardiology 03/20/19 Raj Marie MD [address] [place] [address] Nutrition Representative Cardiology 05/03/21 Shelby Mcneil NP [address] [place] [address] Cardiology 09/11/23 documented as of this encounter
--- OUTSIDE RECORDS SUMMARY | 2024-06-20 14:34 | XMS_ITS | Encounter Summary ---
Author Organization [facility] Address [address] [place] [address] Care Team Providers Care Cracking And Fanning Machine Operator Name Role Phone Migule Sousa MD Primary Care Provider [phone] Jacek Damon MD Unavailable Nuris Mcknight PA-C Unavailable Raj Marie MD Unavailable [phone] Shelby Mcneil NP Unavailable [phone] Encounter Details Date Type Department Care Team Description 06/07/2023 Telephone Cardio PVC [facility] [address] [place] [address] Jacek Damon MD [address] [place] [address] [phone] Social History Tobacco Use Types Packs/Day Years [...] Telephone Encounter - Jacek Damon MD - 06/07/2023 4:28 PM EST He supposedly had a cath in 2008 somewhere. Can you check [facility] records . If not there check with family where it was. documented in this encounter Plan of Treatment Not on file documented as of this encounter Visit Diagnoses Not on filedocumented in this encounter Care Teams Cracking And Fanning Machine Operator Relationship Specialty Start Date End Date Miguel Sousa MD [address] [place] [address]65 PCP - General Internal Medicine 01/30/19 Jacek Damon MD [address] [place] [address] [phone] Stable Helper Cardiovascular Disease 04/18/17 Nuris Mcknight PA-C [address] [place] [address] [phone] Specialist Cardiology 03/20/19 Raj Marie MD [address] [place] [address] Stable Helper Cardiology 05/03/21 Shelby Mcneil NP [address] [place] [address] Cardiology 09/11/23 documented as of this encounter
--- OUTSIDE RECORDS SUMMARY | 2024-06-20 14:34 | XMS_ITS | Encounter Summary ---
Author Organization [facility] Address [address] [place] [address] Care Team Providers Care Golf Cart Repairer Name Role Phone Miguel Sousa MD Primary Care Provider [phone] Miguel Sousa MD Primary Care Provider [phone] Jacek Damon MD Unavailable Nuris Mcknight PA-C Unavailable Raj Marie MD Unavailable [phone] Shelby Mcneil NP Unavailable Reason for Visit * Reason Onset Date Comments Testing 09/13/2018 ECHO APPT Encounter Details Date Type Department Care Team Description 09/13/2018 Telephone Radiology - [address] [phone] Philippe Tracy PA-C [address] [place] [address] [phone] Testing (ECHO APPT) Social History Tobacco Use Types Packs/Day Years [...] encounter Miscellaneous Notes * Telephone Encounter - Ariana Manley - 09/13/2018 7:33 AM EDT Chandra will be coming to [facility] for an ECHO on 09/14/18 at 1:30 pm documented in this encounter Plan of Treatment Not on file documented as of this encounter Visit Diagnoses Not on filedocumented in this encounter Care Teams Golf Cart Repairer Relationship Specialty Start Date End Date Miguel Sousa MD [address] [place] [address] 56781 PCP - General Internal Medicine 01/30/19 Miguel Sousa MD [address] [place] [address] 71596 PCP - General 04/18/17 01/29/19 Jacek Damon MD [address] [place] [address] [phone] Operations Label Clerk Cardiovascular Disease 04/18/17 Nuris Mcknight PA-C [address] [place] [address] 96202 Specialist Cardiology 03/20/19 Raj Marie MD [address] [place] [address] Operations Label Clerk Cardiology 05/03/21 Shelby Mcneil NP [address] [place] [address] Cardiology 09/11/23 documented as of this encounter
--- OUTSIDE RECORDS SUMMARY | 2024-06-20 14:34 | XMS_ITS | Encounter Summary ---
Author Organization [facility] Address [address] [place] [address] Care Team Providers Care Development Consultant Name Role Phone Miguel Sousa MD Primary Care Provider [phone] Jacek Damon MD Unavailable Nuris Mcknight PA-C Unavailable Raj Marie MD Unavailable [phone] Shelby Mcneil NP Unavailable [phone] Encounter Details Date Type Department Care Team Description 04/30/2019 Telephone Internal Medicine - [place] [address] [facility], [address] [place], [place] [phone] Negin Lisa, MS,RDN,LDN Social History Tobacco Use Types Packs/Day Years [...] encounter Miscellaneous Notes * Telephone Encounter - Deidre Teixeira NP - 05/02/2019 12:14 PM EST Noted. Letter sent * Telephone Encounter - Renetta Patel - 04/30/2019 12:56 PM EST All attempts to reach patient to schedule appointment with Retail Brand Ambassador have been exhausted. documented in this encounter Plan of Treatment Not on file documented as of this encounter Visit Diagnoses Not on filedocumented in this encounter Care Teams Development Consultant Relationship Specialty Start Date End Date Miguel Sousa MD [address] [place] [address] PCP - General Internal Medicine 01/30/19 Jacek Damon MD [address] [place] [address] Healthcare Administration Intern Cardiovascular Disease 04/18/17 Nuris Mcknight PA-C [address] [place] [address] [phone] Specialist Cardiology 03/20/19 Raj Marie MD [address] [facility] [address] [place] [address] Healthcare Administration Intern Cardiology 05/03/21 Shelby Mcneil NP [address] [place] [address] Cardiology 09/11/23 documented as of this encounter
--- OUTSIDE RECORDS SUMMARY | 2024-06-20 14:34 | XMS_ITS | Encounter Summary ---
Author Organization [facility] Address [address] [place] [address] Care Team Providers Care Ms Sql Server Developer Name Role Phone Miguel Sousa MD Primary Care Provider [phone] Jacek Damon MD Unavailable Nuris Mcknight PA-C Unavailable Raj Marie MD Unavailable [phone] Shelby Mcneil NP Unavailable [phone] Encounter Details Date Type Department Care Team Description 07/24/2023 Actuarial Consultant Report Medical Records [address] [place] [address] Abstract, Provider Social History Tobacco Use Types [...] on filedocumented in this encounter Care Teams Ms Sql Server Developer Relationship Specialty Start Date End Date Miguel Sousa MD [address] [place] [address] PCP - General Internal Medicine 01/30/19 Jacek Damon MD [address] [place] [address] Produce Shipper Cardiovascular Disease 04/18/17 Nuris Mcknight PA-C [address] [place] [address] Specialist Cardiology 03/20/19 Raj Marie MD [address] [place] [address] Produce Shipper Cardiology 05/03/21 Shelby Mcneil NP [address] [place] [address] Cardiology 09/11/23 documented as of this encounter
--- OUTSIDE RECORDS SUMMARY | 2024-06-20 14:34 | XMS_ITS | Encounter Summary ---
Author Organization [facility] Address [address] [place] [address] Care Team Providers Care Benzene Worker Name Role Phone Miguel Sousa MD Primary Care Provider [phone] Jacek Damon MD Unavailable Nuris Mcknight PA-C Unavailable Raj Marie MD Unavailable [phone] Shelby Mcneil NP Unavailable [phone] Reason for Visit * Reason Onset Date Comments Prior Authorization 06/01/2023 Cardiac cath -[id number] Encounter Details Date Type Department Care Team Description 06/01/2023 Telephone Cardio PVC [facility] [address] [place] [address] Jacek Damon MD [address] [place] [address] [phone] Prior Authorization (Cardiac cath-[id number]) Social History Tobacco Use Types Packs/Day Years [...] encounter Miscellaneous Notes * Telephone Encounter - Carleen Candelaria - 06/01/2023 1:40 PM EST Patient is booked at [facility] now instead of [facility]. * Telephone Encounter - Liliana Smalls - 06/01/2023 10:57 AM EST Images from the original note were not included. Per [facility] [place] [id number]. If it is booked at [facility] then he is all set. If [facility] we would have to submit for a gap exception since they are out of network. I have 2 confirmation numbers from [facility]. First is Decision ID #:[id number] Second one is [id number] documented in this encounter Plan of Treatment Not on file documented as of this encounter Visit Diagnoses Not on filedocumented in this encounter Care Teams Benzene Worker Relationship Specialty Start Date End Date Miguel Sousa MD [address] [place] [address] PCP - General Internal Medicine 01/30/19 Jacek Damon MD [address] [place] [address] Social Services Analyst Cardiovascular Disease 04/18/17 Nuris Mcknight PA-C [address] [place] [address] Specialist Cardiology 03/20/19 Raj Marie MD [address] [address] Social Services Analyst Cardiology 05/03/21 Shelby Mcneil NP [address] [place] [address] Cardiology 09/11/23 documented as of this encounter
--- OUTSIDE RECORDS SUMMARY | 2024-06-20 14:34 | XMS_ITS | Encounter Summary ---
Author Organization [facility] Address [address] [place] [address] Care Team Providers Care Head Pastry Chef Name Role Phone Miguel Sousa MD Primary Care Provider [phone] Jacek Damon MD Unavailable Nuris Mcknight PA-C Unavailable Raj Marie MD Unavailable [phone] Shelby Mcneil NP Unavailable [phone] Encounter Details Date Type Department Care Team Description 03/20/2019 Tosser Report Medical Records [address] [place] [address] Jacek Damon MD [address] [place] [address] [phone] Social History Tobacco Use Types Packs/Day Years [...] on filedocumented in this encounter Care Teams Head Pastry Chef Relationship Specialty Start Date End Date Miguel Sousa MD [address] [place] [address] PCP - General Internal Medicine 01/30/19 Jacek Damon MD [address] [place] [address] Tool And Die Repair Cardiovascular Disease 04/18/17 Nuris Mcknight PA-C [address] [place] [address] Specialist Cardiology 03/20/19 Raj Marie MD [address] [facility] [address] [place] [address] Tool And Die Repair Cardiology 05/03/21 Shelby Mcneil NP [address] [facility] [address] [place] [address] Cardiology 09/11/23 documented as of this encounter
--- OUTSIDE RECORDS SUMMARY | 2024-06-20 14:34 | XMS_ITS | Encounter Summary ---
Author Organization [facility] Address [address] [place] [address] Care Team Providers Care Sole Leveler Name Role Phone Miguel Sousa MD Primary Care Provider [phone] Jacek Damon MD Unavailable Nuris Mcknight PA-C Unavailable Raj Marie MD Unavailable [phone] Shelby Mcneil NP Unavailable [phone] Reason for Visit * Reason Onset Date Comments refill request 10/12/2020 Encounter Details Date Type Department Care Team Description 10/12/2020 Refill Adult Medicine [address] [phone] Miguel Sousa MD [address] [place] [address] [phone] refill request Social History Tobacco Use Types [...] have Coronavirus / COVID-19? No / Unsure 10/08/2020 1:01 PM EDT documented as of this encounter Miscellaneous Notes * Telephone Encounter - Monica Goodson M.A. - 10/12/2020 3:38 PM EDT Last office visit 08/07/20 Lab Results Component Value Date INR 2.8 09/02/2020 * Telephone Encounter - Adriana Jesus - 10/12/2020 11:52 AM EDT Patient would like script to be: E-PRESCRIBED/FAXED TO PHARMACY WHEN WAS THE PATIENT'S LAST APPOINTMENT IN ADULT MEDICINE? 08/07/20 WHEN WAS THE LAST TIME THE PATIENT SAW THEIR PCP? Same as above Does patient have an upcoming appointment? Pt will call (THE MEDICATION REQUESTED IS ON THE MED LIST ABOVE) All of the medications requested were on the CURRENT MEDS list Did you check the Pharmacy information above?: YES Patient wants: 90 -day supply Is this a mail order prescription request ? NO If the refill is from a FAXED refill request what is the RX # listed on the fax? N/A Patients current insurance carrier is: Payor: [facility] / Plan: Morning Tec $0 LIGONIER [id number] / Product Type: HMO [id number] documented in this encounter Plan of Treatment Not on file documented as of this encounter Visit Diagnoses Not on filedocumented in this encounter Care Teams Sole Leveler Relationship Specialty Start Date End Date Miguel Sousa MD [address] [place] [address] PCP - General Internal Medicine 01/30/19 Jacek Damon MD [address] [place] [address] Metal Forger'S Assistant Cardiovascular Disease 04/18/17 Nuris Mcknight PA-C [address] [place] [address] Specialist Cardiology 03/20/19 Raj Marie MD [address] [facility] [address] [place] [address] Metal Forger'S Assistant Cardiology 05/03/21 Shelby Mcneil NP [address] [place] [address] Cardiology 09/11/23 documented as of this encounter
--- OUTSIDE RECORDS SUMMARY | 2024-06-20 14:34 | XMS_ITS | Encounter Summary ---
Author Organization [facility] Address [address] [place] [address] Care Team Providers Care Molding Machine Setter Name Role Phone Miguel Sousa MD Primary Care Provider [phone] Jacek Damon MD Unavailable Nuris Mcknight PA-C Unavailable Raj Marie MD Unavailable [phone] Shelby Mcneil NP Unavailable [phone] Encounter Details Date Type Department Care Team Description 04/26/2019 Home Health Certification Medical Records [address] [place] [address] [facility], [address] [phone] Social History Tobacco Use Types Packs/Day Years [...] on filedocumented in this encounter Care Teams Molding Machine Setter Relationship Specialty Start Date End Date Miguel Sousa MD [address] [place] [address] [phone] PCP - General Internal Medicine 01/30/19 Jacek Damon MD [address] [place] [address] 8[address] Binder Folder Operator Cardiovascular Disease 04/18/17 Nuris Mcknight PA-C [address] [place], [place] [phone] Specialist Cardiology 03/20/19 Raj Marie MD [address] [facility] [address] [place] [address] Binder Folder Operator Cardiology 05/03/21 Shelby Mcneil NP [address] [place] [address] Cardiology 09/11/23 documented as of this encounter
--- OUTSIDE RECORDS SUMMARY | 2024-06-20 14:34 | XMS_ITS | Encounter Summary ---
Author Organization [facility] Address [address] [place] [address] Care Team Providers Care Grinding Machine Tender Name Role Phone Miguel Sousa MD Primary Care Provider [phone] Jacek Damon MD Unavailable Nuris Mcknight PA-C Unavailable Raj Marie MD Unavailable [phone] Shelby Mcneil NP Unavailable [phone] Encounter Details Date Type Department Care Team Description 02/14/2019 Software Qa Manager Report Medical Records [address] [place] [address] Jacek Damon MD [address] [place] [address] [phone] Social History Tobacco Use Types Packs/Day Years [...] on filedocumented in this encounter Care Teams Grinding Machine Tender Relationship Specialty Start Date End Date Miguel Sousa MD [address] [place] [address]20 PCP - General Internal Medicine 01/30/19 Jacek Damon MD [address] [place] [address]20 Rocket Test Fire Worker Cardiovascular Disease 04/18/17 Nuris Mcknight PA-C [address] [place] [address] 42706 Specialist Cardiology 03/20/19 Raj Marie MD [address] [facility] [address] [place] [address] Rocket Test Fire Worker Cardiology 05/03/21 Shelby Mcneil NP [address] [facility] [address] [place] [address] Cardiology 09/11/23 documented as of this encounter
--- OUTSIDE RECORDS SUMMARY | 2024-06-20 14:34 | XMS_ITS | Encounter Summary ---
Author Organization [facility] Address [address] [place] [address] Care Team Providers Care Triage Register Nurse Name Role Phone Miguel Sousa MD Primary Care Provider [phone] Jacek Damon MD Unavailable Nuris Mcknight PA-C Unavailable Raj Marie MD Unavailable [phone] Shelby Mcneil NP Unavailable [phone] Encounter Details Date Type Department Care Team Description 02/20/2019 Hospital Medical Records [address] [place] [address] Noris Mercado Social History Tobacco Use Types Packs/Day Years [...] on filedocumented in this encounter Care Teams Triage Register Nurse Relationship Specialty Start Date End Date Miguel Sousa MD [address] [place] [address] PCP - General Internal Medicine 01/30/19 Jacek Damon MD [address] [place] [address] [phone] Clinical Project Leader Cardiovascular Disease 04/18/17 Nuris Mcknight PA-C [address] [place] [address] Specialist Cardiology 03/20/19 Raj Marie MD [address] [place] [address] Clinical Project Leader Cardiology 05/03/21 Shelby Mcneil NP [address] [place] [address] Cardiology 09/11/23 documented as of this encounter
--- OUTSIDE RECORDS SUMMARY | 2024-06-20 14:34 | XMS_ITS | Encounter Summary ---
Author Organization [facility] Address [address] [place] [address] Care Team Providers Care Pipe Racker Name Role Phone Miguel Sousa MD Primary Care Provider [phone] Jacek Damon MD Unavailable Nuris Mcknight PA-C Unavailable Raj Marie MD Unavailable [phone] Shelby Mcneil NP Unavailable [phone] Reason for Visit * Reason Onset Date Comments Faxed Order 03/06/2019 Encounter Details Date Type Department Care Team Description 03/06/2019 Telephone Adult [address] [phone] Miguel Sousa MD [address] [place] [address] [phone] Faxed Order Social History Tobacco Use Types Packs/Day Years [...] encounter Miscellaneous Notes * Telephone Encounter - Katlyn Alfonso - 03/06/2019 11:40 AM EDT Modified Order for Dr. Miguel Sousa's signature documented in this encounter Plan of Treatment Not on file documented as of this encounter Visit Diagnoses Not on filedocumented in this encounter Care Teams Pipe Racker Relationship Specialty Start Date End Date Miguel Sousa MD [address] [place] [address] PCP - General Internal Medicine 01/30/19 Jacek Damon MD [address] [place] [address] [phone] Grout Machine Tender Cardiovascular Disease 04/18/17 Nuris Mcknight PA-C [address] [place] [address] [phone] Specialist Cardiology 03/20/19 Raj Marie MD [address] [place] [address] Grout Machine Tender Cardiology 05/03/21 Shelby Mcneil NP [address] [place] [address] Cardiology 09/11/23 documented as of this encounter
--- OUTSIDE RECORDS SUMMARY | 2024-06-20 14:34 | XMS_ITS | Encounter Summary ---
Author Organization [facility] Address [address] [place] [address] Care Team Providers Care Jewel Flat Surfacer Name Role Phone Miguel Sousa MD Primary Care Provider [phone] Jacek Damon MD Unavailable Nuris Mcknight PA-C Unavailable Raj Marie MD Unavailable [phone] Shelby Mcneil NP Unavailable [phone] Encounter Details Date Type Department Care Team Description 08/14/2020 Safety Representative Report Medical Records [address] [place] [address] Calderon Beyer Social History Tobacco Use Types Packs/Day Years [...] have Coronavirus / COVID-19? No / Unsure 08/12/2020 10:06 AM EDT documented as of this encounter Plan of Treatment Not on file documented as of this encounter Visit Diagnoses Not on filedocumented in this encounter Care Teams Jewel Flat Surfacer Relationship Specialty Start Date End Date Miguel Sousa MD [address] [place] [address] PCP - General Internal Medicine 01/30/19 Jacek Damon MD [address] [place] [address] Driver Engineer Cardiovascular Disease 04/18/17 Nuris Mcknight PA-C [address] [place] [address] Specialist Cardiology 03/20/19 Raj Marie MD [address] [place] [address] Driver Engineer Cardiology 05/03/21 Shelby Mcneil NP [address] [place] [address] Cardiology 09/11/23 documented as of this encounter
--- OUTSIDE RECORDS SUMMARY | 2024-06-20 14:34 | XMS_ITS | Encounter Summary ---
Author Organization [facility] Address [address] [place] [address] Care Team Providers Care Weather Reporter Name Role Phone Miguel Sousa MD Primary Care Provider [phone] Jacek Damon MD Unavailable Nuris Mcknight PA-C Unavailable Raj Marie MD Unavailable [phone] Shelby Mcneil NP Unavailable [phone] Encounter Details Date Type Department Care Team Description 07/20/2020 Hospital Medical Records [address] [place] [id number] [place] [address] Social History Tobacco Use Types Packs/Day Years [...] have Coronavirus / COVID-19? No / Unsure 07/14/2020 1:41 PM EST documented as of this encounter Plan of Treatment Not on file documented as of this encounter Procedures Procedure Name Priority Date/Time Associated Diagnosis Comments OUTSIDE LAB Routine 07/23/2020 OUTSIDE EKG Routine 07/20/2020 OUTSIDE PLAIN FILM Routine 07/20/2020 documented in this encounter Results * OUTSIDE LAB (07/23/2020) Provider Abstract LAB * OUTSIDE PLAIN FILM (07/20/2020) Provider Abstract RADIOLOGY * OUTSIDE EKG (07/20/2020) Provider Abstract CARDIOLOGY documented in this encounter Visit Diagnoses Not on filedocumented in this encounter Care Teams Weather Reporter Relationship Specialty Start Date End Date Miguel Sousa MD [address] [place] [address] [phone] PCP - General Internal Medicine 01/30/19 Jacek Damon MD [address] [place] [address] [phone] Test Desk Supervisor Cardiovascular Disease 04/18/17 Nuris Mcknight PA-C [address] [place] [address] [phone] Specialist Cardiology 03/20/19 Raj Marie MD [address] [place] [address] Test Desk Supervisor Cardiology 05/03/21 Shelby Mcniel NP [address] [place] [address] Cardiology 09/11/23 documented as of this encounter
--- OUTSIDE RECORDS SUMMARY | 2024-06-20 14:34 | XMS_ITS | Encounter Summary ---
Author Organization [facility] Address [address] [place] [address] Care Team Providers Care Carpenter Mine Name Role Phone Angelina Ferrer MD Primary Care Provider Unava emmanuel [facility], Pcp Primary Care Provider UnavailAmrik Jackson MD Primary Care Provider Un available Miguel Sousa MD Primary Care Provider [phone] Miguel Sousa MD Primary Care Provider [phone] Jacek Damon MD Unavailable Nuris Mcknight PA-C Unavailable Raj Marie MD Unavailable [phone] Shelby Mcneil NP Unavailable [phone] Encounter Details Date Type Department Care Team Description 08/31/2011 Flow Specialist Report Medical Records [address] [place] [address] Maryjane Brito PA-C Social History Tobacco Use Types Packs/Day Years [...] on filedocumented in this encounter Care Teams Carpenter Mine Relationship Specialty Start Date End Date Angelina Ferrer MD PCP - General 09/28/10 10/18/12 [facility], Pcp PCP - General Internal Medicine 10/19/12 01/22/17 Amrik Richter MD PCP - General Internal Medicine 01/23/1704/17 Miguel Sousa MD [address] [place] [address] PCP - General Internal Medicine 01/30/19 Miguel Sousa MD [address] [place] [address] [phone] PCP - General 04/18/17 01/29/19 Jacek Damon MD [address] [place] [address] [phone] Sheep Killer Cardiovascular Disease 04/18/17 Nuris Mcknight PA-C [address] [place] [address] [phone] Specialist Cardiology 03/20/19 Raj Marie MD [address] [place] [address] Sheep Killer Cardiology 05/03/21 Shelby Mcneil NP [address] [place] [address] Cardiology 09/11/23 documented as of this encounter
--- OUTSIDE RECORDS SUMMARY | 2024-06-20 14:34 | XMS_ITS | Encounter Summary ---
Author Organization [facility] Address [address] [place] [address] Care Team Providers Care Chicken Raiser Name Role Phone Miguel Sousa MD Primary Care Provider [phone] Miguel Sousa MD Primary Care Provider [phone] Jacek Damon MD Unavailable Nuris Mcknight PA-C Unavailable Raj Marie MD Unavailable [phone] Shelby Mcneil NP Unavailable [phone] Encounter Details Date Type Department Care Team Description 09/25/2018 Transfer Records Medical Records [address] [place] [address] Abstract, Provider Social History Tobacco Use Types [...] on filedocumented in this encounter Care Teams Chicken Raiser Relationship Specialty Start Date End Date Miguel Sousa MD [address] [place] [address] PCP - General Internal Medicine 01/30/19 Miguel Sousa MD [address] [place] [address] [phone] PCP - General 04/18/17 01/29/19 Jacek Damon MD [address] [place] [address] Third Officer Cardiovascular Disease 04/18/17 Nuris Mcknight PA-C [address] [place] [address] Specialist Cardiology 03/20/19 Raj Marie MD [address] [place] [address] Third Officer Cardiology 05/03/21 Shelby Mcneil NP [address] [place] [address] Cardiology 09/11/23 documented as of this encounter
--- OUTSIDE RECORDS SUMMARY | 2024-06-20 14:34 | XMS_ITS | Encounter Summary ---
Author Organization [facility] Address [address] [place] [address] Care Team Providers Care Palm Gatherer Name Role Phone Miguel Sousa MD Primary Care Provider [phone] Jacek Damon MD Unavailable Nuris Mcknight PA-C Unavailable Raj Marie MD Unavailable [phone] Shelby Mcneil NP Unavailable [phone] Encounter Details Date Type Department Care Team Description 05/13/2021 Ways Operator Report Medical Records [address] [place] [address] [facility] Urology [address] [place] [address] Social History Tobacco Use Types Packs/Day [...] on filedocumented in this encounter Care Teams Palm Gatherer Relationship Specialty Start Date End Date Miguel Sousa MD [address] [place] [address] PCP - General Internal Medicine 01/30/19 Jacek Damon MD [address] [place] [address] [phone] Data Network Architect Cardiovascular Disease 04/18/17 Nuris Mcknight PA-C [address] [place] [address] [phone] Specialist Cardiology 03/20/19 Raj Marie MD [address] [address] Data Network Architect Cardiology 05/03/21 Shelby Mcneil NP [address] [address] Cardiology 09/11/23 documented as of this encounter
--- OUTSIDE RECORDS SUMMARY | 2024-06-20 14:34 | XMS_ITS | Encounter Summary ---
Author Organization [facility] Address [address] [place] [address] Care Team Providers Care Ground Crew Lines Person Name Role Phone Amrik [place] MD Primary Care Provider Un available Miguel Sousa MD Primary Care Provider [phone] Miguel Sousa MD Primary Care Provider [phone] Jacek Damon MD Unavailable Nuris Mcknight PA-C Unavailable Raj Marie MD Unavailable [phone] Shelby Mcneil NP Unavailable [phone] Encounter Details Date Type Department Care Team Description 02/10/2017 Business Doc Medical Records [address] [place] [address] Abstract, Provider Social History Tobacco Use Types [...] on filedocumented in this encounter Care Teams Ground Crew Lines Person Relationship Specialty Start Date End Date Amrik Richter MD PCP - General Internal Medicine 01/23/1704/17 Miguel Sousa MD [address] [place] [address] [phone] PCP - General Internal Medicine 01/30/19 Miguel Sousa MD [address] [place] [address] PCP - General 04/18/17 01/29/19 Jacek Damon MD [address] [place] [address] Induction Coordination Engineer Cardiovascular Disease 04/18/17 Nuris Mcknight PA-C [address] [place], [place] [phone] Specialist Cardiology 03/20/19 Raj Marie MD [address] [address] Induction Coordination Engineer Cardiology 05/03/21 Shelby Mcneil NP [address] [place] [address] Cardiology 09/11/23 documented as of this encounter
--- OUTSIDE RECORDS SUMMARY | 2024-06-20 14:35 | XMS_ITS | Encounter Summary ---
Author Organization [facility] Address [address] [place] [address] Care Team Providers Care Automotive Brake Technician Name Role Phone Miguel Sousa MD Primary Care Provider [phone] Jacek Damon MD Unavailable Nuris Mcknight PA-C Unavailable Raj Marie MD Unavailable [phone] Shelby Mcneil NP Unavailable [phone] Encounter Details Date Type Department Care Team Description 03/23/2022 SCAN Medical Records [address] [place] [address] Nicci Velasquez NP Social History Tobacco Use Types Packs/Day Years [...] Date/Time Associated Diagnosis Comments OUTSIDE LAB Routine 03/23/2022 documented in this encounter Results * OUTSIDE LAB (03/23/2022) Provider Abstract LAB documented in this encounter Visit Diagnoses Not on filedocumented in this encounter Care Teams Automotive Brake Technician Relationship Specialty Start Date End Date Miguel Sousa MD [address] [place] [address] PCP - General Internal Medicine 01/30/19 Jacek Damon MD [address] [place] [address] Sales Representative [facility] Cardiovascular Disease 04/18/17 Nuris Mcknight PA-C [address] [place], [place] [phone] Specialist Cardiology 03/20/19 Raj Marie MD [address] [place] [address] Sales Representative [facility] Cardiology 05/03/21 Shelby Mcneil NP [address] [facility] [address] [place] [address] Cardiology 09/11/23 documented as of this encounter
--- OUTSIDE RECORDS SUMMARY | 2024-06-20 14:35 | XMS_ITS | Encounter Summary ---
Author Organization [facility] Address [address] [place] [address] Care Team Providers Care Forming Department End Finder Name Role Phone Miguel Sousa MD Primary Care Provider [phone] Jacek Damon MD Unavailable Nuris Mcknight PA-C Unavailable Raj Marie MD Unavailable Shelby Mcneil NP Unavailable Reason for Visit * Reason Onset Date Comments Medication 08/08/2023 Encounter Details Date Type Department Care Team Description 08/08/2023 Telephone [address] 300 [facility] [address] [place] [address] Shelby Mcneil, STARTING GATE DRIVER [address] [facility] [place] [place] [address] Medication Social History Tobacco Use Types Packs/Day Years [...] encounter Miscellaneous Notes * Telephone Encounter - Corrie Aguirre C.M.A. - 08/08/2023 4:50 PM EDT Patient made aware of recommedations . * Telephone Encounter - Shelby Mcneil NP - 08/08/2023 4:01 PM EDT Excellent, please have him go back to furosemide 40 mg once daily with additional 40 mg tablet as needed as per instructions. Please have him continue to monitor his blood pressure at home; recent cardiac surgery set note reviewed which states goal blood pressure is 120-130/70-80. If his blood pressure remains consistently above this range, he should let us know so that we can readjust his medications as appropriate. Thank you! * Telephone Encounter - Corrie Aguirre C.M.A. - 08/08/2023 3:39 PM EDT Patient increased diuretci 40mg bid for three days as you instructed. Abdominal distention improved, no Leg, ankle, feet edema. Denies any SOB, orthopnea or PND. His BP at home little while ago 138-83 Present wt 240 Please advise dose of diuretic to continue * Telephone Encounter - Clinton Gold - 08/08/2023 2:47 PM EDT Finnish speaking patient is calling stating he was told by Yassine Mcneil to call and give uddate on medication change progress. Please call. documented in this encounter Plan of Treatment Not on file documented as of this encounter Visit Diagnoses Not on filedocumented in this encounter Care Teams Forming Department End Finder Relationship Specialty Start Date End Date Miguel Sousa MD [address] [place] [address] PCP - General Internal Medicine 01/30/19 Jacek Damon MD [address] [place] [address] Port Traffic Manager Cardiovascular Disease 04/18/17 Nuris Mcknight PA-C [address] [place] [address] Specialist Cardiology 03/20/19 Raj Marie MD [address] [facility] [address] [place] [address] Port Traffic Manager Cardiology 05/03/21 Shelby Mcneil NP [address] [facility] [address] [place] [address] Cardiology 09/11/23 documented as of this encounter
--- OUTSIDE RECORDS SUMMARY | 2024-06-20 14:35 | XMS_ITS | Encounter Summary ---
Author Organization [facility] Address [address] [place] [address] Care Team Providers Care Lab Support Tech Name Role Phone Miguel Sousa MD Primary Care Provider [phone] Jacek Damon MD Unavailable Nuris Mcknight PA-C Unavailable Raj Marie MD Unavailable [phone] Shelby Mcneil NP Unavailable [phone] Encounter Details Date Type Department Care Team Description 06/19/2023 Marketing Support Assistant Report Medical Records [address] [place] [address] Marcin Blas MD Social History Tobacco Use Types Packs/Day [...] on filedocumented in this encounter Care Teams Lab Support Tech Relationship Specialty Start Date End Date Miguel Sousa MD [address] [place] [address] PCP - General Internal Medicine 01/30/19 Jacek Damon MD [address] [place] [address] Patient Flow Coordinator Cardiovascular Disease 04/18/17 Nuris Mcknight PA-C [address] [place] [address] Specialist Cardiology 03/20/19 Raj Marie MD [address] [place] [address] Patient Flow Coordinator Cardiology 05/03/21 Shelby Mcneil NP [address] [place] [address] Cardiology 09/11/23 documented as of this encounter
--- OUTSIDE RECORDS SUMMARY | 2024-06-20 14:35 | XMS_ITS | Encounter Summary ---
Author Organization [facility] Address [address] [place] [address] Care Team Providers Care Final Assembly Worker Name Role Phone Miguel Sousa MD Primary Care Provider [phone] Jacek Damon MD Unavailable Nuris Mcknight PA-C Unavailable Raj Mraie MD Unavailable [phone] Shelby Mcneil NP Unavailable [phone] Reason for Visit * Reason Comments Anticoagulation Encounter Details Date Type Department Care Team Description 06/10/2021 Anticoagulation Therapy Cardio PVC [address] 300 [facility] [address] [place] [address] Jacek Damon MD [address] [place] [address] [phone] History of pulmonary embolism (Primary Dx); Old DC (myocardial infarction); Coronary artery disease, unspecified vessel or lesion type, unspecified whether angina present, unspecified whether morongo or transplanted heart Social History Tobacco Use Types Packs/Day Years [...] have Coronavirus / COVID-19? No / Unsure 05/28/2021 2:29 PM EST documented as of this encounter Plan of Treatment Not on file documented as of this encounter Procedures Procedure Name Priority Date/Time Associated Diagnosis Comments CHG PROTHROMBIN TIME Routine 06/10/2021 documented in this encounter Results * PROTHROMBIN TIME (06/10/2021) INR 2.9 2 - 3.5 06/10/2021 Provider Default LAB documented in this encounter Visit Diagnoses Diagnosis History of pulmonary embolism- Primary Personal history of pulmonary embolism Old DC (myocardial infarction) Old myocardial infarction Coronary artery disease, unspecified vessel or lesion type, unspecified whether angina present, unspecified whether morongo or transplanted heart documented in this encounter Care Teams Final Assembly Worker Relationship Specialty Start Date End Date Miguel Sousa MD [address] [place] [address] PCP - General Internal Medicine 01/30/19 Jacek Damon MD [address] [place] [address] Hydraulic Assembler Cardiovascular Disease 04/18/17 Nuris Mcknight PA-C [address] [place] [address] [phone] Specialist Cardiology 03/20/19 Raj Marie MD [address] [facility] [address] [place] [address] Hydraulic Assembler Cardiology 05/03/21 Shelby Mcneil NP [address] [place] [address] Cardiology 09/11/23 documented as of this encounter
--- OUTSIDE RECORDS SUMMARY | 2024-06-20 14:35 | XMS_ITS | Encounter Summary ---
Author Organization [facility] Address [address] [place] [address] Care Team Providers Care Wellness Coach Name Role Phone Amrik [place] MD Primary Care Provider Un available Miguel Sousa MD Primary Care Provider [phone] Miguel Sousa MD Primary Care Provider [phone] Jacek Damon MD Unavailable Nuris Mcknight PA-C Unavailable Raj Marie MD Unavailable [phone] Shelby Mcneil NP Unavailable [phone] Encounter Details Date Type Department Care Team Description 03/04/2017 Hospital Medical Records [address] [place] [address] Marcin Moore MD Social History Tobacco Use Types Packs/Day [...] on filedocumented in this encounter Care Teams Wellness Coach Relationship Specialty Start Date End Date Amrik Richter MD PCP - General Internal Medicine 01/23/1704/17 Miguel Sousa MD [address] [place] [address] [phone] PCP - General Internal Medicine 01/30/19 Miguel Sousa MD [address] [place] [address] [phone] PCP - General 04/18/17 01/29/19 Jacek Damon MD [address] [place] [address] [phone] Corporate Secretary Cardiovascular Disease 04/18/17 Nuris Mcknight PA-C [address] [place] [address] [phone] Specialist Cardiology 03/20/19 Raj Marie MD [address] [place] [address] Corporate Secretary Cardiology 05/03/21 Shelby Mcneil NP [address] [place] [address] Cardiology 09/11/23 documented as of this encounter
--- OUTSIDE RECORDS SUMMARY | 2024-06-20 14:35 | XMS_ITS | Encounter Summary ---
Author Organization [facility] Address [address] [place] [address] Care Team Providers Care Wine And Spirits Clerk Name Role Phone Miguel Sousa MD Primary Care Provider [phone] Jacek Damon MD Unavailable Nuris Mcknight PA-C Unavailable Raj Marie MD Unavailable [phone] Shelby Mcneil NP Unavailable [phone] Encounter Details Date Type Department Care Team Description 06/16/2021 Quarter Inspector Report Medical Records [address] [place] [address] Juan R Westfall PA-C Social History Tobacco Use Types Packs/Day [...] on filedocumented in this encounter Care Teams Wine And Spirits Clerk Relationship Specialty Start Date End Date Miguel Sousa MD [address] [place] [address] PCP - General Internal Medicine 01/30/19 Jacek Damon MD [address] [place] [address] Vice President Of Sales Cardiovascular Disease 04/18/17 Nuris Mcknight PA-C [address] [place], [place] [phone] Specialist Cardiology 03/20/19 Raj Marie MD [address] [place] [address] Vice President Of Sales Cardiology 05/03/21 Shelby Mcneil NP [address] [place] [address] Cardiology 09/11/23 documented as of this encounter
--- OUTSIDE RECORDS SUMMARY | 2024-06-20 14:35 | XMS_ITS | Encounter Summary ---
Author Organization [facility] Address [address] [place] [address] Care Team Providers Care It Disaster Recovery Manager Name Role Phone Amrik Richter MD Primary Care Provider Un available Miguel Sousa MD Primary Care Provider [phone] Miguel Sousa MD Primary Care Provider [phone] Jacek Damon MD Unavailable Nuris Mcknight PA-C Unavailable Raj Marie MD Unavailable [phone] Shelby Mcneil NP Unavailable [phone] Encounter Details Date Type Department Care Team Description 02/15/2017 PNO Controlled Substance Contract Medical Records [address] [place] [address] Abstract, Provider Social History Tobacco Use Types [...] on filedocumented in this encounter Care Teams It Disaster Recovery Manager Relationship Specialty Start Date End Date Amrik Richter MD PCP - General Internal Medicine 01/23/1704/17 Miguel Sousa MD [address] [place] [address] [phone] PCP - General Internal Medicine 01/30/19 Miguel Sousa MD [address] [place] [address] PCP - General 04/18/17 01/29/19 Jacek Damon MD [address] [place] [address] Dietary Internship Cardiovascular Disease 04/18/17 Nuris Mcknight PA-C [address] [place] [address] [phone] Specialist Cardiology 03/20/19 Raj Marie MD [address] [place] [address] Dietary Internship Cardiology 05/03/21 Shelby Mcneil NP [address] [place] [address] Cardiology 09/11/23 documented as of this encounter
--- OUTSIDE RECORDS SUMMARY | 2024-06-20 14:35 | XMS_ITS | Encounter Summary ---
Author Organization [facility] Address [address] [place] [address] Care Team Providers Care Fine Artist Name Role Phone Miguel Sousa MD Primary Care Provider [phone] Jacek Damon MD Unavailable Nuris Mcknight PA-C Unavailable Raj Marie MD Unavailable [phone] Shelby Mcneil NP Unavailable [phone] Encounter Details Date Type Department Care Team Description 07/03/2023 Hay Farmer Report Medical Records [address] [place] [address] Abstract, Provider Social History Tobacco Use Types [...] on filedocumented in this encounter Care Teams Fine Artist Relationship Specialty Start Date End Date Miguel Sousa MD [address] [place] [address] PCP - General Internal Medicine 01/30/19 Jacek Damon MD [address] [place] [address] Carry All Driver Cardiovascular Disease 04/18/17 Nuris Mcknight PA-C [address] [place] [address] Specialist Cardiology 03/20/19 Raj Marie MD [address] [place] [address] Carry All Driver Cardiology 05/03/21 Shelby Mcneil NP [address] [place] [address] Cardiology 09/11/23 documented as of this encounter
--- OUTSIDE RECORDS SUMMARY | 2024-06-20 14:35 | XMS_ITS | Encounter Summary ---
Author Organization [facility] Address [address] [place] [address] Care Team Providers Care Services Rep Name Role Phone Amrik Richter MD Primary Care Provider Un available Miguel Sousa MD Primary Care Provider [phone] Miguel Sousa MD Primary Care Provider [phone] Jacek Damon MD Unavailable Nuris Mcknight PA-C Unavailable Raj Marie MD Unavailable [phone] Shelby Mcneil NP Unavailable [phone] Encounter Details Date Type Department Care Team Description 02/28/2017 Hospital Medical Records [address] [place] [address] Social History Tobacco Use Types Packs/Day Years [...] on filedocumented in this encounter Care Teams Services Rep Relationship Specialty Start Date End Date Amrik Richter MD PCP - General Internal Medicine 01/23/1704/17 Miguel Sousa MD [address] [place] [address] [phone] PCP - General Internal Medicine 01/30/19 Miguel Sousa MD [address] [place] [address] PCP - General 04/18/17 01/29/19 Jacek Damon MD [address] [place] [address] Psychiatric Social Worker Supervisor Cardiovascular Disease 04/18/17 Nuris Mcknight PA-C [address] [place] [address] [phone] Specialist Cardiology 03/20/19 Raj Marie MD [address] [place] [address] Psychiatric Social Worker Supervisor Cardiology 05/03/21 Shelby Mcneil NP [address] [place] [address] Cardiology 09/11/23 documented as of this encounter
--- OUTSIDE RECORDS SUMMARY | 2024-06-20 14:35 | XMS_ITS | Encounter Summary ---
Author Organization [facility] Address [address] [place] [address] Care Team Providers Care Ignition Mechanic Name Role Phone Miguel Sousa MD Primary Care Provider [phone] Jacek Damon MD Unavailable Nuris Mcknight PA-C Unavailable Raj Marie MD Unavailable [phone] Shelby Mcneil NP Unavailable [phone] Encounter Details Date Type Department Care Team Description 05/29/2023 SCAN Medical Records [address] [place] [address] Abstract, Provider Social History Tobacco Use Types [...] as of this encounter Progress Notes * Jacek Damon MD - 05/30/2023 3:47 PM EST Just want to make the doctor doing the catheterization aware that creatinine 1.4. INR 1.5 on Xarelto. * Jacek Damon MD - 05/30/2023 3:46 PM EST These are precath labs. Creatinine and INR slightly elevated but okay documented in this encounter Plan of Treatment Not on file documented as of this encounter Procedures Procedure Name Priority Date/Time Associated Diagnosis Comments OUTSIDE LAB Routine 05/29/2023 OUTSIDE LAB Routine 05/29/2023 documented in this encounter Results * OUTSIDE LAB (05/29/2023) Provider Default LAB * OUTSIDE LAB (05/29/2023) Provider Default LAB documented in this encounter Visit Diagnoses Not on filedocumented in this encounter Care Teams Ignition Mechanic Relationship Specialty Start Date End Date Miguel Sousa MD [address] [place] [address] PCP - General Internal Medicine 01/30/19 Jacek Damon MD [address] [place] [address] Sales Agent Pest Control Service Cardiovascular Disease 04/18/17 Nuris Mcknight PA-C [address] [place] [address] Specialist Cardiology 03/20/19 Raj Marie MD [address] [place] [address] Sales Agent Pest Control Service Cardiology 05/03/21 Shelby Mcneil NP [address] [place] [address] Cardiology 09/11/23 documented as of this encounter
--- OUTSIDE RECORDS SUMMARY | 2024-06-20 14:35 | XMS_ITS | Encounter Summary ---
Author Organization [facility] Address [address] [place] [address] Care Team Providers Care Molder Foam Rubber Name Role Phone Miguel Sousa MD Primary Care Provider [phone] Jacek Damon MD Unavailable Nuris Mcknight PA-C Unavailable Raj Marie MD Unavailable [phone] Shelby Mcneil NP Unavailable [phone] Encounter Details Date Type Department Care Team Description 05/26/2023 Telephone Cardio PVC [facility] [address] [facility] [address] [place] [address] Jacek Damon MD [address] [place] [address] [phone] Social History Tobacco Use Types Packs/Day Years [...] encounter Miscellaneous Notes * Telephone Encounter - Nuris Mcknight PA-C - 05/31/2023 4:10 PM EST For cardiac cath - plse make sure japanese interpreter is there for procedure * Telephone Encounter - Nuris Mcknight PA-C - 05/31/2023 3:09 PM EST What does he require for prior Auth? I am seeing him today and off tomorrow and Monday so if this is not done he will have to reschedule. I did speak with Dr. Damon and he would be willing to do left heart cath at [facility] if no prior Auth is required but he would want to see the patient prior to scheduling the cardiac cath * Telephone Encounter - Carleen Candelaria - 05/30/2023 9:04 AM EST Patients cath is supposed to booked for 06/02/23 , which patient also has to be advised to stop medications after today. I was told that this patient doesn't require a auth for his LHC at [facility] so I attempted to book. [facility] is saying they are not going to book this patient without a auth because he does require one, Please advise because I would also have to tell the patient if we need to change his date. Thank you * Telephone Encounter - Carleen Candelaria - 05/26/2023 10:23 AM EST Spoke to pt to schedule cardiac cath, faxed worksheet to access. Will contact pt once confirmed andgo over instructions. Pt aware of plan and will await my call. ( Faxing labs to [facility] at [address]) Informed patient last dose of Xarelto will be on 05/30/23, pt understood told him all his other medications I will inform him about once confirmation comes back. documented in this encounter Plan of Treatment Not on file documented as of this encounter Results * (ABNORMAL) CHG BLOOD COUNT COMPLETE AUTO&AUTO DIFRNTL WBC (10/23/2023 11:22 AM EDT) [facility] Signature WHITE BLOOD COUNT 7.2 4.8 - 10.8 x10-3/uL 10/23/2023 2:09 PM EDT [facility] RED BLOOD COUNT 4.4(L) 4.5 - 5.5 x10-6/uL 10/23/2023 2:09 PM EDT [facility] Hemoglobin 13.4(L) 13.5 - 17.5 g/dL 10/23/2023 2:09 PM EDT [facility] Hematocrit 39.9(L) 42 - 54 % 10/23/2023 2:09 PM EDT [facility] MEAN CORPUSCULAR VOLUME 90.1 79 - 98 fL 10/23/2023 2:09 PM EDT [facility] MEAN CORPUSCULAR HEMOGLOBIN 30.2 27 - 32 pg 10/23/2023 2:09 PM EDT [facility] MEAN CORPUSCULAR HGB CONC 33.6 32 - 37 g/dL 10/23/2023 2:09 PM EDT [facility] [employer] RED CELL DISTRIBUTION WIDTH 14.1 11 - 15 % 10/23/2023 2:09 PM EDT [facility] [employer] PLT COUNT 217 130 - 400 x10-3/uL 10/23/2023 2:09 PM EDT [facility] [employer] MEAN PLATELET VOLUME 9.8 7 - 11 fL 10/23/2023 2:09 PM EDT [facility] NRBC % AUTO 0.0 <1 % 10/23/2023 2:09 PM EDT [facility] NEUTROPHILS % 65.7 % 10/23/2023 2:09 PM EDT [facility] LYMPH % 24.4 % 10/23/2023 2:09 PM EDT [facility] MONO % 7.5 % 10/23/2023 2:09 PM EDT [facility] EOS % 1.4 % 10/23/2023 2:09 PM EDT [facility] BASO % 0.6 % 10/23/2023 2:09 PM EDT [facility] IMMATURE GRANULOCYTES % 0.4 % 10/23/2023 2:09 PM EDT [facility] NRBC # AUTO 0.00 <0.1 x10-3/uL 10/23/2023 2:09 PM EDT [facility] NEUT # 4.71 1.5 - 7.0 x10-3/uL 10/23/2023 2:09 PM EDT [facility] LYMPH # 1.75 1 - 5.0 x10-3/uL 10/23/2023 2:09 PM EDT [facility] MONO # 0.54 0.2 - 1.0 x10-3/uL 10/23/2023 2:09 PM EDT [facility] EOS # 0.10 0 - 0.5 x10-3/uL 10/23/2023 2:09 PM EDT [facility] BASO # 0.04 0 - 0.2 x10-3/uL 10/23/2023 2:09 PM EDT [facility] IMMATURE GRANULOCYTES # 0.03 0 - 0.03 x10-3/uL 10/23/2023 2:09 PM EDT [facility] 10/23/2023 11:2 2 AM EDT 10/23/2023 11:19 AM EDT Narrative [facility] - 10/23/2023 2:09 PM EDT Release to patient->Immediate Jacek Damon MD LAB [facility] * CHG PROTHROMBIN TIME (10/23/2023 11:22 AM EDT) Prothrombin Time 13.6 10.6 - 13.9 SEC 10/23/2023 2:07 PM EDT [facility] INR 1.09 10/23/2023 2:07 PM EDT [facility] 10/23/2023 11:2 2 AM EDT 10/23/2023 11:22 AM EDT Narrative [facility] - 10/23/2023 2:07 PM EDT Release to patient->Immediate Jacek Damon MD LAB [facility] * (ABNORMAL) CHG BASIC METABOLIC PANEL CALCIUM TOTAL (10/23/2023 11:22 AM EDT) GLOMERULAR FILTRATION RATE 69 >60 10/23/2023 2:44 PM EDT [facility] Comment: This eGFR result was calculated using the CKD-EPI 2020 Creatinine Equation GLUCOSE 163(H) 70 - 100 mg/dL 10/23/2023 2:43 PM EDT [facility] Comment:Reference range appl icable to fasting specimens only Blood Urea Nitrogen 13 5 - 25 mg/dL 10/23/2023 2:44 PM EDT [facility] CREAT 1.09 0.7 - 1.3 mg/dL 10/23/2023 2:44 PM EDT [facility] NA 139 135 - 145 mEq/L 10/23/2023 2:44 PM EDT [facility] K 3.9 3.5 - 5.5 mmol/L 10/23/2023 2:44 PM EDT [facility] CL 100 96 - 110 mmol/L 10/23/2023 2:44 PM EDT [facility] CARBON DIOXIDE (CO2) 32 21 - 32 mmol/L 10/23/2023 2:44 PM EDT [facility] ANION GAP 7 3 - 11 10/23/2023 2:44 PM EDT [facility] CALCIUM 9.5 8.5 - 10.5 mg/dL 10/23/2023 2:44 PM EDT [facility] 10/23/2023 11:2 2 AM EDT 10/23/2023 11:22 AM EDT Narrative [facility] - 10/23/2023 2:43 PM EDT Release to patient->Immediate Jacek Damon MD LAB Performing Organization Address City/State/[facility] Co de Phone Number [facility] documented in this encounter Visit Diagnoses Diagnosis 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- Primary documented in this encounter Care Teams Molder Foam Rubber Relationship Specialty Start Date End Date Miguel Sousa MD [address] [place] [address] PCP - General Internal Medicine 01/30/19 Jacek Damon MD [address] [place] [address] Battery Container Tester Aluminum Cardiovascular Disease 04/18/17 Nuris Mcknight PA-C [address] [place] [address] Specialist Cardiology 03/20/19 Raj Marie MD [address] [place] [address] Battery Container Tester Aluminum Cardiology 05/03/21 Shelby Mcneil NP [address] [place] [address] Cardiology 09/11/23 documented as of this encounter
--- OUTSIDE RECORDS SUMMARY | 2024-06-20 14:35 | XMS_ITS | Encounter Summary ---
Author Organization [facility] Address [address] [place] [address] Care Team Providers Care Threshing Machine Operator Name Role Phone Miguel Sousa MD Primary Care Provider Jacek Damon MD Unavailable Nuris Mcknight PA-C Unavailable Raj Marie MD Unavailable [phone] Shelby Mcneil NP Unavailable [phone] Reason for Visit * Reason Comments Anticoagulation Encounter Details Date Type Department Care Team Description 06/01/2021 Anticoagulation Therapy Cardio PVC [address] [facility] [address] [place] [address] Nuris Mcknight PA-C [address] [place] [address] [phone] History of pulmonary embolism (Primary Dx); Old IA (myocardial infarction); Coronary artery disease, unspecified vessel or lesion type, unspecified whether angina present, unspecified whether kas[place] or transplanted heart Social History Tobacco Use [...] Associated Diagnosis Comments CHG PROTHROMBIN TIME Routine 06/01/2021 documented in this encounter Results * PROTHROMBIN TIME (06/01/2021) INR 2.4 2 - 3.5 06/01/2021 Provider Default LAB documented in this encounter Visit Diagnoses Diagnosis History of pulmonary embolism- Primary Personal history of pulmonary embolism Old IA (myocardial infarction) Old myocardial infarction Coronary artery disease, unspecified vessel or lesion type, unspecified whether angina present, unspecified whether kas[place] or transplanted heart documented in this encounter Care Teams Threshing Machine Operator Relationship Specialty Start Date End Date Miguel Sousa MD [address] [place] [address] PCP - General Internal Medicine 01/30/19 Jacek Damon MD [address] [place] [address] Marking Stitcher Cardiovascular Disease 04/18/17 Nuris Mcknight PA-C [address] [place] [address] Specialist Cardiology 03/20/19 Raj Marie MD [address] [facility] [address] [place] [address] Marking Stitcher Cardiology 05/03/21 Shelby Mcneil NP [address] [place] [address] Cardiology 09/11/23 documented as of this encounter
--- OUTSIDE RECORDS SUMMARY | 2024-06-20 14:35 | XMS_ITS | Encounter Summary ---
Author Organization [facility] Address [address] [place] [address] Care Team Providers Care Window Sash Installer Name Role Phone Miguel Sousa MD Primary Care Provider [phone] Jacek Damon MD Unavailable Nuris Mcknight PA-C Unavailable Raj Marie MD Unavailable [phone] Shelby Mcneil NP Unavailable [phone] Reason for Visit * Reason Onset Date Comments Pre Op Visit 09/22/2023 Encounter Details Date Type Department Care Team Description 09/22/2023 Telephone Adult Medicine [address] [phone] Miguel Sousa MD [address] [place] [address] [phone] Pre Op Visit Social History Tobacco Use Types Packs/Day Years [...] encounter Miscellaneous Notes * Telephone Encounter - Nicci Balderas - 09/22/2023 3:54 PM EDT Date of surgery:10/04/23 right eye - 10/18/23 left eye What surgery is patient having (gall bladder, cataract, appendix, etc...)?: cateract Surgeon's name: Soy Ballard Office phone number of surgeon: [phone] Fax # for surgeons office: [phone] (Required) Where is surgery being performed? [address] [place] Diagnosis/problem for surgery: Cateracts Is an EKG required for the pre-op workup? NO but needs an A1C PCP: Miguel Sousa Did you verify that the insurance below is correct? YES Patients insurance: Payor: [place] / Plan: Doutor RecomendaO $0 GILCHRIST [id number] / ProductType: HMO [id number] documented in this encounter Plan of Treatment Not on file documented as of this encounter Visit Diagnoses Not on filedocumented in this encounter Care Teams Window Sash Installer Relationship Specialty Start Date End Date Miguel Sousa MD [address] [place] [address] PCP - General Internal Medicine 01/30/19 Jacek Damon MD [address] [place] [address] Movie Machine Operator Cardiovascular Disease 04/18/17 Nuris Mcknight PA-C [address] [place] [address] [phone] Specialist Cardiology 03/20/19 Raj Marie MD [address] [address] Movie Machine Operator Cardiology 05/03/21 Shelby Mcneil NP [address] [facility] [address] [place] [address] Cardiology 09/11/23 documented as of this encounter
--- OUTSIDE RECORDS SUMMARY | 2024-06-20 14:35 | XMS_ITS | Encounter Summary ---
Author Organization [facility] Address [address] [place] [address] Care Team Providers Care Gold Blower Name Role Phone Miguel Sousa MD Primary Care Provider [phone] Jacek Damon MD Unavailable Nuris Mcknight PA-C Unavailable Raj Marie MD Unavailable [phone] Shelby Mcneil NP Unavailable [phone] Reason for Visit * Reason Comments Anticoagulation Encounter Details Date Type Department Care Team Description 07/19/2021 Anticoagulation Therapy Cardio PVC POC 154 [address] [facility] [address] [place] [address] Jacek Damon MD [address] [place] [address] [phone] Coronary artery disease with angina pectoris, unspecified vessel or lesion type, 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 No / Unsure 06/22/2021 11:25 AM EST documented as of this encounter Plan of Treatment Not on file documented as of this encounter Procedures Procedure Name Priority Date/Time Associated Diagnosis Comments CHG PROTHROMBIN TIME Routine 07/19/2021 documented in this encounter Results * PROTHROMBIN TIME (07/19/2021) INR 3.4 2 - 3.5 07/19/2021 Provider Default LAB documented in this encounter Visit Diagnoses Diagnosis Coronary artery disease with angina pectoris, unspecified vessel or lesion type, unspecified whether [place] or transplanted heart (HCC)- Primary documented in this encounter Care Teams Gold Blower Relationship Specialty Start Date End Date Miguel Sousa MD [address] [place] [address] [phone] PCP - General Internal Medicine 01/30/19 Jacek Damon MD [address] [place] [address] [phone] Biometrics Analyst Cardiovascular Disease 04/18/17 Nuris Mcknight PA-C [address] [place] [address] [phone] Specialist Cardiology 03/20/19 Raj Marie MD [address] [address] Biometrics Analyst Cardiology 05/03/21 Shelby Mcneil NP [address] [facility] [address] [place] [address] Cardiology 09/11/23 documented as of this encounter
--- OUTSIDE RECORDS SUMMARY | 2024-06-20 14:35 | XMS_ITS | Encounter Summary ---
Author Organization [facility] Address [address] [place] [address] Care Team Providers Care Naturalization Examiner Name Role Phone Amrik Richter MD Primary Care Provider Un available Miguel Sousa MD Primary Care Provider [phone] Miguel Sousa MD Primary Care Provider [phone] Jacek Damon MD Unavailable Nuris Mcknight PA-C Unavailable Raj Marie MD Unavailable [phone] Shelby Mcneil NP Unavailable [phone] Encounter Details Date Type Department Care Team Description 02/28/2017 Hospital Medical Records [address] [place] [address] Nuris Zabala PA-C Social History Tobacco Use Types Packs/Day [...] on filedocumented in this encounter Care Teams Naturalization Examiner Relationship Specialty Start Date End Date Amrik Richter MD PCP - General Internal Medicine 01/23/1704/17 Miguel Sousa MD [address] [place] [address] [phone] PCP - General Internal Medicine 01/30/19 Miguel Sousa MD [address] [place] [address] [phone] PCP - General 04/18/17 01/29/19 Jacek Damon MD [address] [place] [address] [phone] Intelligence Group Supervisor Cardiovascular Disease 04/18/17 Nuris Mcknight PA-C [address] [place] [address] [phone] Specialist Cardiology 03/20/19 aRj Marie MD [address] [place] [address] Intelligence Group Supervisor Cardiology 05/03/21 Shelby Mcneil NP [address] [place] [address] Cardiology 09/11/23 documented as of this encounter
--- OUTSIDE RECORDS SUMMARY | 2024-06-20 14:35 | XMS_ITS ---
Author Organization [facility] Address [address] [place] [address] Care Team Providers Care Furniture Mover Name Role Phone Sherry Randle Primary Care Provider Unavail Michaela Licea Unavailable [phone] Encounters Encounter Location Date Provider Diagnosis [facility] [address] [place] [address] [place] [phone] 04/19/2024 Michaela Goldman Plan Of Treatment Next Appt Details Provider Name:Michaela alcaraz, 09/20/2024 01:30:00 PM, [address] [facility], [address], [place], [address], Progress Notes * Chandra DE LEÓNDOB: [birth year] (78 yo M)Acc No.[id number]:04/19/2024 Progress Note Patient:?Chandra DE LEÓN Provider:?Michaela Goldman DPM :1945???Age:78 Y???Sex:Male Braxton e:04/19/2024 Address:[address] [place] [address], [address], [id number] Pcp:Sherry Randle Subjective: * Chief Complaints: * ??? * Medical History:? Objective: * Vitals:? Assessment: Plan: * Treatment: * Images: * The named appointment provid er may or may not be the originator of this progress note, and it is not deemed complete until electronically signed by the appointment provider. Sign off status: Pending * Provider:?Michaela Goldman DPM Date:?1 06/20/2023 Generated for Heriberto hassan/Demar/Renettaitting on:?06/20/2024 02:34 PM EST
--- OUTSIDE RECORDS SUMMARY | 2024-06-20 14:35 | XMS_ITS | Encounter Summary ---
Author Organization [facility] Address [address] [place] [address] Care Team Providers Care Shrimp Peeler Name Role Phone Miguel Sousa MD Primary Care Provider [phone] Jacek Damon MD Unavailable Nuris Mcknight PA-C Unavailable Raj Marie MD Unavailable [phone] Shelby Mcneil NP Unavailable [phone] Encounter Details Date Type Department Care Team Description 09/22/2023 Orders Only Medical Records [address] [place] [address] Soy Ballard MD Social History Tobacco Use Types Packs/Day [...] Associated Diagnosis Comments OUTSIDE EYE EXAM Routine 08/30/2023 documented in this encounter Results * OUTSIDE EYE EXAM (08/30/2023) Soy Ballard MD PROCEDURES documented in this encounter Visit Diagnoses Not on filedocumented in this encounter Care Teams Shrimp Peeler Relationship Specialty Start Date End Date Miguel Sousa MD [address] [place] [address] PCP - General Internal Medicine 01/30/19 Jacek aDmon MD [address] [place] [address] [phone] Windows Deployment Technician Cardiovascular Disease 04/18/17 Nuris Mcknight PA-C [address] [place] [address] [phone] Specialist Cardiology 03/20/19 Raj Marie MD [address] [address] Windows Deployment Technician Cardiology 05/03/21 Shelby Mcneil NP [address] [address] Cardiology 09/11/23 documented as of this encounter
--- OUTSIDE RECORDS SUMMARY | 2024-06-20 14:35 | XMS_ITS ---
[facility] Address [address] [facility] [place] [address] Care Team Providers Care Interactive Media Marketing Strategist Name Role Phone Sherry Randle Primary Care Provider Unavail able Michaela Goldman Unavailable [phone] Allergies Allergen (clinical drug ingredient) Drug/Non Drug Allergy documented on EMR Reaction Allergy Type Onset Date Status Penicillin Unknown Drug Allergy Active REASON FOR VISIT Skin Problem, At Risk Footcare Medications Medication SIG (Take, Route, Frequency, Duration) Notes Start Date End Date Status Clotrimazole-Betamethaso ne 1-0.05 % 1 application to affected area Externally Twice a day to affected areas on feet for 30 days Not-Taking LamISIL 250 MG 1 tablet Orally Once a day for 7 days 02/21/2023 Not-Taking Vitamin B 12 Active Vitamin C Active Trulicity Active Eye Cup Active Extra Depth Diabetic Shoes with 3 Pair Custom heat-molded multi-density innersoles for 1 year Dx: A ctive Ciclopirox Olamine 0.77 % 1 application to affected area Externally Twice a day to effected areas on feet for 30 days Active Ciclopirox Olamine 0.77 % 1 application Externally Twice a day to skin of feet including between the toes for 30 days Active Metformin & Diet Manage Prod Active Carvedilol Michael-Will sherwood Social History Tobacco Use: Social History Observation [...] Additional Findings: Tobacco non-user Current no nsmoker Vital Signs Height 6ft 1in in 05/31/2024 Weight 237 lbs 05/31/2024 BMI 31.26 kg/m2 05/31/2024 Blood pressure systolic 130 mm Hg 05/31/19 Blood pressure diastolic 75 mm Hg 025 Procedures Procedure Date Ordered Date Performed Result Body Sit e 25630-KFSXOCT NAIL, 6 OR MORE 05/31/2024 N/A 59325-XXHO SKIN LESIONS, OVER 4 05/31/2024 N/A Encounters Encounter Location Date Provider Diagnosis [facility] [place] [address] [place] [id number] 05/31/2024 Michaela Goldman Tinea pedis of both feet B35.3 ; Type 2 diabetes mellitus with diabetic polyneuropathy E11.42 and Tinea unguium B35.1 Assessments Encounter Date Diagnosis (ICD Code) Assessment Notes Treatment Notes Treatment Clinical Notes Section Notes 05/31/2024 Tinea pedis of both feet (ICD-10 - B35.3) 05/31/2024 Type 2 diabetes mellitus with diabetic polyneuropathy (ICD-10 - E11.42) 05/31/2024 Tinea unguium (ICD-10 - B35.1) Plan Of Treatment Medication Medication Name Sig Start Date Stop Date Notes Ciclopirox Olamine 0.77 % 1 application Externally Twice a day to skin of feet including between the toes for 30 days Pending Test Test Name Order Date [id number] NAIL, 6 OR MORE 05/31/2024 [id number] SKIN LESIONS, OVER 4 05/31/19 25 Next Appt Details Follow Up: 3 Months, Reason: Provider Name:Michaela alcaraz, 09/20/2024 01:30:00 PM, [address] [facility], [place] [address], [place], [phone], Procedure Notes * Category Sub-Category Detail Notes Debride Nail 6-10 Nail debridement Due to the cl inical pathology outlined in the exam findings, performance of this nail treatment is medically necessary as its management by an unskilled/untrained nonprofessional would put this patients foot and overall health at risk. Therefore, debridement to affected nail(s), as described in exam ( T1, T2, T3, T4, T6, T7, T8, T9, ), was performed exclusively by the physician of record to reduce/remove overall nail length, girth, thickness, subungual debris, and necrotic tissue, by manual and/or electrical means through the use of a nail nipper and/or dremel-type profile grinder, to a more viable healthy nail plate or bed tissue 6-10 nails in total. Silver nitrate was used for any petechial bleeding as necessary. Definitive antifungal treatment options, both pharmaceutical and surgical, have been reviewed and discussed with the patient. The patient solely prefers the use of intermittent/as needed professional debridement services for their nail condition and understands the need for additional periodic treatments to maintain effectiveness in symptomatic relief - 73880 Keratoma Treatment Parring or Cutting o f Benign Hyperkeratotic Lesion(s) (-57) More than 4 Lesions - Due to the at risk nature of the patients medical condition as documented in the exam findings, performance of this keratoderma treatment is medically necessary as its management by an unskilled/untrained nonprofessional would put this patients foot and overall health at risk. Therefore, the benign hyperkeratotic lesions, ( 6 ) in total, locations as stated and described in the exam ( Medial plantar, IPJ, TA, T5, SUB MTH (s), 1, B/L , plantar Heel(s), B/L ), were pared, and/or cut utilizing a sterile 15 blade, tissue nippers, and/or power dremel instrumentation by the physician of record - 49400 Progress Notes * Chandra DE LEÓNDOB: [birth year] (78 yo M)Acc No.[id number]:05/31/2024 Progress Note Patient:?Chandra DE LEÓN Provider:?Michaela Goldman DPM :1945???Age:78 Y???Sex:Male Braxton e:05/31/2024 Address:[address] [place] [address] [address], [place], [phone] Pcp:Sherry Randle Subjective: * Chief Complaints: * ???Skin ProblemAt Risk Footc are * HPI: ???Skin problems:?Nature:?scaling , redness.?Location:?B/L .?Duration:?several days.?Course:?worse.?At Risk footcare:?Pt States Last PCP Visit:?Date?05/29/2024 * ROS:?General/Constitutional:?Nausea?denies.?Vomiting?denies.?Hunger Thirst?denies.?Loss appetite?denies.?Chills?denies.?Fatigue?denies.?Fever?denies.?Night Sweats?denies.?Unexplained weight loss?denies.?Unexplained weight gain?denies.?HEENTM:?Dentures?denies.?Dizziness?denies.?Glasses/contacts?admits.?Retinopathy?de nies.?Blurred/double vision?denies.?TMJ?denies.?Discharge/drainage?denies.?Implants?denies.?Sore throat?denies.?Dental implants?denies.?Hard of hearing ?denies.?Difficulty chewing/swallowing/speaking?denies.?Nose bleeds?denies.?Sore mouth?denies.?Respiratory:?On Oxygen?denies.?Pneumonia/pleurisy?denies.?Bronchitis?denies.?Emphysema?denies.?C oughing?denies.?Cough blood?denies.?Shortness of breath?denies.?Wheezing?denies.?Cardiovascular:?Pacemaker?denies.?MVP?denies.?WPW?denies.?CHF?denies.?Heart attack?denies.?Septal defect?denies.?Rapid beat?denies.?Chest pain ?denies.?Atrial Fib.?denies.?Murmur/Palpitations?denies.?Gastrointestinal:?Hemorrhoids?denies.?Stomach/Abdominal pain?denies.?Dark blood stool?denies.?Irritable bowel ?denies.?Constipation?denies.?Diarrhea?denies.?Hematology:?Swelling?admits.?Clots?denies.?Varicose Veins?denies.?Bruising?denies.?Bleeding problem?denies.?Genitourinary:?Blood urine?denies.?Frequent/Painfu/urination/bladder control?denies.?Kidney stones?denies.?Infection (UTI)?denies.?Nephropathy?denies.?sex trans dis (STD)?denies.?Prostate?denies.?Musculoskeletal:?Hammertoes?denies.?Bunions?denies.?Back Pain?denies.?Muscle Cramps/ Resting?denies.?Muscle cramps / walking?denies.?Generalized aches and pains?denies.?Weakness?denies.?Integ.:?Key?denies.?Scars?denies.?Corns/calluses?denies.?Ingrown nails?denies.?Painful nails?denies.?Open Sores?denies.?Rashes?denies.?Neurologic:?Difficulty sleeping?denies.?Brain disorder?denies.?Numbness?denies.?Balance trouble?denies.?Confusion?denies.?Fainting/blackouts?denies.?Tingling?denies.?Tr emors?denies.? * Medical History:? * Surgical History:?cataracts, right 10/11/23 * Hospitalization/Major Diagno stic Procedure:?covid 12/2021[facility]- UTI, diverticulosis 09/2022[facility]- Covid 12/2023 * Family History:?Mother: dece ased.?Father: .? * Social History:?Tobacco Use:?Tobacco use other than smoking?Are you an other tobacco user??No ?Tobacco Control (Standard)?Tobacco use:?Nonsmoker ?Additional Findings: Tobacco non-user?Current nonsmoker ???Drugs/Alcohol:?Drugs?Have you used drugs other than those for medical reasons in the past 12 months??No ?Alcohol Screen?Did you have a drink containing alcohol in the past year??Yes ?How often did you have a drink containing alcohol in the past year??Monthly or less (1 point) ?Points?1 ?Interpretation?Negative ???Miscellaneous:?Children: yes. ?Exercise: yes. ?Marital status: single. ?Occupation: Retired. * Medications:?TakingExtra Dep th Diabetic Shoes with 3 Pair Custom heat-molded multi-density innersoles for 1 year Dx: Ciclopirox Olamine 0.77 % Cream 1 application to affected area Externally Twice a day to effected areas on feet Eye Cup Metformin & Diet Manage Prod Trulicity Vitamin B 12 Vitamin C Taking Extra Depth Diabetic Shoes with 3 Pair Custom heat-molded multi-density innersoles for 1 year Dx: Taking Ciclopirox Olamine 0.77 % Cream 1 application to affected area Externally Twice a day to effected areas on feet Taking Eye Cup Taking Metformin & Diet Manage Prod Taking Trulicity Taking Vitamin B 12 Taking Vitamin C Not-Taking/PRNClotrimazole-Betamethasone 1-0.05 % Cream 1 application to affected area Externally Twice a day to affected areas on feet LamISIL 250 MG Tablet 1 tablet Orally Once a day Carvedilol Medication List reviewed and reconciled with the patientNot-Taking/PRN Clotrimazole-Betamethasone 1-0.05 % Cream 1 application to affected area Externally Twice a day to affected areas on feet Not-Taking/PRN LamISIL 250 MG Tablet 1 tablet Orally Once a day Not-Taking/PRN Carvedilol Medication List reviewed and reconciled with the patient * Allergies:?Penicillinyes[All ergies Verified] Objective: * Vitals:?Ht: 6ft 1in, Wt: 237 , BMI: 31.26, Shoe size: 11.5, BP: 130/75 mm Hg, BS: 138, Wt-k.5 kg. * ???Past Orders: ???Lab:HEMOGLOBIN A1C (GLYCO HEMOGLOBIN) (Order Date - 05/29/2024) (Collection Date & Time - 05/29/2024 01:42 PM) ? Value Reference Range ?HEMOGLOBIN A1C % (HH) 8.0 * Examination: ???Ophthalmology Referral: ?DIABETES EYE EXAM?Dermatologic: ?SKIN FINDINGS:?Skin shows sign(s) of, erythema, scaling, in a moccasin fashion, no fissure(s) present, B/L , Skin exam reveals Keratotic lesion(s) located at?Medial plantar, IPJ, TA, T5, SUB MTH (s), 1, B/L , Heel(s), B/L.?Neurological: ?SENSORY:? Neurological exam demonstrates, reduced light touch sensation, reduced sharp/dull pin prick discrimination , B/L, 5.07 monofilament test performed at plantar aspects of 5 varied sites per foot shows sensation, reduced , B/L.?Nails: ?NAILS are:?Elongated, overgrown, dystrophic, lytic, greater than 3mm thick, discolored and friable with crumbly malodorous subungual debris, TA, T1, T2, T3, T4, T5, T6, T7, T8, T9.?Vascular: ?DP PULSES (B):?2/4, B/L.?PT PULSES (B):? 1/4, B/L.?CAPILLARY FILL TIME:?3 secs. per digit. B/L.?TROPHIC CONDITION-TEXTURE/ELASTICITY/TURGOR/HAIR GROWTH (B):?normal, B/L.?TEMPERTURE GRADIENT (C):?normal, B/L.?PIGMENTATION:?normal, B/L.?EDEMA (C):?absent, B/L.?TELANGECTASIA:?absent, B/L.?Orthopedic: ?MUSCLE STRENGTH:?5/5 all groups in a symmetrical fashion, B/L.?General Examination: ?GENERAL APPEARANCE:?Reveals a pleasant, alert, well nourished, well- developed, well hydrated individual, who demonstrates proper attention to hygiene/body habitus, and is in no acute distress, Pt serves as own historian for office visit today.?ORIENTED:?person, place, and time.? Assessment: * Assessment: 1.?Tinea pedis of both feet - B35.3???Specify :Acute problem, Uncomplicated (3),Rx drug management (4)???2.?Type 2 diabetes mellitus with diabetic polyneuropathy - E11.42 (Primary)???3.?Tinea unguium - B35.1??? Plan: * Treatment: 2.?Tinea pedis of both feet? Start Ciclopirox Olamine Cream, 0.77 %, 1 application, Externally, Twice a day to skin of feet including between the toes, 30 days, 120, Refills 3.?? * Procedures:?Debride Nail 6-10:?Nail debridement?Due to the clinical pathology outlined in the exam findings, performance of this nail treatment is medically necessary as its management by an unskilled/untrained nonprofessional would put this patients foot and overall health at risk. Therefore, debridement to affected nail(s), as described in exam (? T1, T2, T3, T4,? T6, T7, T8, T9, ), was performed exclusively by the physician of record to reduce/remove overall nail length, girth, thickness, subungual debris, and necrotic tissue, by manual and/or electrical means through the use of a nail nipper and/or dremel-type profile grinder, to a more viable healthy nail plate or bed tissue 6-10 nails in total. Silver nitrate was used for any petechial bleeding as necessary. Definitive antifungal treatment options, both pharmaceutical and surgical, have been reviewed and discussed with the patient. The patient solely prefers the use of intermittent/as needed professional debridement services for their nail condition and understands the need for additional periodic treatments to maintain effectiveness in symptomatic relief - 01175.?Keratoma Treatment:?Parring or Cutting of Benign Hyperkeratotic Lesion(s)?(-57) More than 4 Lesions - Due to the at risk nature of the patients medical condition as documented in the exam findings, performance of this keratoderma treatment is medically necessary as its management by an unskilled/untrained nonprofessional would put this patients foot and overall health at risk. Therefore, the benign hyperkeratotic lesions, ( 6 ) in total, locations as stated and described in the exam ( Medial plantar, IPJ, TA, T5, SUB MTH (s), 1, B/L , plantar Heel(s), B/L? ), were pared, and/or cut utilizing a sterile 15 blade, tissue nippers, and/or power dremel instrumentation by the physician of record - 73108.? * Procedure Codes:?81971 DEBRI DE NAIL, 6 OR MORE, Modifiers: XS 82334 TRIM SKIN LESIONS, OVER 4, Modifiers: XS * Preventive Medicine:? ??Counseling:?Discussion:?-13: Office or other outpatient visit for the evaluation and management of an established patient, which required a medically appropriate history and/or examination and LOW level of DECISION MAKING for: 1 STABLE ACUTE UNCOMPLICATED PROBLEM, 2 OR MORE MINOR PROBLEMS, OR 1 STABLE CHRONIC PROBLEM, THAT POSE(S) A LOW RISK FOR MORBIDITY/MORTALITY. The visit on the day of the encounter encompassed interpreting the data and educating the patient as to the nature of their condition, treatment options available according to their individual PMH, meds, allergies, and overall health/living conditions, as well as any potential risks or complications that may occur from a failure to adhere to, and participate in, the recommended course of therapy. The discussion included a complete verbal, and/or written explanation of the examination results, any x-rays taken, the proposed diagnosis, and outline of the treatment plan. A schedule for future care needs was also explained. The patient verbalized an understanding of the instructions at this time and agreed to be an active participant in their treatment. If the patient should think of any questions or concerns after the visit, I have encouraged the patient to call the office.?Tinea Pedis:?The patient was counseled on the diagnosis, potential etiologies, and treatment options for their skin condition. We discussed the risks and benefits of each option from performing no treatment, to utilizing OTC topical skin creams, prescription topical creams, customized compounded topical medications, and, if necessary, to utilize oral antifungal therapy. We discussed the advantages and disadvantages of each possible treatment and importance for adherence to all the recommended therapies for optimum success and avoid potential complications such as open sore/infection/possible hospitalization. We discussed the potential effectiveness of each topical preparation as well as each ones possible side effects and/or patient medication interactions if oral therapy is selected. Patient questions re: the advantages and disadvantages of each treatment choice, medication use/dosage, successful outcomes, and application consistency were reviewed and the patient verbalized that all answers were clearly understood. The patient was told they can help alleviate symptoms by utilizing moisture absorbant innersoles with activated charcoal and baking soda, applying antifungal sprays daily, aerating toe web spaces at night by putting cotton or lambs wool between the toes, alternating shoe gear daily if possible so they can dry out, changing socks at least once during the day, wearing well-ventilated shoes or sandals. The patient has decided to apply antifungal skin creams to their feet as directed. Rx was sent to their pharmacy at the time of visit.? ??Screening/Special Tests:?Fall Risk?Screening:?No falls in the past year ?FALLS: Screening for Future Fall Risk?Have you had any falls with injury in the past year??No * Follow Up:?3 Months * Images: * Sign off status: Completed true * Provider:?Michaela Goldman DPM Date:?0 05/31/2024 Generated for Heriberto hassan/Demar/eTransmitting on:?06/20/2024 02:35 PM EST History and Physical Notes * HPI (History of Present Illness) Category Sub-Category Detail Notes Category Not es Skin problems Nature: scaling , redness Location: B/L Duration: several days Course: worse At Risk footcare Pt States Last PCP Visit: Date: 5 Examination Category Sub-Category Detail Notes Category Not es Neurological SENSORY: Neurological exa m demonstrates, reduced light touch sensation, reduced sharp/dull pin prick discrimination , B/L, 5.07 monofilament test performed at plantar aspects of 5 varied sites per foot shows sensation, reduced , B/L Dermatologic SKIN FINDINGS: Skin shows sign( s) of, erythema, scaling, in a moccasin fashion, no fissure(s) present, B/L , Skin exam reveals Keratotic lesion(s) located at Medial plantar, IPJ, TA, T5, SUB MTH (s), 1, B/L , Heel(s), B/L Orthopedic MUSCLE STRENGTH: 5/5 all groups in a symmetrical fashion, B/L General Examination GENERAL APPEARANCE: Reveals a pleasant, alert, well nourished, well-developed, well hydrated individual, who demonstrates proper attention to hygiene/body habitus, and is in no acute distress, Pt serves as own historian for office visit today ORIENTED: person, place, and t devante Ophthalmology Referral DIABETES EYE EXAM Procedure Perform ed:: No Eye Exam not performed:: No reason speci fied Diabetic Retinopathy Screening:: No Vascular DP PULSES (B): 2/4, B/L PT PULSES (B): 1/4, B/L CAPILLARY FILL TIME: 3 secs. per digit. B/L TEMPERTURE GRADIENT (C): normal, B/L TROPHIC CONDITION-TEXTURE/ELASTICITY/TUR GOR/HAIR GROWTH (B): normal, B/L EDEMA (C): absent, B/L TELANGECTASIA: absent, B/L PIGMENTATION: normal, B/L Nails NAILS are: Elongated, overg rown, dystrophic, lytic, greater than 3mm thick, discolored and friable with crumbly malodorous subungual debris, TA, T1, T2, T3, T4, T5, T6, T7, T8, T9
--- OUTSIDE RECORDS SUMMARY | 2024-06-20 14:35 | XMS_ITS | Encounter Summary ---
Author Organization [facility] Address [address] [place] [address] Care Team Providers Care Photogrammetric Technician Name Role Phone Miguel Sousa MD Primary Care Provider [phone] Jacek Damon MD Unavailable Nuris Mcknight PA-C Unavailable Raj Marie MD Unavailable [phone] Shelby Mcneil NP Unavailable [phone] Reason for Visit * Reason Comments Anticoagulation Encounter Details Date Type Department Care Team Description 06/25/2021 Anticoagulation Therapy Cardio [address] [facility] [address] [place] [address] Jacek Damon MD [address] [place] [address] [phone] History of pulmonary embolism (Primary Dx); Old [place] (myocardial infarction); Coronary artery disease, unspecified vessel or lesion type, unspecified whether angina present, unspecified whether lumbee or transplanted heart Social History Tobacco Use [...] Procedure Name Priority Date/Time Associated Diagnosis Comments [facility] PROTHROMBIN TIME Routine 06/25/2021 documented in this encounter Results * (ABNORMAL) PROTHROMBIN TIME (06/25/2021) INR 3.6(A) 2 - 3.5 06/25/2021 Provider Default LAB documented in this encounter Visit Diagnoses Diagnosis History of pulmonary embolism- Primary Personal history of pulmonary embolism Old [place] (myocardial infarction) Old myocardial infarction Coronary artery disease, unspecified vessel or lesion type, unspecified whether angina present, unspecified whether lumbee or transplanted heart documented in this encounter Care Teams Photogrammetric Technician Relationship Specialty Start Date End Date Miguel Sousa MD [address] [place] [phone] PCP - General Internal Medicine 01/30/19 Jacek Damon MD [address] [place] [id number] High Density Press Operator Cardiovascular Disease 04/18/17 Nuris Mcknight PA-C [address] [place] [address] [phone] Specialist Cardiology 03/20/19 Raj Marie MD [address] [place] [address] High Density Press Operator Cardiology 05/03/21 Shelby Mcneil NP [address] [place] [address] Cardiology 09/11/23 documented as of this encounter
--- OUTSIDE RECORDS SUMMARY | 2024-06-20 14:35 | XMS_ITS | Encounter Summary ---
Author Organization [facility] Address [address] [place] [address] Care Team Providers Care Equipment Maintenance Supervisor Name Role Phone Amrik Richter MD Primary Care Provider Un available Miguel Sousa MD Primary Care Provider [phone] Miguel Sousa MD Primary Care Provider [phone] Jacek Damon MD Unavailable Nuris Mcknight PA-C Unavailable Raj Marie MD Unavailable [phone] Shelby Mcneil NP Unavailable [phone] Encounter Details Date Type Department Care Team Description 03/27/2017 Release of Information Medical Records [address] [place] [id number] Abstract, Provider Social History Tobacco Use Types [...] on filedocumented in this encounter Care Teams Equipment Maintenance Supervisor Relationship Specialty Start Date End Date Amrik Richter MD PCP - General Internal Medicine 01/23/1704/17 Miguel Sousa MD [address] [place] [address] [phone] PCP - General Internal Medicine 01/30/19 Miguel Sousa MD [address] [place] [address] PCP - General 04/18/17 01/29/19 Jacek Damon MD [address] [place] [address] Disk Sharpener Cardiovascular Disease 04/18/17 Nuris Mcknight PA-C [address] [place], [place] [phone] Specialist Cardiology 03/20/19 Raj Marie MD [address] [address] Disk Sharpener Cardiology 05/03/21 Shelby Mcneil NP [address] [place] [address] Cardiology 09/11/23 documented as of this encounter
--- OUTSIDE RECORDS SUMMARY | 2024-06-20 14:35 | XMS_ITS | Encounter Summary ---
Author Organization [facility] Address [address] [place] [address] Care Team Providers Care Oakes Machine Operator Name Role Phone Miguel Sousa MD Primary Care Provider [phone] Jacek Damon MD Unavailable Nuris Mcknight PA-C Unavailable Raj Marie MD Unavailable [phone] Shelby Mcneil NP Unavailable [phone] Reason for Visit * Reason Comments Anticoagulation Encounter Details Date Type Department Care Team Description 02/24/2022 Anticoagulation Therapy Cardio PVC [address] 300 [facility] [address] [place] [address] Raj Marie MD [address] [place] [address] 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- Primary documented in this encounter Care Teams Oakes Machine Operator Relationship Specialty Start Date End Date Miguel Sousa MD [address] [place] [address] [phone] PCP - General Internal Medicine 01/30/19 Jacek Damon MD [address] [place] [address] [phone] Patent Engineer Cardiovascular Disease 04/18/17 Nuris Mcknight PA-C [address] [place] [address] [phone] Specialist Cardiology 03/20/19 Raj Marie MD [address] [address] Patent Engineer Cardiology 05/03/21 Shelby Mcneil NP [address] [facility] [address] [place] [address] Cardiology 09/11/23 documented as of this encounter
--- OUTSIDE RECORDS SUMMARY | 2024-06-20 14:35 | XMS_ITS | Encounter Summary ---
Author Organization [facility] Address [address] [place] [address] Care Team Providers Care Runner Worker Name Role Phone Miguel Sousa MD Primary Care Provider [phone] Jacek Damon MD Unavailable Nuris Mcknight PA-C Unavailable Raj Marie MD Unavailable Shelby Mcneil NP Unavailable [phone] Reason for Visit * Reason Comments Anticoagulation Encounter Details Date Type Department Care Team Description 04/15/2022 Anticoagulation Therapy Cardio PVC [address] 300 [facility] [address] [place] [address] Jacek Damon MD [address] [place] [address] [phone] 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- Primary documented in this encounter Care Teams Runner Worker Relationship Specialty Start Date End Date Miguel Sousa MD [address] [place] [address] [phone] PCP - General Internal Medicine 01/30/19 Jacek Damon MD [address] [place] [address] [phone] District Manager In Training Cardiovascular Disease 04/18/17 Nuris Mcknight PA-C [address] [place] [address] [phone] Specialist Cardiology 03/20/19 Raj Marie MD [address] [place] [address] District Manager In Training Cardiology 05/03/21 Shelby Mcneil NP [address] [place] [address] Cardiology 09/11/23 documented as of this encounter
--- OUTSIDE RECORDS SUMMARY | 2024-06-20 14:35 | XMS_ITS | Encounter Summary ---
Author Organization [facility] Address [address] [place] [address] Care Team Providers Care Tool Polisher Name Role Phone Miguel Sousa MD Primary Care Provider [phone] Jacek Damon MD Unavailable Nuris Mcknight PA-C Unavailable Raj Marie MD Unavailable [phone] Shelby Mcneil NP Unavailable [phone] Encounter Details Date Type Department Care Team Description 06/22/2021 Telephone Pulmonology - [place] 175 [facility] [address] [place] [address] Briseyda Rios MD [address] [place] [address] Social History Tobacco Use Types Packs/Day Years [...] encounter Miscellaneous Notes * Telephone Encounter - Samara Vida - 06/23/2021 10:32 AM EST Called regional to get him linked to [employer] and it states hes not compliant. No report to print. * Telephone Encounter - Samara Mcpherson - 06/23/2021 8:38 AM EST Called regional and they are going to link it to [employer]. The compliance department said to check the site today and or within a few days and it will be linked. * Telephone Encounter - Briseyda Rios MD - 06/22/2021 7:21 PM EST Please get me a download of CPAP documented in this encounter Plan of Treatment Not on file documented as of this encounter Visit Diagnoses Not on filedocumented in this encounter Care Teams Tool Polisher Relationship Specialty Start Date End Date Miguel Sousa MD [address] [place] [address] PCP - General Internal Medicine 01/30/19 Jacek Damon MD [address] [place] [address] Backhaul Driver Cardiovascular Disease 04/18/17 Nuris Mcknight PA-C [address] [place] [address] Specialist Cardiology 03/20/19 Raj Marie MD [address] [address] Backhaul Driver Cardiology 05/03/21 Shelby Mcneil NP [address] [address] Cardiology 09/11/23 documented as of this encounter
--- OUTSIDE RECORDS SUMMARY | 2024-06-20 14:36 | XMS_ITS | Encounter Summary ---
Author Organization [facility] Address [address] [place] [address] Care Team Providers Care Repairer General Name Role Phone Miguel Sousa MD Primary Care Provider [phone] Jacek Damon MD Unavailable Nuris Mcknight PA-C Unavailable Raj Marie MD Unavailable [phone] Shelby Mcneil NP Unavailable [phone] Encounter Details Date Type Department Care Team Description 11/17/2023 Telephone Cardio PVCA Diag Testing 101 300 [facility] [address] [place], [place] [phone] Jacek Damon MD [address] [place] [address] [phone] Social History Tobacco Use Types Packs/Day Years [...] encounter Miscellaneous Notes * Telephone Encounter - Emily Garcia - 11/17/2023 1:37 PM EDT Patient returning call, Booked for 11/23/23 with Nuris Mcknight. * Telephone Encounter - Meghan Mclean - 11/17/2023 11:20 AM EDT Reached out and left a message to schedule for the next available opening with Nuris Mcknight. Please book from recall. documented in this encounter Plan of Treatment Not on file documented as of this encounter Visit Diagnoses Not on filedocumented in this encounter Care Teams Repairer General Relationship Specialty Start Date End Date Miguel Sousa MD [address] [place] [address] PCP - General Internal Medicine 01/30/19 Jacek Damon MD [address] [place] [address] [phone] Precision Lens Centerer And Edger Cardiovascular Disease 04/18/17 Nuris Mcknight PA-C [address] [place] [address] Specialist Cardiology 03/20/19 Raj Marie MD [address] [address] Precision Lens Centerer And Edger Cardiology 05/03/21 Shelby Mcneil NP [address] [facility] [address] [place] [address] Cardiology 09/11/23 documented as of this encounter
--- OUTSIDE RECORDS SUMMARY | 2024-06-20 14:36 | XMS_ITS | Encounter Summary ---
Author Organization [facility] Address [address] [place] [address] Care Team Providers Care Hat Conditioner Name Role Phone Miguel Sousa MD Primary Care Provider [phone] Jacek Damon MD Unavailable Nuris Mcknight PA-C Unavailable Raj Marie MD Unavailable [phone] Shelby Mcneil NP Unavailable [phone] Encounter Details Date Type Department Care Team Description 06/03/2019 Gastroenterology Physician Report Medical Records [address] [place] [address] Jacek Damon MD [address] [place] [address] [phone] Social History Tobacco Use Types Packs/Day Years [...] on filedocumented in this encounter Care Teams Hat Conditioner Relationship Specialty Start Date End Date Miguel Sousa MD [address] [place] [address] PCP - General Internal Medicine 01/30/19 Jacek Damon MD [address] [place] [address] Ticker Installer Cardiovascular Disease 04/18/17 Nuris Mcknight PA-C [address] [place] [address] Specialist Cardiology 03/20/19 Raj Marie MD [address] [facility] [address] [place] [address] Ticker Installer Cardiology 05/03/21 Shelby Mcneil NP [address] [facility] [address] [place] [address] Cardiology 09/11/23 documented as of this encounter
--- OUTSIDE RECORDS SUMMARY | 2024-06-20 14:36 | XMS_ITS | Encounter Summary ---
Author Organization [facility] Address [address] [place] [address] Care Team Providers Care Development Geologist Name Role Phone Miguel Sousa MD Primary Care Provider [phone] Jacek Damon MD Unavailable Nuris Mcknight PA-C Unavailable Raj Marie MD Unavailable [phone] Shelby Mcneil NP Unavailable [phone] Encounter Details Date Type Department Care Team Description 11/21/2023 Elementary [employer] Registrar Report Medical Records [address] [place] [address] Jacek Damon MD [address] [place] [address] [phone] Social History Tobacco Use Types Packs/Day Years [...] filedocumented in this encounter Care Teams Development Geologist Relationship Specialty Start Date End Date Miguel Sousa MD [address] [place] [address] PCP - General Internal Medicine 01/30/19 Jacek Damon MD [address] [place] [address] Blower And Compressor Assembler Cardiovascular Disease 04/18/17 Nuris Mcknight PA-C [address] [place] [address] Specialist Cardiology 03/20/19 Raj Marie MD [address] [facility] [address] [place] [address] Blower And Compressor Assembler Cardiology 05/03/21 Shelby Mcneil NP [address] [place] [address] Cardiology 09/11/23 documented as of this encounter
--- OUTSIDE RECORDS SUMMARY | 2024-06-20 14:36 | XMS_ITS | Encounter Summary ---
Author Organization [facility] Address [address] [place] [address] Care Team Providers Care Pari Mutuel Ticket Seller Name Role Phone Miguel Sousa MD Primary Care Provider Jacek Damon MD Unavailable Nuris Mcknight PA-C Unavailable Raj Marie MD Unavailable [phone] Shelby Mcneil NP Unavailable [phone] Reason for Visit * Reason Comments E-prescribe Rx Request Encounter Details Date Type Department Care Team Description 11/17/2023 Refill Adult Medicine [address] [phone] Ramirez Powell [address] [place] [address] [phone] E-prescribe Rx Request Social History Tobacco Use [...] encounter Miscellaneous Notes * Telephone Encounter - Donna Camejoadia - 12/19/2023 3:31 PM EDT Pending office visit 12/21/2023 Last office visit 10/23/2023 Lab Results Component Value Date HGBA1C 7.7 10/23/2023 MALBUR 855.0 07/12/2022 MALBCR 427.5 07/12/2022 CHOL 129 04/10/2023 LDL 66 04/10/2023 HDL 36 04/10/2023 TRIG 136 04/10/2023 GLU 163 10/23/2023 CREAT 1.09 10/23/2023 documented in this encounter Plan of Treatment Not on file documented as of this encounter Visit Diagnoses Diagnosis 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, not stated as uncontrolled documented in this encounter Care Teams Pari Mutuel Ticket Seller Relationship Specialty Start Date End Date Miguel Sousa MD [address] [place] [address] PCP - General Internal Medicine 01/30/19 Jacek Damon MD [address] [place] [address] Spout Liner Cardiovascular Disease 04/18/17 Nuris Mcknight PA-C [address] [place] [address] Specialist Cardiology 03/20/19 Raj Marie MD [address] [address] Spout Liner Cardiology 05/03/21 Shelby Mcneil NP [address] [address] Cardiology 09/11/23 documented as of this encounter
--- OUTSIDE RECORDS SUMMARY | 2024-06-20 14:36 | XMS_ITS | Encounter Summary ---
Author Organization [facility] Address [address] [place] [address] Care Team Providers Care Perioperative Educator Name Role Phone Miguel Sousa MD Primary Care Provider [phone] Jacek Damon MD Unavailable Nuris Mcknight PA-C Unavailable Raj Marie MD Unavailable [phone] Shelby Mcneil NP Unavailable [phone] Reason for Visit * Reason Comments Anticoagulation Encounter Details Date Type Department Care Team Description 07/30/2021 Anticoagulation Therapy Cardio PVC [address] 300 [facility] [address] [place] [address] Jacek Damon MD [address] [place] [address] [phone] Coronary artery disease with angina pectoris, unspecified vessel or lesion type, unspecified whether [place] or transplanted heart (HCC) (Primary Dx) Social [...] Procedure Name Priority Date/Time Associated Diagnosis Comments [facility] PROTHROMBIN TIME Routine 07/30/2021 documented in this encounter Results * PROTHROMBIN TIME (07/30/2021) INR 2.7 2 - 3.5 07/30/2021 Provider Default LAB documented in this encounter Visit Diagnoses Diagnosis Coronary artery disease with angina pectoris, unspecified vessel or lesion type, unspecified whether [place] or transplanted heart (HCC)- Primary documented in this encounter Care Teams Perioperative Educator Relationship Specialty Start Date End Date Miguel Sousa MD [address] [place] [address] PCP - General Internal Medicine 01/30/19 Jacek Damon MD [address] [place] [address] [phone] Product Manager Medical Device Cardiovascular Disease 04/18/17 Nuris Mcknight PA-C [address] [place] [address] [phone] Specialist Cardiology 03/20/19 Raj Marie MD [address] [place] [address] Product Manager Medical Device Cardiology 05/03/21 Shelby Mcneil NP [address] [place] [address] Cardiology 09/11/23 documented as of this encounter
--- OUTSIDE RECORDS SUMMARY | 2024-06-20 14:36 | XMS_ITS | Encounter Summary ---
Author Organization [facility] Address [address] [place] [address] Care Team Providers Care Account Development Representative Name Role Phone Miguel Sousa MD Primary Care Provider [phone] Jacek Damon MD Unavailable Nuris Mcknight PA-C Unavailable Raj Marie MD Unavailable [phone] Shelby Mcneil NP Unavailable [phone] Encounter Details Date Type Department Care Team Description 12/09/2019 Telephone Pulmonology - [place] 175 [facility] [address] [place] [address] Briseyda Rios MD [address] [place] [address] Social History Tobacco Use Types [...] on filedocumented in this encounter Care Teams Account Development Representative Relationship Specialty Start Date End Date Miguel Sousa MD [address] [place] [address] [phone] PCP - General Internal Medicine 01/30/19 Jacek Damon MD [address] [place] [address] Inter Fold Roll Cutter Cardiovascular Disease 04/18/17 Nuris Mcknight PA-C [address] [place], [place] [phone] Specialist Cardiology 03/20/19 Raj Marie MD [address] [place] [address] Inter Fold Roll Cutter Cardiology 05/03/21 Shelby Mcneil NP [address] [place] [address] Cardiology 09/11/23 documented as of this encounter
--- OUTSIDE RECORDS SUMMARY | 2024-06-20 14:36 | XMS_ITS | Encounter Summary ---
Author Organization [facility] Address [address] [place] [address] Care Team Providers Care Remote Medical Coder Name Role Phone Miguel Sousa MD Primary Care Provider [phone] Miguel Sousa MD Primary Care Provider [phone] Jacek Damon MD Unavailable Nuris Mcknight PA-C Unavailable Raj Marie MD Unavailable [phone] Shelby Mcneli NP Unavailable [phone] Encounter Details Date Type Department Care Team Description 11/02/2017 [facility] Medical Records [address] [place] [address] Abstract, Provider Social History Tobacco Use Types [...] on filedocumented in this encounter Care Teams Remote Medical Coder Relationship Specialty Start Date End Date Miguel Sousa MD [address] [place] [address] PCP - General Internal Medicine 01/30/19 Miguel Sousa MD [address] [place] [address] PCP - General 04/18/17 01/29/19 Jaeck Damon MD [address] [place] [address] Curtain Worker Cardiovascular Disease 04/18/17 Nuris Mcknight PA-C [address] [place] [address] Specialist Cardiology 03/20/19 Raj Marie MD [address] [place] [address] Curtain Worker Cardiology 05/03/21 Shelby Mcneil NP [address] [place] [address] Cardiology 09/11/23 documented as of this encounter
--- OUTSIDE RECORDS SUMMARY | 2024-06-20 14:36 | XMS_ITS | Encounter Summary ---
Author Organization [facility] Address [address] [place] [address] Care Team Providers Care Inspector Health Care Facilities Name Role Phone Miguel Sousa MD Primary Care Provider [phone] Jacek Damon MD Unavailable Nuris Mcknight PA-C Unavailable Raj Marie MD Unavailable [phone] Shelby Mcneil NP Unavailable [phone] Reason for Visit * Reason Comments E-prescribe Rx Request Encounter Details Date Type Department Care Team Description 12/06/2021 Refill Adult Medicine [address] [phone] Miguel Sousa MD [address] [place] [address] [phone] E-prescribe Rx Request Social History Tobacco Use [...] suspected to have Coronavirus/COVID-19? No / Unsure 12/07/2021 1:59 PM EDT documented as of this encounter Miscellaneous Notes * Telephone Encounter - Monica Goodson M.A. - 12/06/2021 9:09 AM EDT Last office visit 11/18/21 Next office visit 04/13/22 * Telephone Encounter - Renetta Hinds - 12/06/2021 7:50 AM EDT Patient would like script to be: E-PRESCRIBED/FAXED TO PHARMACY WHEN WAS THE PATIENT'S LAST APPOINTMENT IN ADULT MEDICINE? 11/18/21 WHEN WAS THE LAST TIME THE PATIENT SAW THEIR PCP? 05/13/21 Does patient have an upcoming appointment? Yes 04/13/22 (THE MEDICATION REQUESTED IS ON THE MED [...] N/A Patients current insurance carrier is: Payor: [facility] / Plan: Timeet $0 [place] [id number] / Product Type: HMO [id number] documented in this encounter Plan of Treatment Not on file documented as of this encounter Visit Diagnoses Not on filedocumented in this encounter Care Teams Inspector Health Care Facilities Relationship Specialty Start Date End Date Miguel Sousa MD [address] [place] [address] PCP - General Internal Medicine 01/30/19 Jacek Damon MD [address] [place] [address] Clinical Scientist Cardiovascular Disease 04/18/17 Nuris Mcknight PA-C [address] [place] [address] Specialist Cardiology 03/20/19 Raj Marie MD [address] [facility] [address] [place] [address] Clinical Scientist Cardiology 05/03/21 Shelby Mcneil NP [address] [place] [address] Cardiology 09/11/23 documented as of this encounter
--- OUTSIDE RECORDS SUMMARY | 2024-06-20 14:36 | XMS_ITS | Encounter Summary ---
Author Organization [facility] Address [address] [place] [address] Care Team Providers Care Marketing Account Manager Name Role Phone Miguel Sousa MD Primary Care Provider [phone] Jacek Damon MD Unavailable Nuris Mcknight PA-C Unavailable Raj Marie MD Unavailable [phone] Shelby Mcneil NP Unavailable [phone] Encounter Details Date Type Department Care Team Description 09/10/2019 Epic Specialist Report Medical Records [address] [place] [address] Nuris Mcknight PA-C [address] [place] [address] [phone] Social History Tobacco Use Types Packs/Day Years [...] on filedocumented in this encounter Care Teams Marketing Account Manager Relationship Specialty Start Date End Date Miguel Sousa MD [address] [place] [address] [phone] PCP - General Internal Medicine 01/30/19 Jacek Damon MD [address] [place] [address] [phone] Receptionist Cardiovascular Disease 04/18/17 Nuris Mcknight PA-C [address] [place] [address] Specialist Cardiology 03/20/19 Raj Marie MD [address] [facility] [address] [place] [address] Receptionist Cardiology 05/03/21 Shelby Mcneil NP [address] [facility] [address] [place] [address] Cardiology 09/11/23 documented as of this encounter
--- OUTSIDE RECORDS SUMMARY | 2024-06-20 14:36 | XMS_ITS | Encounter Summary ---
Author Organization [facility] Address [address] [place] [address] Care Team Providers Care Conditioning Coach Name Role Phone Miguel Sousa MD Primary Care Provider [phone] Jacek Damon MD Unavailable Nuris Mcknight PA-C Unavailable Raj Marie MD Unavailable [phone] Shelby Mcneil NP Unavailable [phone] Reason for Visit * Reason Onset Date Comments APPOINTMENT 11/17/2023 [facility] Encounter Details Date Type Department Care Team Description 11/17/2023 Telephone Cardio PVC [facility] [address] [place] [address] [address] [place] [phone] Nuris Mcknight PA-C [address] [place] [address] [phone] APPOINTMENT ([facility]) Social History Tobacco Use Types Packs/Day Years [...] * Telephone Encounter - Emily Garcia - 11/22/2023 2:21 PM EDT Patient daughter Noy(on verbal) calling, she cancelled appointment for aurelia with Nuris Alexander to concerns with insurance coverage. I explained that per note below, patient's insurance apporved Contiuity of care form . So then she decided they were going to keep appointment. I put patientback on schedule for original appointment on 11/23/23 at 10:40am with Nuris Mcknight. Noy confirmed patient will be attending this appointment. * Telephone Encounter - Liliana Smalls - 11/20/2023 4:32 PM EDT His Tabitha form has been approved and attached to the appointment. He is all set to come and see us. * Telephone Encounter - Melida Goetz - 11/17/2023 3:30 PM EDT Called and reminded patient that he has an appointment on 11/22 with Nuris Mcknight. I notified him thatbefore his appointment he will need to call [facility] to begin a continuity of care form.Patient stated he will call on Monday to begin the process. I advised the patient to call this afternoon so that it gives the insurance company a head start and more time to give the approval, as the approval needs to be received at [facility] before 11/22 or the patient can not be seen. Patient stated hewill ask someone to call this afternoon for him. Any questions or concerns, patient can be reached at [phone], [place] [place] [employer]. Thank you. documented in this encounter Plan of Treatment Not on file documented as of this encounter Visit Diagnoses Not on filedocumented in this encounter Care Teams Conditioning Coach Relationship Specialty Start Date End Date Miguel Sousa MD [address] [place] [address] PCP - General Internal Medicine 01/30/19 Jacek Damon MD [address] [place] [address] Yard Crane Operator Cardiovascular Disease 04/18/17 Nuris Mcknight PA-C [address] [place] [address] Specialist Cardiology 03/20/19 Raj Marie MD [address] [place] [address] Yard Crane Operator Cardiology 05/03/21 Shelby Mcneil NP [address] [facility] [address] [place] [address] Cardiology 09/11/23 documented as of this encounter
--- OUTSIDE RECORDS SUMMARY | 2024-06-20 14:36 | XMS_ITS | Encounter Summary ---
Author Organization [facility] Address [address] [place] [address] Care Team Providers Care Diamond Die Polisher Name Role Phone Miguel Suosa MD Primary Care Provider [phone] Jacek Damon MD Unavailable Nuris Mcknight PA-C Unavailable Raj Marie MD Unavailable [phone] Shelby Mcneil NP Unavailable [phone] Reason for Visit * Reason Comments Anticoagulation Encounter Details Date Type Department Care Team Description 09/14/2021 Anticoagulation Therapy Cardio PVC [address] [facility] [address] [place] [address] Jacek Damon MD [address] [place] [address] [phone] Coronary artery disease, unspecified vessel or lesion type, unspecified whether angina present, unspecified whether koi or transplanted heart (Primary Dx) Social History Tobacco Use Types [...] Procedure Name Priority Date/Time Associated Diagnosis Comments [facility] PROTHROMBIN TIME Routine 09/14/2021 documented in this encounter Results * (ABNORMAL) PROTHROMBIN TIME (09/14/2021) INR 4.7(A) 2 - 3.5 09/14/2021 Provider Default LAB documented in this encounter Visit Diagnoses Diagnosis Coronary artery disease, unspecified vessel or lesion type, unspecified whether angina present, unspecified whether koi or transplanted heart- Primary documented in this encounter Care Teams Diamond Die Polisher Relationship Specialty Start Date End Date Miguel Sousa MD [address] [place] [address] PCP - General Internal Medicine 01/30/19 Jacek Damon MD [address] [place] [address] [phone] Connection Worker Cardiovascular Disease 04/18/17 Nuris Mcknight PA-C [address] [place] [address] [phone] Specialist Cardiology 03/20/19 Raj Marie MD [address] [place] [address] Connection Worker Cardiology 05/03/21 Shelby Mcneil NP [address] [facility] [address] [place] [address] Cardiology 09/11/23 documented as of this encounter
--- OUTSIDE RECORDS SUMMARY | 2024-06-20 14:36 | XMS_ITS | Encounter Summary ---
Author Organization [facility] Address [address] [place] [address] Care Team Providers Care Gizzard Puller Name Role Phone Miguel Sousa MD Primary Care Provider [phone] Jacek Damon MD Unavailable Nuris Mcknight PA-C Unavailable Raj Marie MD Unavailable [phone] Shelby Mcneil NP Unavailable [phone] Reason for Visit * Reason Comments Anticoagulation Encounter Details Date Type Department Care Team Description 10/29/2021 Anticoagulation Therapy Cardio PVC [address] 300 [facility] [address] [place] [address] Jacek Damon MD [address] [place] [address] [phone] Coronary artery disease, unspecified vessel or lesion type, unspecified whether angina present, unspecified whether blackfeet or transplanted heart (Primary Dx) Social History [...] suspected to have Coronavirus/COVID-19? No / Unsure 11/01/2021 12:41 PM EDT documented as of this encounter Plan of Treatment Not on file documented as of this encounter Procedures Procedure Name Priority Date/Time Associated Diagnosis Comments CHG PROTHROMBIN TIME Routine 10/29/2021 documented in this encounter Results * PROTHROMBIN TIME (10/29/2021) INR 3.2 2 - 3.5 10/29/2021 Provider Default LAB documented in this encounter Visit Diagnoses Diagnosis Coronary artery disease, unspecified vessel or lesion type, unspecified whether angina present, unspecified whether blackfeet or transplanted heart- Primary documented in this encounter Care Teams Gizzard Puller Relationship Specialty Start Date End Date Miguel Sousa MD [address] [place] [address] [phone] PCP - General Internal Medicine 01/30/19 Jacek Damon MD [address] [place] [address] [phone] Tongue Presser Cardiovascular Disease 04/18/17 Nuris Mcknight PA-C [address] [place] [address] [phone] Specialist Cardiology 03/20/19 Raj Marie MD [address] [address] Tongue Presser Cardiology 05/03/21 Shelby Mcneil NP [address] [address] Cardiology 09/11/23 documented as of this encounter
--- OUTSIDE RECORDS SUMMARY | 2024-06-20 14:36 | XMS_ITS | Encounter Summary ---
Author Organization [facility] Address [address] [place] [address] Care Team Providers Care Lead Game Designer Name Role Phone Miguel Sousa MD Primary Care Provider [phone] Jacek Damon MD Unavailable Nuris Mcknight PA-C Unavailable Raj Marie MD Unavailable [phone] Shelby Mcneil NP Unavailable [phone] Reason for Visit * Reason Comments Anticoagulation Encounter Details Date Type Department Care Team Description 10/05/2021 Anticoagulation Therapy Cardio PVC [address] 300 [facility] [address] [place] [address] Jacek Damon MD [address] [place] [address] [phone] Coronary artery disease, unspecified vessel or lesion type, unspecified whether angina present, unspecified whether [place] or transplanted heart (Primary Dx) Social History [...] Procedure Name Priority Date/Time Associated Diagnosis Comments G PROTHROMBIN TIME Routine 10/05/2021 documented in this encounter Results * PROTHROMBIN TIME (10/05/2021) INR 3.3 2 - 3.5 10/05/2021 Provider Default LAB documented in this encounter Visit Diagnoses Diagnosis Coronary artery disease, unspecified vessel or lesion type, unspecified whether angina present, unspecified whether [place] and [place] or transplanted heart- Primary documented in this encounter Care Teams Lead Game Designer Relationship Specialty Start Date End Date Miguel Sousa MD [address] [place] [address] PCP - General Internal Medicine 01/30/19 Jacek Damon MD [address] [place] [address] [phone] Lens Coating Technician Cardiovascular Disease 04/18/17 Nuris Mcknight PA-C [address] [place] [address] [phone] Specialist Cardiology 03/20/19 Raj Marie MD [address] [facility] [address] [place] [address] Lens Coating Technician Cardiology 05/03/21 Shelby Mcneil NP [address] [facility] [address] [place] [address] Cardiology 09/11/23 documented as of this encounter
--- OUTSIDE RECORDS SUMMARY | 2024-06-20 14:36 | XMS_ITS | Encounter Summary ---
Author Organization [facility] Address [address] [place] [address] Care Team Providers Care Cobbler Apprentice Name Role Phone Miguel Sousa MD Primary Care Provider [phone] Miguel Sousa MD Primary Care Provider [phone] Jacek Damon MD Unavailable Nuris Mcknight PA-C Unavailable Raj Marie MD Unavailable [phone] Shelby Mcneil NP Unavailable [phone] Encounter Details Date Type Department Care Team Description 06/22/2017 Home Health Certification Medical Records [address] [place] [address] Vna Social History Tobacco Use Types Packs/Day Years [...] on filedocumented in this encounter Care Teams Cobbler Apprentice Relationship Specialty Start Date End Date Miguel Sousa MD [address] [place] [address] PCP - General Internal Medicine 01/30/19 Miguel Sousa MD [address] [place] [address] PCP - General 04/18/17 01/29/19 Jacek Damon MD [address] [place] [address] Technical Sales Support Manager Cardiovascular Disease 04/18/17 Nuris Mcknight PA-C [address] [place] [address] Specialist Cardiology 03/20/19 Raj Marie MD [address] [place] [address] Technical Sales Support Manager Cardiology 05/03/21 Shelby Mcneil NP [address] [place] [address] Cardiology 09/11/23 documented as of this encounter
--- OUTSIDE RECORDS SUMMARY | 2024-06-20 14:36 | XMS_ITS | Encounter Summary ---
Author Organization [facility] Address [address] [place] [address] Care Team Providers Care Market Basket Maker Name Role Phone Miguel Sousa MD Primary Care Provider [phone] Jacek Damon MD Unavailable Nuris Mcknight PA-C Unavailable Raj Marie MD Unavailable [phone] Shelby Mcneil NP Unavailable [phone] Encounter Details Date Type Department Care Team Description 12/22/2021 SCAN Medical Records [address] [place] [address] Abstract, Provider Social History Tobacco Use Types [...] Name Priority Date/Time Associated Diagnosis Comments OUTSIDE EKG Routine 12/22/2021 documented in this encounter Results * OUTSIDE EKG (12/22/2021) Provider Abstract CARDIOLOGY documented in this encounter Visit Diagnoses Not on filedocumented in this encounter Care Teams Market Basket Maker Relationship Specialty Start Date End Date Miguel Sousa MD [address] [place] [address] PCP - General Internal Medicine 01/30/19 Jacek Damon MD [address] [place] [address] Quencher Operator Cardiovascular Disease 04/18/17 Nuris Mcknight PA-C [address] [place] [address] Specialist Cardiology 03/20/19 Raj Marie MD [address] [place] [address] Quencher Operator Cardiology 05/03/21 Shelby Mcneil NP [address] [place] [address] Cardiology 09/11/23 documented as of this encounter
--- OUTSIDE RECORDS SUMMARY | 2024-06-20 14:36 | XMS_ITS | Encounter Summary ---
Author Organization [facility] Address [address] [place] [address] Care Team Providers Care Display Decorator Name Role Phone Miguel Sousa MD Primary Care Provider [phone] Jacek Damon MD Unavailable Nuris Mcknight PA-C Unavailable Raj Marie MD Unavailable [phone] Shelby Mcneil NP Unavailable [phone] Reason for Visit * Reason Onset Date Comments refill request 03/11/2020 Encounter Details Date Type Department Care Team Description 03/11/2020 Refill Adult Medicine [address] [phone] Miguel Sousa MD [address] [place] [address] [phone] refill request Social History Tobacco Use Types [...] have Coronavirus / COVID-19? No / Unsure 03/11/2020 1:08 PM EST documented as of this encounter Miscellaneous Notes * Telephone Encounter - Rama Clifford M.A. - 03/11/2020 1:22 PM EST Lab Results Component Value Date NA 140 11/29/2019 K 3.4 11/29/2019 CO2 38 11/29/2019 CL 97 11/29/2019 BUN 13 11/29/2019 CREAT 1.15 11/29/2019 GLU 191 11/29/2019 CA 9.1 11/29/2019 GFR > 60 11/29/2019 Pending appt with cp 03/19/20 * Telephone Encounter - Theodora Weir - 03/11/2020 12:51 PM EST Patient would like script to be: E-PRESCRIBED/FAXED TO PHARMACY ?? WHEN WAS THE PATIENT'S LAST APPOINTMENT IN ADULT MEDICINE? 01/16/2020 ?? WHEN WAS THE LAST TIME THE PATIENT SAW THEIR PCP? Same as above ?? Does patient have an upcoming appointment? Yes 03/19/2020 ?? (THE MEDICATION REQUESTED IS ON THE MED LIST ABOVE) All of the medications requested were on the CURRENT MEDS list ?? Did you check the Pharmacy information above?: YES ?? Patient wants: 30 -day supply ?? Is this a mail order prescription request ? NO ?? If the refill is from a FAXED refill request what is the RX # listed on the fax? N/A ?? Patients current insurance carrier is: Payor: [employer] / Plan: BushidoO $0 [id number] / Product Type: HMO [id number] ? documented in this encounter Plan of Treatment Not on file documented as of this encounter Visit Diagnoses Not on filedocumented in this encounter Care Teams Display Decorator Relationship Specialty Start Date End Date Miguel Sousa MD [address] [place] [address] PCP - General Internal Medicine 01/30/19 Jacek Damon MD [address] [place] [address] Sandwich Maker Cardiovascular Disease 04/18/17 Nuris Mcknight PA-C [address] [place] [address] Specialist Cardiology 03/20/19 Raj Marie MD [address] [place] [address] Sandwich Maker Cardiology 05/03/21 Shelby Mcneil NP [address] [place] [address] Cardiology 09/11/23 documented as of this encounter
--- OUTSIDE RECORDS SUMMARY | 2024-06-20 14:36 | XMS_ITS | Encounter Summary ---
Author Organization [facility] Address [address] [place] [address] Care Team Providers Care Crew Supervisor Name Role Phone Miguel Sousa MD Primary Care Provider [phone] Jacek Damon MD Unavailable Nuris Mcknihgt PA-C Unavailable Raj Marie MD Unavailable [phone] Shelby Mcneil NP Unavailable [phone] Reason for Visit * Reason Comments Anticoagulation Encounter Details Date Type Department Care Team Description 12/02/2021 Anticoagulation Therapy Cardio PVC [address] 300 [facility] [address] [place] [address] Raj Marie MD [address] [place] [address] Coronary artery disease, unspecified vessel or lesion type, unspecified whether angina present, unspecified whether [place] or transplanted heart (Primary Dx) Social History [...] suspected to have Coronavirus/COVID-19? No / Unsure 12/01/2021 10:42 AM EDT documented as of this encounter Plan of Treatment Not on file documented as of this encounter Procedures Procedure Name Priority Date/Time Associated Diagnosis Comments CHG PROTHROMBIN TIME Routine 12/02/2021 documented in this encounter Results * (ABNORMAL) PROTHROMBIN TIME (12/02/2021) INR 1.6(A) 2 - 3.5 12/02/2021 Provider Default LAB documented in this encounter Visit Diagnoses Diagnosis Coronary artery disease, unspecified vessel or lesion type, unspecified whether angina present, unspecified whether [place] or transplanted heart- Primary documented in this encounter Care Teams Crew Supervisor Relationship Specialty Start Date End Date Miguel Sousa MD [address] [place] [address] PCP - General Internal Medicine 01/30/19 Jacek Damon MD [address] [place] [address] Advertising Strategist Cardiovascular Disease 04/18/17 Nuris Mcknight PA-C [address] [place] [address] [phone] Specialist Cardiology 03/20/19 Raj Marie MD [address] [facility] [address] [place] [address] Advertising Strategist Cardiology 05/03/21 Shelby Mcneil NP [address] [facility] [address] [place] [address] Cardiology 09/11/23 documented as of this encounter
--- OUTSIDE RECORDS SUMMARY | 2024-06-20 14:36 | XMS_ITS | Encounter Summary ---
Author Organization [facility] Address [address] [place] [address] Care Team Providers Care Automation Test Engineer Name Role Phone Miguel Sousa MD Primary Care Provider [phone] Jacek Damon MD Unavailable Nuris Mcknight PA-C Unavailable Raj Marie MD Unavailable [phone] Shelby Mcneil NP Unavailable [phone] Reason for Visit * Reason Onset Date Comments Call From Insurance Co 09/17/2019 Encounter Details Date Type Department Care Team Description 09/17/2019 Telephone Adult Medicine [address] [phone] Miguel Sousa MD [address] [place] [address] [phone] Call From Insurance Co Social History Tobacco Use Types Packs/Day Years [...] encounter Miscellaneous Notes * Telephone Encounter - Jeffry Reed M.A. - 09/19/2019 4:51 PM EDT Spoke with Isadora from [facility] she is all set at least point she received some papers yesterday, but she wanted to get back to me. Isadora also said if there is anything she can do to help with this pt in the future dont hesitate to contact her. * Telephone Encounter - Jeffry Reed M.A. - 09/19/2019 4:39 PM EDT Called Isadora @ [phone], I gave my direct line as its hard to get through [phone], awaiting callback * Telephone Encounter - Soco Glass M.A. - 09/17/2019 2:31 PM EDT Left message to call back * Telephone Encounter - Aram Barajas - 09/17/2019 10:54 AM EDT Caller requesting call back from provider: Is the caller the patient? YES If caller is not the patient, what is the callers name? N/A Callers relationship to patient? N/A If person calling is not the patient themselves, is there a verbal release in FYI or permanent comments for this person: YES Reason for call back: [facility], Nurse, Isadora calling to get current dx's for this pt. Specfically has pt been diagnosed with anxiety? If so, is pt being treated for anxiety? Pt reports hx of dementia, curious to know what stage does pt have? Please advise. Caller offered to speak with the nurse for assistance: YES Response: Patient offered to speak with nurse for assistance and patient agreed. Message forwarded to nurse. documented in this encounter Plan of Treatment Not on file documented as of this encounter Visit Diagnoses Not on filedocumented in this encounter Care Teams Automation Test Engineer Relationship Specialty Start Date End Date Miguel Sousa MD [address] [place] [address] PCP - General Internal Medicine 01/30/19 Jacek Damon MD [address] [place] [address] Transportation Analyst Cardiovascular Disease 04/18/17 Nuris Mcknight PA-C [address] [place] [address] Specialist Cardiology 03/20/19 Raj Marie MD [address] [place] [address] Transportation Analyst Cardiology 05/03/21 Shelby Mcneil NP [address] [place] [address] Cardiology 09/11/23 documented as of this encounter
--- OUTSIDE RECORDS SUMMARY | 2024-06-20 14:36 | XMS_ITS | Encounter Summary ---
Author Organization [facility] Address [address] [place] [address] Care Team Providers Care Seam Press Operator Name Role Phone Miguel Sousa MD Primary Care Provider [phone] Jacek Damon MD Unavailable Nuris Mcknight PA-C Unavailable Raj Marie MD Unavailable [phone] Shelby Mcneil NP Unavailable [phone] Encounter Details Date Type Department Care Team Description 01/18/2020 Hospital Medical Records [address] [place] [address] Bj Jorgensen MD Social History Tobacco Use Types Packs/Day [...] have Coronavirus / COVID-19? No / Unsure 01/16/2020 2:03 PM EDT documented as of this encounter Plan of Treatment Not on file documented as of this encounter Procedures Procedure Name Priority Date/Time Associated Diagnosis Comments OUTSIDE LAB Routine 01/18/2020 documented in this encounter Results * OUTSIDE LAB (01/18/2020) Provider Default LAB documented in this encounter Visit Diagnoses Not on filedocumented in this encounter Care Teams Seam Press Operator Relationship Specialty Start Date End Date Miguel Sousa MD [address] [place] [address] PCP - General Internal Medicine 01/30/19 Jacek Damon MD [address] [place] [address] Icu Clerk Cardiovascular Disease 04/18/17 Nuris Mcknight PA-C [address] [place] [address] Specialist Cardiology 03/20/19 Raj Marie MD [address] [place] [address] Icu Clerk Cardiology 05/03/21 Shelby Mcneil NP [address] [place] [address] Cardiology 09/11/23 documented as of this encounter
--- OUTSIDE RECORDS SUMMARY | 2024-06-20 14:36 | XMS_ITS | Encounter Summary ---
Author Organization [facility] Address [address] [place] [address] Care Team Providers Care Mushroom Packer Name Role Phone Miguel Sousa MD Primary Care Provider [phone] Jacek Damon MD Unavailable Nuris Mcknight PA-C Unavailable Raj Marie MD Unavailable [phone] Shelby Mcneil NP Unavailable [phone] Encounter Details Date Type Department Care Team Description 01/30/2024 Orders Only Pulmonology - [place] [address] [facility] [address] [place] [address] Briseyda Rios MD [address] [place] [address] SHEYLA (obstructive sleep apnea) Social History Tobacco Use Types Packs/Day Years [...] Procedure Name Priority Date/Time Associated Diagnosis Comments SLEEP STUDY-FULL NEURO 16 CHANNEL Routine 01/16/2024 SHEYLA (obstructive sleep apnea) documented in this encounter Results * SLEEP STUDY-FULL NEURO 16 CHANNEL (01/16/2024) Briseyda Rios MD PULMONOLOGY documented in this encounter Visit Diagnoses Diagnosis SHEYLA (obstructive sleep apnea) Obstructive sleep apnea (adult) (pediatric) documented in this encounter Care Teams Mushroom Packer Relationship Specialty Start Date End Date Miguel Sousa MD [address] [place] [address] PCP - General Internal Medicine 01/30/19 Jacek Damon MD [address] [place] [address] [phone] Plate Finisher Cardiovascular Disease 04/18/17 Nuris Mcknight PA-C [address] [place] [address] [phone] Specialist Cardiology 03/20/19 Raj Marie MD [address] [facility] [address] [place] [address] Plate Finisher Cardiology 05/03/21 Shelby Mcneil NP [address] [facility] [address] [place] [address] Cardiology 09/11/23 documented as of this encounter
--- OUTSIDE RECORDS SUMMARY | 2024-06-20 14:36 | XMS_ITS | Encounter Summary ---
Author Organization [facility] Address [address] [place] [address] Care Team Providers Care Ice Maker Name Role Phone Miguel Sousa MD Primary Care Provider [phone] Miguel Sousa MD Primary Care Provider [phone] Jacek Damon MD Unavailable Nuris Mcknight PA-C Unavailable Raj Marie MD Unavailable [phone] Shelby Mcneil NP Unavailable [phone] Encounter Details Date Type Department Care Team Description 01/25/2018 Transfer Records Medical Records [address] [place] [address] Abstract, Provider Social History Tobacco Use Types [...] on filedocumented in this encounter Care Teams Ice Maker Relationship Specialty Start Date End Date Miguel Sousa MD [address] [place] [address] PCP - General Internal Medicine 01/30/19 Miguel Sousa MD [address] [place] [address] [phone] PCP - General 04/18/17 01/29/19 Jacek Damon MD [address] [place] [address] Napkin Machine Operator Cardiovascular Disease 04/18/17 Nuris Mcknight PA-C [address] [place] [address] Specialist Cardiology 03/20/19 Raj Marie MD [address] [place] [address] Napkin Machine Operator Cardiology 05/03/21 Shelby Mcneil NP [address] [place] [address] Cardiology 09/11/23 documented as of this encounter
--- OUTSIDE RECORDS SUMMARY | 2024-06-20 14:36 | XMS_ITS | Encounter Summary ---
Author Organization [facility] Address [address] [place] [address] Care Team Providers Care Scale Attendant Name Role Phone Miguel Sousa MD Primary Care Provider [phone] Jacek Damon MD Unavailable Nuris Mcknight PA-C Unavailable Raj Marie MD Unavailable [phone] Shelby Mcneil NP Unavailable [phone] Encounter Details Date Type Department Care Team Description 07/02/2019 Orders Only Adult Medicine [address] [phone] Miguel Sousa MD [address] [place] [address] [phone] Social History Tobacco Use Types Packs/Day Years [...] on filedocumented in this encounter Care Teams Scale Attendant Relationship Specialty Start Date End Date Miguel Sousa MD [address] [place] [address] [phone] PCP - General Internal Medicine 01/30/19 Jacek Damon MD [address] [place] [address] Tire Bladder Maker Cardiovascular Disease 04/18/17 Nuris Mcknight PA-C [address] [place], [place] [phone] Specialist Cardiology 03/20/19 Raj Marie MD [address] [facility] [address] [place] [address] Tire Bladder Maker Cardiology 05/03/21 Shelby Mcneil NP [address] [facility] [address] [place] [address] Cardiology 09/11/23 documented as of this encounter
--- OUTSIDE RECORDS SUMMARY | 2024-06-20 14:36 | XMS_ITS | Encounter Summary ---
Author Organization [facility] Address [address] [place] [address] Care Team Providers Care Railcar Brake Operator Name Role Phone Miguel Sousa MD Primary Care Provider [phone] Jacek Damon MD Unavailable Nuris Mcknight PA-C Unavailable Raj Marie MD Unavailable Shelby Mcneil NP Unavailable [phone] Encounter Details Date Type Department Care Team Description 12/22/2021 SCAN Medical Records [address] [place] [address] Abstract, Provider Social History Tobacco Use Types [...] Name Priority Date/Time Associated Diagnosis Comments OUTSIDE PLAIN FILM Routine 12/22/2021 documented in this encounter Results * OUTSIDE PLAIN FILM (12/22/2021) Provider Abstract RADIOLOGY documented in this encounter Visit Diagnoses Not on filedocumented in this encounter Care Teams Railcar Brake Operator Relationship Specialty Start Date End Date Miguel Sousa MD [address] [place] [address] PCP - General Internal Medicine 01/30/19 Jacek Damon MD [address] [place] [address] Toe Lining Closer Cardiovascular Disease 04/18/17 Nuris Mcknight PA-C [address] [place] [address] Specialist Cardiology 03/20/19 Raj Marie MD [address] [place] [address] Toe Lining Closer Cardiology 05/03/21 Shelby Mcneil NP [address] [place] [address] Cardiology 09/11/23 documented as of this encounter
--- OUTSIDE RECORDS SUMMARY | 2024-06-20 14:36 | XMS_ITS | Encounter Summary ---
Author Organization [facility] Address [address] [place] [address] Care Team Providers Care Bessemer Regulator Name Role Phone Miguel Sousa MD Primary Care Provider [phone] Jacek Damon MD Unavailable Nuris Mcknight PA-C Unavailable Raj Marie MD Unavailable [phone] Shelby Mcneil NP Unavailable [phone] Encounter Details Date Type Department Care Team Description 12/09/2019 Telephone Pulmonology - [place] [address] [facility] [address] [place] [address] Briseyda Rios MD [address] [place] [address] Social History Tobacco Use Types [...] on filedocumented in this encounter Care Teams Bessemer Regulator Relationship Specialty Start Date End Date Miguel Sousa MD [address] [place] [address] [phone] PCP - General Internal Medicine 01/30/19 Jacek Damon MD [address] [place] [address] Finishing Range Feeder Cardiovascular Disease 04/18/17 Nuris Mcknight PA-C [address] [place], [place] [phone] Specialist Cardiology 03/20/19 Raj Marie MD [address] [place] [address] Finishing Range Feeder Cardiology 05/03/21 Shelby Mcneil NP [address] [place] [address] Cardiology 09/11/23 documented as of this encounter
--- OUTSIDE RECORDS SUMMARY | 2024-06-20 14:36 | XMS_ITS | Encounter Summary ---
Author Organization [facility] Address [address] [place] [address] Care Team Providers Care Physicist Astrophysics Name Role Phone Miguel Sousa MD Primary Care Provider Jacek Damon MD Unavailable Nuris Mcknight PA-C Unavailable Raj Marie MD Unavailable [phone] Shelby Mcneil NP Unavailable [phone] Encounter Details Date Type Department Care Team Description 12/20/2019 Orders Only Physiatry - [address] [phone] Adonis Pina PA-C Lumbar radiculopathy (Primary Dx) Social History Tobacco Use Types [...] documented as of this encounter Results * MRI OF LUMBAR SPINE NO CONTRAST (01/09/2020) Adonis Pina PA-C MRI [facility] [address] [facility] documented in this encounter Visit Diagnoses Diagnosis Lumbar radiculopathy- Primary Thoracic or lumbosacral neuritis or radiculitis, unspecified documented in this encounter Care Teams Physicist Astrophysics Relationship Specialty Start Date End Date Miguel Sousa MD [address] [place] [address] [phone] PCP - General Internal Medicine 01/30/19 Jacek Damon MD [address] [place] [address] [phone] Laboratory Tester Cardiovascular Disease 04/18/17 Nuris Mcknight PA-C [address] [place] [address] [phone] Specialist Cardiology 03/20/19 Raj Marie MD [address] [place] [address] Laboratory Tester Cardiology 05/03/21 Shelby Mcneil NP [address] [place] [address] Cardiology 09/11/23 documented as of this encounter
--- OUTSIDE RECORDS SUMMARY | 2024-06-20 14:36 | XMS_ITS | Encounter Summary ---
Author Organization [facility] Address [address] [place] [address] Care Team Providers Care Sewing Machine Maintenance Mechanic Name Role Phone Miguel Sousa MD Primary Care Provider [phone] Jacek Damon MD Unavailable Nuris Mcknight PA-C Unavailable Raj Marie MD Unavailable [phone] Shelby Mcneil NP Unavailable [phone] Reason for Visit * Reason Comments Anticoagulation Encounter Details Date Type Department Care Team Description 09/01/2021 Anticoagulation Therapy Cardio PVC [address] [facility] [address] [place] [address] Raj Marie MD [address] [place] [address] Coronary artery disease, unspecified vessel or lesion type, unspecified whether angina present, unspecified whether [place] or transplanted heart (Primary Dx) Social History [...] Associated Diagnosis Comments G PROTHROMBIN TIME Routine 09/01/2021 documented in this encounter Results * PROTHROMBIN TIME (09/01/2021) INR 2.2 2 - 3.5 09/01/2021 Provider Default LAB documented in this encounter Visit Diagnoses Diagnosis Coronary artery disease, unspecified vessel or lesion type, unspecified whether angina present, unspecified whether [place] or transplanted heart- Primary documented in this encounter Care Teams Sewing Machine Maintenance Mechanic Relationship Specialty Start Date End Date Miguel Sousa MD [address] [place] [address] [phone] PCP - General Internal Medicine 01/30/19 Jacek Damon MD [address] [place] [address] [phone] Hides Inspector Cardiovascular Disease 04/18/17 Nuris Mcknight PA-C [address] [place] [address] Specialist Cardiology 03/20/19 Raj Marie MD [address] [place] [address] Hides Inspector Cardiology 05/03/21 Shelby Mcneil NP [address] [place] [address] Cardiology 09/11/23 documented as of this encounter
--- OUTSIDE RECORDS SUMMARY | 2024-06-20 14:36 | XMS_ITS | Encounter Summary ---
Author Organization [facility] Address [address] [place] [address] Care Team Providers Care Counselor Camp Name Role Phone Miguel Sousa MD Primary Care Provider [phone] Miguel Sousa MD Primary Care Provider [phone] Jacek Damon MD Unavailable Nuris Mcknight PA-C Unavailable Raj Marie MD Unavailable [phone] Shelby Mcneil NP Unavailable [phone] Encounter Details Date Type Department Care Team Description 06/14/2017 Hospital Medical Records [address] [place] [address] Loreta Callejas MD Social History Tobacco Use Types Packs/Day [...] on filedocumented in this encounter Care Teams Counselor Camp Relationship Specialty Start Date End Date Miguel Sousa MD [address] [place] [address] PCP - General Internal Medicine 01/30/19 Miguel Sousa MD [address] [place] [address] PCP - General 04/18/17 01/29/19 Jacek Damon MD [address] [place] [address] Forming Press Operator Cardiovascular Disease 04/18/17 Nuris Mcknight PA-C [address] [place] [address] [phone] Specialist Cardiology 03/20/19 Raj Marie MD [address] [place] [address] Forming Press Operator Cardiology 05/03/21 Shelby Mcneil NP [address] [place] [address] Cardiology 09/11/23 documented as of this encounter
--- OUTSIDE RECORDS SUMMARY | 2024-06-20 14:36 | XMS_ITS | Encounter Summary ---
Author Organization [facility] Address [address] [place] [address] Care Team Providers Care Fifth Grade Teacher Name Role Phone Miguel Sousa MD Primary Care Provider [phone] Jacek Damon MD Unavailable Nuris Mcknight PA-C Unavailable Raj Marie MD Unavailable [phone] Shelby Mcneil NP Unavailable [phone] Reason for Visit * Reason Comments Anticoagulation Encounter Details Date Type Department Care Team Description 09/17/2021 Anticoagulation Therapy Cardio PVC [address] [facility] [address] [place] [address] Jacek Damon MD [address] [place] [address] [phone] Coronary artery disease, unspecified vessel or lesion type, unspecified whether angina present, unspecified whether [place] or transplanted heart (Primary Dx) Social History [...] Procedure Name Priority Date/Time Associated Diagnosis Comments [facility] PROTHROMBIN TIME Routine 09/17/2021 documented in this encounter Results * PROTHROMBIN TIME (09/17/2021) INR 2.4 2 - 3.5 09/17/2021 Provider Default LAB documented in this encounter Visit Diagnoses Diagnosis Coronary artery disease, unspecified vessel or lesion type, unspecified whether angina present, unspecified whether [place] or transplanted heart- Primary documented in this encounter Care Teams Fifth Grade Teacher Relationship Specialty Start Date End Date Miguel Sousa MD [address] [place] [phone] PCP - General Internal Medicine 01/30/19 Jacek Damon MD [address] [place] [address] [phone] Glaze Mixer Cardiovascular Disease 04/18/17 Nuris Mcknight PA-C [address] [place] [address] [phone] Specialist Cardiology 03/20/19 Raj Marie MD [address] [facility] [address] [place] [address] Glaze Mixer Cardiology 05/03/21 Shelby Mcneil NP [address] [facility] [address] [place] [address] Cardiology 09/11/23 documented as of this encounter
--- OUTSIDE RECORDS SUMMARY | 2024-06-20 14:36 | XMS_ITS | Encounter Summary ---
Author Organization [facility] Address [address] [place] [address] Care Team Providers Care Striker Out Name Role Phone Miguel Sousa MD Primary Care Provider [phone] Jacek Damon MD Unavailable Nuris Mcknight PA-C Unavailable Raj Marie MD Unavailable [phone] Shelby Mcneil NP Unavailable [phone] Encounter Details Date Type Department Care Team Description 10/24/2023 Orders Only Adult Medicine [address] [address] Shay Cartagena PA-C [address] [place], [place] [phone] Anemia, unspecified type (Primary Dx) Social History Tobacco Use Types [...] of this encounter Results * (ABNORMAL) CHG ASSAY OF FERRITIN (12/21/2023 11:01 AM EDT) FERRITIN 21(L) 26 - 388 ng/mL 12/21/2023 6:08 PM EDT [facility] 12/21/2023 11:0 1 AM EDT 12/21/2023 11:01 AM EDT Narrative [facility] - 12/21/2023 6:08 PM EDT Release to patient->Immediate Shay Cartagena PA-C LAB Performing Organization Address City/[facility]/ZIP Co de Phone Number [facility] * (ABNORMAL) IRON/TIBC (12/21/2023 11:01 AM EDT) TOTAL IRON BINDING CAPACITY 390 250 - 450 ug/dL 12/21/2023 5:46 PM EDT [facility] IRON (FE) 62 50 - 160 ug/dL 12/21/2023 5:46 PM EDT [facility] % FE SATURATION 16(L) 20 - 50 % 5:46 PM EDT [facility] 12/21/2023 11:0 1 AM EDT 12/21/2023 11:01 AM EDT Narrative [facility] - 12/21/2023 5:46 PM EDT Release to patient->Immediate Shay Cartagena PA-C LAB Performing Organization Address [facility] Co de Phone Number [facility] documented in this encounter Visit Diagnoses Diagnosis Anemia, unspecified type- Primary 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, not stated as uncontrolled Encounter for long-term (current) use of medications Encounter for long-term (current) use of other medications Chronic congestive heart failure, unspecified heart failure type (HCC) Anemia, unspecified type documented in this encounter Care Teams Striker Out Relationship Specialty Start Date End Date Miguel Sousa MD [address] [place] [address] PCP - General Internal Medicine 01/30/19 Jacek Damon MD [address] [place] [address] Sheeter Machine Operator Cardiovascular Disease 04/18/17 Nuris Mcknight PA-C [address] [place] [address] Specialist Cardiology 03/20/19 Raj Marie MD [address] [place] [address] Sheeter Machine Operator Cardiology 05/03/21 Shelby Mcneil NP [address] [place] [address] Cardiology 09/11/23 documented as of this encounter
--- OUTSIDE RECORDS SUMMARY | 2024-06-20 14:36 | XMS_ITS | Encounter Summary ---
Author Organization [facility] Address [address] [place] [address] Care Team Providers Care Machine Stone Polisher Apprentice Name Role Phone Miguel Sousa MD Primary Care Provider [phone] Jacek Damon MD Unavailable Nuris Mcknight PA-C Unavailable Raj Marie MD Unavailable [phone] Shelby Mcneil NP Unavailable [phone] Encounter Details Date Type Department Care Team Description 01/23/2024 Orders Only Cardio PVC POC [address] [facility] [address] [place] [address] Default, Provider Social History Tobacco Use Types Packs/Day [...] Date/Time Associated Diagnosis Comments OUTSIDE LAB Routine 11/22/2023 OUTSIDE LAB Routine 11/21/2023 documented in this encounter Results * OUTSIDE LAB (11/22/2023) Provider Default LAB * OUTSIDE LAB (11/21/2023) Provider Default LAB documented in this encounter Visit Diagnoses Not on filedocumented in this encounter Care Teams Machine Stone Polisher Apprentice Relationship Specialty Start Date End Date Miguel Sousa MD [address] [place] [address] PCP - General Internal Medicine 01/30/19 Jacek Damon MD [address] [place] [address] Supervisor Marble Cardiovascular Disease 04/18/17 Nuris Mcknight PA-C [address] [place] [address] Specialist Cardiology 03/20/19 Raj Marie MD [address] [place] [address] Supervisor Marble Cardiology 05/03/21 Shelby Mcneil NP [address] [place] [address] Cardiology 09/11/23 documented as of this encounter
[2024-06-20 14:43] VITALS: BP 130/80; PULSE 62; O2SAT 96; BMI 32.3
== END 2024-06-20 15:21 | disposition home or self-care (01) ==
PROVIDERS: PCP Internal Medicine; Visit Provider Nurse Practitioner Family
DX: R25.1 Tremor, unspecified (principal); G57.93 Unspecified mononeuropathy of bilateral lower limbs; R26.9 Unspecified abnormalities of gait and mobility; J32.3 Chronic sphenoidal sinusitis
CPT/HCPCS: 99214

== ENCOUNTER → 2024-06-20 14:28 | Outpatient (BNVA) | payer OTHER, SELFPAY | PROVIDERS: PCP Internal Medicine; Visit Provider Nurse Practitioner Family | DX: G57.93 Unspecified mononeuropathy of bilateral lower limbs (principal); R25.1 Tremor, unspecified; R26.9 Unspecified abnormalities of gait and mobility; J32.3 Chronic sphenoidal sinusitis | CPT/HCPCS: 99212 ==

== ENCOUNTER 2024-10-03 10:22 | Outpatient (REF) | payer OTHER, SELFPAY ==
[2024-10-03 10:35] LABS: MANUAL DIFF FLAG NO
--- OUTSIDE RECORDS SUMMARY | 2024-10-03 10:46 | XMS_ITS | Encounter Summary ---
Author Organization [facility] Address [address] [place] [address] Care Team Providers Care Metal Room Dental Technician Name Role Phone Miguel Sousa MD Primary Care Provider [phone] Jacek Damon MD Unavailable Nuris Mcknight PA-C Unavailable Raj Marie MD Unavailable [phone] Shelby Mcneil NP Unavailable [phone] Encounter Details Date Type Department Care Team Description 07/12/2022 SCAN Cardio PVC [facility] [address] [facility] [address] [place] [address] Abstract, Provider Social History Tobacco Use Types [...] Date/Time Associated Diagnosis Comments OUTSIDE LAB Routine 07/12/2022 documented in this encounter Results * OUTSIDE LAB (07/12/2022) Provider Default LAB documented in this encounter Visit Diagnoses Not on filedocumented in this encounter Care Teams Metal Room Dental Technician Relationship Specialty Start Date End Date Miguel Sousa MD [address] [place] [address] [phone] PCP - General Internal Medicine 01/30/19 Jacek Damon MD [address] [place] [address] [phone] Machine Tester Cardiovascular Disease 04/18/17 Nuris Mcknight PA-C [address] [place] [address] [phone] Specialist Cardiology 03/20/19 Raj Marie MD [address] [place] [address] Machine Tester Cardiology 05/03/21 Shelby Mcneil NP [address] [place] [address] Cardiology 09/11/23 documented as of this encounter
[2024-10-03 10:59] LABS: Basophils Percent Auto 0.7 % (0-2); Eosinophils Absolute Auto 0.2 X10*3/uL (0.0-0.4); Eosinophils Percent Auto 2.6 % (0-4); Hemoglobin 13.6 g/dl (14.0-18.0); Imm Gran Abs Auto 0.01 X10*3/uL (0.00-0.03); Imm Gran Pct Auto 0.2 % (0.0-0.4); Lymphocytes Absolute Auto 1.7 X10*3/uL (1.2-4.9); Lymphocytes Percent Auto 28.9 % (20-40); Mean Corpuscular HGB Conc 32.4 g/dl (31.0-36.0); Mean Corpuscular Hemoglobin 29.8 pg (27.0-33.0); Mean Corpuscular Volume 91.9 fL (80.0-98.0); Mean Platelet Volume 9.8 fL (9.4-12.4); Monocytes Absolute Auto 0.5 X10*3/uL (0.1-1.2); Monocytes Percent Auto 8.6 % (2-11); Neutrophils Absolute Auto 3.4 x10*3/uL (2.0-8.3); Platelet Count 199 X10*3/uL (160-400); Red Blood Count 4.57 X10*6/uL (4.60-5.80); Red Cell Distribution Width 14.2 % (11.0-16.0); White Blood Count 5.8 X10*3/uL (4.8-10.8)
[2024-10-03 11:25] LABS: Alanine Aminotransferase 19 U/L (0-40); Albumin Level 3.9 g/dL (3.5-5.0); Alkaline Phosphatase 99 U/L (39-117); Anion Gap 12 (12-20); Aspartate Amino Transferase 26 U/L (5-37); Bilirubin Total 0.6 mg/dL (0.0-1.0); Blood Urea Nitrogen 12 mg/dL (9-16); Calcium 9.6 mg/dL (8.4-10.2); Carbon Dioxide 35 mmol/L (22-29); Chloride 98 mmol/L (96-108); Estimated Glomerular Filt Rate > 60; Glucose Random 266 mg/dL (60-115); Potassium 3.5 mmol/L (3.3-5.1); Sodium 141 mmol/L (135-145); Total Protein 7.5 g/dL (6.5-8.0)
[2024-10-03 11:56] LABS: Folate 8.9 ng/mL (> or = 4.0); Vitamin B12 548 pg/mL (200-900)
[2024-10-04 17:02] LABS: Homocysteine 15.4 umol/L (< or = 15.2)
[2024-10-07 10:32] LABS: Methylmalonic Acid 165 nmol/L (85-423)
== END 2024-10-03 10:23 | disposition home or self-care (01) ==
LOC: HO.LAB 10:22
PROVIDERS: PCP Internal Medicine; Visit Provider Nurse Practitioner Family
DX: R79.89 Other specified abnormal findings of blood chemistry (principal); E11.9 Type 2 diabetes mellitus without complications; I48.91 Unspecified atrial fibrillation; G57.93 Unspecified mononeuropathy of bilateral lower limbs
CPT/HCPCS: 36415; 80053; 82607; 82746; 83090; 83921; 85025

== ENCOUNTER 2024-10-07 13:46 | Outpatient (AMB) | payer OTHER, SELFPAY ==
[2024-10-07 13:58] VITALS: BP 140/70; PULSE 72; O2SAT 94; BMI 32.2
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
== END 2024-10-07 14:46 | disposition home or self-care (01) ==
LOC: HO.HSMS 13:47
PROVIDERS: PCP Internal Medicine; Visit Provider Nurse Practitioner Family
DX: J32.3 Chronic sphenoidal sinusitis (principal); R25.1 Tremor, unspecified; G57.93 Unspecified mononeuropathy of bilateral lower limbs; R26.9 Unspecified abnormalities of gait and mobility
CPT/HCPCS: 99214

== ENCOUNTER → 2024-10-07 13:46 | Outpatient (BNVA) | payer OTHER, SELFPAY | PROVIDERS: PCP Internal Medicine; Visit Provider Nurse Practitioner Family | DX: J32.3 Chronic sphenoidal sinusitis (principal); R25.1 Tremor, unspecified; G57.93 Unspecified mononeuropathy of bilateral lower limbs; R26.9 Unspecified abnormalities of gait and mobility | CPT/HCPCS: 99212 ==

== ENCOUNTER 2025-04-16 13:03 | Outpatient (AMB) | payer OTHER, SELFPAY ==
--- OUTSIDE RECORDS SUMMARY | 2024-04-19 07:00 | XMS_ITS ---
Author Organization [facility] Address [address] [place] [id number] Care Team Providers Care Online Publisher Name Role Phone Sherry Randle Primary Care Provider Unavail Michaela Licea Unavailable [phone] Encounters Encounter Location Date Provider Diagnosis [facility] [address] [place] [id number] 04/19/2024 Michaela Goldman Plan Of Treatment Next Appt Details Provider Name:Michaela alcaraz, 07/04/2025 01:45:00 PM, [address] [facility], [address] [facility], [place], [address], Progress Notes * Chandra DE LEÓNDOB: [birth year] (79 yo M)Acc No.[id number]:04/19/2024 Progress Note Patient: Chandra NEWMAN Provider: Brooke Goldman DPM :1945 A ge:78 Y S ex:Male Date:04/19/2024 Address:[address] [place] [address], [address], [place], [id number] Pcp:Sherry Randle Subjective: * Chief Complaints: * * Medical History: Objective: * Vitals: Assessment: Plan: * Treatment: * Images: * The named appointment provid er may or may not be the originator of this progress note, and it is not deemed complete until electronically signed by the appointment provider. Sign off status: Pending * Provider: Brooke Goldman DPM Date: 06/20/2023 Generated for eHriberto hassan/Demar/Renettaitting on: 1 06/17/2024 08:06 PM EST
[2025-04-16 13:05] VITALS: BP 140/60; PULSE 87; O2SAT 97; BMI 32.2
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
--- OUTSIDE RECORDS SUMMARY | 2025-04-16 20:06 | XMS_ITS | Clinical Summary ---
Author Organization [email or web address] Prior to 10/05/[address] [place] [id number] Care Team Providers Care Topology Teacher Name Role Phone Miguel Sousa MD Primary Care Provider [phone] Allergies Active Allergy Reactions Criticality Noted Date [...] Health Maintenance Due Date Last Done Comments COVID-19 Vaccine (#1) 1944 Depression Screening 1956 BMI Counseling 1962 Preventative Health Evaluation 1962 DTap / Tdap / Td (1 - Tdap) 1963 Shingrix-Zoster Vaccine (1 o f 2) 1994 Fall Risk Assessment 2009 RSV Adult > 60+ Yrs or (1 - 1-dose 75+ series) 2019 Influenza Vaccine (#1) 2025 9, 02/09/2017, 01/20/2011 Pneumococcal Vaccine Completed 02/09/2017, 12/09/2010 Hepatitis B Vaccines Aged Out No long er eligible based on patient's age to complete this topic RSV Ped < 20 months Aged Out No longe r eligible based on patient's age to complete this topic Care Teams Topology Teacher Relationship Specialty Start Date End Date Miguel Sousa MD PCP - General Internal Medicine 08/31/20
--- OUTSIDE RECORDS SUMMARY | 2025-04-16 20:06 | XMS_ITS ---
Author Name Trudi Aceves NP Address [address] [place] [address] Phone [phone] [facility] Care Team Providers Care Product Blending Supervisor Name Role Phone Jordan Aceveszachisaiah Unavailable [phone] Unavailable Unavailable [phone] [facility] Unavailable [phone] ERIC CASAS Unavailable [phone] [facility] Unavailable [phone] [facility] Unavailable Reason for Referral Not Available [...] 300 mg Cap TAKE 1 CAPSULE BY [facility] TWICE DAILY FOR 7 DAYS 2022-09-26 No [...] 2 mg Cap TAKE 1 CAPSULE BY [facility] FOUR TIMES DAILY NEEDED FOR DIARRHEA 2023-04-20 [...] 10 mg Tab TAKE 1 TABLET BY [facility] EVERY DAY NEEDED 2023-10-26 No Data Available [...] List Problem Status Onset Date Resolved Date Synopsis Thoracic aortic ectasia Active 2022-04-09 N/A n oted on CXR - The thoracic aorta is calcifiedContinue f/u care and monitoring with PCP and cardiology every 3-6 months. Obesity (BMI 30-39.9) Active 2022-05-06 N/A BMI 31.66Advice on lifestyle, diet, and exercise to promote weight loss and achieve normal BMI. Continue f/u care and monitoring with PCP every 6 months. Non-small cell lung cancer Active 2022-04-07 N/A [facility] PulmonologyPatient denies current diagnosis and insufficient documentation support this previous diagnosis. Patient will continue to f/u and monitor this diagnosis with PCP for further evaluation. Hypercoagulability due to atrial fibrillation Active 2022-04-07 N/A StableWarfar in, CarvedilolContinue taking medications as prescribed, avoid NSAIDs, bleeding risk precautions, and continue f/u care and monitoring with PCP and cardiology every 3-6 months. Permanent A-fib rate controlled anticoagulated for stroke reduction [id number] score of 5. Risk benefits of long-term anticoagulation and reviewed and agrees to continue.Hypertension well controlled. Ascending aortic aneurysm Active 2023-03-01 N/A Ascending aortic aneurysm 4.[address] explained to patient and son not surgical as of yet, insistent they have a consult was told in the hospital that it was emergent. Will refer to [facility] cardiac surgery for consult, reviewed the importance again of no heavy lifting strenuous exercise patient states he is very sedentary-per son a couch potato Atherosclerotic heart disease of [place] coronary artery with unspecified angina pectoris Active 2022-08-09 N/A StableAtorvastat in, Carvedilol, WarfarinDenies any recent chest pain Continue taking medications as prescribed, discussed dietary, exercise, and lifestyle interventions. Contact EMS if developing persistent acute chest pain and continue f/u care and monitoring with PCP and cardiology every 3-6 months. 03/01/23: CAD with prior CABG [place] in 2001 with FISH to LAD, at some point he had stenting to his LAD. He was catheterized in 2008 and was said to have modest coronary artery disease with competitive flow down the distal LAD from the FISH and the [place] vessel per notes from prior radiologic tech Dr. Fay at [facility].Ascending aortic aneurysm 4.[address] cm by last chest ct 01/2023.Permanent afib since Dec 2018 rate controlled on AC. Hx pulmonary embolism Active 2022-04-07 N/A Sta bleon xarelto Continue taking medication, reviewed s/sx of PE (eg. SOB), bleeding precautions, and contact EMS if developing any s/sx discussed and continue monitoring with PCP every 3-6 months. Unspecified dementia, unspecified severity, without behavioral disturbance, psychotic disturbance, mood disturbance, and anxiety Active 2022-04-09 N/A StableD onepezil1/12/29: FAST SCORE- Denies behavioral or safety concernsContinue monitoring for safety concerns r/t memory, continue taking medication, MMSE routinely, and continue f/u care and monitoring with PCP every 3-6 months. 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 will discuss above with his radiologic tech 03/01/23: Primary Electronics Processing Supervisor- Dr. Damon.Admission to [facility] January 26 with prolonged 2 days of [...] CARDS: f/u pending d/t cancelled appointment by . Coronary artery disease involving [place]ki[place] coronary artery 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 pectoris Active 2023-02-02 N/A Last ED visit/[facility] 01/24-01/27 , for chest pain 07/03/23: reports DBP >90's in the past 2 weeks. asymptomatic . PLAN -f/u with cardiology in person for evaluation [facility] (chronic obstructive pulmonary disease) Active 2022-08-09 N/A Has albuterol inh09/25/23: Patient reported mild dyspnea, feeling hot last night, cough with phleghm x2-3 days. Abx and prednisone taper prescribed due to comorbidities. F/U scheduled 09/28. Encouraged to callback for worsening sx or questions/concerns.09/29/23 : Patient reports URI sx improved; Denies any current concerns Allergies Active 2023-10-26 N/A The patient re ports allergy symptoms including, sneezing, watery eyes, 'feels like face is puffy'. He denies taking any medications for allergies; Rx sent for cetirizine. Encouraged the patient to call if sx worsens. Osteoarthritis, multiple sites Active 2023-05-15 N/A Low back pain, h /o ESIPCP requested recliner for LBP 08/29: Currently receiving PT11/23/23: ER visit on 11/22/23 for chest pain and severe back pain. The patient reports that he was told he was experiencing spasms; He was given medications with good relief; No changes to the treatment plan Chest pain Active 2023-11-23 N/A ER visit on for chest pain and lower back spasms. Cardio work up negative for findings per patient. He was referred to a radiologic tech for follow up. Denies any health concerns at this time. Other problems related to medical facilities and other health care Active 2023-05-09 N/A When member to call: 1. If bp is [...] for the following symptoms: Burning pain in chest / Chest pain / Neck, shoulder, jaw, back painPlanned intervention: Please nitroglycerin tablet under the tongue and wait 5 minutes. Repeat if pain has not resolved. After five additional minutes, assist member with calling 911 if pain persists / Review members breathing exercises / Aluminum hydroxide/Magnesium carbonate (Gaviscon) take 2-4 teaspoonfuls of liquid or 2-4 tablets four times a day as needed Encounters Encounters Type Facility Date of Service Diagnosis/Complaint New patient,40-59min; chronic exacerbation, 2 stable chronic or 1 acute illness add add modifier 95 for video (do not use for phone, instead use 17064-67) [facility] Type 2 diabetes mellitus wit h [...] (do not use for phone, instead use 28269-85) [facility] New patient,40-59min; chronic exacerbation, 2 stable chronic or 1 acute illness add add modifier 95 for video (do not use for phone, instead use [id number]) [facility] New patient,40-59min; chronic exacerbation, 2 stable chronic or 1 acute illness add add modifier 95 for video (do not use for phone, instead use 92260-91) [facility] New patient,40-59min; chronic exacerbation, 2 stable chronic or 1 acute illness add add modifier 95 for video (do not use for phone, instead use 41294-19) [facility] 03[place] New patient,40-59min; chronic exacerbation, 2 stable chronic or 1 acute illness add add modifier 95 for video (do not use for phone, instead use 79424-47) [facility] 03[place]22 New patient,40-59min; chronic exacerbation, 2 stable chronic or 1 acute illness add add modifier 95 for video (do not use for phone, instead use [id number]) [facility] [place] 03/[place]22 New patient,40-59min; chronic exacerbation, 2 stable chronic or 1 acute illness add add modifier 95 for video (do not use for phone, instead use 58033-55) [facility] [place] 03[place]22[place]22 New patient,40-59min; chronic exacerbation, 2 stable chronic or 1 acute illness add add modifier 95 for video (do not use for phone, instead use 18269-39) [facility] [place] 03/[place]/2022 Estab. patient 20-29min; 1 stable chronic or 2 minor; add add modifier 95 for video, modifier 93 for phone [facility] 05/06/2022 Urinary tract infection, sit e not [...] 95 for video, modifier 93 for phone [facility] 05/06/2022 Estab. patient 20-29min; 1 stable chronic or 2 minor; add add modifier 95 for video, modifier 93 for phone [facility] [place] 05[place]/2022 Estab. patient 20-29min; 1 stable chronic or 2 minor; add add modifier 95 for video, modifier 93 for phone [facility] [place] 05/06/2022 Estab. patient 20-29min; 1 stable chronic or 2 minor; add add modifier 95 for video, modifier 93 for phone [facility] [place] 05/06/2022 Estab. patient 20-29min; 1 stable chronic or 2 minor; add add modifier 95 for video, modifier 93 for phone [facility] [place] 05/06/2022 Estab. patient 30-39min; chronic exacerbation, 2 stable chronic or 1 acute illness add add modifier 95 for video, (do not use for phone, instead use 88676-04) [facility] [place] 08/05/2022 Hypertensive heart disease w ith heart failureChronic systolic (congestive) heart failureSecondary hyperaldosteronismOther thrombophiliaUnspecified atrial fibrillationPersonal history of pulmonary embolismMalignant neoplasm of unspecified part of unspecified bronchus or lungType 2 diabetes mellitus with other specified complicationHyperlipidemia, unspecifiedUnspecified dementia without behavioral disturbanceThoracic aortic ectasiaObesity, unspecifiedBody mass index (bmi) 31.0-31.9, adultAthscl heart disease of [place] cor art w unsp ang pctrsPersonal history of other infectious and parasitic diseasesChronic obstructive pulmonary disease, unspecified Estab. patient 30-39min; chronic exacerbation, 2 stable chronic or 1 acute illness add add modifier 95 for video, (do not use for phone, instead use 47776-83) [facility] [place] 08/[place]2022 Estab. patient 30-39min; chronic exacerbation, 2 stable chronic or 1 acute illness add add modifier 95 for video, (do not use for phone, instead use 68987-17) [facility] ([place] 08/05/2022 Estab. patient 30-39min; chronic exacerbation, 2 stable chronic or 1 acute illness add add modifier 95 for video, (do not use for phone, instead use 60557-37) [facility] [place] 08/05/2022 Estab. patient 30-39min; chronic exacerbation, 2 stable chronic or 1 acute illness add add modifier 95 for video, (do not use for phone, instead use 56159-51) [facility] [place] 08/05/2022 Estab. patient 30-39min; chronic exacerbation, 2 stable chronic or 1 acute illness add add modifier 95 for video, (do not use for phone, instead use 16604-77) [facility] [place] 08/05/2022 RN, CN or CP time with patient by phone; use with 1111F, BP, A1c or other CPTII codes [facility] [place] 01/31/2023 Encounter for other specifie d aftercare RN, CN or CP time with patient by phone; use with 1111F, BP, A1c or other CPTII codes [facility] [place] 01/31/2023 Estab. patient 20-29min; 1 stable chronic or 2 minor; add add modifier 95 for video, modifier 93 for phone [facility] [place] 02/02/2023 Other thrombophiliaUnspecifi ed atrial fibrillationPersonal history of pulmonary embolismChronic systolic (congestive) heart failureSecondary hyperaldosteronismHypertensive heart disease with heart failureMalignant neoplasm of unspecified part of unspecified bronchus or lungType 2 diabetes mellitus with other specified complicationHyperlipidemia, unspecifiedUnspecified dementia without behavioral disturbanceThoracic aortic ectasiaObesity, unspecifiedAthscl heart disease of [place] cor art w unsp ang pctrsPersonal history of other infectious and parasitic diseasesChronic obstructive pulmonary disease, unspecifiedEncounter for other specified aftercare Estab. patient 20-29min; 1 stable chronic or 2 minor; add add modifier 95 for video, modifier 93 for phone [facility] [place] 02/02/2023 Estab. patient 20-29min; 1 stable chronic or 2 minor; add add modifier 95 for video, modifier 93 for [facility] [place] 02/02/2023 Estab. patient 20-29min; 1 stable chronic or 2 minor; add add modifier 95 for video, modifier 93 for phone [facility] [place] 02/02/2023 Estab. patient 20-29min; 1 stable chronic or 2 minor; add add modifier 95 for video, modifier 93 for phone [facility] 02/02/2023 Estab. patient 20-29min; 1 stable chronic or 2 minor; add add modifier 95 for video, modifier 93 for [facility] 02/02/2023 Estab. patient 20-29min; 1 stable chronic or 2 minor; add add modifier 95 for video, modifier 93 for [facility] 02/02/2023 Unlisted special service; to be used for medical record reviews and reporting CPTII codes (1111F, etc) [facility] 02/22/2023 Other specified health statu s Unlisted special service; to be used for medical record reviews and reporting CPTII codes (1111F, etc) [facility] 02/22/2023 Unlisted special service; to be used for medical record reviews and reporting CPTII codes (1111F, etc) [facility] 02/22/2023 Estab. patient 20-29min; 1 stable chronic or 2 minor; add add modifier 95 for video, modifier 93 for [facility] 03/01/2023 Other thrombophiliaUnspecifi ed atrial fibrillationPersonal history of pulmonary embolismChronic systolic (congestive) heart failureSecondary hyperaldosteronismHypertensive heart disease with heart failureMalignant neoplasm of unspecified part of unspecified bronchus or lungType 2 diabetes mellitus with other specified complicationHyperlipidemia, unspecifiedUnspecified dementia without behavioral disturbanceThoracic aortic ectasiaObesity, unspecifiedAthscl heart disease of [place] cor art w unsp ang pctrsPersonal history of other infectious and parasitic diseasesChronic obstructive pulmonary disease, unspecifiedAneurysm of the ascending aorta, without rupture Estab. patient 20-29min; 1 stable chronic or 2 minor; add add modifier 95 for video, modifier 93 for [facility] 03/01/2023 Estab. patient 20-29min; 1 stable chronic or 2 minor; add add modifier 95 for video, modifier 93 for [facility] 03/01/2023 Estab. patient 20-29min; 1 stable chronic or 2 minor; add add modifier 95 for video, modifier 93 for [facility] 03/01/2023 Estab. patient 20-29min; 1 stable chronic or 2 minor; add add modifier 95 for video, modifier 93 for phone [facility] 03/01/2023 Estab. patient 20-29min; 1 stable chronic or 2 minor; add add modifier 95 for video, modifier 93 for phone [facility] 03/01/2023 Estab. patient 20-29min; 1 stable chronic or 2 minor; add add modifier 95 for video, modifier 93 for phone [facility] [place] 03/01/2023 No Data Available [facility] 04/14/2023 Other specified counselingOt her intermediate (current) drug therapy No Data Available [facility] [place] 04/14[place]2023 No Data Available [facility] 04/25/2023 Other thrombophiliaUnspecifi ed atrial fibrillationPersonal history of pulmonary embolismChronic systolic (congestive) heart failureSecondary hyperaldosteronismHypertensive heart disease with heart failureMalignant neoplasm of unspecified part of unspecified bronchus or lungType 2 diabetes mellitus with other specified complicationHyperlipidemia, unspecifiedUnspecified dementia without behavioral disturbanceThoracic aortic ectasiaObesity, unspecifiedAthscl heart disease of [place] cor art w unsp ang pctrsPersonal history of other infectious and parasitic diseasesChronic obstructive pulmonary disease, unspecifiedAneurysm of the ascending aorta, without ruptureOther buttermaker (current) drug therapy No Data Available [facility] [place] 04/[place]2023 No Data Available [facility] [place] 04/25[place]2023 No Data Available [facility] [place] 04/25/2023 No Data Available [facility] [place] 04/25/2023 No Data Available [facility] [place] 04/25/2023 No Data Available [facility] [place] 04/[place]/2023 No Data Available [facility] [place] 05/05/2023 Type 2 diabetes mellitus wit h other specified complicationHyperlipidemia, unspecifiedPermanent atrial fibrillationOther thrombophiliaHypertensive heart disease with heart failureChronic systolic (congestive) heart failureSecondary hyperaldosteronismChronic obstructive pulmonary disease, unspecifiedUnspecified dementia without behavioral disturbanceThoracic aortic ectasiaAneurysm of the ascending aorta, without ruptureAthscl heart disease of [place] cor art w unsp ang pctrsObesity, unspecifiedBody mass index (bmi) 31.0-31.9, adultPersonal history of other infectious and parasitic diseasesOther intermediate (current) drug therapyAcute pharyngitis due to other specified organismsOth bacterial agents as the cause of diseases classd elswhrPersonal history of pulmonary embolism No Data Available [facility] 05[place]05[place]2023 No Data Available [facility] [place] 05/05[place]2023 No Data Available [facility] [place] 05/05[place]2023 No Data Available [facility] [place] 05/09/2023 Other thrombophiliaUnspecifi ed atrial fibrillationPersonal history of pulmonary embolismChronic systolic (congestive) heart failureSecondary hyperaldosteronismEssential (primary) hypertensionMalignant neoplasm of unspecified part of unspecified bronchus or lungType 2 diabetes mellitus with other specified complicationHyperlipidemia, unspecifiedUnspecified dementia without behavioral disturbanceThoracic aortic ectasiaObesity, unspecifiedAthscl heart disease of [place] cor art w unsp ang pctrsPersonal history of other infectious and parasitic diseasesChronic obstructive pulmonary disease, unspecifiedAneurysm of the ascending aorta, without ruptureOther buttermaker (current) drug therapyAcute pharyngitis due to other specified organismsBody mass index (bmi) 32.0-32.9, adultOth bacterial agents as the cause of diseases classd elswhr No Data Available [facility] [place] 05/09[place]2023 No Data Available [facility] [place] 05/09/2023 No Data Available [facility] [place] 05[place]09/2023 No Data Available [facility] [place] 05/09/2023 No Data Available [facility] [place] 05/09/2023 Estab. patient 30-39min; chronic exacerbation, 2 stable chronic or 1 acute illness add add modifier 95 for video, (do not use for phone, instead use [id number]) [facility] 05/15/2023 Type 2 diabetes mellitus wit h other specified complicationHyperlipidemia, unspecifiedUnspecified atrial fibrillationOther thrombophiliaHypertensive heart disease with heart failureChronic systolic (congestive) heart failureSecondary hyperaldosteronismUnspecified dementia without behavioral disturbanceThoracic aortic ectasiaAthscl heart disease of [place] cor art w unsp ang pctrsAneurysm of the ascending aorta, without ruptureChronic obstructive pulmonary disease, unspecifiedObesity, unspecifiedBody mass index (bmi) 31.0-31.9, adultPersonal history of other infectious and parasitic diseasesOther buttermaker (current) drug therapyOther problems related to medical facilities and other health carePolyosteoarthritis, unspecifiedPersonal history of pulmonary embolism Estab. patient 30-39min; chronic exacerbation, 2 stable chronic or 1 acute illness add add modifier 95 for video, (do not use for phone, instead use 46467-27) [facility] [place] 05/[place]/2023 Estab. patient 30-39min; chronic exacerbation, 2 stable chronic or 1 acute illness add add modifier 95 for video, (do not use for phone, instead use 94877-54) [facility] [place] 05/15/2023 Estab. patient 30-39min; chronic exacerbation, 2 stable chronic or 1 acute illness add add modifier 95 for video, (do not use for phone, instead use 65002-27) [facility] [place] 05/15/2023 Estab. patient 30-39min; chronic exacerbation, 2 stable chronic or 1 acute illness add add modifier 95 for video, (do not use for phone, instead use 80533-85) [facility] [place] 05/15/2023 Estab. patient 30-39min; chronic exacerbation, 2 stable chronic or 1 acute illness add add modifier 95 for video, (do not use for phone, instead use [id number]) [facility] [place] 05/15/2023 Estab. patient 30-39min; chronic exacerbation, 2 stable chronic or 1 acute illness add add modifier 95 for video, (do not use for phone, instead use 59095-63) [facility] [place] 05/15/2023 Estab. patient 30-39min; chronic exacerbation, 2 stable chronic or 1 acute illness add add modifier 95 for video, (do not use for phone, instead use 22478-95) [facility] [place] 05/15/2023 Estab. patient 30-39min; chronic exacerbation, 2 stable chronic or 1 acute illness add add modifier 95 for video, (do not use for phone, instead use 30003-02) [facility] [place] 05/15/2023 Estab. patient 30-39min; chronic exacerbation, 2 stable chronic or 1 acute illness add add modifier 95 for video, (do not use for phone, instead use 28065-12) [facility] [place] 05/15/2023 No Data Available [facility] [place] 06/19/2023 Type 2 diabetes mellitus wit h other specified complicationHyperlipidemia, unspecifiedPermanent atrial fibrillationOther thrombophiliaAneurysm of the ascending aorta, without ruptureHypertensive heart disease with heart failureChronic systolic (congestive) heart failureSecondary hyperaldosteronismChronic obstructive pulmonary disease, unspecifiedUnspecified dementia without behavioral disturbanceThoracic aortic ectasiaAthscl heart disease of [place] cor art w unsp ang pctrsObesity, unspecifiedBody mass index (bmi) 31.0-31.9, adultPersonal history of other infectious and parasitic diseasesOther buttermaker (current) drug therapyPolyosteoarthritis, unspecifiedPersonal history of pulmonary embolismOther problems related to medical facilities and other health care No Data Available [facility] [place] 06[place]19[place]2023 No Data Available [facility] [place] 06/19/2023 No Data Available [facility] [place] 06/19/2023 No Data Available [facility] [place] 07/03/2023 Other thrombophiliaUnspecifi ed atrial fibrillationPersonal history of pulmonary embolismAthscl heart disease of [place] cor art w unsp ang pctrsChronic systolic (congestive) heart failureSecondary hyperaldosteronismMalignant neoplasm of unspecified part of unspecified bronchus or lungHyperlipidemia, unspecifiedType 2 diabetes mellitus with other specified complicationUnspecified dementia without behavioral disturbanceThoracic aortic ectasiaObesity, unspecifiedPersonal history of other infectious and parasitic diseasesChronic obstructive pulmonary disease, unspecifiedAneurysm of the ascending aorta, without ruptureOther buttermaker (current) drug therapyOther problems related to medical facilities and other health carePolyosteoarthritis, unspecified No Data Available [facility] [place] 07[place]03[place]2023 No Data Available [facility] [place] 07/03[place]2023 No Data Available [facility] [place] 07/03/2023 No Data Available [facility] [place] 07/03/2023 No Data Available [facility] [place] 07/03/2023 No Data Available [facility] [place] 08/30/2023 Hyperlipidemia, unspecifiedT ype 2 diabetes mellitus with other specified complicationChronic obstructive pulmonary disease, unspecifiedOther problems related to medical facilities and other health carePolyosteoarthritis, unspecified No Data Available [facility] [place] 08/30/2023 No Data Available [facility] [place] 08/30/2023 No Data Available [facility] [place] 08/30/2023 No Data Available [facility] [place] 09/25/2023 Chronic obstructive pulmonar y disease, unspecifiedOther problems related to medical facilities and other health care No Data Available [facility] 09/25/2023 No Data Available [facility] [place]2023 Chronic obstructive pulmonar y disease, unspecifiedOther problems related to medical facilities and other health care No Data Available [facility] 10/26/2023 Allergy, unspecified, initia l encounter No Data Available [facility] [place] 10/26/2023 No Data Available [facility] [place] 11/23/2023 Polyosteoarthritis, unspecif iedChest pain, unspecifiedOther problems [...] tive Time Current Smoking Status Never smoker 2025-04-07 1 Sex Male History of Procedures Procedures Service Procedure code Service date Servicing provider Phone# New patient,40-59min; chronic exacerbation, 2 stable chronic or 1 acute illness add add modifier 95 for video (do not use for phone, instead use [id number]) 36631 2022-03-22 No Data Available No Data Availa [...] 95 for video, modifier 93 for phone [id number] 2022-05-06 No Data Available No Data Availa [...] (do not use for phone, instead use [id number]) 26392 2022-08-05 No Data Available No Data Availa [...] 1111F, BP, A1c or other CPTII codes 24945 2023-01-31 No Data Available No Data Avai lable Medications prescribed in hospital were reviewed and reconciled against what they were taking prior to admission during today's visit. (1111F) 1111F 2023-01-31 No Data Available No Data Availa ble Estab. patient 20-29min; 1 stable chronic or 2 minor; add add modifier 95 for video, modifier 93 for phone 24847 2023-02-02 No Data Available No Data Availa ble Medications prescribed in hospital were reviewed and reconciled against what they were taking prior to admission during today's visit. (1111F) 1111F 2023-02-02 No Data Available No Data Availa ble Advance care planning discussed and documented advance care plan or surrogate decision-maker was [...] reviews and reporting CPTII codes (1111F, etc) 70037 2023-02-22 No Data Available No Data Availa ble SBP < 130 (3074F) 3074F 2023-02-22 No Data Available No Data Available DBP <80 (3078F) 3078F 2023-02-22 No Data Available No Data Available Estab. patient 20-29min; 1 stable chronic or 2 minor; add add modifier 95 for video, modifier 93 for phone [id number] 2023-03-01 No Data Available No Data Availa [...] le No Data Available No Data Available 12986 2023-04-14 No Data Available No Data Available Medication List Documented (1159F) 1159F 2023-04-14 No Data Available No Data [place] ilable No Data Available 11187 2023-04-25 No Data Available No Data Available [...] le No Data Available No Data Available 18810 2023-05-05 No Data Available No Data Available Pain Assessment - NO pain present (1126F) 1126F 2023-05-05 No Data Available No Data A vailable Functional Status Assessed (1170F) 1170F 2023-05-05 No Data Available No Data Avail able Medication List Documented (1159F) 1159F 2023-05-05 No Data Available No Data [place] ilable No Data Available [id number] 2023-05-09 No Data Available No Data Available [...] ble Advance care planning discussed and documented advance care plan or surrogate decision-maker was documented in the medical record. (1123F) 1123F 2023-05-09 No Data Available No Data Availa ble Estab. patient 30-39min; chronic exacerbation, 2 stable chronic or 1 acute illness add add modifier 95 for video, (do not use for phone, instead use 00999-90) 00654 2023-05-15 No Data Available No Data Availa ble Advance care planning discussed and documented advance care plan or surrogate decision-maker was [...] Available No Data Available No Data Available 2023-06-19 No Data Available No Data Available Pain Assessment - NO pain present (1126F) 1126F 2023-06-19 No Data Available No Data A vailable Functional Status Assessed (1170F) 1170F 2023-06-19 No Data Available No Data Avail able BMI obtained (3008F) 3008F 2023-06-19 No Data Availab le No Data Available No Data Available 61331 2023-07-03 No Data Available No Data Available [...] No Data Avail able No Data Available 2023-08-30 No Data Available No Data Available SBP >= 140 3077F 2023-08-30 No Data Available No Data Available DBP 80-89 (3079F) 3079F 2023-08-30 No Data Available No Data Available Pain Assessment - NO pain present (1126F) 1126F 2023-08-30 No Data Available No Data A vailable No Data Available 2023-09-25 No Data Available No Data Available Pain Assessment - NO pain present (1126F) 1126F 2023-09-25 No Data Available No Data A vailable No Data Available 2023-09-29 No Data Available No Data Available No Data Available 55615 2023-10-26 No Data Available No Data Available Pain Assessment - NO pain present (1126F) 1126F 2023-10-26 No Data Available No Data A vailable No Data Available [id number] 2023-11-23 No Data Available No Data Available [...] Falls in last 6 Months: No 2022-03-22 ASSOCIATE GENETICS PROFESSOR assists with cooking, cl eaning, laundry, showering, and dressing. Uses cane to ambulate. Toilets using adult breifs. 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 [I50.22, E26.1]> FurosemideCarvedilolmonitor weight and edemaNon-small cell lung cancer [C34.90]> Followed at [facility] oncology, [facility] PulmonologyWill reach out for recordsType 2 diabetes mellitus with other specified complication with hyperlipidemia [E11.69, E78.5]> metformintrulicityatorvastatinstablemonitor [id number] dementia, unspecified severity, without behavioral disturbance, psychotic [...] aortic ectasiaObesity (BMI 30-39.9)Atherosclerotic heart disease of [place] coronary artery with unspecified angina pectorisHistory of sepsisCOPD (chronic obstructive pulmonary disease) 2023-02-02 12:12:33 Patient Education to avoid future hospitalization: Call [facility] if symptoms of illness develop.Hypercoagulability due to atrial fibrillationHx pulmonary embolismChronic systolic (congestive) heart failure with secondary hyperaldosteronismNon-small cell lung cancerType 2 diabetes mellitus with other specified complication with hyperlipidemiaUnspecified dementia, unspecified severity, without behavioral disturbance, psychotic disturbance, mood disturbance, and anxietyThoracic aortic ectasiaObesity (BMI 30-39.9)Atherosclerotic heart disease of [place] coronary artery with unspecified angina pectorisHistory of sepsisCOPD (chronic obstructive pulmonary disease)Coronary artery disease involving [place] coronary artery 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 pectoris 2023-03-01 06:18:27 Hypercoagulability d ue to atrial fibrillationHx pulmonary embolismChronic systolic (congestive) heart failure with secondary hyperaldosteronismNon-small cell lung cancerType 2 diabetes mellitus with other specified complication with hyperlipidemiaUnspecified dementia, unspecified severity, without behavioral disturbance, psychotic disturbance, mood disturbance, and anxietyThoracic aortic ectasiaObesity (BMI 30-39.9)Atherosclerotic heart disease of [place] coronary artery with unspecified angina pectorisHistory of sepsisCOPD (chronic obstructive pulmonary disease)Coronary artery disease involving [place] coronary artery 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 aortic aneurysm 2023-04-14 12:13:08 En[facility]ica [facility]Enc[facility] 2023-04-25 08:01:11 Hypercoagulability d ue to atrial fibrillationHx pulmonary embolismChronic systolic (congestive) heart failure with secondary hyperaldosteronismNon-small cell lung cancerType 2 diabetes mellitus with other specified complication with hyperlipidemiaUnspecified dementia, unspecified severity, without behavioral disturbance, psychotic disturbance, mood disturbance, and anxietyThoracic aortic ectasiaObesity (BMI 30-39.9)Atherosclerotic heart disease of [place] coronary artery with unspecified angina pectorisHistory of sepsisCOPD (chronic obstructive pulmonary disease)Coronary artery disease involving [place] coronary artery 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 aortic aneurysmEncounter for medication review 2023-05-05 08:52:43 Hypercoagulability d ue to atrial fibrillationHx pulmonary embolismChronic systolic (congestive) heart failure with secondary hyperaldosteronismNon-small cell lung cancerType 2 diabetes mellitus with other specified complication with hyperlipidemiaUnspecified dementia, unspecified severity, without behavioral disturbance, psychotic disturbance, mood disturbance, and anxietyThoracic aortic ectasiaObesity (BMI 30-39.9)Atherosclerotic heart disease of [place] coronary artery with unspecified angina pectorisHistory of sepsisCOPD (chronic obstructive pulmonary disease)Coronary artery disease involving [place] coronary artery 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 aortic aneurysmEncounter for medication reviewBacterial pharyngitis 2023-05-09 12:07:05 Hypercoagulability d ue to atrial fibrillationHx pulmonary embolismChronic systolic (congestive) heart failure with secondary hyperaldosteronismNon-small cell lung cancerType 2 diabetes mellitus with other specified complication with hyperlipidemiaUnspecified dementia, unspecified severity, without behavioral disturbance, psychotic disturbance, mood disturbance, and anxietyThoracic aortic ectasiaObesity (BMI 30-39.9)Atherosclerotic heart disease of [place] coronary artery with unspecified angina pectorisHistory of sepsisCOPD (chronic obstructive pulmonary disease)Coronary artery disease involving [place] coronary artery 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 aortic aneurysmEncounter for medication reviewBacterial pharyngitis 2023-05-15 11:57:00 Hypercoagulability d ue to atrial fibrillationHx pulmonary embolismChronic systolic (congestive) heart failure with secondary hyperaldosteronismNon-small cell lung cancerType 2 diabetes mellitus with other specified complication with hyperlipidemiaUnspecified dementia, unspecified severity, without behavioral disturbance, psychotic disturbance, mood disturbance, and anxietyThoracic aortic ectasiaObesity (BMI 30-39.9)Atherosclerotic heart disease of [place] coronary artery with unspecified angina pectorisHistory of sepsisCOPD (chronic obstructive pulmonary disease)Coronary artery disease involving [place] coronary artery 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 aortic aneurysmEncounter for [...] aortic ectasiaObesity (BMI 30-39.9)Atherosclerotic heart disease of [place] coronary artery with unspecified angina pectorisHistory of sepsisCOPD (chronic obstructive pulmonary disease)Coronary artery disease involving [place] coronary artery 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 aortic aneurysmEncounter for [...] aortic ectasiaObesity (BMI 30-39.9)Atherosclerotic heart disease of [place] coronary artery with unspecified angina pectorisHistory of sepsisCOPD (chronic obstructive pulmonary disease)Ascending aortic aneurysmEncounter for medication reviewOther problems related to medical facilities and other health careOsteoarthritis, multiple sitesCoronary artery disease involving [place] coronary artery 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 pectoris 2023-08-30 11:37:42 Type 2 diabetes sho itus with other specified complication with hyperlipidemiaCOPD (chronic obstructive pulmonary disease)Other problems related to medical facilities and other health careOsteoarthritis, multiple sites 2023-09-25 08:58:25 COPD (chronic obstru ctive pulmonary disease)Other problems related to medical facilities and other health care 2023-09-29 09:31:25 Follow up plan for a cute symptoms:COPD (chronic obstructive pulmonary disease)Other problems related [...] $25 which pt endorses (although grudgingly).Pt to molded goods spot picker abx tomorrow morningWarfarinOn warfarin (also has A-Fib)FurosemideCarvedilolmonitor weight and edemaFollowed at [facility], [facility] PulmonologyWill reach out for recordsmetformintrulicityatorvastatinstablemonitor [id number] assistance with ADL'sdonepezilnoted on CXR - The [...] modifier 95Continue to see PCP. [facility] [...] Documented (1125F)Continue to see PCP. Follow-up with [facility] as [...] cardiology and PCP every 3-6 months.[facility] PulmonologyPatient denies current diagnosis and insufficient documentation support this previous diagnosis. Patient will continue to f/u and monitor this diagnosis with PCP for further evaluation.Stable Metformin, trulicity, atorvastatinmost recent a1c:Encouraged to monitor BG routinely, continue taking medications, low carb diet, exercise, lifestyle interventions and contact us if developing HHS or DKA s/sx. Continue f/u care and monitoring with PCP and Bullet Slug Casting Machine Operator every 3-6 months.StableDonepezilDenies behavioral or safety concernsContinue [...] modifier 95Advance care planning discussed and documented advance care plan or surrogate decision-maker was [...] will discuss above with his cardiologistFollowed at [facility] PulmonologyPatient denies current diagnosis and insufficient documentation support this previous diagnosis. Patient will continue to f/u and monitor this diagnosis with PCP for further evaluation.Stable Metformin, trulicity, atorvastatinmost recent a1c:Encouraged to monitor BG routinely, continue taking medications, low carb diet, exercise, lifestyle interventions and contact us if developing HHS or DKA s/sx. Continue f/u care and monitoring with PCP and Bullet Slug Casting Machine Operator every 3-6 months.StableDonepezilDenies behavioral or safety concernsContinue [...] A-fib rate controlled anticoagulated for stroke reduction [id number] score of 5. Risk benefits of long-term [...] to spironolactone. will discuss above with his radiologic tech 03/01/23: Primary Electronics Processing Supervisor- Dr. Damon.Admission to [facility] January 26- with prolonged 2 days of [...] stress test obtained yesterday results pending.Follow[facility] [place] PulmonologyPatient denies current diagnosis and insufficient documentation support this previous diagnosis. Patient will continue to f/u and monitor this diagnosis with PCP for further evaluation.Stable Metformin, trulicity, atorvastatinmost recent a1c:Encouraged to monitor BG routinely, continue taking medications, low carb diet, exercise, lifestyle interventions and contact us if developing HHS or DKA s/sx. Continue f/u care and monitoring with PCP and Bullet Slug Casting Machine Operator every 3-6 months.StableDonepezilDenies behavioral or safety concernsContinue [...] 3-6 months. 03/01/23: CAD with prior CABG [place] in 2001 with FISH to LAD, at some point he had stenting to his LAD. He was catheterized in 2008 and was said to have modest coronary artery disease with competitive flow down the distal LAD from the FISH and the [place] vessel per notes from prior radiologic tech Dr. Fay at [facility].Ascending aortic aneurysm 4.9 cm by last chest [...] that it was emergent. Will refer to [facility] cardiac surgery for consult, reviewed the importance again of no heavy lifting strenuous exercise patient states he is very sedentary-per son a sasha potato 2023-04-14 12:13:08 Phone (patient, pare nt, or guardian); 5-10 minutes of medical discussion (no modifier 95)Continue to see PCP. Follow-up with [facility] as needed for any acute or disease education needs that may arise 28/11.Pt is anxious. pharmacy did not refill carvedilol. they told him his PCP had DC'd it, his PCP's office was not helpful and told him to call his radiologic tech. Electronics Processing Supervisor did not know.This provider called radiologic tech. They rerport that they did not prescribe [...] helpful and told him to call his radiologic tech. Electronics Processing Supervisor did not know.This provider called radiologic tech. They rerport that they did not prescribe [...] 130-139 (3075F)Continue to see PCP. Follow-up with [facility] as needed for any acute or disease education needs that may arise 28/11.StableWarfarin, CarvedilolContinue taking medications as prescribed, avoid NSAIDs, bleeding risk precautions, and continue f/u care and monitoring with PCP and cardiology every 3-6 months. Permanent A-fib rate controlled anticoagulated for stroke reduction [id number] score of 5. Risk benefits of long-term [...] to spironolactone. will discuss above with his radiologic tech 03/01/23: Primary Electronics Processing Supervisor- Dr. Damon.Admission to [facility] January 26- with prolonged 2 days of [...] stress test obtained yesterday results pending.[facility] PulmonologyPatient denies current diagnosis and insufficient documentation support this previous diagnosis. Patient will continue to f/u and monitor this diagnosis with PCP for further evaluation.Stable Metformin, trulicity, atorvastatinmost recent a1c:Encouraged to monitor BG routinely, continue taking medications, low carb diet, exercise, lifestyle interventions and contact us if developing HHS or DKA s/sx. Continue f/u care and monitoring with PCP and Bullet Slug Casting Machine Operator every 3-6 months.StableDonepezilDenies behavioral or safety concernsContinue [...] 3-6 months. 03/01/23: CAD with prior CABG [place] in 2001 with FISH to LAD, at some point he had stenting to his LAD. He was catheterized in 2008 and was said to have modest coronary artery disease with competitive flow down the distal LAD from the FISH and the [place] vessel per notes from prior radiologic tech Dr. Fay at [facility].Ascending aortic aneurysm 4.9 cm by last chest [...] that it was emergent. Will refer to [facility] cardiac surgery for consult, reviewed the importance again of no heavy lifting strenuous exercise patient states he is very sedentary-per son a couch potato Pt is anxious. pharmacy did not refill carvedilol. they told him his PCP had DC'd it, his PCP's office was not helpful and told him to call his radiologic tech. Electronics Processing Supervisor did not know.This provider called radiologic tech. They rerport that they did not prescribe [...] modifier 95)Continue to see PCP. Follow-up with [facility] as needed for any acute or disease education needs that may arise 28/11.StableWarfarin, CarvedilolContinue taking medications as prescribed, avoid NSAIDs, bleeding risk precautions, and continue f/u care and monitoring with PCP and cardiology every 3-6 months. Permanent A-fib rate controlled anticoagulated for stroke reduction [id number] score of 5. Risk benefits of long-term [...] to spironolactone. will discuss above with his radiologic tech 03/01/23: Primary Electronics Processing Supervisor- Dr. Damon.Admission to [facility] January 26- with prolonged 2 days of [...] stress test obtained yesterday results pending.[facility] PulmonologyPatient denies current diagnosis and insufficient documentation support this previous diagnosis. Patient will continue to f/u and monitor this diagnosis with PCP for further evaluation.Stable Metformin, trulicity, atorvastatinmost recent a1c:Encouraged to monitor BG routinely, continue taking medications, low carb diet, exercise, lifestyle interventions and contact us if developing HHS or DKA s/sx. Continue f/u care and monitoring with PCP and Bullet Slug Casting Machine Operator every 3-6 months.StableDonepezilDenies behavioral or safety concernsContinue [...] 3-6 months. 03/01/23: CAD with prior CABG [place] in 2001 with FISH to LAD, at some point he had stenting to his LAD. He was catheterized in 2008 and was said to have modest coronary artery disease with competitive flow down the distal LAD from the FISH and the [place] vessel per notes from prior radiologic tech Dr. Fay at [facility].Ascending aortic aneurysm 4.9 cm by last chest [...] that it was emergent. Will refer to [facility] cardiac surgery for consult, reviewed the importance again of no heavy lifting strenuous exercise patient states he is very sedentary-per son a couch potato Pt is anxious. pharmacy did not refill carvedilol. they told him his PCP had DC'd it, his PCP's office was not helpful and told him to call his radiologic tech. Electronics Processing Supervisor did not know.This provider called radiologic tech. They rerport that they did not prescribe [...] modifier 95)Continue to see PCP. Follow-up with [facility] as needed for any acute or disease education needs that may arise 28/11.StableWarfarin, CarvedilolContinue taking medications as prescribed, avoid NSAIDs, bleeding risk precautions, and continue f/u care and monitoring with PCP and cardiology every 3-6 months. Permanent A-fib rate controlled anticoagulated for stroke reduction [id number] score of 5. Risk benefits of long-term [...] to spironolactone. will discuss above with his radiologic tech 03/01/23: Primary Electronics Processing Supervisor- Dr. Damon.Admission to [facility] January 26- with prolonged 2 days of [...] stress test obtained yesterday results pending.[facility] PulmonologyPatient denies current diagnosis and insufficient documentation support this previous diagnosis. Patient will continue to f/u and monitor this diagnosis with PCP for further evaluation.Stable Metformin, trulicity, atorvastatinmost recent a1c:Encouraged to monitor BG routinely, continue taking medications, low carb diet, exercise, lifestyle interventions and contact us if developing HHS or DKA s/sx. Continue f/u care and monitoring with PCP and Bullet Slug Casting Machine Operator every 3-6 months.StableDonepezilDenies behavioral or safety concernsContinue [...] 3-6 months. 03/01/23: CAD with prior CABG [place] in 2001 with FISH to LAD, at some point he had stenting to his LAD. He was catheterized in 2008 and was said to have modest coronary artery disease with competitive flow down the distal LAD from the FISH and the [place] vessel per notes from prior radiologic tech Dr. Fay at [facility].Ascending aortic aneurysm 4.9 cm by last chest [...] that it was emergent. Will refer to [facility] cardiac surgery for consult, reviewed the importance again of no heavy lifting strenuous exercise patient states he is very sedentary-per son a couch potato Pt is anxious. pharmacy did not refill carvedilol. they told him his PCP had DC'd it, his PCP's office was not helpful and told him to call his radiologic tech. Electronics Processing Supervisor did not know.This provider called radiologic tech. They rerport that they did not prescribe [...] modifier 95Advance care planning discussed and documented advance care plan or surrogate decision-maker was documented in the medical record. (1123F)Pain Assessment - NO pain documented (1126F)Continue to see PCP. Follow-up with [facility] as needed for any acute or disease education needs that may arise.StableWarfarin, CarvedilolContinue taking medications as prescribed, avoid NSAIDs, bleeding risk precautions, and continue f/u care and monitoring with PCP and cardiology every 3-6 months. Permanent A-fib rate controlled anticoagulated for stroke reduction [id number] score of 5. Risk benefits of long-term [...] to spironolactone. will discuss above with his radiologic tech 03/01/23: Primary Electronics Processing Supervisor- Dr. Damon.Admission to [facility] January 26- with prolonged 2 days of [...] obtained yesterday results pending.F/u CARDS: 05/31/22[facility] PulmonologyPatient denies current diagnosis and insufficient documentation [...] f/u care and monitoring with PCP and Bullet Slug Casting Machine Operator every 3-6 months.StableDonepezil05/15/23: FAST SCORE- Denies behavioral [...] 3-6 months. 03/01/23: CAD with prior CABG [place] in 2001 with FISH to LAD, at some point he had stenting to his LAD. He was catheterized in 2008 and was said to have modest coronary artery disease with competitive flow down the distal LAD from the FISH and the [place] vessel per notes from prior radiologic tech Dr. Fay at [facility].Ascending aortic aneurysm 4.9 cm by last chest [...] that it was emergent. Will refer to [facility] cardiac surgery for consult, reviewed the importance again of no heavy lifting strenuous exercise patient states he is very sedentary-per son a couch potato Pt is anxious. pharmacy did not refill carvedilol. they told him his PCP had DC'd it, his PCP's office was not helpful and told him to call his radiologic tech. Electronics Processing Supervisor did not know.This provider called radiologic tech. They rerport that they did not prescribe [...] call CBContinue to see PCP. [facility] [...] A-fib rate controlled anticoagulated for stroke reduction [id number] score of 5. Risk benefits of long-term [...] to spironolactone. will discuss above with his radiologic tech 03/01/23: Primary Electronics Processing Supervisor- Dr. Damon.Admission to [facility] January 26nd with prolonged 2 days of chest pain [...] obtained yesterday results pending.F/u CARDS: 05/31/22[facility]ed at [facility] PulmonologyPatient denies current diagnosis and insufficient documentation [...] f/u care and monitoring with PCP and Bullet Slug Casting Machine Operator every 3-6 months.StableDonepezil05/15/23: FAST SCORE- Denies behavioral [...] 3-6 months. 03/01/23: CAD with prior CABG [place] in 2001 with FISH to LAD, at some point he had stenting to his LAD. He was catheterized in 2008 and was said to have modest coronary artery disease with competitive flow down the distal LAD from the FISH and the [place] vessel per notes from prior radiologic tech Dr. Fay at [facility].Ascending aortic aneurysm 4.9 cm by last chest [...] that it was emergent. Will refer to [facility] cardiac surgery for consult, reviewed the importance again of no heavy lifting strenuous exercise patient states he is very sedentary-per son a couch potato Pt is anxious. pharmacy did not refill carvedilol. they told him his PCP had DC'd it, his PCP's office was not helpful and told him to call his radiologic tech. Electronics Processing Supervisor did not know.This provider called radiologic tech. They rerport that they did not prescribe [...] call CBContinue to see PCP. [facility] [...] A-fib rate controlled anticoagulated for stroke reduction [id number] score of 5. Risk benefits of long-term [...] to spironolactone. will discuss above with his radiologic tech 03/01/23: Primary Electronics Processing Supervisor- Dr. Damon.Admission to [facility] January 26- with prolonged 2 days of [...] pending d/t cancelled appointment by .Followed at [facility] PulmonologyPatient denies current diagnosis and insufficient documentation [...] f/u care and monitoring with PCP and Bullet Slug Casting Machine Operator every 3-6 months.StableDonepezil05/15/23: FAST SCORE- Denies behavioral [...] 3-6 months. 03/01/23: CAD with prior CABG [place] in 2001 with FISH to LAD, at some point he had stenting to his LAD. He was catheterized in 2008 and was said to have modest coronary artery disease with competitive flow down the distal LAD from the FISH and the [place] vessel per notes from prior radiologic tech Dr. Fay at [facility].Ascending aortic aneurysm 4.9 cm by last chest [...] that it was emergent. Will refer to [facility] cardiac surgery for consult, reviewed the importance again of no heavy lifting strenuous exercise patient states he is very sedentary-per son a couch potato Pt is anxious. pharmacy did not refill carvedilol. they told him his PCP had DC'd it, his PCP's office was not helpful and told him to call his radiologic tech. Electronics Processing Supervisor did not know.This provider called radiologic tech. They rerport that they did not prescribe [...] for evaluation in complex cardiac history and vasc 2023-08-30 11:37:42 Phone (patient, pare nt, or [...] f/u care and monitoring with PCP and Bullet Slug Casting Machine Operator every 3-6 months.CONTINGENCY PLANMember to call for [...] joint pain increased [facility]up with [facility] as [...] per patient. He was referred to a radiologic tech for follow up. Denies any health concerns [...] for the following symptoms: Burning pain in chest / Chest pain / Neck, shoulder, jaw, back painPlanned intervention: Please [...] ER and where? [facility]: [facility] [...] will reach out to his CC from [place].Member trained on use of R ed Button for urgent needs and provided with iconDial phone # as an alternative method to reach acute team.
--- OUTSIDE RECORDS SUMMARY | 2025-04-16 20:06 | XMS_ITS | Clinical Summary ---
Author Organization [facility] [address] [facility] Address [address] [place] [phone] Phone Care Team Providers [employer] Name Role Phone Miguel Sousa MD Primary Care Provider [phone] Allergies Active Allergy Reactions Criticality Noted Date Comments Ceftriaxone Hives 02/16/2023 Lisinopril Swelling 09/25/2024 Penicillins Rash Medium 09/30/2010 Medications tamsulosin (FLOMAX) 0.4 mg 24 hr capsule Take 1 capsule (0.4 mg total) by mouth 1 (one) time each day. Prescribe by JAMAICA MONTANEZ, Urologist Active cyanocobalamin (VITAMIN B-12) 500 mcg tablet Take 1 tablet (500 mcg total) by mouth 1 (one) time each day. Active nitroglycerin (NITROSTAT) 0.[address] 1 Tablet under the tongue every 5 minutes as needed for Chest pain. 4 Active albuterol 2.5 mg /3 mL (0.083 %) nebulizer solution Take 3 mL (2.5 mg total) by nebulization every 4 (four) hours if needed for wheezing. 4 Active finasteride (PROSCAR) 5 mg tablet Take 1 tablet (5 mg total) by mouth at bedtime. Prescribe by JAMAICA MONTANEZ, Urologмарина Active atorvastatin (LIPITOR) 10 mg tablet Take 1 tablet (10 mg total) by mouth 1 (one) time each day. 90 each 3 5 06/26/19 26 Active Trulicity 3 mg/0.5 mL pen injector injection ADMINISTER 3 MG UNDER THE SKIN EVERY 7 DAYS 6 mL 1 5 Active amLODIPine (NORVASC) 5 mg tablet Take 1 tablet (5 mg total) by mouth 1 (one) time each day. 90 each 1 5 Active Wixela Inhub 250-50 mcg/dose diskus inhaler INHALE 1 PUFF BY MOUTH EVERY DAY 180 each 1 5 Active furosemide (LASIX) 40 mg tablet Take 1 Tablet by mouth daily. Take extra 40 mg tablet once daily as needed for abdominal bloating or weight gain of 3 pounds in 1 day or 5 pounds in a week. 90 tablet 3 5 Active glucose blood test strip Check blood glucose daily 100 strip 5 5 Active lancets lancets Check blood sugar 1-2 times a day or as directed. 200 each 6 5 Active carvediloL (COREG) 12.5 mg tablet Take 1 tablet (12.5 mg total) by mouth 2 (two) times a day. 180 tablet 5 Active albuterol HFA (PROAIR HFA ; PROVENTIL HFA ; VENTOLIN HFA) 90 mcg/actuation inhaler Inhale 2 puffs by mouth every 4 (four) hours if needed for shortness of breath or wheezing. 6.7 g 5 Active melatonin 3 mg tablet Take 10 mg by mouth at bedtime. Active ascorbic acid (Vitamin C) 500 mg tablet Take 1 tablet (500 mg total) by mouth 1 (one) time each day. Active multivitamin with minerals tablet Take 1 tablet by mouth 1 (one) time each day. Active spironolactone (ALDACTONE) 25 mg tabletIndicatio ns:Chronic diastolic congestive heart failure (CMS/HCC V24, CMS/HCC V28) Take 1 tablet (25 mg total) by mouth 1 (one) time each day. 90 each 1 5 01/17/20 26 Active rivaroxaban (Xarelto) 20 mg tablet Take 1 tablet (20 mg total) by mouth 1 (one) time each day with dinner. Take with food.Take 20 mg by mouth daily. 90 each 1 5 Active warfarin (COUMADIN) 5 mg tablet TAKE 1-2 TABLETS BY MOUTH DAILY DIRECTED BY BEFORE A MEAL CLINIC. TAKE SAME TIME EVERYDAY 1 Active terbinafine (LamISIL) 250 mg tablet TAKE 1 TABLET BY MOUTH EVERY DAY X 7 DAYS Active SITagliptin phosphate (Januvia) 100 mg tablet Take 1 tablet (100 mg total) by mouth. 1 Active sildenafiL (VIAGRA) 100 mg tablet Take 1 tablet (100 mg total) by mouth as needed. Active predniSONE (DELTASONE) 20 mg tablet TAKE 2 TABLETS BY MOUTH TWICE DAILY FOR 3 DAYS THEN TAKE 1 TABLET BY MOUTH TWICE DAILY FOR 2 DAYS THEN TAKE 1 TABLET BY MOUTH DAILY FOR 2 DAYS Active potassium chloride (KLOR-CON M20) 20 mEq CR tablet 1 Active olopatadine (PATADAY) 0.2 % ophthalmic solution INSTILL 1 DROP IN BOTH EYES IN THE MORNING 5 Active nystatin-triamc inolone (MYCOLOG II) cream APPLY 1 GRAM TOPICALLY TO THE AFFECTED AREA TWICE DAILY 5 Active metroNIDAZOLE (FLAGYL) 500 mg tablet Take 1 tablet (500 mg total) by mouth every 6 (six) hours. Active lisinopriL (PRINIVIL,ZESTR IL) 10 mg tablet Take 1 tablet (10 mg total) by mouth 1 (one) time each day. Active lisinopriL (PRINIVIL,ZESTR IL) 5 mg tablet Take 1 tablet (5 mg total) by mouth 1 (one) time each day. 0 Active ketorolac (ACULAR) 0.5 % ophthalmic solution INSTILL 1 DROP IN LEFT EYE FOUR TIMES DAILY Active glipiZIDE (GLUCOTROL) 10 mg tablet Take 1 tablet (10 mg total) by mouth. 1 Active fluorometholone (FML) 0.1 % ophthalmic suspension SHAKE LIQUID AND INSTILL 1 DROP IN BOTH EYES IN THE MORNING Active erythromycin 5 mg/gram (0.5 %) ophthalmic ointment APPLY 1 THIN LAYER TO THE EYELIDS AT BEDTIME Active dexAMETHasone (DECADRON) 10 mg/mL injection 1 mL (10 mg total). 1 Active clotrimazole-be tamethasone (LOTRISONE) 1-0.05 % cream APPLY TO THE AFFECTED AREA ON FEET TWICE DAILY Active ciclopirox (LOPROX) 0.77 % cream 1 application to affected area Externally Twice a day to effected areas on feet for 30 days 3 Active cetirizine (ZyrTEC) 10 mg tablet Take 1 tablet (10 mg total) by mouth 1 (one) time each day if needed. Active benzonatate (TESSALON) 100 mg capsule Take 1 capsule 3 times a day by oral route for 5 days. 4 Active prednisoLONE acetate (PRED FORTE) 1 % ophthalmic suspension SHAKE LIQUID AND INSTILL 1 DROP IN LEFT EYE FOUR TIMES DAILY Active magnesium oxide 400 mg magnesium capsule Take 400 mg by mouth 2 (two) times a day. Active donepeziL (ARICEPT) 5 mg tablet TAKE 1 TABLET(5 MG) BY MOUTH AT BEDTIME 90 tablet 5 Active metFORMIN (GLUCOPHAGE) 1,000 mg tablet TAKE 1 TABLET(1000 MG) BY MOUTH TWICE DAILY WITH MEALS 180 tablet 5 Active Active Problems Problem Noted Date Diagnosed Date Atypical chest pain 02/21/2025 Assessment & Plan (02/22/2025 6:49 AM EDT): Pulmonary embolism 02/14/2025 Nephrolithiasis 02/14/2025 Hypertension 02/14/2025 Diverticulosis 02/14/2025 History of coronary artery bypass graft 01/17/20 25 Assessment & Plan (02/22/2025 6:49 AM EDT): Assessment & Plan (01/16/2025 10:43 PM EDT): Bilateral pneumonia 10/31/2024 History of angiotensin conve rting enzyme inhibitor (SULEMAN-I) allergy 09/25/2024 Palpitations 01/23/2024 Overview (04/02/2024): Last Assessment & [...] dizziness, syncope or presyncope, or chest pain. Mild persistent asthma without complication 09/06 Cataract 09/20/2023 Overview (04/02/2024): [facility] Stenosis of left carotid artery 08/29/2023 Overview (04/02/2024): Significant luminal irregularities, 50 to 60% stenosis, ultrasound August 2023 by cardiology Last Assessment & Plan: Carotid duplex completed 08/2023 showing significant luminal irregularities with 50 to 60% stenosis in the left carotid; we will continue to monitor this with serial imaging. Assessment & Plan (01/16/2025 10:43 PM EDT): Carotid duplex completed 08/2023 showing significant luminal irregularities with 50 to 60% stenosis in the left carotid; we will update a carotid duplex for reevaluation. Orders: Vascular US duplex carotid bilateral; Future Secondary hypercoagulable state 08/06/2023 Assessment & Plan (02/22/2025 6:49 AM EDT): Assessment & Plan (01/16/2025 10:43 PM EDT): Venous reflux 07/28/2023 Fatigue 08/24/2022 Non-small cell lung cancer 07/06/2021 Overview (04/02/2024): [facility], [facility] Pulmo SOB (shortness of breath) 05/11/2021 Bradycardia 06/11/2020 Assessment & Plan (02/22/2025 6:49 AM EDT): Chronic congestive heart failure 12/10/2019 Assessment & Plan (02/21/2025 8:20 AM EDT): The patient's most recent echo 12/21/2024 showed normal systolic function with an EF 55 to 60% without obvious wall motion abnormalities seen on limited views. At our last visit, he appeared hypervolemic and was subsequently started on spironolactone in addition to furosemide with subsequent improvement in symptoms. SGLT2 inhibitors have been avoided due to his history of frequent urinary tract infections. He is volume status does appear improved today and symptomatically he has improved as well; we will not make any changes to his current medical therapies. His most recent blood work completed after the start of spironolactone shows stable renal function and electrolytes. We discussed risk reduction through lifestyle modifications including healthy diet, routine exercise, and weight management. We reviewed heart failure management including low sodium diet, symptom surveillance, daily weights, and medication compliance. I've asked the patient to call if they develop worsening symptoms of heart failure such as increased shortness of breath, new or worsening cough, increased swelling in the legs or ankles, or weight gain of more than 2 pounds in one day or 4 pounds in one week. Orders: ECG 12 lead Assessment & Plan (01/16/2025 10:43 PM EDT): The patient appears hypervolemic on exam today with abdominal distension, HJR, mild peripheral edema, and faint crackles on exam. He endorses needing increased diuresis since his hospitalization for pneumonia in October 2024. Recent echo 12/21/2024 showed normal systolic function with an EF 55 to 60% without obvious wall motion abnormalities seen on limited views. No hemodynamically significant valvular dysfunction was noted but the vena cava was dilated with poor inspiratory collapse consistent with elevated right atrial pressure and CVP estimated at 15 to 20 mmHg. We discussed the addition of an SGLT2 inhibitor but he has a history of UTIs and per his son, had a very significant one 2 years ago. As such, shared decision making led to the decision to not start an SGLT2; instead, he is willing to add spironolactone to current furosemide 40 mg daily. Ok to continue with additional as needed 40 mg furosemide as indicated but we will readdress the need to increase loop permanently once MRA is on board. He will subsequently stop potassium supplementation on spironolactone is started. Recent renal function and electrolytes were reviewed; we will plan to recheck a BMP and magnesium level 1-2 weeks after start of spironolactone. Potential side effects were reviewed as well as when to return to care or seek urgent medical attention. He will continue to monitor BP and weights at home; he needs a new scale and was encourage dot get one NOAH. The patient and his son agree with the plan. We discussed risk reduction through lifestyle modifications including healthy diet, routine exercise, and weight management. We reviewed heart failure management including low sodium diet, symptom surveillance, daily weights, and medication compliance. I've asked the patient to call if they develop worsening symptoms of heart failure such as increased shortness of breath, new or worsening cough, increased swelling in the legs or ankles, or weight gain of more than 2 pounds in one day or 4 pounds in one week. Orders: Basic metabolic panel; Future spironolactone (ALDACTONE) 25 mg tablet; Take 1 tablet (25 mg total) by mouth 1 (one) time each day. Magnesium; Future Aneurysm of ascending aorta without rupture 03/08 Overview (02/21/2025): Seen on Chest CT 03/18/2019: 4.8 cm at level of pulmonary artery bifurcation on series 3 image [address] 01/26/23. 4.9 cm Assessment & Plan (02/22/2025 6:49 AM EDT): As above. Assessment & Plan (01/16/2025 10:43 PM EDT): The patient is followed by cardiothoracic surgery with next visit planned for later today. As of July 2023, it was established that there was no current need for repair; will await their recommendations. Blood pressure remains well- controlled. Atrial fibrillation 01/23/2019 Overview (04/02/2024): Last Assessment & Plan: Rate remains well-controlled on beta-blockade and he is anticoagulated with Xarelto for cardioembolic prophylaxis ([id number] score of 6). The risks and benefits [...] internal bleeding, or for any head injury. Assessment & Plan (02/22/2025 6:49 AM EDT): Rate remains well-controlled on beta-blockade; he is bradycardic but this is not new for him and he appears to be asymptomatic. As such we will not make any changes to his beta-luiz given his concurrent coronary artery disease. He is anticoagulated with Xarelto for cardioembolic prophylaxis ([id number] score of 6). The risks and benefits of continuing anticoagulation were reviewed and he wishes to continue with the current plan. He remains on the appropriate dose of rivaroxaban in relation to his renal function. He is aware to seek emergent medical attention for any uncontrolled bleeding, signs or symptoms of GI or other internal bleeding, or for any head injury. Assessment & Plan (01/16/2025 10:43 PM EDT): Rate remains well-controlled on beta-blockade and he is anticoagulated with Xarelto for cardioembolic prophylaxis ([id number] score of 6). The risks and benefits [...] or for any head injury. Dementia 01/23/2019 Assessment & Plan (07/03/2024 8:51 AM EST): Patient and his son who accompanied him today had many questions about dementia. Dementia was added to his problem list about 6 years ago, after a doctor in [place] placed him on donepezil. At the time, the patient was having some short- term memory issues, and was told the medication was to prevent any issues, and may be more helpful in the future. He was not diagnosed with dementia by the neurologist per his report. In any event, patient is alert and oriented x 4, he communicates clearly, he grasped today's conversation and displayed good understanding, and does not display any signs of significant cognitive impairment. I told him that I did not feel comfortable removing it from the problem list, and that I would continue the medication since he has not had any side effects. He should follow-up with his neurologist for further discussion on this. BPH (benign prostatic hyperplasia) 03/09/2017 Overview (04/02/2024): Follows with [facility] Anxiety 02/09/2017 Overview (04/02/2024): F/u [address] Asthma 02/09/2017 Osteoarthritis 02/09/2017 Obesity 01/25/2017 Overview (04/02/2024): Last Assessment & Plan: Patient is obese. Approaches towards weight loss are discussed, including burning more calories than one takes in by portion control and regular exercise with an emphasis on duration rather than intensity . Assessment & Plan (02/22/2025 6:49 AM EDT): Patient is obese. Approaches towards weight loss are discussed, including burning more calories than one takes in by portion control and regular exercise with an emphasis on duration rather than intensity. Assessment & Plan (01/16/2025 10:43 PM EDT): Patient is obese. Approaches towards weight loss are discussed, including burning more calories than one takes in by portion control and regular exercise with an emphasis on duration rather than intensity. Essential hypertension, benign 09/25/2011 Overview (04/02/2024): Last Assessment & Plan: Blood pressure is well-controlled on current medical therapies; continue lisinopril, carvedilol, and furosemide without change. We will attempt to obtain recent lab results for further evaluation and readdress as needed. Assessment & Plan (02/22/2025 6:49 AM EDT): Blood pressure is favorable on current antihypertensive regimen; continue amlodipine, carvedilol, and furosemide. Recent metabolic panel showed stable renal function and electrolytes. Assessment & Plan (01/16/2025 10:43 PM EDT): Blood pressure is favorable but we are adding spironolactone today; could consider decreasing amlodipine or changing carvedilol to metoprolol if hypotension becomes problematic. He will continue to monitor BP 1-2 hours after morning medications and notify our office of these readings in 1-2 weeks. We will readdress as needed at that time. Labs to be updated as above. Assessment & Plan (07/03/2024 8:51 AM EST): His blood pressure is well-controlled the office today. Last visit there was some elevation at 138/80. I am considering titrating SULEMAN inhibitor, but with well-controlled readings today, will reevaluate in 3 months for final decision. Diverticulosis of colon 02/01/2011 Overview (04/02/2024): Episode of diverticul[facility] CT [place] [facility] 01/2011. Third episode 03/2011. Coronary artery disease invo lving [place] coronary artery of [place] heart without angina pectoris 09/30/2010 Overview (04/02/2024): [...] rest, or if they were to faint. Assessment & Plan (02/22/2025 6:49 AM EDT): The patient is status post cardiac catheterization [...] coronary artery disease was not intervened upon. He was seen by Dr. Pandey who feels it is now appropriate to proceed with repair. As such, I have discussed this with Dr. Damon who wishes to review the patient's last cath to determine the need for repeat cath (which I suspect will be necessary to reevaluate his coronary anatomy given that this last cath was over 1.5 years ago); there have been some technical difficulties in doing so but this is in the works. Fortunately, he has had no significant symptoms within his current functional capacity. He had a recent episode of chest pain that resolved spontaneously and was atypical given it worsened with palpation; this was similar to a presentation in the ER approximately 1 year ago and workup was deemed noncardiac. No urgent intervention appears necessary at this time. We will continue guideline directed medical therapies for ischemia including carvedilol and atorvastatin as well as amlodipine as an antianginal. He is on rivaroxaban for cardioembolic prophylaxis and is subsequently not on concurrent daily ASA. We discussed cardiac risk reduction through lifestyle modifications with healthy diet, and weight management. The patient was advised to seek emergent medical attention by calling 911 if they were to develop severe dyspnea, chest pain that did not resolve with rest or nitroglycerin, or if they were to faint. Assessment & Plan (01/16/2025 10:43 PM EDT): Status post CABG in [place] in 2001 with FISH to LAD; at some point he had stenting to his LAD. He is now status post cardiac catheterization on 06/12/2023 revealing [...] coronary artery disease was not intervened upon. Today, he offers mild shortness of breath with significant exertion but otherwise offers no symptoms concerning for underlying ischemia. He also carries a diagnosis of mild persistent asthma which may also be contributory. We will continue with medical management at this time; however, if his aorta does require intervention, revascularization should be reconsidered at that time. He will continue cardioprotective medical therapies for ischemia including carvedilol and atorvastatin in addition to amlodipine as an antianginal. He is on rivaroxaban for cardioembolic prophylaxis and is subsequently not on concurrent daily ASA. We discussed cardiac risk reduction through lifestyle modifications with healthy diet, and weight management. The patient was advised to seek emergent medical attention by calling 911 if they were to develop severe dyspnea, chest pain that did not resolve with rest, or if they were to faint. Orders: ECG 12 lead DM type 2 causing neurological disease 1 [...] as indicated. Continue atorvastatin 10 mg daily. Assessment & Plan (02/22/2025 6:49 AM EDT): LDL goal is less than 55 for this patient was a history of coronary artery disease as well as diabetes; LDL 60 on 01/07/2025, triglycerides were 187. This is slightly above goal and we previously had discussed increasing statin dosing to readdress this, especially given findings on cardiac cath. The patient declined, wishing to continue to work on lifestyle modifications with improved diet and exercise. Low fat, low carb diet was reinforced. Continue atorvastatin 10 mg. Assessment & Plan (01/16/2025 10:43 PM EDT): LDL goal is less than 55 for this patient was a history of coronary artery disease as well as diabetes; the patient's most recent lipid panel was completed on 01/07/2025 revealing an LDL of 60. This is slightly above goal and we previously had discussed increasing statin dosing to readdress this, especially given recent findings on cardiac cath. The patient declined, wishing to continue to work on lifestyle modifications with improved diet and exercise. He was encouraged to continue with these efforts today. We will continue to readdress this as indicated. Continue atorvastatin 10 mg daily. [place] (myocardial infarction) 09/30/2010 Assessment & Plan (01/16/2025 10:43 PM EDT): Sleep apnea 09/30/2010 Overview (04/02/2024): Not using machine IMO update [facility] Polysomnogram treatment study. Date 04/09/2017. SE 93 [...] study completed recently as ordered by his perianesthesia nurse, Dr. Rios. I have encouraged him to reach out to their office for follow-up regarding these results. The patient reports he has not been wearing his CPAP since falling ill with COVID; the potential long-term implications of inadequately treated sleep apnea were reviewed as they relate to his cardiovascular health. The patient verbalizes understanding. Vitamin D deficiency 09/30/2010 Resolved Problems Problem Noted Date Diagnosed Date Resolved Date Heart failure with recovered ejection fraction (HFrecEF) 02/21/2025 02/21/2025 Chronic combined systolic an d diastolic congestive heart failure 09/29/2023 02/21/2025 Encounters Date Type Department Care Team Description 04/15/2025 Telephone Adult Medicine [address] [phone] Miguel Sousa MD 03/31/2025 4:00 PM EST Office Visit [facility] [address] [facility] [address] [place] [phone] Jacek Damon MD Aneurysm of ascending aorta without rupture (CMS/HCC V24) (Primary Dx); Permanent atrial fibrillation (CMS/HCC V24, CMS/HCC V28); 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; 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 V24, CMS/HCC V28); Essential hypertension, benign; Class 1 obesity with serious comorbidity and body mass index (BMI) of 31.0 to 31.9 in adult, unspecified obesity type 03/19/2025 Results Follow-Up [facility] [address] [facility] [address] [place] [phone] Tessa Prado NP 03/18/2025 1:45 PM EST Lab Draw Station - [address] [phone] Atherosclerotic heart disease of [place] coronary artery without angina pectoris; Chronic combined systolic and diastolic congestive heart failure (CMS/HCC V24, CMS/HCC V28); 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 V24, CMS/HCC V28) 03/13/2025 Telephone Adult Medicine [address] [phone] Miguel Sousa MD 02/28/2025 3:15 PM EDT Office Visit Pulmonology - [place] [address] [facility] [address] [place] [phone] Briseyda Rios MD Mild persistent asthma, unspecified whether complicated (Primary Dx); Sleep apnea, unspecified type 02/24/2025 Telephone [facility] [address] [facility] [address] [place] [phone] Jacek Damon MD 02/24/2025 Telephone Pulmonology - [place] [address] [facility] [address] [place] [phone] Briseyda Rios MD 02/24/2025 Telephone [facility] [address] [phone] Miguel Sousa MD 02/20/2025 3:10 PM EDT Office Visit [facility] [address] [facility] [address] [place] [phone] Shelby Mcneil NP Chronic diastolic congestive heart failure (CMS/HCC V24, CMS/HCC V28) (Primary Dx); Coronary artery disease involving [place] coronary artery of [place] heart, unspecified whether angina present; History of coronary artery bypass graft; Atypical chest pain; Aneurysm of ascending aorta without rupture (CMS/HCC V24); Permanent atrial fibrillation (CMS/HCC V24, CMS/HCC V28); Secondary hypercoagulable state (CMS/HCC V24); Bradycardia; Essential hypertension, benign; Hypercholesteremia; Class 1 obesity with serious comorbidity and body mass index (BMI) of 31.0 to 31.9 in adult, unspecified obesity type 02/19/2025 9:00 AM EDT Office Visit Gastroenterology - [place] [address] [facility] [address] [facility] [address] [place] [phone] Anjali Ryan NP Diverticulosis of colon (Primary Dx); Screening for colorectal cancer 02/14/2025 Results Follow-Up [facility] Cardiology [facility] [address] [facility] [address] [place] [phone] Tessa Prado NP 02/14/2025 Telephone [facility] Cardiology [facility] [address] [place] [phone] Tessa Prado NP 02/10/2025 1:30 PM EDT Ancillary Procedure [facility] [address] [address] [place] [phone] Stenosis of left carotid artery 02/10/2025 Results Follow-Up Adult Medicine [address] [phone] Bebo Yeung NP 01/23/2025 Telephone Adult Medicine [facility] [address] [place] [phone] Bebo Yeung NP 01/16/2025 10:00 AM EDT Office Visit Vascular Surgery - [place] [address] [place] [phone] Niranjan Pandey MD Aneurysm of ascending aorta without rupture (CMS/HCC V24) (Primary Dx); 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 (CMS/HCC V24) 01/16/2025 8:40 AM EDT Office Visit [facility] [address] [address] [place] [phone] Shelby Mcneil NP Chronic diastolic congestive heart failure (CMS/HCC V24, CMS/HCC V28) (Primary Dx); 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; [place] (myocardial infarction); History of coronary artery bypass graft; Aneurysm of ascending aorta without rupture (CMS/HCC V24); Hypercholesteremia; Essential hypertension, benign; Permanent atrial fibrillation (CMS/HCC V24, CMS/HCC V28); Secondary hypercoagulable state (CMS/HCC V24); Stenosis of left carotid artery; Class 1 obesity due to excess calories with serious comorbidity and body mass index (BMI) of 32.0 to 32.9 in adult from Last 3 Months Immunizations Immunization Administration Dates Next Due Influenza trivalent, 0.5mL ( Fluad) 65yo and older 02/01/2024,02/01/2022,01/23/2019,02/09 Influenza trivalent, 0.5mL, preservative free (Fluarix; FluLaval; Fluzone) ages 6mo and older (Afluria) 3 years and older 01/20/2011 Influenza, Unspecified 03/13/2023,03/03/2020 Moderna SARS-CoV-2 COVID-19, mRNA, LNP-S, preservative free 06/02/2022 Pfizer SARS-CoV-2 COVID-19, mRNA, LNP-S, preservative free 07/28/2020,07/07/2020 [...] PROCEDURE: HISTORICAL COLONOSCOPY; COMMENT: small tubular adenoma; [facility]. COLONOSCOPY 04/18/2017 PROCEDURE: HISTORICAL COLONOSCOPY; COMMENT: small polyp fulgurated in sigmoid, poor prep; [email or web address]. No path. UPPER GASTROINTESTINAL ENDOSCOPY 06/01/2006 PROCEDURE: IN UPPER GI ENDOSCOPY PERFORMED; COMMENT: gastric erythema, bx negative for gastritis and neg for H. pylori. UPPER GASTROINTESTINAL ENDOSCOPY 07/21/2017 PROCEDURE: IN UPPER GI ENDOSCOPY PERFORMED; COMMENT: Visually normal, duodenal biopsies: Mild sprue-like lesion. TOTAL KNEE ARTHROPLASTY Left PROCEDURE: IN ARTHRP KNE CONDYLE&PLATU MEDIAL&LAT COMPARTMENTS CARDIAC CATH DONE ON 03/24/2025 AT [facility] INDICATIONS: Chest pain. 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 ([employer] V24, [employer] V28) 09/30/2010 DX:DM type 2 causing neurol ogical disease ([facility]) Morbid obesity due to excess calories ([employer] V24, [employer] V28) 01/25/2017 DX:Morbid obesity due to ex cess calories ([facility]) Anxiety 02/09/2017 DX:Anxiety; COMM ENT: F/u [address] Osteoarthritis 02/09/2017 DX:Osteoarthriti s Asthma 02/09/2017 DX:Asthma BPH (benign prostatic hyperplasia) 03/09/2017 DX:BPH (benign prostatic hyperplasia) Anticoagulated on Coumadin 03/09/2017 DX:An ticoagulated on Coumadin Atrial fibrillation ([employer] V24, [employer] V28) 01/23/2019 DX:Atrial fibrillation (HCC) Dementia ([employer] V24, [employer] V28) 01/23/2019 DX:Dementia ([facility]) CHF (congestive heart failur e) ([employer] V24, [employer] V28) DX:CHF (congestive heart fa ilure) ([facility]) Diverticulosis DX:Diverticulosi s Family History Medical History [...] drink = 0.6 oz pur e alcohol) Housing Instability Answer Date Recorde d Are you worried that in the next 2 months you may not have stable housing? No 10/31/2024 Food Access & Nutrition Answer Date Rec orded Do you have access to a vari ety of food including fruits and vegetables? No 10/31/2024 Access to Healthcare Answer Date Record ed Within the last 3 months, ted bajwa many times did you visit the emergency department for your medical care? 1 10/31/2024 Health Literacy Answer Date Recorded How often do you need to hav e someone help you when you read instructions, pamphlets, or other written material from your doctor or pharmacy? Rarely 10/31/2024 Caregiver: How often do you need to have someone help you when you read instructions, pamphlets, or other written material from your doctor or pharmacy? Not on file 10/31/2024 Financial Risk Answer Date Recorded How hard is it for you to pa y for the very basics like food, housing, medical care, and air conditioning / heating? Not very hard 10/31/2024 Transportation Answer Date Recorded Has the lack of transportati on kept you from meetings, work, or from getting things needed for daily living? Yes Has the lack of transportati on kept you from medical appointments or from getting medications? Yes 10/31/2024 Social Isolation Answer Date Recorded How often do you feel lonely or isolated from th ose around you? Rarely 10/31/2024 Food Risk Answer Date Recorded Within the past 12 months we worried whether our food would run out before we got money to buy more. Never true 10/31/2024 Within the past 12 months th e food we bought just didn't last and we didn't have money to get more. Never true 10/31/2024 Dependent Care Answer Date Recorded Do you need help finding or paying for care for your loved ones. For example, child day care center worker or elderly care for an older adult? No 10/31/2024 Education Answer Date Recorded Do you think completing more education or training, like finishing a GED, going to college, or learning a trade, would be helpful for you? No 10/31/2024 Employment and Income Answer Date Recor ded During the last four weeks, have you been actively looking for work? No 10/31/2024 Living Situation Answer Date Recorded What is your living situation? Unrecognized valu e 10/31/2024 Interpersonal Safety Answer Date Record ed Physical Abuse Unrecognized value 10/31/2024 Verbal Abuse Unrecognized value 10/31/2024 Sex and Gender Information Value Date Recorded Sex Assigned at Not on file Legal Sex Male 5:46 AM EST Gender Identity Not on file Sexual Orientation Not on file Last Filed Vital Signs Vital Sign Reading Time Taken Comments Blood Pressure 120/60 03/31/2025 3:54 PM EST Pulse 64 03/31/2025 3:54 PM EST Temperature 36.6 C (97.8 F) 02/28/2025 3:19 PM EDT Respiratory Rate 20 02/28/2025 3:19 PM EDT Oxygen Saturation 98% 03/31/2025 3:54 PM EST Inhaled Oxygen Concentration - - Weight 110 kg (243 lb) 03/31/2025 3:54 PM EST Height 182.9 cm (6') 03/31/2025 3:54 PM EST Body Mass Index 32.96 03/31/2025 3:54 PM EST Plan of Treatment Upcoming Encounters Date Type Department Care Team (Late st Contact Info) Description 05/15/2025 11:00 AM EST Office Visit Vascular Surgery - [place] [address] [place] [phone] Niranjan Pandey MD [address] [place] [address] 08/29/2025 2:30 PM EDT Office Visit Pulmonology - [place] [address] [facility] [address] [place] [phone] Briseyda Rios MD [address] [place] [phone] Health Maintenance Due Date Last Done Comments Zoster Vaccines (1 of 2) 1964 Colorectal Cancer Screening: Colonoscopy 03/21/2016 03/21/2011 RSV Immunization Adult Patients (1 - 1-dose 75+ series) 2019 Diabetes: Annual Urine Albumin-Creatinine Ratio (uACR) 2025 2024, 12/21/2023 Diabetes: Blood Sugar Control Test (HGBA1C) 09/15/2025 03/18/2025, 02/10/2025, 12/23/2024, Additional history exists Social Influencers of Health Screening 10/31/2025 10/31/2024 Falls Risk Assessment 11/01/2025 11/01/2024, 09/26/2 024 Diabetes: Annual Foot Exam 01/07/2026 01/07/2025, Diabetes: Annual Retina Eye Exam 01/29/2026 01/29/2025, 01/24/2024 Diabetes: Annual GFR (Glomerular Filtration Rate) 03/18/2026 03/18/2025, 02/10/2025, 11/11/2024, Additional history exists Hypertension/CHF/CAD Annual BMP Blood Test 03/18/2026 03/18/2025, 02/10/2025, 11/11/2024, Additional history exists DTaP,Tdap,and Td Vaccines (3 - Td or Tdap) 01/31/2029 01/31/2019, 12/09/2010 Cholesterol Screening (Lipid Panel) 01/07/2030 01/07/2025, 04/10/2023 Pneumococcal Vaccine: 50+ Years Completed 02/09/2017, 12/09/2010 COVID-19 Vaccine Discontinued 03/27/2023, , 05/13/2021, Additional history exists Depression Screening Completed 01/03/2025, 07/20/19 Medicare Annual Wellness Visit Discontinued 01/07/2025 Influenza Vaccine Completed 02/04/2025, , 03/31/2023, Additional history exists HIB Vaccines Aged Out [...] age to complete this topic Meningococcal B Vaccine Aged Out No l onger eligible based on patient's age to complete this topic RSV Immunization Patients Under 20 months Aged Out No longer eligible based on patient's age to complete this topic Varicella Vaccines Aged Out No longer eligible based on patient's age to complete this topic Procedures Procedure Name Priority Date/Time Associated Diagnosis Comments CBC WITH AUTO DIFFERENTIAL Routine 03/18/2025 1:50 PM EST Atherosclerotic heart disease of ch[place] coronary artery without angina pectoris HEMOGLOBIN A1C Routine 03/18/2025 1:50 PM EST 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 V24, CMS/HCC V28) MAGNESIUM Routine 03/18/2025 1:50 PM EST Chronic combined systolic and diastolic congestive heart failure (CMS/HCC V24, CMS/HCC V28) CBC AND DIFFERENTIAL Routine 03/18/2025 1:50 PM EST Atherosclerotic heart disease of [place] coronary artery without angina pectoris BASIC METABOLIC PANEL Routine 03/18/2025 1:50 PM EST Atherosclerotic heart disease of [place] coronary artery without angina pectoris PROTHROMBIN TIME WITH INR Routine 03/18/2025 1:50 PM EST Atherosclerotic heart disease of [place] coronary artery without angina pectoris ECG 12-LEAD Routine 02/22/2025 6:50 AM EDT Chronic diastolic congestive heart failure (CMS/HCC V24, CMS/HCC V28) VAS US DUPLEX CAROTID BILATERAL Routine 02/10/2025 1:24 PM EDT Stenosis of left carotid artery HEMOGLOBIN A1C Routine 02/10/2025 8:33 AM EDT Pneumonia of both lower lobes due to infectious organism Acute respiratory failure with hypoxia (CMS/HCC V24, CMS/HCC V28) Chronic combined systolic and diastolic congestive heart failure (CMS/HCC V24, CMS/HCC V28) 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 V24, CMS/HCC V28) Encounter for examination following treatment at hospital BASIC METABOLIC PANEL Routine 02/10/2025 8:33 AM EDT Chronic diastolic congestive heart failure (CMS/HCC V24, CMS/HCC V28) MAGNESIUM Routine 02/10/2025 8:33 AM EDT Chronic diastolic congestive heart failure (CMS/HCC V24, CMS/HCC V28) EXTERNAL DIABETIC RETINA EYE EXAM 01/29/2025 EXTERNAL VASCULAR ULTRASOUND 01/22/2025 ECG 12-LEAD Routine 01/16/2025 9:05 AM EDT 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 LIPID PANEL WITH REFLEX TO DIRECT LDL Routine 01/07/2025 2:35 PM EDT Encounter for screening for cardiovascular disorders MICROALBUMIN CREATININE URINE RATIO Routine 2024 12:22 PM EST 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 V24, CMS/HCC V28) 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 FALLS RISK ASSESSMENT Routine 02/01/2024 DIABETES FOOT EXAM Routine 02/01/2024 DEPRESSION SCREENING Routine 07/20/2023 from Last 3 Months or Most Recently Relevant to Health Maintenance Results * (ABNORMAL) CBC auto differential (03/18/2025 1:50 PM EST) [facility] Signature WBC 7.4 4.8 - 10.8 K/mcL LAB HEMETOLOGY METHOD 03/18/2025 4:28 PM [facility] RBC 4.40(L) 4.50 - 5.50 M/mcL LAB HEMETOLOGY METHOD 03/18/2025 4:28 PM [facility] Hemoglobin 13.3(L) 13.5 - 17.5 g/dL LAB HEMETOLOGY METHOD 03/18/2025 4:28 PM [facility] LAB Hematocrit 40.7(L) 42.0 - 54.0 % LAB HEMETOLOGY METHOD 03/18/2025 4:28 PM [facility] MCV 91.7 79.0 - 98.0 FL LAB HEMETOLOGY METHOD 03/18/2025 4:28 PM [facility] LAB MCH 30.0 27.0 - 32.0 pcg LAB HEMETOLOGY METHOD 03/18/2025 4:28 PM [facility] LAB MCHC 32.7 32.0 - 37.0 g/dL LAB HEMETOLOGY METHOD 03/18/2025 4:28 PM [facility] RDW 15.1(H) 11.0 - 15.0 % LAB HEMETOLOGY METHOD 03/18/2025 4:28 PM [facility] Platelets 225 130 - 400 K/mcL LAB HEMETOLOGY METHOD 03/18/2025 4:28 PM [facility] MPV 9.8 7.0 - 11.0 FL LAB HEMETOLOGY METHOD 03/18/2025 4:28 PM [facility] NRBC 0.0 <1.0 % LAB HEMETOLOGY METHOD 03/18/2025 4:28 PM [facility] NRBC Absolute 0.00 <0.10 K/mcL LAB HEMETOLOGY METHOD 03/18/2025 4:28 PM [facility] Neutrophils Relative 62.2 % LAB HEMETOLOGY METHOD 03/18/2025 4:28 PM [facility] Lymphocytes Relative 27.2 % LAB HEMETOLOGY METHOD 03/18/2025 4:28 PM [facility] Monocytes Relative 7.9 % LAB HEMETOLOGY METHOD 03/18/2025 4:28 PM [facility] Eosinophils Relative 1.6 % LAB HEMETOLOGY METHOD 03/18/2025 4:28 PM [facility] Basophils Relative 0.8 % LAB HEMETOLOGY METHOD 03/18/2025 4:28 PM [facility] Immature Granulocytes Relative 0.3 % LAB HEMETOLOGY METHOD 03/18/2025 4:28 PM [facility] Neutrophils Absolute 4.63 1.50 - 7.00 K/mcL LAB HEMETOLOGY METHOD 03/18/2025 4:28 PM EST [facility] Lymphocytes Absolute 2.02 1.00 - 5.00 K/mcL LAB HEMETOLOGY METHOD 03/18/2025 4:28 PM EST [facility] Monocytes Absolute 0.59 0.20 - 1.00 K/[facility] LAB HEMETOLOGY METHOD 03/18/2025 4:28 PM EST [facility] Eosinophils Absolute 0.12 0.00 - 0.50 K/[facility] LAB HEMETOLOGY METHOD 03/18/2025 4:28 PM EST [facility] Basophils Absolute 0.06 0.00 - 0.20 K/[facility] LAB HEMETOLOGY METHOD 03/18/2025 4:28 PM EST [facility] Immature Granulocytes Absolute 0.02 0.00 - 0.03 K/[facility] LAB HEMETOLOGY METHOD 03/18/2025 4:28 PM EST [facility] Blood Venous blood specimen / Unknown Venipuncture / Unknown 03/18/2025 1:50 PM EST 03/18/2025 1:50 PM EST Jacek Damon MD LAB BLOOD ORDERABLES Final Resu lt [facility] [address] [place] [address], * (ABNORMAL) Prothrombin time with INR (03/18/2025 1:50 PM EST) Protime 15.7(H) 10.6 - 13.9 sec LAB COAGULATION METHOD 03/18/2025 4:32 PM EST [facility] INR 1.3 LAB COAGULATION METHOD 03/18/2025 4:32 PM EST [facility] Blood Venous blood specimen / Unknown Venipuncture / Unknown 03/18/2025 1:50 PM EST 03/18/2025 1:50 PM EST Jacek Damon MD LAB BLOOD ORDERABLES Final Resu lt Performing Organization Address City/[facility]/ZIP Co de Phone Number [facility] [address] [place] [address], [place] [phone] * (ABNORMAL) Magnesium (03/18/2025 1:50 PM EST) Only the most recent of2 resultswithin the time period is included. Pathologist [facility] Magnesium 1.7(L) 1.9 - 2.6 mg/dL LAB CHEMISTRY METHOD 03/18/2025 5:18 PM EST [facility] Blood Venous blood specimen / Unknown Venipuncture / Unknown 03/18/2025 1:50 PM EST 03/18/2025 1:50 PM EST Tessa Prado NP LAB BLOOD ORDERABLES Final Resu lt Performing Organization Address [facility] Co de Phone Number [facility] [address] [place] [address], [place] [phone] * (ABNORMAL) Hemoglobin A1c (03/18/2025 1:50 PM EST) Only the most recent of2 resultswithin the time period is included. Pathologist [facility] Hemoglobin A1C 7.8(H) <6.5 % LAB CHEMISTRY METHOD 03/18/2025 10:05 PM EST [facility] Mean Bld Glu Estim. 177 mg/dL LAB CHEMISTRY METHOD 03/18/2025 10:05 PM EST [facility] Blood Venous blood specimen / Unknown Venipuncture / Unknown 03/18/2025 1:50 PM EST 03/18/2025 1:50 PM EST Miguel Sousa MD LAB BLOOD ORDERABLES Final Resul t Performing Organization Address City/[facility]/ZIP Co de Phone Number [facility] [address] [place] [address], [place] [phone] * (ABNORMAL) Basic metabolic panel (03/18/2025 1:50 PM EST) Only the most recent of2 resultswithin the time period is included. Sodium 137 133 - 145 mmol/L LAB CHEMISTRY METHOD 03/18/2025 5:18 PM [facility] Potassium 4.7 3.5 - 5.5 mmol/L LAB CHEMISTRY METHOD 03/18/2025 5:18 PM [facility] Chloride 100 96 - 110 mmol/L LAB CHEMISTRY METHOD 03/18/2025 5:18 PM [facility] CO2 34(H) 21 - 32 mmol/L LAB CHEMISTRY METHOD 03/18/2025 5:18 PM [facility] Anion Gap 3 3 - 11 LAB CHEMISTRY METHOD 03/18/2025 5:18 PM [facility] Glucose 201(H) 70 - 100 mg/dL LAB CHEMISTRY METHOD 03/18/2025 5:18 PM [facility] BUN 16 5 - 25 mg/dL LAB CHEMISTRY METHOD 03/18/2025 5:18 PM [facility] Creatinine 1.05 0.70 - 1.30 mg/dL LAB CHEMISTRY METHOD 03/18/2025 5:18 PM [facility] eGFR 72 >=60 mL/min/1. 73m2 LAB CHEMISTRY METHOD 03/18/2025 5:18 PM [facility] Comment:Calculation based on the Chronic Kidney Disease Epidemiology Collaboration (CKD-EPI) equation refit without adjustment for race. BUN/Creatinine Ratio 15.2 LAB CHEMISTRY METHOD 03/18/2025 5:18 PM [facility] Calcium 9.4 8.5 - 10.5 mg/dL LAB CHEMISTRY METHOD 03/18/2025 5:18 PM [facility] Blood Venous blood specimen / Unknown Venipuncture / Unknown 03/18/2025 1:50 PM EST 03/18/2025 1:50 PM EST Jacek Damon MD LAB BLOOD ORDERABLES Final Resu lt [facility] [address] [place] [address], [place] [phone] * ECG 12 lead (02/22/2025 6:50 AM EDT) Only the most recent of2 resultswithin the time period is included. Ventricular Rate ECG 53 BPM GEMUSE Atrial Rate 375 BPM GEMUSE QRS Duration 96 ms GEMUSE Q-T Interval 452 ms GEMUSE QTc 424 ms GEMUSE R [place] 62 degrees GEMUSE T [place] 78 degrees GEMUSE ECG Interpretation Atrial fibrillation with slow ventricular response Abnormal ECG When compared with ECG of 16-JAN-2025 08:54, No significant change was found Confirmed by Cami GOINS JOHN ([id number]) on 02/26/2025 7:47:01 PM GEMUSE 02/20/2025 3:14 PM EDT 02/26/2025 7:47 PM EDT Shelby Mcneil [employer] ECG ORDERABLES Edite d Result - Final GEMUSE * Vascular US duplex carotid bilateral (02/10/2025 1:24 PM EDT) Left CCA dist sys 95 cm/s CV VAS LAB Left CCA dist [place] 19 cm/s CV VAS LAB LEFT COMMON CAROTID ARTERY MID S 113 cm/s CV VAS LAB LEFT COMMON CAROTID ARTERY MID D 17 cm/s CV VAS LAB Left CCA prox sys 96 cm/s CV VAS LAB Left CCA prox [place] 13 cm/s CV VAS LAB Left ICA dist sys 85 cm/s CV VAS LAB Left ICA dist [place] 14 cm/s CV VAS LAB Left ICA mid sys 83 cm/s CV VAS LAB Left ICA mid [place] 19 cm/s CV VAS LAB Left ICA prox sys 110 cm/s CV VAS LAB Left ICA prox [place] 19 cm/s CV VAS LAB Left ECA sys 116 cm/s CV VAS LAB Left Prox Subclavian PSV 116 cm/s CV VAS LAB Left vertebral sys 62 cm/s CV VAS LAB Right cca dist sys 91 cm/s CV VAS LAB Right CCA dist [place] 16 cm/s CV VAS LAB RIGHT COMMON CAROTID ARTERY MID S 86 cm/s CV VAS LAB RIGHT COMMON CAROTID ARTERY MID D 18 cm/s CV VAS LAB Right CCA prox sys 82 cm/s CV VAS LAB Right CCA prox [place] 14 cm/s CV VAS LAB Right ICA dist sys 99 cm/s CV VAS LAB Right ICA dist [place] 26 cm/s CV VAS LAB Right ICA mid sys 83 cm/s CV VAS LAB Right ICA mid [place] 21 cm/s CV VAS LAB Right ICA prox sys 71 cm/s CV VAS LAB Right ICA prox [place] 16 cm/s CV VAS LAB Right eca sys 114 cm/s CV VAS LAB RIGHT EXTERNAL CAROTID ARTERY D 13 cm/s CV VAS LAB Right Prox Subclavian PSV 94 cm/s CV VAS LAB Right vertebral sys 65 cm/s CV VAS LAB Anatomical Region Laterality Modality Vascular, Abdomen Ultrasound Narrative 02/13/2025 1:23 PM EDT Right ICA: There is minimal heterogeneous plaque. Left ICA: There is minimal heterogeneous plaque. RIGHT. 1. There is atherosclerotic plaque in the carotid system as noted below. 2. There is less than 50% stenosis in the internal carotid artery based on Doppler velocity. 3. The subclavian artery has normal Doppler flow pattern. 4. Vertebral artery has normal antegrade flow. LEFT. 1. There is atherosclerotic plaque in the carotid system as noted below. 2. There is less than 50% stenosis in the internal carotid artery based on Doppler velocity. 3. The subclavian artery has normal Doppler flow pattern. 4. Vertebral artery has normal antegrade flow. Right Carotid The CCA has minimal heterogeneous plaque. The ICA has minimal heterogeneous plaque. The ECA has minimal heterogeneous plaque. Vertebral flow is antegrade. Left Carotid The CCA has minimal heterogeneous plaque. The ICA has minimal heterogeneous plaque. The ECA has minimal heterogeneous plaque. Vertebral flow is antegrade. Shelby Meghann Peloquin [employer] CV VASCULAR PROCEDURE S Final Result * External Diabetic Retina Eye Exam Report (01/29/2025) Anatomical Region Laterality Modality Ultrasound us Provider [facility] IM[facility] US PROCEDURES Final Result * External Vascular Ultrasound (01/22/2025) Anatomical Region Laterality Modality [facility]tras[facility]ED[facility] F inal Result * (ABNORMAL) Lipid panel with reflex to direct LDL (01/07/2025 2:35 PM EDT) Cholesterol 135 0 - 200 mg/dL LAB CHEMISTRY METHOD 01/07/2025 8:56 PM EDT [facility] Triglycerides 187(H) 0 - 150 mg/dL LAB CHEMISTRY METHOD 01/07/2025 8:56 PM EDT [facility] HDL 38(L) >=40 mg/dL LAB CHEMISTRY METHOD 01/07/2025 8:56 PM EDT [facility] LDL Calculated 60 0 - 100 mg/dL LAB CHEMISTRY METHOD 01/07/2025 8:56 PM EDT [facility] Comment:Estimated LDL Calcul ated using equation: Total cholesterol - HDL cholesterol - (Triglycerides/5) VLDL Cholesterol Santy 37.4 mg/dL LAB CHEMISTRY METHOD 01/07/2025 8:56 PM EDT [facility] Non HDL Chol. (LDL+VLDL) 97 <145 mg/dL LAB CHEMISTRY METHOD 01/07/2025 8:56 PM EDT [facility] Chol/HDL Ratio 3.6 0.0 - 4.4 LAB CHEMISTRY METHOD 01/07/2025 8:56 PM EDT [facility] Blood Venous blood specimen / Unknown Venipuncture / Unknown 01/07/2025 2:35 PM EDT 01/07/2025 2:35 PM EDT Bebo Yeung PIPE CREW FOREMAN LAB BLOOD ORDERABLES Final R esult [facility] [address] [place] [address], [place] [phone] * (ABNORMAL) Microalbumin creatinine urine ratio (2024 12:22 PM EST) [facility] Creatinine, Urine 290.0 mg/dL LAB CHEMISTRY METHOD 2024 3:43 PM EST [facility] Microalb, Ur 972.0(H) 0.0 - 29.0 mg/L LAB CHEMISTRY METHOD 2024 3:43 PM EST [facility] Microalb/Crea t Ratio 335(H) <30 mg/g creat LAB CHEMISTRY METHOD 2024 3:43 PM EST [facility] Urine Urine specimen obtained by clean catch procedure / Unknown Non-blood Collection / Unknown 2024 12:22 PM EST 2024 12:22 PM EST Miguel Sousa MD LAB URINE ORDERABLES Final Resul t [facility] [address] [place] [address], [place] [phone] * Falls Risk Assessment (02/01/2024) [facility] Falls Risk Assessment abstracted Historical Velasquez [facility] Final Result * Diabetes Foot Exam (02/01/2024) [facility] Diabetes: Annual Foot Exam abstracted Fe Eng MD HEALTH MAINTENANCE Final Result * Depression Screening (07/20/2023) [facility] Depression Screening abstracted Fe Eng MD HEALTH MAINTENANCE Final Result from Last 3 Months or Most Recently Relevant to Health Maintenance Insurance [address] [place] [address] [facility] Member Subscriber Plan / Payer (Ef fective 2023-Present) Name:Chandra De León Relation to Subscriber:Self Name:Chandra De León Payer ID:[id number] Group ID:[id number] Type:Not on file Address: [place] [address] [place] [address] Advance Directives Documents on File Type Date Recorded Patient Table Tender Expl anation Health Care Decision (hx) 02/22/2019 [...] Care Decision (hx) 02/22/2019 AD BUNCH DIRECTIVE * Full Code - Default (Latest Code Status on File) Date Activated Date Inactivated Comments 10/31/2024 3:05 AM 11/01/2024 3:32 PM This is orde r is used when code status has not been discussed with the patient, or code status is otherwise unknown/unconfirmed To update the patient's code status, place a code status order. Do not modify or discontinue any currently active code status orders. [employer] Executive Security Relationship Specialty Start Date End Date Miguel Sousa MD [address] [place] [address] PCP - General Internal Medicine 04/18/17
--- OUTSIDE RECORDS SUMMARY | 2025-04-16 20:07 | XMS_ITS | Clinical Summary ---
Author Organization [facility] Address [address] [place] [address] Phone Care Team Providers Care Energy Risk Management Analyst Name Role Phone Unavailable Primary Care Provider Unavailabl e Social History Tobacco Use Types Packs/Day Years Used Date Smoking Tobacco: Never Assessed Education Answer Date Recorded Are you interested in more education? Not on batsheva e 09/02/2022 Are you concerned about learning? Not on file 09/02/2022 No 09/02/2022 No 09/02/2022 Digital Access Answer Date Recorded No 10/04/2022 No 10/04/2022 Reliable internet access at home? Not on file 10/04/2022 Device with a working camera? Not on file Sex and Gender Information Value Date Recorded Sex Assigned at Not on file Legal Sex Male 8:57 AM EDT Gender Identity Not on file Sexual Orientation Not on file Plan of Treatment Not on file Medical Devices Not on file Additional Source Comments The information contained in this document represents components of the legal health record. It is not the complete legal health record.[facility]
--- OUTSIDE RECORDS SUMMARY | 2025-04-16 20:07 | XMS_ITS | Patient Health Record ---
Author Organization [facility] Address [address] [facility] [place] [address] Care Team Providers Care Forklift Truck Mechanic Name Role Phone Sherry Randle Primary Care Provider Unavail able Michaela Goldman Unavailable [phone] Allergies Allergen (clinical drug ingredient) Drug/Non Drug Allergy documented on EMR Reaction Allergy Type Onset Date Status lisinopril Lisinopril swelling Drug Allergy Activ e Penicillin Unknown Drug Allergy Active Results Component Value Reference Range Notes HEMOGLOBIN A1C (GLYCOHEMOGLO BIN) Reviewed date:09/20/2024 01:07:36 PM Interpretation: Performing Lab: Notes/Report: HEMOGLOBIN A1C % (HH) 8.0 HEMOGLOBIN A1C (GLYCOHEMOGLO BIN) Reviewed date:05/31/2024 01:43:14 PM Interpretation: Performing Lab: Notes/Report: HEMOGLOBIN A1C % (HH) 8.0 HEMOGLOBIN A1C (GLYCOHEMOGLO BIN) Reviewed date:04/01/2025 03:14:42 PM Interpretation: Performing Lab: Notes/Report: HEMOGLOBIN A1C % (HH) 7.8 Reason For Referral No Information Medications Medication SIG (Take, Route, Frequency, Duration) Notes Start Date End Date Status Clotrimazole-Betamethaso ne 1-0.05 % 1 application to affected area Externally Twice a day to affected areas on feet; Duration: 30 days Not-Taking Ciclopirox Olamine 0.77 % 1 application to affected area Externally Twice a day to effected areas on feet; Duration: 30 days Not-Taking amLODIPine Besylate Not-Taking Carvedilol Active LamISIL 250 MG 1 tablet Orally Once a day; Duration: 7 days 02/21/2023 Not-Taking Extra Depth Diabetic Shoes with 3 Pair Custom heat-molded multi-density innersoles for 1 year Dx: N ot-Taking Ciclopirox Olamine 0.77 % 1 application Externally Twice a day to skin of feet including between the toes; Duration: 30 days Not-Taking Vitamin C Active Metformin & Diet Manage Prod Active Eye Cup Active Vitamin B 12 Active Trulicity Active Social History Tobacco Use: Social History Observation Description Date Details (start date - stop date) Never Smoker NA - NA Tobacco use other than smoking: Question Answer Notes Are you an other tobacco user? No Tobacco Control (Standard) Question Answer Notes Tobacco use: Nonsmoker Additional Findings: Tobacco non-user Current no nsmoker AUDIT-C (Standard) Question Answer Notes Did you have a drink containing alcohol in the p ast year? No Points 0 Interpretation Negative Problems Problem Type SNOMED Code ICD Code Onset Dates Problem Status W/U Status Risk Notes Problem Polyneuropathy due to type 2 diabetes mellitus (168047651) Type 2 diabetes mellitus with diabetic polyneuropathy (E11.42) Active confirmed Vital Signs Heart Rate 64 /min 12/27/2024 Blood pressure diastolic 68 R mm Hg 12/27/2024 Height 6ft 1in in 04/01/2025 Blood pressure systolic 123 mm Hg 12/27/2024 Weight 240 lbs 04/01/2025 BMI 31.66 kg/m2 04/01/2025 Procedures Procedure Date Ordered Date Performed Result Body Sit e 79850-RCSRMZG NAIL, 6 OR MORE 05/31/2024 N/A 52543-WNPF SKIN LESIONS, OVER 4 05/31/2024 N/A 57306-OGAIZLB NAIL, 6 OR MORE 09/20/2024 N/A Encounters Encounter Location Date Provider Diagnosis [facility] [address] 05/31/2024 Michaela Goldman Tinea pedis of both feet B35.3 ; Type 2 diabetes mellitus with diabetic polyneuropathy E11.42 and Tinea unguium B35.[address] [facility] [address] 09/20/2024 Michaela Goldman Other hammer toe(s) (acquired), right foot M20.41 ; Other hammer toe(s) (acquired), left foot M20.42 ; Type 2 diabetes mellitus with diabetic polyneuropathy E11.42 and Tinea unguium B35.1 [facility] [address] [address] 12/27/2024 Michaela Goldman Type 2 diabetes mellitus with diabetic polyneuropathy E11.42 and Tinea unguium B35.1 [place] [address] [address] 04/01/2025 Michaela Goldman Type 2 diabetes mellitus with diabetic polyneuropathy E11.42 and Tinea unguium B35.[address] [address] 04/17/2024 Michaela Goldman Assessments Encounter Date Diagnosis (ICD Code) Assessment Notes Treatment Notes Treatment Clinical Notes Section Notes 05/31/2024 Tinea pedis of both feet (ICD-10 - B35.3) 09/20/2024 Other hammer toe(s) (acquired), right foot (ICD-10 - M20.41) Response to treatment,Impro vement 09/20/2024 Other hammer toe(s) (acquired), left foot (ICD-10 - M20.42) Response to treatment,Impro vement 05/31/2024 Type 2 diabetes mellitus with diabetic polyneuropathy (ICD-10 - E11.42) 05/31/2024 Tinea unguium (ICD-10 - B35.1) 09/20/2024 Type 2 diabetes mellitus with diabetic polyneuropathy (ICD-10 - E11.42) 09/20/2024 Tinea unguium (ICD-10 - B35.1) 12/27/2024 Type 2 diabetes mellitus with diabetic polyneuropathy (ICD-10 - E11.42) 12/27/2024 Tinea unguium (ICD-10 - B35.1) 04/01/2025 Type 2 diabetes mellitus with diabetic polyneuropathy (ICD-10 - E11.42) 04/01/2025 Tinea unguium (ICD-10 - B35.1) Plan Of Treatment Pending Test Test Name Order Date 35104-[id number] NAIL, 6 OR MORE 04/19/2022 52014-WGWEZTR NAIL, 6 OR MORE 05/31/2024 39294-ZEKLQCA NAIL, 6 OR MORE 09/20/2024 80055-ZUKZ SKIN LESIONS, OVER 4 05/31/19 69566-DNVK SKIN LESIONS, OVER 4 01/19/20 62892-UOFY SKIN LESIONS, OVER 04/19/20 Next Appt Details Provider Name:Michaela alcaraz, 07/04/2025 01:45:00 PM, [address] [facility], [address], [place], [address], Insurance Providers Payer Name Payer Address Payer Phone Subscriber Number Group Number Insured Name Patient Relationship to Insured Coverage Start Date Coverage End Date [facility] [employer] Claims [address] [place] [id number] Chandra De León Self - patient is the insured Medical (General) History Medical History History ICD Code Diabetic High blood pressure covid-19 Surgical History Surgery Date(Month/Year) cataracts, right 10/11/23 catheterization 2024 Hospitalization History Reason Date(Month/Year) allergic reaction to Lisinopril, swellin g 2024 [facility] 12/2023 [facility]- UTI, diverticulosis 09/2022 covid 12/2021
--- OUTSIDE RECORDS SUMMARY | 2025-04-16 20:07 | XMS_ITS | Clinical Summary ---
Author Organization [employer] Address [address] [facility] 7t [place] [address] Care Team Providers Care Firmware Manager Name Role Phone Unavailable Primary Care Provider Unavailabl e Immunizations Immunization Administration Dates Next Due Pfizer Covid-19 Vaccine [...] Alcohol/Substance Use Screening 1957 Tobacco Screening 1957 Zoster Vaccines (1 of 2) 1994 DTaP/Tdap/Td Vaccines (1 - Tdap) 02/01/2019 01/31/2019, 12/09/2010 RSV Patients and Patients Aged 60 years or older (1 - 1-dose 75+ series) 2019 COVID-19 Vaccine (5 - season) 2025 06/02/2022, 05/13/2021, 07/28/2020, Additional history exists Influenza Vaccine (#1) 2025 , 03/13/2023, 02/01/2022, Additional history exists Pneumococcal Vaccine: 50+ Years [...] patient's age to complete this topic Insurance [facility] DUAL COMPLETE
--- OUTSIDE RECORDS SUMMARY | 2025-04-16 20:07 | XMS_ITS | Encounter Summary ---
Author Organization [facility] Address [address] [place] [address] Care Team Providers Care Notching Press Operator Name Role Phone Miguel Sousa MD Primary Care Provider [phone] Encounter Details Date Type Department Care Team ([facility] st Contact Info) Description 03/19/2025 Results Follow-Up [facility] [address] [facility] [address] [place] [address] Tessa Prado NP [address] [place] [address] [place] [address] Social History Tobacco Use Types Packs/Day Years [...] Record ed Within the last 3 months, ho w many times did you visit the emergency [...] for your loved ones. For example, child psychologist or elderly care for an older adult? [...] on file documented as of this encounter Functional Status * Are you deaf or do you have serious difficulty hearing? Answer Date of Assessment Author No 10/30/2024 8:33 PM Irina Finnegan RN * Are you blind or do you have serious difficulty seeing, even when wearing glasses? Answer Date of Assessment Author No 10/30/2024 8:33 PM Irina Finnegan RN * Do you have serious difficulty walking or climbing stairs? Answer Date of Assessment Author No 10/30/2024 8:33 PM EDT Irina Lind RN * Do you have serious difficulty dressing or bathing? Answer Date of Assessment Author No 10/30/2024 8:33 PM EDT Irina Lind RN * Because of a physical, mental, or emotional condition, do you have serious difficulty doing errandsalone such as visiting the doctor? Answer Date of Assessment Author No 10/30/2024 8:33 PM EDT Irina Lind RN documented as of this encounter Mental Status * Because of a physical, mental, or emotional condition, do you have serious difficulty concentrating, remembering, or making decisions? (5 years old or older) Answer Entry Date Author No 10/30/2024 8:33 PM EDT Irina Lind RN documented in this encounter Plan of Treatment Upcoming Encounters Date Type Department Care Team (Late st Contact Info) Description 05/15/2025 11:00 AM EST Office Visit Vascular Surgery - [place] [address] [place] [address] Niranjan Pandey MD [address] [facility] [address] [place] [address] 08/29/2025 2:30 PM EDT Office Visit Pulmonology - [place] [address] [facility] [address] [place] [phone] Briseyda Rios MD [address] [place] [phone] documented as of this encounter Visit Diagnoses Not on filedocumented in this encounter Additional Health Concerns Assessment Noted Time PHQ-9 Depression Total Score: 0 09/19/19 25 6:09 PM EDT documented as of this encounter Care Teams Notching Press Operator Relationship Specialty Start Date End Date Miguel Sousa MD [address] [place] [address] PCP - General Internal Medicine 04/18/17 documented as of this encounter
--- OUTSIDE RECORDS SUMMARY | 2025-04-16 20:08 | XMS_ITS | Encounter Summary ---
Author Organization [facility] Address [address] [place] [address] Care Team Providers Care Computer Technology Trainer Name Role Phone Miguel Sousa MD Primary Care Provider [phone] Encounter Details Date Type Department Care Team (Late st Contact Info) Description 02/10/2025 Results Follow-Up Adult Medicine [facility] [address] [place], [place] [phone] Bebo Yeung NP [address] [place], [place] Social History Tobacco Use Types Packs/Day Years [...] for your loved ones. For example, child guidance counselor or elderly care for an older adult? [...] Author No 10/30/2024 8:33 PM EDT Irina Lind, RN * Are you blind or do [...] AM EST Office Visit Vascular Surgery - [place] [address] [place] [address] Niranjan Pandey MD [address] [address] 08/29/2025 2:30 PM EDT Office Visit Pulmonology - [place] [address] [facility] [address] [place] [phone] Briseyda Rios MD [address] [place] [phone] documented as of this encounter Visit Diagnoses Not on filedocumented in this encounter Additional Health Concerns Assessment Noted Time PHQ-9 Depression Total Score: 0 09/19/19 6:09 PM EDT documented as of this encounter Care Teams Computer Technology Trainer Relationship Specialty Start Date End Date Miguel Sousa MD [address] [place] [address] PCP - General Internal Medicine 04/18/17 documented as of this encounter
--- OUTSIDE RECORDS SUMMARY | 2025-04-16 20:08 | XMS_ITS | Encounter Summary ---
Author Organization [facility] Address [address] [place] [address] Care Team Providers Care Professional Builder Name Role Phone Miguel Sousa MD Primary Care Provider [phone] Reason for Visit * Reason Onset Date Comments Medication Problem 04/15/2025 Encounter Details Date Type Department Care Team ([facility] Contact Info) Description 04/15/2025 Telephone Adult Medicine [facility] [address] [place] [phone] Miguel Sousa MD [address] [place] [address] Social History Tobacco Use Types Packs/Day Years [...] for your loved ones. For example, child care associate teacher or elderly care for an older adult? [...] 8:33 PM EDT Irina Lind RN * Are you blind or do [...] Entry Date Author No 10/30/2024 8:33 PM Irina Finnegan RN documented in this encounter Progress Notes * Georgie Rossi MA - 04/15/2025 11:42 AM EST Pt no showed 04/10 visit ,please contact to schedule * Georgie Rossi MA - 04/15/2025 11:42 AM EST Too soon last rx should last until 06/2025 90 with 3 refills given * Nataliia Ramirez - 04/15/2025 10:51 AM EST Medication Problem: What is the name of the medication patient is having a problem with?: atorvastatin (LIPITOR) 10 mg tablet What is the problem?: Patient no longer uses [facility], Requesting new script to be sent to [facility] Who is calling about the problem? : [facility] Is this a NEW medication?: no How long has the patient been taking this medication? 07/02 Who prescribed this medication for the patient? Shay Cartagena Who is patients PCP?: Miguel Sousa MD Payor: [facility] / Plan: [facility] / Product Type: *No Product type* / documented in this encounter Plan of Treatment Upcoming Encounters Date Type Department Care Team (Late st Contact Info) Description 05/15/2025 11:00 AM EST Office Visit Vascular Surgery - [place] [address] [place] [phone] Niranjan Pandey MD [address] [place] [address] [place] [address] 08/29/2025 2:30 PM EDT Office Visit Pulmonology - [place] [address] [facility] [address] [place] [address] Briseyda Rios MD [address] [place] [phone] documented as of this encounter Visit Diagnoses Not on filedocumented in this encounter Additional Health Concerns Assessment Noted Time PHQ-9 Depression Total Score: 0 09/19/19 25 6:09 PM EDT documented as of this encounter Care Teams Professional Builder Relationship Specialty Start Date End Date Miguel Sousa MD [address] [place] [address] PCP - General Internal Medicine 04/18/17 documented as of this encounter
--- OUTSIDE RECORDS SUMMARY | 2025-04-16 20:08 | XMS_ITS ---
Author Organization [facility] [address] [facility] Address [address] [place] [address] Phone Care Team Providers Care Rubber Factory Worker Name Role Phone Miguel Sousa MD Primary Care Provider [phone] Active Problems Problem Noted Date Diagnosed Date [...] without complication 09/06 Cataract 09/20/2023 Overview (04/02/2024): [facility] Stenosis of left carotid artery 08/29/2023 Overview [...] Non-small cell lung cancer 07/06/2021 Overview (04/02/2024): [facility] oncology, [facility] Pulmo SOB (shortness of breath) 05/11/2021 Bradycardia [...] is anticoagulated with Xarelto for cardioembolic prophylaxis ([id number] score of 6). The risks and benefits [...] is anticoagulated with Xarelto for cardioembolic prophylaxis ([id number] score of 6). The risks and benefits [...] is anticoagulated with Xarelto for cardioembolic prophylaxis ([id number] score of 6). The risks and benefits [...] 6 years ago, after a doctor in [place] placed him on donepezil. At the time, [...] (04/02/2024): Episode of diverticulitis per CT at [facility] 01/2011. Third episode 03/2011. 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 Continue atorvastatin 10 mg daily. Old [place] (myocardial infarction) 09/30/2010 Assessment & Plan (01/16/2025 10:43 PM EDT): Sleep apnea 09/30/2010 Overview (04/02/2024): Not using machine IMO update [facility] Polysomnogram treatment study. Date 04/09/2017. [address] [...] study completed recently as ordered by his criminal justice social worker, Dr. Rios. I have encouraged him to reach out to their office for follow-up regarding these results. The patient reports he has not been wearing his CPAP since falling ill with COVID; the potential long-term implications of inadequately treated sleep apnea were reviewed as they relate to his cardiovascular health. The patient verbalizes understanding. Vitamin D deficiency 09/30/2010 Current Treatment and Therapy Plans No current plan information found. Past Treatment and Therapy Plans No past plan information found. Lifetime Dose Tracking * Chemical Lifetime Dose Automatic Entry Manual Entr y CTDIvol 15.32 mGy 15.32 mGy 0 mGy Resolved Problems Problem Noted Date Diagnosed Date Resolved Date Heart failure with recovered ejection fraction (HFrecEF) 02/21/2025 02/21/2025 Chronic combined systolic an d diastolic congestive heart failure 09/29/2023 02/21/2025
--- OUTSIDE RECORDS SUMMARY | 2025-04-16 20:08 | XMS_ITS | Encounter Summary ---
Author Organization [facility] Address [address] [place] [address] Care Team Providers Care Bobbin Fixer Name Role Phone Miguel Sousa MD Primary Care Provider [phone] Encounter Details Date Type Department Care Team ([facility] st Contact Info) Description 02/14/2025 Results Follow-Up [facility] [address] [facility] [address] [place] [address] Tessa Prado NP [address] [place] [address] [place] [address] Social History Tobacco Use Types Packs/Day Years [...] for your loved ones. For example, child custody evaluator or elderly care for an older adult? [...] AM EST Office Visit Vascular Surgery - [place] [address] [place] [address] Niranjan Pandey MD [address] [facility] [address] [place] [address] 08/29/2025 2:30 PM EDT Office Visit Pulmonology - [place] [address] [facility] [address] [place] [phone] Briseyda Rios MD [address] [place] [phone] documented as of this encounter Visit Diagnoses Not on filedocumented in this encounter Additional Health Concerns Assessment Noted Time PHQ-9 Depression Total Score: 0 09/19/19 25 6:09 PM EDT documented as of this encounter Care Teams Bobbin Fixer Relationship Specialty Start Date End Date Miguel Sousa MD [address] [place] [address] PCP - General Internal Medicine 04/18/17 documented as of this encounter
== END 2025-04-16 13:48 | disposition home or self-care (01) ==
LOC: HO.HSMS 13:03
PROVIDERS: PCP Internal Medicine; Visit Provider Nurse Practitioner Family
DX: R25.1 Tremor, unspecified (principal); G57.93 Unspecified mononeuropathy of bilateral lower limbs; J32.3 Chronic sphenoidal sinusitis; R26.9 Unspecified abnormalities of gait and mobility
CPT/HCPCS: 99214

== ENCOUNTER → 2025-04-16 13:03 | Outpatient (BNVA) | payer OTHER, SELFPAY | PROVIDERS: PCP Internal Medicine; Visit Provider Nurse Practitioner Family | DX: J32.3 Chronic sphenoidal sinusitis (principal); R25.1 Tremor, unspecified; G57.93 Unspecified mononeuropathy of bilateral lower limbs; R26.9 Unspecified abnormalities of gait and mobility; Z79.899 Other long term (current) drug therapy | CPT/HCPCS: 99212 ==